=== PATIENT | female | born 1975 | race Caucasian/White ===

== ENCOUNTER → 2017-10-27 14:33 | Outpatient (CLI) | payer OTHER, SELFPAY ==
--- NOTE | 2017-10-27 14:36 | BI_ITS ---
MAMMOGRAPHY - BILATERAL SCREENING REASON FOR EXAM: Female, 41 years old. Routine annual screening examination. PERTINENT HISTORY: Non-contributory. TECHNIQUE: Digital bilateral breast robert (3D mammographic acquisition) in the CC and MLO projections. 2-D mediolateral oblique (MLO) and craniocaudad (CC) views of both breasts were obtained. CAD: Full Field Digital Mammography with Computer Added Detection was performed. COMPARISON: Comparison is made with prior study dated October 12, 2016 and September 24, 2015. FINDINGS: Breast Composition: The breasts are extremely dense, which lowers the sensitivity of mammography. There are no dominant masses or suspicious calcifications. No other significant abnormalities are identified. There has been no significant change since the prior study. BI/SCREENING MAMM (CAD), BILAT IMPRESSION: Stable bilateral screening mammogram. Yearly follow-up mammogram recommended. (A) ASSESSMENT CATEGORY: BIRADS Category 1: Negative. A letter regarding these results will be sent to the patient by the facility within 30 days. Approximately 10% of breast cancers are not detected by mammography. A normal mammogram should not delay biopsy of a clinically suspicious abnormality. [id number] Electronically Signed: Jean Pierre Simmons MD at 15:35 EDT Tel [phone], Service support ,
== END ==
PROVIDERS: Visit Provider Obstetrics & Gynecology
DX: Z12.31 Encounter for screening mammogram for malignant neoplasm of breast (principal)
CPT/HCPCS: 77063; 77067

== ENCOUNTER → 2018-10-30 13:45 | Outpatient (CLI) | payer OTHER, SELFPAY ==
--- NOTE | 2018-10-30 13:48 | BI_ITS ---
MAMMOGRAPHY - BILATERAL SCREENING REASON FOR EXAM: Female, 42 years old. Routine annual screening examination. PERTINENT HISTORY: Non-contributory. TECHNIQUE: Digital bilateral breast taurus (3D mammographic acquisition) in the CC and MLO projections. 2-D mediolateral oblique (MLO) and craniocaudad (CC) views of both breasts were obtained. CAD: Full Field Digital Mammography with Computer Added Detection was performed. COMPARISON: Comparison is made with prior study dated October 27, 2017 and October 12, 2016. FINDINGS: Breast Composition: The breasts are extremely dense, which lowers the sensitivity of mammography. There are no dominant masses or suspicious calcifications. No other significant abnormalities are identified. There has been no significant change since the prior study. BI/SCREEN MAMM (CAD) W/TAURUS BILAT IMPRESSION: Stable bilateral screening mammogram. Yearly follow-up mammogram recommended. (A) ASSESSMENT CATEGORY: BIRADS Category 1: Negative. A letter regarding these results will be sent to the patient by the facility within 30 days. Approximately 10% of breast cancers are not detected by mammography. A normal mammogram should not delay biopsy of a clinically suspicious abnormality. [id number] Electronically Signed: Jean Pierre Simmons, at 15:21 EDT , Service support ,
== END ==
PROVIDERS: Referring Provider Obstetrics & Gynecology; Visit Provider Obstetrics & Gynecology
DX: Z12.31 Encounter for screening mammogram for malignant neoplasm of breast (principal)
CPT/HCPCS: 77063; 77067

== ENCOUNTER → 2020-03-01 08:59 | Outpatient (CLI) | payer OTHER, SELFPAY ==
--- NOTE | 2020-03-01 09:03 | BI_ITS ---
MAMMOGRAPHY - BILATERAL SCREENING REASON FOR EXAM: Female, 44 years old. Routine annual screening examination. PERTINENT HISTORY: Non-contributory. TECHNIQUE: Digital bilateral breast taurus (3D mammographic acquisition) in the CC and MLO projections. 2-D mediolateral oblique (MLO) and craniocaudad (CC) views of both breasts were obtained. CAD: Full Field Digital Mammography with Computer Added Detection was performed. COMPARISON: Comparison is made with prior study dated 10/30/2018 and 10/27/2017. FINDINGS: Breast Composition: The breasts are extremely dense, which lowers the sensitivity of mammography. There are no dominant masses or suspicious calcifications. Stable benign-appearing bilateral axillary lymph nodes. No other significant abnormalities are identified. There has been no significant change since the prior study. BI/SCREEN MAMM (CAD) W/TAURUS BILAT IMPRESSION: Stable bilateral screening mammogram. Yearly follow-up mammogram recommended. (A) ASSESSMENT CATEGORY: BIRADS Category 2: Benign. A letter regarding these results will be sent to the patient by the facility within 30 days. Approximately 10% of breast cancers are not detected by mammography. A normal mammogram should not delay biopsy of a clinically suspicious abnormality. [id number] Electronically Signed: Jean Pierre Simmons, at 8:37 EST , Service support ,
== END ==
PROVIDERS: Referring Provider Student in an Organized Health Care Education/Training Program; Visit Provider Student in an Organized Health Care Education/Training Program
DX: Z12.31 Encounter for screening mammogram for malignant neoplasm of breast (principal)
CPT/HCPCS: 77063; 77067

== ENCOUNTER 2021-05-18 07:53 | Outpatient (CLI) | payer OTHER, SELFPAY ==
--- NOTE | 2021-05-18 07:55 | BI_ITS ---
MAMMOGRAPHY - BILATERAL SCREENING REASON FOR EXAM: Female, 45 years old. Routine annual screening examination. PERTINENT HISTORY: Non-contributory. TECHNIQUE: Digital bilateral breast taurus (3D mammographic acquisition) in the CC and MLO projections. 2-D mediolateral oblique (MLO) and craniocaudad (CC) views of both breasts were obtained. CAD: Full Field Digital Mammography with Computer Added Detection was performed. COMPARISON: Comparison is made with prior study dated 03/01/2020 and 10/30/2018. FINDINGS: Breast Composition: The breasts are extremely dense, which lowers the sensitivity of mammography. There are no dominant masses or suspicious calcifications. Stable small benign-appearing bilateral axillary lymph nodes. No other significant abnormalities are identified. There has been no significant change since the prior study. BI/SCRN MAMM (CAD)W/TAURUS BILAT IMPRESSION: Stable bilateral screening mammogram. Yearly follow-up mammogram recommended. (A) ASSESSMENT CATEGORY: BIRADS Category 2: Benign. A letter regarding these results will be sent to the patient by the facility within 30 days. Approximately 10% of breast cancers are not detected by mammography. A normal mammogram should not delay biopsy of a clinically suspicious abnormality. [id number] Electronically Signed: Jean Pierre Simmons MD at 8:57 EST ,
== END 2021-05-18 23:59 | disposition short-term general hospital (02) ==
LOC: OPBI 07:53
PROVIDERS: Referring Provider Student in an Organized Health Care Education/Training Program; Visit Provider Student in an Organized Health Care Education/Training Program
DX: Z12.31 Encounter for screening mammogram for malignant neoplasm of breast (principal)
CPT/HCPCS: 77063; 77067

== ENCOUNTER 2021-05-25 16:35 | Outpatient (CLI) | payer OTHER, SELFPAY ==
[2021-05-25 17:57] LABS: Thyroid Stim Hormone (TSH) 1.08 uIU/mL (0.358-3.74)
== END 2021-05-25 23:59 | disposition home or self-care (01) ==
PROVIDERS: Visit Provider Student in an Organized Health Care Education/Training Program
DX: R20.3 Hyperesthesia (principal)
CPT/HCPCS: 36415; 84443

== ENCOUNTER → 2022-07-22 | Outpatient (CLI) | payer OTHER, SELFPAY ==
--- NOTE | 2022-07-22 14:23 | US_ITS ---
STUDY: ULTRASOUND BREAST - LEFT REASON FOR EXAM: Female, 46 years old. Pain in the left breast. TECHNIQUE: Axial and longitudinal images of the LEFT breast were performed with a high resolution ultrasound transducer. # OF IMAGES: 25 COMPARISON: Comparison is made with prior mammogram done earlier today. FINDINGS: LEFT Breast: The lateral aspect of the left breast was examined with ultrasound. There is dense fibroglandular tissue. No sonographic abnormality seen. US/Breast Limited Unilateral IMPRESSION: No sonographic abnormality is seen. ASSESSMENT CATEGORY: BIRADS Category 1: Negative. A letter regarding these results will be sent to the patient by the facility within 30 days. Electronically Signed: Jean Pierre Simmons MD at 13:52 EDT ,
--- NOTE | 2022-07-22 14:23 | BI_ITS ---
MAMMOGRAPHY - BILATERAL DIAGNOSTIC REASON FOR EXAM: Female, 46 years old. 3 month history of left breast discomfort. PERTINENT HISTORY: Non-contributory. TECHNIQUE: Digital bilateral breast robert (3D mammographic acquisition) in the CC and MLO projections. 2-D mediolateral oblique (MLO) and craniocaudad (CC) views of both breasts were obtained. CAD: Full Field Digital Mammography with Computer Added Detection was performed. COMPARISON: Comparison is made with prior study dated May 18, 2021 and March 01, 2020. FINDINGS: Breast Composition: The breasts are extremely dense, which lowers the sensitivity of mammography. There are no dominant masses or suspicious calcifications. Stable small benign-appearing bilateral axillary lymph nodes. No other significant abnormalities are identified. There has been no significant change since the prior study. BI/DIAG MAMM W/CAD, BILAT IMPRESSION: Stable bilateral diagnostic mammogram. One year follow-up recommended. (A) ASSESSMENT CATEGORY: BIRADS Category 2: Benign. A letter regarding these results will be sent to the patient by the facility within 30 days. Approximately 10% of breast cancers are not detected by mammography. A normal mammogram should not delay biopsy of a clinically suspicious abnormality. Electronically Signed: Jean Pierre Simmons MD at 8:37 EDT ,
== END | disposition home or self-care (01) ==
PROVIDERS: Visit Provider Student in an Organized Health Care Education/Training Program
DX: N64.4 Mastodynia (principal)
CPT/HCPCS: 76642; 77062; 77066; G0279

== ENCOUNTER → 2022-10-08 | Outpatient (CLI) | payer OTHER, SELFPAY ==
[2022-10-08 15:31] LABS: Absolute Lymphocyte Count 1.72 X10^3/uL (0.83-4.51); Absolute Neutrophil Count 2.4 X10^3/uL (2.0-7.7); Basophil# 0.03 X10^3/uL; Basophil% 0.6 % (0-1); Eosinophil# 0.06 X10^3/uL; Eosinophils% 1.3 % (0-5); Hematocrit 43.3 % (37-47); Hemoglobin 13.9 g/dL (12.0-15.0); Lymphocyte # 1.72 X10^3/ul (0.83-4.51); Lymphocyte % 37.1 % (19-41); Mean Corp Hgb Conc 32.1 g/dL (32-36); Mean Corpuscular Hgb 28.7 pg (27.0-32.0); Mean Corpuscular Volume 89.5 fL (81-99); Mean Platelet Vol. 11.1 fl (6.2-12.0); Monocyte# 0.41 X10^3/uL; Monocyte% 8.9 % (0-10); NRBC Flagged by Analyzer 0 % (0-5); Neutrophil # 2.41 X10^3/uL (2.7-7.7); Neutrophil % 52.1 % (47-70); Platelet Count 305 K/mm3 (150-450); RBC Distribution Width CV 13.2 % (11.6-14.6); RBC Distribution Width SD 43.2 fl (35.1-43.9); Red Blood Count 4.84 M/mm3 (4.2-5.4); White Blood Count 4.6 K/mm3 (4.4-11.0)
[2022-10-08 16:34] LABS: ALB/GLOB Ratio 1.3 RATIO (0.9-2.4); AST(SGOT) 23 U/L (15-37); Alanine Aminotransfer ALT/SGPT 28 U/L (13-56); Albumin, Serum 4.3 g/dL (3.2-5.0); Alkaline Phosphatase 48 U/L (45-117); Anion Gap 8 (5-15); BUN 10 mg/dL (7-18); BUN/Creat Ratio 14.4 RATIO (10-20); Calcium,Total 9.5 mg/dL (8.5-10.1); Chloride 105 mmol/L (98-107); Cholesterol 251 mg/dL (200); Creatinine, Serum 0.69 mg/dL (0.55-1.02); EST Glomerular Filtration Rate 96 mL/min (>60); Est Glom Filt Rate - Afr Amer 116 mL/min (>60); Globulin 3.4 g/dL (2.2-4.2); Glucose 90 mg/dL (74-106); High Density Lipoprotein 60 mg/dL; Potassium 3.7 mmol/L (3.5-5.1); Protein, Total 7.7 g/dL (6.4-8.2); Sodium Level 140 mmol/L (136-145); Triglycerides 71 mg/dL; Very Low Density Lipoprotein 14 mg/dL (5-40)
== END | disposition home or self-care (01) ==
LOC: BIMLAB 11:39
PROVIDERS: PCP Internal Medicine; Referring Provider Internal Medicine; Visit Provider Internal Medicine
DX: Z00.00 Encounter for general adult medical examination without abnormal findings (principal)
CPT/HCPCS: 36415; 80053; 80061; 85025

== ENCOUNTER 2023-02-07 08:55 | Day surgery (SDC) | payer OTHER, SELFPAY ==
[2023-02-07] VITALS (9 sets, daily range): BP systolic 82–116; BP diastolic 42–69; PULSE 50–75; RESP 16–18; TEMP 36.1–36.6; O2SAT 95–100; BMI 24.8
[2023-02-07] MEDS: Lactated Ringers 1,000 ML 15 ML IV (09:16)
--- NOTE | 2023-02-07 09:55 | HP.PCM_ITS ---
HPI - General General Date of Admission: 02/07/23 Date of Service: 02/07/23 Chief Complaint: Screening colonoscopy HPI Narrative GORAN MCGRAW, is a 47 F who presents today for screening colonoscopy. She is never had a colonoscopy in the past. She is in very good health she does not take any medicines on a daily basis. She does not have any chest pain or shortness of breath she denied of any nausea, no vomiting or diarrhea. Overall she is in very good health. [facility] Medical History (Updated 02/02/23 @ 11:32 by Zuleika Albert) Alcohol use Anemia Blood disorder Colon cancer screening History of steroid therapy Hx of Fine's palsy Hyperlipidemia Injury of head and neck Post-menopausal Preventative health care Right lateral epicondylitis Home Medications lactobacillus combination no.9 4 billion cell capsule (Adult 50 Plus Probiotic) 4,000 mmu cells PO DAILY 05/19/22 [History Last Taken Unknown] biotin 5 mg capsule 10 mg PO .THREE TIMES WEEKLY 10/08/22 [History Last Taken Unknown] black cohosh 200 mg capsule 700 mg PO BID 10/08/22 [History Last Taken Unknown] multivitamin (One Daily Multivitamin tablet) 1 tab PO DAILY 10/08/22 [History Last Taken Unknown] polyethylene glycol 3350 17 gram/dose oral powder (Miralax) 2 g PO .4X WEEKLY 10/08/22 [History Last Taken Unknown] Allergy/AdvReac Type Severity Reaction Status Date / Time tetracycline Allergy Intermediate Hives Verified 02/07/23 09:13 Family History (Updated 12/08/22 @ 11:36 by Sri Singh) Mother Arthritis High cholesterol Father Diabetes Hypertension Melanoma Cancer Bone marrow Pulmonary embolism Colon polyp Grandfather Alcoholism Arthritis Diabetes Hypertension Myocardial infarction Grandmother Arthritis History of blood transfusion Diabetes Type 1 Kidney disease Cancer Uterine Uncle Colon cancer Surgical History History of delivery History of hysterectomy History of lateral meniscus repair of left knee Hx of appendectomy Hx of reconstruction of anterior cruciate ligament tear Social History Smoking Status: Never smoker alcohol intake: current alcohol intake frequency: a few times a month substance use type: does not use what type of physical activity do you participate in: walking and running frequency: 5-6 times per week ROS Review of Systems ROS Unobtainable: other Constitutional Constitutional: Denies fatigue, fever(s), poor appetite, weight gain or weight loss ENT HEENT: Denies mouth lesions Cardiovascular Cardiovascular: Denies abdominal bloating, abdominal edema or abdominal pain Respiratory/Chest Respiratory/Chest: Denies change in mental status, change in phlegm color, chest congestion or chest tightness Gastrointestinal Gastrointestinal: Denies belching, bloating, change in bowel habits, change in stool character, chewing difficulty, coffee ground emesis, constipation, cramping, diarrhea, dyspepsia, dysphagia, early satiety, excessive flatus, fecal incontinence, heartburn, hematemesis, hematochezia, hemorrhoids, loose stools, melena, nausea, odynophagia, rectal bleeding, tenesmus, vomiting or weight changes Genitourinary Genitourinary: Denies abdominal discomfort, burning urination or itching Musculoskeletal Musculoskeletal: Reports as per HPI; Denies muscle weakness or myalgias Integumentary Integumentary: Denies jaundice Neurologic Neurologic: Denies lack of coordination or weakness Psychiatric Psychiatric: Denies confusion, depression, memory loss, mood swings, paranoia or suicidal ideation Endocrine Endocrinology: Denies systems reviewed and no addt'l complaints, except as documented Hematologic/Lymphatic Hematologic/Lymphatic: Denies anemia, easy bleeding, easy bruising or lymphadenopathy Allergic/Immunologic Allergic/Immunologic: Denies systems reviewed and no addt'l complaints, except as documented Vital Signs Vital Signs Vital Signs: 02/07/23 09:13 02/07/23 09:13 Temperature 97.8 F Temperature Source Temporal Pulse Rate 75 Respiratory Rate 18 Respiratory Pattern Normal Blood Pressure 116/69 Blood Pressure Mean 84 Blood Pressure Source Monitor Blood Pressure Position Sitting Blood Pressure Location Left Arm Pulse Ox 100 Oxygen Delivery Method Room Air Weight Weight: 158 lb 11.725 oz Body Mass Index (BMI) 24.8 Physical Exam Const alert General Appearance: cooperative Orientation / Consciousness: oriented to person HEENT hearing grossly normal bilaterally Head and Scalp: normal to inspection Face and Sinus: face symmetric Nose: external nose normal Mouth: oral and palatal mucosa normal Eyes conjunctivae normal General Eye: normal appearance of both eyes Neck full ROM General: normal visual inspection Lymph Lymphatic: no lymphadenopathy noted Chest inspection of chest normal and palpation of chest normal Chest: symmetrical chest wall rise Resp normal respiratory effort Effort and Inspection: able to speak in complete sentences Cardio regular rate GI non-distended Percussion: normal to percussion Rectal Exam: deferred Neuro Speech: speech normal Gait (Neuro): normal gait Assessment & Plan Assessment/Plan (1) Colon cancer screening: PLAN: She was explained alternatives, risk, benefits include not withstanding bleeding, infection, sepsis, perforation, need for emergent surgery and . She will have an ASA of 2.
--- NOTE | 2023-02-07 10:23 | OP.CCLET_ITS ---
02/07/2023 Samuel Simms MD [address] [place] [address] [place] [address] Re : Colonoscopy procedure for Lou Camarillo Dear Dr. Simms This procedure was performed on Tuesday, February 07, 2023. My impressions and recommendations are as follows: Impressions : - The entire examined colon is normal. - No specimens collected. Recommendations : - Discharge patient to home. - Resume previous diet. - Continue present medications. - Repeat colonoscopy in 10 years for screening purposes. My findings are described in the full procedure note, which is enclosed. If I can be of further assistance, please feel free to contact me at . Sincerely, Bruno Bass, 02/07/2023 10:23:13 AM This report has been signed electronically.
--- NOTE | 2023-02-07 10:23 | OP.COLON_ITS ---
Patient Name: Lou Camarillo Procedure Date: 02/07/2023 9:54 AM Date of : 1975 Age: 47 Procedure: Colonoscopy Indications: Screening for colorectal malignant neoplasm Providers: Bruno Bass DO Referring MD: Samuel Simms MD Medicines: Monitored Anesthesia Care Patient Profile: This is a 47 year old female. Refer to note in patient chart for documentation of history and physical. Last Colonoscopy: none. The patient's first colonoscopy is today. Complications: No immediate complications. Procedure: Pre-Anesthesia Assessment: - Prior to the procedure, a History and Physical was performed, and patient medications and allergies were reviewed. The patient is competent. The risks and benefits of the procedure and the sedation options and risks were discussed with the patient. All questions were answered and informed consent was obtained. Patient identification and proposed procedure were verified by the physician in the pre-procedure area. Mental Status Examination: alert and oriented. Airway Examination: normal oropharyngeal airway and neck mobility. Respiratory Examination: clear to auscultation. CV Examination: normal. Prophylactic Antibiotics: The patient does not require prophylactic antibiotics. Prior Anticoagulants: The patient has taken no anticoagulant or antiplatelet agents. ASA Grade Assessment: II - A patient with mild systemic disease. After reviewing the risks and benefits, the patient was deemed in satisfactory condition to undergo the procedure. The anesthesia plan was to use monitored anesthesia care (MAC). Immediately prior to administration of medications, the patient was re-assessed for adequacy to receive sedatives. The heart rate, respiratory rate, oxygen saturations, blood pressure, adequacy of pulmonary ventilation, and response to care were monitored throughout the procedure. The physical status of the patient was re-assessed after the procedure. After I obtained informed consent, the scope was passed under direct vision. Throughout the procedure, the patient's blood pressure, pulse, and oxygen saturations were monitored continuously. The colonoscope was introduced through the anus and advanced to the cecum, identified by appendiceal orifice and ileocecal valve. The colonoscopy was performed without difficulty. The patient tolerated the procedure well. The quality of the bowel preparation was good. Scope In: 10:02:33 AM Scope Withdrawal Time 0 hours 7 minutes 29 seconds Scope Out: 10:17:12 AM Total Procedure Duration Time 0 hours 14 minutes 39 seconds Findings: The perianal and digital rectal examinations were normal. The colon (entire examined portion) appeared normal. Impression: - The entire examined colon is normal. - No specimens collected. Recommendation: - Discharge patient to home. - Resume previous diet. - Continue present medications. - Repeat colonoscopy in 10 years for screening purposes. Procedure Code(s): --- Professional --- G0121, Colorectal cancer screening; colonoscopy on individual not meeting criteria for high risk CPT copyright 2021 [employer]. All rights reserved. The codes documented in this report are preliminary and upon bead worker sewing review may be revised to meet current compliance requirements. Bruno Bass DO 02/07/2023 10:23:13 AM This report has been signed electronically. Number of Addenda: 0 Note Initiated On: 02/07/2023 9:54 AM
== END 2023-02-07 11:20 | disposition home or self-care (01) ==
LOC: EN 08:56 → AC 08:57
PROVIDERS: PCP Internal Medicine; Referring Provider Internal Medicine; Visit Provider Internal Medicine Gastroenterology
PROC: 0DJD8ZZ Inspection of Lower Intestinal Tract, Via Natural or Artificial Opening Endoscopic (ICD-10-PCS; CPT 45378; principal; 2023-02-07 09:55)
DX: Z12.11 Encounter for screening for malignant neoplasm of colon (principal); E78.5 Hyperlipidemia, unspecified; Z80.0 Family history of malignant neoplasm of digestive organs
CPT/HCPCS: 45378; J7120; J2405

== ENCOUNTER → 2023-02-16 | Outpatient (CLI) | payer OTHER, SELFPAY ==
[2023-02-16 17:37] LABS: Cholesterol 232 mg/dL (200); High Density Lipoprotein 56 mg/dL; Triglycerides 113 mg/dL; Very Low Density Lipoprotein 23 mg/dL (5-40)
== END | disposition home or self-care (01) ==
LOC: BIMLAB 15:33
PROVIDERS: PCP Internal Medicine; Visit Provider Internal Medicine
DX: E78.5 Hyperlipidemia, unspecified (principal)
CPT/HCPCS: 36415; 80061

== ENCOUNTER → 2023-11-03 | Outpatient (CLI) | payer OTHER, SELFPAY ==
--- NOTE | 2023-11-03 08:43 | BI_ITS ---
MAMMOGRAPHY - BILATERAL SCREENING REASON FOR EXAM: Female, 47 years old. Routine annual screening examination. PERTINENT HISTORY: Non-contributory. TECHNIQUE: Digital bilateral breast taurus (3D mammographic acquisition) in the CC and MLO projections. 2-D mediolateral oblique (MLO) and craniocaudad (CC) views of both breasts were obtained. CAD: Full Field Digital Mammography with Computer Added Detection was performed. COMPARISON: Comparison is made with prior study dated July 22, 2022 and May 18, 2021. FINDINGS: Breast Composition: The breasts are extremely dense, which lowers the sensitivity of mammography. There are no dominant masses or suspicious calcifications. Stable small benign-appearing bilateral axillary lymph nodes. No other significant abnormalities are identified. There has been no significant change since the prior study. BI/SCRN MAMM (CAD)W/TAURUS BILAT IMPRESSION: Stable bilateral screening mammogram. Yearly follow-up mammogram recommended. (A) ASSESSMENT CATEGORY: BIRADS Category 2: Benign. A letter regarding these results will be sent to the patient by the facility within 30 days. Approximately 10% of breast cancers are not detected by mammography. A normal mammogram should not delay biopsy of a clinically suspicious abnormality. [id number] Electronically Signed: Jean Pierre Simmons MD at 10:27 EDT ,
== END | disposition home or self-care (01) ==
LOC: OPBI 08:43
PROVIDERS: PCP Internal Medicine; Referring Provider Internal Medicine; Visit Provider Internal Medicine
DX: Z12.31 Encounter for screening mammogram for malignant neoplasm of breast (principal)
CPT/HCPCS: 77063; 77067

== ENCOUNTER → 2024-12-03 | Outpatient (CLI) | payer OTHER, SELFPAY ==
--- NOTE | 2024-12-03 11:19 | BI_ITS ---
EXAM: SCRN MAMM (CAD)W/TAURUS BILAT DATE: 12/03/2024 CLINICAL HISTORY: F, Age 48 y/o , BREAST CANCER SCREENING TECHNIQUE: SCRN MAMM (CAD)W/TAURUS BILAT COMPARISON: Prior exam(s) dated 11/03/2023, 07/22/2022, and 05/18/2021. FINDINGS: TISSUE DENSITY: The breasts are extremely dense, which lowers the sensitivity of mammography. Bilateral Breast Mammographic Findings: A faint cluster of amorphous and round microcalcifications are seen in the far posterior retroareolar region of the left breast covering an area measuring approximately 11 mm. These are not well appreciated on the MLO view. Further workup is indicated. Benign round microcalcifications are seen elsewhere in the left breast. No suspicious masses, suspicious clustered microcalcifications, architectural distortion or secondary signs of malignancy is identified in the right breast. Benign round microcalcifications are seen in the right breast. BI/SCRN MAMM (CAD)W/TAURUS BILAT IMPRESSION: A faint cluster of amorphous and round microcalcifications are seen in the far posterior retroareolar region of the left breast covering an area measuring approximately 11 mm. These are not well appreciated on the MLO view. Further workup is indicated. Patient should return for an LM view of the left breast as well as spot tay lloyd magnification CC and spot-compression magnification LM views of the left breast microcalcifications. OVERALL FINAL ASSESSMENT BI-RADS 0: INCOMPLETE - NEED ADDITIONAL IMAGING EVALUATION. RECOMMENDATION: Additional Views obtained/call backs A letter with findings and recommendations will be mailed to the patient. Reading Location: [id number]
== END | disposition home or self-care (01) ==
LOC: OPBI 11:10
PROVIDERS: PCP Internal Medicine; Referring Provider Internal Medicine; Visit Provider Internal Medicine
DX: Z12.31 Encounter for screening mammogram for malignant neoplasm of breast (principal)
CPT/HCPCS: 77063; 77067

== ENCOUNTER → 2024-12-06 | Outpatient (CLI) | payer OTHER, SELFPAY ==
--- NOTE | 2024-12-06 08:57 | BI_ITS ---
EXAM: DIAG MAMM W/CAD, UNILAT 12/06/2024 CLINICAL HISTORY: F, Age 48 y/o , ABN MAMM TECHNIQUE: DIAG MAMM W/CAD, UNILAT. Compression magnification views of the left breast were obtained in the mediolateral oblique and craniocaudad views. COMPARISON: Prior exam(s) dated December 03, 2024.. FINDINGS: TISSUE DENSITY: The breasts are extremely dense, which lowers the sensitivity of mammography. Bilateral Breast Mammographic Findings: No significant masses, calcifications or other abnormalities are identified. BI/DIAG MAMM W/CAD, UNILAT IMPRESSION: No suspicious abnormality seen. OVERALL FINAL ASSESSMENT BI-RADS 1: NEGATIVE RECOMMENDATION: Routine annual follow-up in 1 Year A letter with findings and recommendations will be mailed to the patient. Reading Location: [id number]
== END | disposition home or self-care (01) ==
PROVIDERS: PCP Internal Medicine; Referring Provider Internal Medicine; Visit Provider Internal Medicine
DX: R92.8 Other abnormal and inconclusive findings on diagnostic imaging of breast (principal)
CPT/HCPCS: 77065

== ENCOUNTER → 2024-12-31 | Outpatient (CLI) | payer OTHER, SELFPAY ==
[2024-12-31 16:53] LABS: Hematocrit 39.1 % (37-47); Hemoglobin 12.8 g/dL (12.0-15.0); Immature Granulocytes Count 0.010 X10^3/uL (0.0-0.0); Mean Corp Hgb Conc 32.7 g/dL (32-36); Mean Corpuscular Volume 87.7 fL (81-99); Mean Platelet Vol. 10.3 fl (6.2-12.0); NRBC Flagged by Analyzer 0 % (0-5); Platelet Count 281 K/mm3 (150-450); RBC Distribution Width CV 13.1 % (11.6-14.6); RBC Distribution Width SD 42.1 fl (35.1-43.9); Red Blood Count 4.46 M/mm3 (4.2-5.4); White Blood Count 4.6 K/mm3 (4.4-11.0)
[2024-12-31 17:32] LABS: AST(SGOT) 20 U/L (<=31); Alanine Aminotransfer ALT/SGPT 11 U/L (<=34); Albumin, Serum 4.6 g/dL (3.5-5.0); Alkaline Phosphatase 42 U/L (35-104); Anion Gap 11 (5-15); BUN 9 mg/dL (4-19); BUN/Creat Ratio 11.5 RATIO (10-20); Calcium,Total 9.4 mg/dL (7.6-11.0); Carbon Dioxide 23.5 mmol/L (21.0-32.0); Chloride 103 mmol/L (98-108); Globulin 2.8 g/dL (2.2-4.2); Glucose 92 mg/dL (70-99); Potassium 4.0 mmol/L (3.3-5.1)
[2024-12-31 18:12] LABS: Cholesterol 245 mg/dL (<=200); Low Density Lipoprotein Calc. 159 mg/dL; Triglycerides 167 mg/dL; Very Low Density Lipoprotein 33 mg/dL (5-40); cholesterol:hdl ratio screen 4.66
== END | disposition home or self-care (01) ==
LOC: BIMLAB 15:23
PROVIDERS: PCP Internal Medicine; Referring Provider Internal Medicine; Visit Provider Internal Medicine
DX: Z00.00 Encounter for general adult medical examination without abnormal findings (principal)
CPT/HCPCS: 36415; 80053; 80061; 85025

== ENCOUNTER 2025-02-24 08:57 | Emergency (ER) | payer OTHER, SELFPAY ==
[2025-02-24 08:59] VITALS: BP 124/82; PULSE 83; RESP 16; TEMP 36.3; O2SAT 100; BMI 24.3
--- NOTE | 2025-02-24 09:37 | US_ITS ---
PROCEDURE: GALLBLADDER 02/24/2025 REASON FOR EXAM: PAIN RUQ TECHNIQUE: Procedure Code: USGB Modality: US Procedure: GALLBLADDER COMPARISON: None. FINDINGS: LIVER ECHOGENICITY: Normal SIZE: Normal measuring 16.0 cm in length. CONTOUR: Smooth. MASS: None. PORTAL VEIN: Normal direction hepatopetal portal venous flow. GALLBLADDER SIZE: Normal. STONES: None. SLUDGE: None. WALL THICKNESS: Normal measuring 1.9 mm. PERICHOLECYSTIC FLUID: None. SONOGRAPHIC DYKES'S SIGN: Negative. BILE DUCTS: Normal with the CBD measuring 5.2 mm in diameter. PANCREAS: Unremarkable as visualized. The distal pancreas is obscured by overlying bowel gas. RIGHT KIDNEY: Normal size and echogenicity with a length of 11.2 cm. No hydronephrosis, nephrolithiasis, cyst or mass seen. ASCITES/EFFUSIONS: None. OTHER: None. US/Gallbladder IMPRESSION: Unremarkable right upper quadrant abdominal ultrasound. Reading Location: [id number]
--- NOTE | 2025-02-24 09:38 | EDS_ITS ---
HPI HPI - GI History of Present Illness Chief Complaint: Abd Pain Informant: patient and spouse/S.O. Narrative Narrative: Patient is a 49-year-old female presenting with abdominal pain, diarrhea, and nausea. - Symptoms began 4 days ago with diarrhea, abdominal fullness, and indigestion, progressing to burning pain and nausea. - Pain is primarily mid-abdominal, described as a fullness and burning sensation, with a constant feeling of impending emesis without actual vomiting. - Pain intensifies after eating, but is also present when not eating; reports pain as "manageable" currently. - Diarrhea is watery, occurring less than 5 times per day, with darker stools on the first two days; denies hematochezia or melena. - Denies fevers, but reports low-grade temperatures not exceeding 100°F. - Lower back pain noted, attributed to prolonged couch rest; mild intensification of back pain with abdominal pain. - Denies recent alcohol consumption beyond usual intake of one glass of wine every two weeks. - No recent sick contacts, travel, or suspicious food consumption; no recent antibiotic use. - Denies excessive use of anti-inflammatory drugs. - Taking hot-flash medication for several years, but stopped in the last few days due to symptoms. [facility] Medical History Post-menopausal Alcohol use History of steroid therapy Blood disorder Injury of head and neck Hyperlipidemia Colon cancer screening Preventative health care Hx of Fine's palsy Right lateral epicondylitis Anemia Home Medications Medication Instructions Recorded Last Taken Type lactobacillus combination no.9 4 4,000 mmu cells PO DA CHEVY 05/19/22 Unknown History billion cell capsule (Adult 50 Plus Probiotic) black cohosh 200 mg capsule 140 mg PO BID 12/31/24 Unk nown History wlerhlmvfatz-ouahcdyd-uziyah 1 tab PO QDAY 12/31/24 Un known History tablet (Multivitamin 50 Plus tablet) ondansetron 8 mg disintegrating 8 mg PO Q8H PRN nausea and 02/24/25 Unknown Rx tablet vomiting #20 tabs pantoprazole 40 mg tablet,delayed 40 mg PO DAILY #30 t abs 02/24/25 Unknown Rx release sucralfate 1 gram tablet (Carafate) 1 g PO TID 1 week #21 tabs 02/24/25 Unknown Rx Allergy/AdvReac Type Severity Reaction Status Date / Time tetracycline Allergy Intermediate Hives Verified 02/24/25 09:00 Family History Mother Arthritis High cholesterol Father Diabetes Hypertension Melanoma Pulmonary embolism Colon polyp Lewy body dementia Maternal Grandfather Alcoholism Arthritis Diabetes Hypertension Myocardial infarction Grandmother Arthritis History of blood transfusion Diabetes Type 1 Kidney disease Uncle Colon cancer Maternal Grandmother Ovarian cancer Surgical History S/P colonoscopy History of hysterectomy History of delivery History of lateral meniscus repair of left knee Hx of reconstruction of anterior cruciate ligament tear Hx of appendectomy Social History adopted: No household members: spouse number of children: 2 current occupational status: employed 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 pets and animals: No sexually active: Yes Smoking Status: Never smoker alcohol intake: current alcohol intake frequency: a few times a month Alcohol type: wine details: < 3 in 1 sitting substance use type: does not use caffeine: Yes (1-2) Type: coffee what type of physical activity do you participate in: walking and running frequency: 5-6 times per week seatbelt use: always do you feel safe at home: Yes ROS ROS ED Constitutional Constitutional ED: Reports fever(s), malaise and subjective; Denies chills Eyes Eyes: Denies change in vision or diplopia ENT ENT ED: Denies rhinorrhea or sore throat Cardiovascular Cardiovascular: Denies chest pain or palpitations Respiratory/Chest Respiratory/Chest: Denies cough or dyspnea Gastrointestinal Gastrointestinal: Reports abdominal pain, diarrhea and nausea; Denies hemate mesis, hematochezia, melena or vomiting Genitourinary Genitourinary ED: Denies dysuria or hematuria Musculoskeletal Musculoskeletal: Reports back pain; Denies neck pain Integumentary Denies abscess or rash Neurologic Neurologic: Denies headache(s), paresthesias or weakness Psychiatric Psychiatric: Denies anxiety or suicidal thoughts EXAM Physical Exam Const Vital Signs: 02/24/25 08:59 02/24/25 10:58 Temperature 97.4 F L Temperature Source Temporal Pulse Rate 83 61 Respiratory Rate 16 Blood Pressure 124/82 H 142/74 H Blood Pressure Mean 96 96 Pulse Ox 100 100 Oxygen Delivery Method Room Air Room Air Positive well nourished and well developed General Appearance ED: well developed and NAD HEENT Reports moist mucous membranes normocephalic and atraumatic Eyes PERRL and EOMs intact bilaterally Neck full ROM and supple Resp normal respiratory effort and clear to auscultation bilaterally Cardio regular rate, regular rhythm and no murmurs GI non-distended GI Narrative: Tender right upper quadrant negative Santiago's otherwise nontender benign abdomen no pulsatile mass no [place] sign or Armenta Cui sign. Auscultation: normoactive bowel sounds Palpation: soft Back/Spine no CVA tenderness General Back: other FROM Extremity normal to inspection General Extremety ED: Negative for edema, pulses abnormal or tenderness General Extremity: Negative for edema or pulses abnormal Neuro oriented x3, CN's II-XII intact bilaterally and no sensory deficits noted Sensorium / Orientation: awake and alert Motor Exam: strength 5/5 throughout Skin no rashes or lesions noted and no wounds MDM MDM MDM Narrative Medical decision making narrative: Patient presents with acute diarrhea, subjective low-grade fevers, epigastric pain occurring 30 to 60 minutes after eating, nausea with minimal vomiting, and right upper quadrant tenderness, with no tenderness elsewhere. The differential diagnoses include intraluminal disease, such as a possible ulcer due to H. pylori (she has no other risk factors for stomach ulcers), viral gastritis/enteritis, or biliary pathologies such as acute cholecystitis, pancreatitis, or both. We are initiating symptomatic treatment, IV fluids, laboratory tests (including liver enzymes and lipase), and an ultrasound of the right upper quadrant. The patient’s workup is completely normal, including the gallbladder ultrasound. I reviewed the imaging and report, with which I agree. Her labs show no leukocytosis and normal liver enzymes, except for a very slightly elevated AST of 33 (with the high end of normal at 31). In the context of otherwise normal labs, including normal liver enzymes and lipase, I find this unremarkable. Meanwhile, she received IV fluids, Zofran, and Toradol, and has improved—possibly due to the medications, or perhaps because she has not eaten or moved around. At this time, it seems reasonable to treat her as an outpatient for possible intraluminal disease. Given her low-grade fevers, I suspect viral gastritis. I will prescribe pantoprazole for one month and Carafate for one week, along with Zofran as needed. A bland diet is recommended, and she is advised to follow up with her doctor. We discussed indications to return, including intractable s ymptoms such as persistent vomiting, hematemesis, or severe pain, and she is comfortable with this plan. We also discussed the possibility of a CT scan, concluding that it would likely not be beneficial at this time. Lab Data Attestation: I reviewed the patient's lab results. Labs: Laboratory Results - last 24 hr 02/24/25 02/24/25 09:20 10:55 WBC 6.7 RBC 5.23 Hgb 15.1 H Hct 44.8 MCV 85.7 MCH 28.9 MCHC 33.7 RDW Std Deviation 39.1 RDW Coeff of Tres 12.5 Plt Count 299 MPV 10.0 Immature Gran % (Auto) 0.100 Neut % (Auto) 71.0 H Lymph % (Auto) 19.1 Leon % (Auto) 9.1 Eos % (Auto) 0.4 Baso % (Auto) 0.3 Absolute Neuts (auto) 4.8 Absolute Lymphs (auto) 1.29 Nucleated RBC % 0 Sodium 134 Potassium 4.5 Chloride 98 Carbon Dioxide 23.0 Anion Gap 14 BUN 9 Creatinine 0.78 Estim Creat Clear Calc 82.98 Est GFR (MDRD) Non-Af 92 BUN/Creatinine Ratio 11.4 Glucose 100 H Calcium 9.8 Total Bilirubin 0.77 AST 33 H ALT 13 Alkaline Phosphatase 45 Total Protein 8.2 Albumin 4.9 Globulin 3.3 Albumin/Globulin Ratio 1.5 Lipase 24 Urine Color Straw Urine Clarity Clear Urine pH 6.0 Ur Specific [place] 1.010 Urine Protein Negative Urine Glucose (UA) Normal Urine Ketones 50 H Urine Occult Blood Negative Urine Nitrite Negative Urine Bilirubin Negative Urine Urobilinogen Normal Ur Leukocyte Esterase 25 H Radiography Diagnostic Testing: Clinical Impression(s) from Imaging Studies Gallbladder Ultrasound 02/24/25 09:37 IMPRESSION: Unremarkable right upper quadrant abdominal ultrasound. Reading Location: [facility] Discharge Plan Triage Chief Complaint: Abd Pain ED Provider: Chato Montemayor Dx/Rx/DC Orders Clinical Impression: Acute gastritis without bleeding, Acute epigastric pain, Acute diarrhea Instructions: ED Diet, [place] (Adult), ED Gastritis Ulcer No Abx Prescriptions: New sucralfate [Carafate] 1 gram tablet 1 g PO TID 7 Days Qty: 21 0RF ondansetron 8 mg tablet,disintegrating 8 mg PO Q8H PRN (Reason: nausea and vomiting) Qty: 20 0RF pantoprazole 40 mg tablet,delayed release (DR/EC) 40 mg PO DAILY Qty: 30 0RF No Action Adult 50 Plus Probiotic 4 billion cell capsule 4,000 mmu cells PO DAILY black cohosh 200 mg capsule 140 mg PO BID Multivitamin 50 Plus Tablet 1 tab PO QDAY Primary Care Provider: Samuel Simms Referrals: Samuel Simms MD [Primary Care Provider, Internal Medicine] - 1 Week if not improving Activity Restrictions/Additional Instructions: - Take pantoprazole once daily for one month to reduce stomach acid and help your stomach lining heal. - Use Carafate (sucralfate) for one week to coat and protect your stomach lining. - Use Zofran (ondansetron) as needed for nausea. - Follow a bland diet for now (choose low-fat, [id number] foods like bananas, rice, applesauce, and toast). - Drink plenty of clear fluids (water, electrolyte solutions) to stay hydrated. - Return to the emergency department if you develop persistent vomiting, blood in your vomit, or severe, unrelenting abdominal pain. - Follow up with your primary care provider if your symptoms do not improve or if new concerns arise. Print Language: Frisian Disposition Disposition: Home, Self Care
--- OUTSIDE RECORDS SUMMARY | 2025-02-24 09:39 | XMS RPT_ITS | CCD ---
Author Organization [facility] Care Team Providers Care Supervisor Advice Name Role Phone HOLA PATEL Attending Unavailable HOLA PATEL Primary Care Unavailable HOLA PATEL Admitting Unavailable Dr. Drake Cruz Primary Care Provider Dr. Drake Cruz Referring Provider MD Eduardo Galvez Attending Provider Dr. Jeremy Goldberg Attending Provider Dr. Drake Cruz Primary Care Provider Dr. Drake Cruz Referring Provider [phone] Samuel Simms Attending Provider [phone] Dr. Samuel Simms Primary Care Provider [phone] Sri Singh Attending Provider Unavailable Dr. Samuel Simms Referring Provider [phone] Dr. Bruno Bass Attending Provider [phone] FriendDr[address] Carr Other Provider [phone] Samuel Simms Primary Care Provider [phone] Sri Singh Attending Provider Unavailable Dr. Samuel Simms Referring Provider [phone] Dr. Bruno Bass Attending Provider [phone] Dr. Bruno Bass Other Provider Dr. Samuel Simms MD Primary Care Provider Dr. Samuel Simms MD Attending Provider [phone] Dr. Samuel Simms MD Referring Provider [phone] Drake Cruz Primary Care Provider Unavail able YAHAIRATALI Attending Unavailable Mendez BRUNNER, Dr. Baker Primary Care Physician Mendez BRUNNER, Dr. Baker Attending Physician [phone] Oleghe, Efewongbe Referring Unavailable Oleghe, Efewongbe Primary Care Unavailable Oleghe, Efewongbe Attending Unavailable Oleghe, Efewongbe Referring Unavailable Oleghe, Efewongbe Primary Care Unavailable Oleghe, Efewongbe Attending Unavailable Oleghe, Efewongbe Primary Care Unavailable Oleghe, Efewongbe Attending Unavailable Oleghe, Efewongbe Referring Unavailable Oleghe, Efewongbe Referring Unavailable Oleghe, Efewongbe Primary Care Unavailable Oleghe, Efewongbe Attending Unavailable Allergies Allergy Classification Reported Allergen(s) Allergy Type Date of Onset Reaction(s) Facility (11 sources) Tetracycline; Translations: [TETRACYCLINE] Drug Allergy 08-17-2005 U, [facility] Comment on above: 1992 (1 source) Tetracycline Drug Allergy 10-19-2023 [facility] Repository Medications Current Medications Medication Drug Class(es) Dates Sig (Normalized) Sig (Original) Black Cohosh (17 sources) Start: 12-31-2024 take 1 capsule by mo uth twice daily Start: 12-31-2024 take 1 capsule by mo uth twice daily Black Cohosh 200 mg capsule Active 140 mg PO TWICE A DAY December 31, 2024 3:00pm Start: 10-08-2022 End: 12-31-2024 take 1 capsule by mouth twice daily Black Cohosh 200 mg capsule Discontinued 700 mg PO TWICE A DAY October 08, 2022 11:08am December 31, 2024 3:00pm Start: 10-08-2022 take 1 capsule by mo uth twice daily Black Cohosh 200 mg capsule Active 700 mg PO TWICE A DAY October 08, 2022 11:08am Start: 10-08-2022 take 700 mg by mouth twice daily Black Cohosh Active 700 MG PO TWICE A DAY October 08, 2022 10:08am Start: 10-08-2022 take 700 mg by mouth twice daily Black Cohosh Active 700 MG PO TWICE A DAY October 08, 2022 11:08am Start: 05-19-2022 End: 10-08-2022 take 1 capsule by mouth once daily Black Cohosh 200 mg capsule Discontinued 200 mg PO DAILY May 19, 2022 1:00am October 08, 2022 11:09am Start: 05-19-2022 End: 10-08-2022 take 200 mg by mouth once daily Black Cohosh Discontin ued 200 MG PO DAILY May 19, 2022 12:00am October 08, 2022 10:09am Start: 05-19-2022 End: 10-08-2022 take 200 mg by mouth once daily Black Cohosh Discontin ued 200 MG PO DAILY May 19, 2022 1:00am October 08, 2022 11:09am Start: 05-19-2022 take 200 mg by mouth once tucker y Black Cohosh Active 200 MG PO DAILY May 19, 2022 1:00am Calcium (2 sources) Phosphate Binder, Calcium CALCIUM ORAL Take by mouth. Active ibuprofen 800 mg oral tablet (2 sources) Nonsteroidal Anti-inflammatory Drug Start: 09-22-19 take 1 tablet by mouth every eight hours as needed for pain ibuprofen (MOTRIN) 800 mg tablet Indications: Jaw pain , Headache, unspecified headache type Take 1 tablet by mouth every 8 hours as needed (FOR PAIN. TAKE WITH FOOD). 30 tablet 09/21/2018 Active Lactobacillus combination no.8 (ADULT PROBIOTIC ORAL) (2 sources) Lactobacillus combination no.8 (ADULT PROBIOTIC ORAL) Take by mouth. Active Lactobacillus Combination No.9 (Adult 50 Plus Probiotic) 4 billion cell capsule (8 sources) Start: 05-19-19 take 4 capsules by mouth once daily Start: 05-19-2022 take 4 capsules by m outh once daily Lactobacillus Combination No.9 (Adult 50 Plus Probiotic) 4 billion cell capsule Active 4000 NMA PO DAILY May 19, 2022 1:00am Start: 05-19-2022 take 4 capsules by m outh once daily Lactobacillus Combination No.9 (Adult 50 Plus Probiotic) 4 billion cell capsule Active 4000 MMU CELLS PO DAILY May 19, 2022 12:00am Start: 05-19-2022 take 4 capsules by m outh once daily Lactobacillus Combination No.9 (Adult 50 Plus Probiotic) 4 billion cell capsule Active 4000 MMU CELLS PO DAILY May 19, 2022 1:00am Start: 05-19-2022 Lactobacillus Combination No.9 (Adult 50 Plus Probiotic) 4 billion cell capsule Active PO May 19, 2022 1:00am Ikjqzeqsqrlb-Gblczood-Fmopcs (Multivitamin 50 Plus) tablet (2 sources) Start: 12-31-2024 Start: 12-31-2024 Multivitamin-M inerals-Lutein (Multivitamin 50 Plus) tablet Active 1 {tbl} PO daily December 31, 2024 12:00am Irfsxzpnhsfqu-Lbywpvhg-Unjxb n (MULTIVITAMIN 50 PLUS) tab (2 sources) Multivitamins-Mi nerals-Lutein (MULTIVITAMIN 50 PLUS) tab 1 tablet once daily. Active OTC PRODUCT (2 sources) take 140 mg by mouth once daily OTC PRODUCT Take 140 mg by mouth once daily. Active Potassium (2 sources) POTASSIUM ORAL T guru by mouth. Active VITAMIN B COMPLEX ORAL (2 sources) VITAMIN B COMPLE X ORAL Take by mouth. Active Completed/Discontinued Medications Medication Drug Class(es) Dates Sig (Normalized) Sig (Original) biotin 5 mg oral capsule (20 sources) Start: 10-08-2022 End: 12-31-2024 take 2 capsules by mouth three times weekly Biotin 5 mg capsule Discontinued 10 mg PO .THREE TIMES WEEKLY October 08, 2022 11:13am December 31, 2024 2:59pm Start: 10-08-2022 take 10 mg by mouth three times weekly Biotin Active 10 MG PO .THREE TIMES WEEKLY October 08, 2022 10:13am Start: 10-08-2022 End: 10-08-2022 take 2 capsules by mouth once daily Biotin 5 mg capsule Discontinued 10 mg PO DAILY October 08, 2022 11:08am October 08, 2022 11:14am Start: 10-08-2022 End: 10-08-2022 take 10 mg by mouth once daily Biotin Discontinued 10 MG PO DAILY October 08, 2022 10:08am October 08, 2022 10:14am Start: 05-19-2022 End: 10-08-2022 take 1 capsule by mouth once daily Biotin 5 mg capsule Discontinued 5 mg PO DAILY May 19, 2022 1:00am October 08, 2022 11:09am Multivitamin (One Daily Multivitamin) tablet (7 sources) Start: 10-08-2022 End: 12-31-2024 take 1 tablet by mouth once daily Multivitamin (One Daily Multivitamin) tablet Discontinued 1 {tbl} PO DAILY October 08, 2022 12:00am December 31, 2024 3:00pm Start: 10-08-2022 take 1 tablet by guzman th once daily Multivitamin (One Daily Multivitamin) tablet Active 1 {tbl} PO DAILY October 08, 2022 12:00am Start: 10-08-2022 take 1 tablet by guzman th once daily Multivitamin (One Daily Multivitamin) tablet Active 1 TABLET PO DAILY October 07, 2022 11:00pm Start: 10-08-2022 take 1 tablet by guzman th once daily Multivitamin (One Daily Multivitamin) tablet Active 1 TABLET PO DAILY October 08, 2022 12:00am polyethylene glycol 3350 87302 mg powder for oral solution (7 sources) Osmotic Laxative Start: 10-08-2022 End: 10-19-2023 Polyethylene Glycol 3350 (Miralax) 17 gram/dose powder Discontinued 2 g PO .4X WEEKLY October 08, 2022 12:00am October 19, 2023 5:57pm Start: 10-08-2022 Polyethylene G lycol 3350 (Miralax) 17 gram/dose powder Active 2 GM PO DAILY October 08, 2022 12:00am predniSONE 10 mg oral tablet (8 sources) Start: 11-28-2021 End: 05-19-2022 Prednisone 10 mg tablet Discontinued 10 mg PO .COMPLEX 30 0 November 28, 2021 12:00am May 19, 2022 2:03pm Take 4 pills for 3 days, 3 pills for 3 days, 2 pills for 3 days, take 1 pill for 3 days Problems Active Problems Problem Classification Problem Date Documented Date Episodic/Chronic Allergic reactions (8 sources) Contact dermatitis due to poison adrianne; Translations: [Allergic contact dermatitis due to plants, except food] 11-28-2021 Episodic Disorders of lipid metabolism (7 sources) Hyperlipidemia; Translations: [Hyperlipidemia, unspecified] 10-20-2022 Chronic Other connective tissue disease (8 sources) Lateral epicondylitis of right humerus; Translations: [Lateral epicondylitis, right elbow] 05-19-2022 Episodic Other connective tissue disease (1 source) Lateral epicondylitis, right elbow; Translations: [Lateral epicondylitis] 05-19-2022 Episodic Other female genital disorders (2 sources) Pain in female genitalia on intercourse; Translations: [Unspecified dyspareunia] 12-24-2024 Chronic Other female genital disorders (1 source) Unspecified dyspareunia; Translations: [Dyspareunia in female] Onset: 12-24-2024 Chronic Other screening for suspected conditions (not mental disorders or infectious disease) (14 sources) Patient encounter status; Translations: [Encounter for screening for malignant neoplasm of colon] Onset: 12-07-2024 10-08-2022 Episodic Other upper respiratory infections (2 sources) Acute pharyngitis, unspecified; Translations: [Acute pharyngitis, unspecified] Onset: 03-28-2020 Episodic Unclassified (1 source) COVID-19; Translations: [COVID-19] Onset: 03-28-2020 Past or Other Problems Problem Classification Problem Date Documented Da te Episodic/Chronic Unclassified (2 sources) Patient encounter status 12-24-2024 Results Test Name Value Interpretation Reference Range Facility Absolute lymphocyte countOrd ered By: Samuel Simms on 12-31-2024 Lymphocytes Auto (Unsp spec) [#/Vol] 1.84 10*3/uL 0.83-4.51 [facility] Absolute neutrophil countOrd ered By: Samuel Simms on 12-31-2024 Neutrophils (Bld) [#/Vol] 2.3 10*3/uL 2.0-7.7 [facility] Anion gap in Serum or Plasma Ordered By: Samuel Simms on 12-31-2024 Anion gap [Moles/Vol] 11 mmol/L - [facility] Automated lymphocyte count a s percentage of total leukocytesOrdered By: Samuel Simms on 12-31-2024 Lymphocytes/100 WBC Auto (Unsp spec) 40.0 % [facility] BUN/creatinine ratioOrdered By: Samuel Simms on 12-31-2024 Urea nitrogen/Creatinine [Mass ratio] 11.5 mg/mg - [facility] Basophil percentageOrdered B y: Samuel Simms on 12-31-2024 Basophils/100 WBC (Bld) 0.4 % 0-1 [facility] Bilirubin, totalOrdered By: Samuel Raymya on 12-31-2024 Bilirubin [Mass/Vol] 0.29 mg/dL 0.00-1.30 [facility] CBC W/Diff, Automatedon 12-17 Absolute Lymph 1.84 X10 3/uL Normal 0.83-4.51 [facility] Comment on above: Performed By: #### L 100.0100, L500.4100, L500.4050 #### [facility] [address] [place], [address] Absolute Neut 2.3 X10 3/uL Normal 2.0-7.7 [facility] Comment on above: Performed By: #### L 100.0100, L500.4100, L500.4050 #### [facility] [address] [place], [address] Basophils/100 WBC (Bld) 0.4 % Normal 0-1 [facility] Comment on above: Performed By: #### L 100.0100, L500.4100, L500.4050 #### [facility] [address] [place], [address] Eosinophils/100 WBC (Bld) 1.3 % Normal 0-5 [facility] Comment on above: Performed By: #### L 100.0100, L500.4100, L500.4050 #### [facility] [address] [place], [address] Erythrocyte distribution width (RBC) [Ratio] 13.1 % Normal 11.6-14.6 [facility] Comment on above: Performed By: #### L 100.0100, L500.4100, L500.4050 #### [facility] [address] [place], [address] Hematocrit (Bld) [Volume fraction] 39.1 % Normal 37-47 [facility] Comment on above: Performed By: #### L 100.0100, L500.4100, L500.4050 #### [facility] [address] [place], [address] Hemoglobin (Bld) [Mass/Vol] 12.8 g/dL Normal 12.0-15.0 [facility] Comment on above: Performed By: #### L 100.0100, L500.4100, L500.4050 #### [facility] [address] [place], [address] IG% 0.200 Normal 0.0-0.9 [facility] Comment on above: Result Comment: IG% - Immature Granulocytes (promyelocytes, myelocytes and metamyelocytes) > 1% indicates that a LEFT SHIFT is Present. Performed By: #### L 100.0100, L500.4100, L500.4050 #### [facility] [address] [place], [address] Lymphocytes/100 WBC (Bld) 40.0 % Normal 19-41 [facility] Comment on above: Performed By: #### L 100.0100, L500.4100, L500.4050 #### [facility] [address] [place], [address] MCH (RBC) [Entitic mass] 28.7 pg Normal 27.0-32.0 [facility] Comment on above: Performed By: #### L 100.0100, L500.4100, L500.4050 #### [facility] [address] [place], [address] MCHC (RBC) [Mass/Vol] 32.7 g/dL Normal 32-36 [facility] Comment on above: Performed By: #### L 100.0100, L500.4100, L500.4050 #### [facility] [address] [place], [address] MCV (RBC) [Entitic vol] 87.7 fL Normal 81-99 [facility] Comment on above: Performed By: #### L 100.0100, L500.4100, L500.4050 #### [facility] [address] [place], [address] Monocytes/100 WBC (Bld) 8.9 % Normal 0-10 [facility] Comment on above: Performed By: #### L 100.0100, L500.4100, L500.4050 #### [facility] [address] [place], [address] Neutrophils/100 WBC (Bld) 49.2 % Normal 47-70 [facility] Comment on above: Performed By: #### L 100.0100, L500.4100, L500.4050 #### [facility] [address] [place], [address] Nucleated RBC (Bld) [#/Vol] 0 10*3/uL Normal 0-5 [facility] Comment on above: Performed By: #### L 100.0100, L500.4100, L500.4050 #### [facility] [address] [place], [address] Platelet mean volume (Bld) [Entitic vol] 10.3 fL Normal 6.2-12.0 [facility] Comment on above: Performed By: #### L 100.0100, L500.4100, L500.4050 #### [facility] [address] [place], [address] Platelets (Bld) [#/Vol] 281 10*3/uL Normal 150-450 [facility] Comment on above: Performed By: #### L 100.0100, L500.4100, L500.4050 #### [facility] [address] [place], [address] RBC (Bld) [#/Vol] 4.46 10*6/uL Normal 4.2-5.4 [facility] Comment on above: Performed By: #### L 100.0100, L500.4100, L500.4050 #### [facility] [address] [place], [address] RDW SD 42.1 fl Normal 35.1-43.9 [facility] Comment on above: Performed By: #### L 100.0100, L500.4100, L500.4050 #### [facility] [address] [place], [address] WBC (Bld) [#/Vol] 4.6 10*3/uL Normal 4.4-11.0 [facility] Comment on above: Performed By: #### L 100.0100, L500.4100, L500.4050 #### [facility] [address] [place], [address] Calculated very low density lipoprotein (VLDL) cholesterol measurementOrdered By: Samuel Simms on 12-31-2024 Calculated very low density lipoprotein (VLDL) cholesterol measurement 33 mg/dL 5-40 [facility] Carbon dioxide, total [Moles /volume] in Central venous bloodOrdered By: Samuel Simms on 12-31-2024 CO2 [Moles/Vol] 23.5 mmol/L 21.0-32.0 [facility] Chloride assayOrdered By: Geraldine Simms on 12-31-2024 Chloride [Moles/Vol] 103 mmol/L 98-108 [facility] Comprehensive Metabolic Prof ilon 12-31-2024 Albumin [Mass/Vol] 4.6 g/dL Normal 3.5-5.0 [facility] Comment on above: Performed By: #### L 100.0100, L500.4100, L500.4050 #### [facility] [address] [place], [address] Albumin/Globulin [Mass ratio] 1.6 {ratio} Normal 0.9-2.4 [facility] Comment on above: Performed By: #### L 100.0100, L500.4100, L500.4050 #### [facility] [address] [place], [address] ALK PHOS 42 U/L Normal 35-104 [facility] Comment on above: Performed By: #### L 100.0100, L500.4100, L500.4050 #### [facility] [address] [place], [address] ALT [Catalytic activity/Vol] 11 U/L Normal <=34 [facility] Comment on above: Performed By: #### L 100.0100, L500.4100, L500.4050 #### [facility] [address] [place], [address] AST [Catalytic activity/Vol] 20 U/L Normal <=31 [facility] Comment on above: Performed By: #### L 100.0100, L500.4100, L500.4050 #### [facility] [address] [place], [address] Bilirubin [Mass/Vol] 0.29 mg/dL Normal 0.00-1.30 [facility] Comment on above: Performed By: #### L 100.0100, L500.4100, L500.4050 #### [facility] [address] [place], [address] BUN/CRE 11.5 RATIO Normal 10-20 [facility] Comment on above: Performed By: #### L 100.0100, L500.4100, L500.4050 #### [facility] [address] [place], [address] Calcium [Mass/Vol] 9.4 mg/dL Normal 7.6-11.0 [facility] Comment on above: Performed By: #### L 100.0100, L500.4100, L500.4050 #### [facility] [address] [place], [address] Chloride [Moles/Vol] 103 mmol/L Normal 98-108 [facility] Comment on above: Performed By: #### L 100.0100, L500.4100, L500.4050 #### [facility] [address] [place], [address] CO2 [Moles/Vol] 23.5 mmol/L Normal 21.0-32.0 [facility] Comment on above: Performed By: #### L 100.0100, L500.4100, L500.4050 #### [facility] [address] [place], [address] Creatinine [Mass/Vol] 0.77 mg/dL Normal 0.70-1.20 [facility] Comment on above: Performed By: #### L 100.0100, L500.4100, L500.4050 #### [facility] [address] [place], [address] GAP 11 Normal 5-15 [facility] Comment on above: Performed By: #### L 100.0100, L500.4100, L500.4050 #### [facility] [address] [place], [address] GFR/1.73 sq M.predicted among non-blacks MDRD (S/P/Bld) [Vol rate/Area] 93 mL/min/{1.73_m2} Normal >60 [facility] Comment on above: Result Comment: mL/m in/1.73m2 CKD-EPI Creatinine Equation (2020) Performed By: #### L 100.0100, L500.4100, L500.4050 #### [facility] [address] [place], [address] Globulin (S) [Mass/Vol] 2.8 g/dL Normal 2.2-4.2 [facility] Comment on above: Performed By: #### L 100.0100, L500.4100, L500.4050 #### [facility] [address] [place], [address] Glucose [Mass/Vol] 92 mg/dL Normal 70-99 [facility] Comment on above: Performed By: #### L 100.0100, L500.4100, L500.4050 #### [facility] [address] [place], [address] Potassium [Moles/Vol] 4.0 mmol/L Normal 3.3-5.1 [facility] Comment on above: Performed By: #### L 100.0100, L500.4100, L500.4050 #### [facility] [address] [place], [address] Sodium [Moles/Vol] 138 mmol/L Normal 133-145 [facility] Comment on above: Performed By: #### L 100.0100, L500.4100, L500.4050 #### [facility] [address] [place], [address] T PROT 7.4 g/dL Normal 5.9-8.4 [facility] Comment on above: Performed By: #### L 100.0100, L500.4100, L500.4050 #### [facility] [address] [place], [address] Urea nitrogen [Mass/Vol] 9 mg/dL Normal 4-19 [facility] Comment on above: Performed By: #### L 100.0100, L500.4100, L500.4050 #### [facility] [address] [place], [address] Eosinophil percentageOrdered By: Samuel Simms on 12-31-2024 Eosinophils/100 WBC (Bld) 1.3 % 0-5 [facility] Erythrocyte distribution wid th ratioOrdered By: Samuel Simms on 12-31-2024 Erythrocyte distribution width (RBC) [Ratio] 13.1 % 11.6-14.6 [facility] Erythrocyte distribution wid th standard deviationOrdered By: Samuel Simms on 12-31-2024 Erythrocyte distribution width (RBC) [Ratio] 42.1 fl 35.1-43.9 [facility] Glomerular filtration rate ( GFR) estimation/1.73 sq m using serum, plasma, or whole bOrdered By: Samuel Simms on 12-31-2024 GFR/1.73 sq M.predicted among non-blacks MDRD (S/P/Bld) [Vol rate/Area] 93 mL/min/{1.73_m2} >60 [facility] Comment on above: mL/min/1.73m2 CKD-EP I Creatinine Equation (2020) Hematocrit Auto (Bld) [Volum e fraction]Ordered By: Samuel Simms on 12-31-2024 Hematocrit (Bld) [Volume fraction] 39.1 % 37-47 [facility] Hemoglobin measurementOrdere d By: Samuel Simms on 12-31-2024 Hemoglobin (Bld) [Mass/Vol] 12.8 g/dL 12.0-15.0 [facility] Immature granulocytes/100 WB C Auto (Bld)Ordered By: Samuel Simms on 12-31-2024 Immature granulocytes/100 WBC (Bld) 0.200 % 0.0-0.9 [facility] Comment on above: IG% - Immature Granu locytes (promyelocytes, myelocytes and metamyelocytes) > 1% indicates that a LEFT SHIFT is Present. Internal Medicine Office Vis itomariza 12-31-2024 Internal Medicine Office Visit [facility] [address] [place] [address] [place] [address] OFFICE VISIT Date of Service: 12/31/24 MR#: [id number] Acct: [id number] Name: LOU MCGRAW Rep #: [id number] : 1975 Provider: Dr. 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 Required: No Is patient in pain?: No Allergies tetracycline Allergy (Intermediate, Verified 10/19/23 17:54) Hives Medications ???Medication ???Instructions ???Recorded ???Confirmed ???Type lactobacillus combination no.9 4 4,000 mmu cells PO DAILY 05/19/22 10/19/23 History billion cell capsule (Adult 50 Plus Probiotic) black cohosh 200 mg capsule 140 mg PO BID 12/31/24 12/31/24 Hi story multivitamin-minerals- lutein 1 tab PO QDAY 12/31/24 12/31/24 Hi story tablet (Multivitamin 50 Plus tablet) PFSH Medical History Post-menopausal Alcohol use History of steroid therapy Blood disorder Injury of head and neck Hyperlipidemia Colon cancer screening Preventative health care Hx of Fine's palsy Right lateral epicondylitis Anemia Surgical History (Updated 12/31/24 @ 15:02 by Zaira Nascimento MA) S/P colonoscopy History of hysterectomy History of delivery History of lateral meniscus repair of left knee Hx of reconstruction of anterior cruciate ligament tear Hx of appendectomy Family History (Updated 12/31/24 @ 15:04 by Zaira Nascimento MA) Mother Arthritis High cholesterol Father Diabetes Hypertension Melanoma Pulmonary embolism Colon polyp Lewy body dementia Maternal Grandfather Alcoholism Arthritis Diabetes Hypertension Myocardial infarction Grandmother Arthritis History of blood transfusion Diabetes Type 1 Kidney disease Uncle Colon cancer Maternal Grandmother Ovarian cancer Social History (Updated 12/31/24 @ 15:06 by Zaira Nascimento MA) adopted: No household members: spouse number of children: 2 current occupational status: employed 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 Here for her yearly visit. Has been relatively stable since her last visit. New family history of Lewy body dementia in her father. Does come with some added stressors but otherwise has been relatively stable. Recent mammogram with some abnormality necessitating a diagnostic mammogram which came back without any concerns and recommendation is for repeat in a year. Up-to-date with colon cancer screening and follow-up with dermatology. Stays active. Due to recent stressors sleep has been impaired but overall, she feels well. No tobacco or alcohol abuse. Attestation: Documentation on this patient encounter was supported using ambient scribe technology/ voice AI technology. The patient consented to recording for the purpose of documenting the encounter. Provider reviewed content of the generated note prior to signature. ROS Const Constitutional: No body ache, chills, excessive sweating, fatigue, fever(s), frequent falls, headache(s), snoring, weakness, sleep problems or change in appetite Eyes Eyes: No blurry vision, change in vision, vision loss, dry eyes, eye pain or Light sensitivity ENT ENT: No abnormal hearing, ear or mastoid pain, tinnitus, nasal congestion, headache(s), neck pain or sore throat Resp Respiratory: No cough, shortness of breath, snoring or wheezing Cardio Cardiology: No chest pain at rest, chest pain with exertion, excessive sweating, shortness of breath, dyspnea on exertion, lightheadedness, orthopnea or palpitations Gastro GI: No abdominal pain, change in bowel habits, constipation, cramping, diarrhea, nausea/dyspepsia or vomiting Genitourinary-Female: No burning urination, painful urination, urinary incontinence, urinary (more content not included)... Normal [facility] LDL calc ser/plasOrdered By: Samuel Simms on 12-31-2024 Cholesterol in LDL [Mass/Vol] 159 mg/dL [facility] Comment on above: Lhionznziw=923-471 m g/dL & Higher Vnms=074 mg/dL or greaterFriedwald Equation for LDL-C Laboratory - Chemistry and C hemistry - challengeOrdered By: Samuel Simms on 12-31-2024 AST [Catalytic activity/Vol] 20 U/L <32 [facility] Lipid Profileon 12-31-2024 CHOL:HDL 4.66 Normal [facility] Comment on above: Performed By: #### L 100.0100, L500.4100, L500.4050 #### [facility] [address] [place], [address] Cholesterol [Mass/Vol] 245 mg/dL High <=200 [facility] Comment on above: Result Comment: Chol esterol level, Desirable <200 mg/dL Borderline high cholesterol 200-239 mg/dL High cholesterol >=240 mg/dL Recommendations of the NCEP Adult Treatment Panel for the following risk-cutoff thresholds for the [place] population. Performed By: #### L 100.0100, L500.4100, L500.4050 #### [facility] [address] [place], [address] Cholesterol in HDL [Mass/Vol] 53 mg/dL Normal [facility] Comment on above: Result Comment: Akiko onal Cholesterol Education Program (NCEP) guidelines: <40 mg/dL: Low HDL-cholesterol (major risk factor for CHD) >= 60 mg/dL: High HDL-cholesterol (negative risk factor for CHD) HDL-cholesterol is affected by a number of factors, e.g. smoking, exercise, hormones, sex and age. Performed By: #### L 100.0100, L500.4100, L500.4050 #### [facility] [address] [place], [address] Cholesterol in LDL [Mass/Vol] 159 mg/dL Normal [facility] Comment on above: Result Comment: Bord mnpatw=700-537 mg/dL Higher Yupy=390 mg/dL or greater Friedwald Equation for LDL-C Performed By: #### L 100.0100, L500.4100, L500.4050 #### [facility] [address] [place], [address] Cholesterol in VLDL [Mass/Vol] 33 mg/dL Normal 5-40 [facility] Comment on above: Performed By: #### L 100.0100, L500.4100, L500.4050 #### [facility] [address] [place], [address] Triglyceride [Mass/Vol] 167 mg/dL Normal [facility] Comment on above: Result Comment: The drugs N-Acetylcysteine and Metamizole may falsely depress this assay. Normal range: <150 mg/dL Borderline High: 150-199 mg/dL High: 200-499 mg/dL Very High: >500 mg/dL Performed By: #### L 100.0100, L500.4100, L500.4050 #### [facility] [address] [place], [address] MCV (mean corpuscular volume ) determinationOrdered By: Samuel Simms on 12-31-2024 MCV (RBC) [Entitic vol] 87.7 fL 81-99 [facility] Mean corpuscular hemoglobin (MCH) determinationOrdered By: Samuel Simms on 12-31-2024 MCH (RBC) [Entitic mass] 28.7 pg 27.0-32.0 [facility] Mean corpuscular hemoglobin concentration (MCHC) determinationOrdered By: Efmirna Simms on 12-31-2024 MCHC (RBC) [Mass/Vol] 32.7 g/dL 32-36 [facility] Mean platelet volume determi nationOrdered By: Samuel Simms on 12-31-2024 Platelet mean volume (Bld) [Entitic vol] 10.3 fL 6.2-12.0 [facility] Monocyte percentageOrdered B y: Samuel Simms on 12-31-2024 Monocytes/100 WBC (Bld) 8.9 % 0-10 [facility] Neutrophil percentageOrdered By: Samuel Simms on 12-31-2024 Neutrophils/100 WBC (Bld) 49.2 % 47-70 [facility] Nucleated red blood cell per centageOrdered By: Samuel Simms on 12-31-2024 Nucleated RBC/100 WBC (Bld) [Ratio] 0 % 0-5 [facility] Platelet countOrdered By: Geraldine Simms on 12-31-2024 Platelets (Bld) [#/Vol] 281 10*3/uL 150-450 [facility] Potassium measurement (mass/ volume)Ordered By: Samuel Simms on 12-31-2024 Potassium (Unsp spec) [Mass/Vol] 4.0 mmol/L 3.3-5.1 [facility] RBC Auto (Bld) [#/Vol]Ordere d By: Samuel Simms on 12-31-2024 RBC (Bld) [#/Vol] 4.46 10*6/uL 4.2-5.4 [facility] Screening total cholesterol/ high density lipoprotein (HDL) cholesterol ratioOrdered By: Samuel Simms on 12-31-2024 Cholesterol.total/Choles terol in HDL [Mass ratio] 4.66 {ratio} [facility] Serum creatinine measurement (mass/volume)Ordered By: Samuel Simms on 12-31-2024 Creatinine [Mass/Vol] 0.77 mg/dL 0.70-1.20 [facility] Serum globulin measurementOr dered By: Samuel Simms on 12-31-2024 Globulin (S) [Mass/Vol] 2.8 g/dL 2.2-4.2 [facility] Serum glucose measurement (m ass/volume)Ordered By: Samuel Simms on 12-31-2024 Glucose [Mass/Vol] 92 mg/dL 70-99 [facility] Serum or plasma alanine myers otransferase (ALT) measurementOrdered By: Samuel Simms on 12-31-2024 ALT [Catalytic activity/Vol] 11 U/L <35 [facility] Serum or plasma albumin jude urement (mass/volume)Ordered By: Geraldinejeraldbendenisse Raylindsaybárbara on 12-31-2024 Albumin [Mass/Vol] 4.6 g/dL 3.5-5.0 [facility] Serum or plasma albumin/glob ulin mass ratioOrdered By: denisse Corylindsay12-31-2024 Albumin/Globulin [Mass ratio] 1.6 {ratio} 0.9-2.4 [facility] Serum or plasma alkaline abdirizak sphatase measurementOrdered By: denisse Raylindsay12-31-2024 ALP [Catalytic activity/Vol] 42 U/L 35-104 [facility] Serum or plasma calcium jude urement (mass/volume)Ordered By: Naomidenisse Raymya 12-31-2024 Calcium [Mass/Vol] 9.4 mg/dL 7.6-11.0 [facility] Serum or plasma cholesterol in HDL measurement (mass/volume)Ordered By: [facility] Rayb[facility]bara 12-31-2024 Cholesterol in HDL [Mass/Vol] 53 mg/dL >40 [facility] Comment on above: National Cholesterol Education Program (NCEP) guidelines:<40 mg/dL: Low HDL-cholesterol (major risk factor for CHD)>= 60 mg/dL: High HDL-cholesterol (negative risk factor for CHD)HDL-cholesterol is affected by a number of factors, e.g. smoking, exercise, hormones, sex and age. Serum or plasma cholesterol measurement (mass/volume)Ordered By: [facility] Raylindsaybárbara 12-31-2024 Cholesterol [Mass/Vol] 245 mg/dL High <201 [facility] Comment on above: Cholesterol level, D esirable <200 mg/dLBorderline high cholesterol 200-239 mg/dLHigh cholesterol >=240 mg/dLRecommendations of the NCEP Adult Treatment Panel for the following risk-cutoff thresholds for the [place] population. Serum or plasma urea nitroge n measurement (mass/volume)Ordered By: Geraldinemirna Raylindsaybárbara 12-31-2024 Urea nitrogen [Mass/Vol] 9 mg/dL 4-19 [facility] Sodium levelOrdered By: Geraldinejerald zakia Corylindsaybárbara 12-31-2024 Sodium [Moles/Vol] 138 mmol/L 133-145 [facility] Total proteinOrdered By: Brayan galvan Mendez on 12-31-2024 Protein [Mass/Vol] 7.4 g/dL 5.9-8.4 [facility] Triglycerides measurementOrd ered By: Samuel Corylindsaybárbara on 12-31-2024 Triglyceride [Mass/Vol] 167 mg/dL <199 [facility] Comment on above: The drugs N-Acetylcy steine and Metamizole may falsely depress this assay. Normal range: <150 mg/dLBorderline High: 150-199 mg/dLHigh: 200-499 mg/dLVery High: >500 mg/dL White blood cell (WBC) count Ordered By: Rosebendenisse Simms on 12-31-2024 WBC (Bld) [#/Vol] 4.6 10*3/uL 4.4-11.0 [facility] CNOVon 12-24-2024 CNOV Office Visit (OBGYWM ) LOU MCGRAW ([id number]) 1975 F Date Time Provider Department 12/24/24 9:40 AM TALI SYED OBBRITNEY During your visit today, we recorded the following information about you: Blood pressure Weight Height 108/70 70.8 kg 1.68 m Tali Syed MD 12/24/2024 12:55 PM Signed Bulk Sealer offered: Patient declines. Blake is a 49 year old who presents for an annual gynecologic exam without complaints. Dyspareunia that has been chronic. Tried vaginal estrogen cream in past for several months. H/o TVH for uterine fibroids and menorrhagia. Ovaries remain. Benign pathology per patient Postmenopausal: Uncertain. History of hysterectomy HRT use: No. Still get period: No Menopause symptoms: Hot flashes; Night sweats; Vaginal dryness x 8 years. Taking Black Cohosh Time with current partner: 28 years Number of lifetime partners: 1 control frequency: Never HPV vaccine: No; Last pap smear: 04/18/2012 History of abnormal pap: No, all prior PAP smears have been normal Bothersome pelvic pain: No Last mammogram: 2024 normal History of abnormal mammogram: Yes normal after additional imaging Colonoscopy with Dr. Bass OB History No obstetric history on file. 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/02/2010, Hysterectomy Age at Menarche: 9 Age at First : Age at Menopause: 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 Comments: Sexual Activity: Yes; Male Contraception: None PAST MEDICAL HISTORY Diagnosis Date ACL injury tear R knee --college softball injury Coitus painful for female My whole life Herpes simplex virus (HSV) infection Mouth sores only Meniscus tear R knee--college softball injury Postcoital bleeding Uterine fibroid 2009 PAST SURGICAL HISTORY Procedure Laterality Date APPENDECTOMY 04/18/1975 SECTION HX x2 VAGINAL HYSTERECTOMY UTERUS 250 GM/< 04/18/2011 FAMILY HISTORY Problem Relation Age of Onset None Mother Hypertension Father Lipids Father Ovarian cancer Maternal Grandmother 50 - 59 SOCIAL HISTORY Social History Tobacco Use Smoking status: Never Smokeless tobacco: Never Vaping Use Vaping status: Never Used Substance Use Topics Alcohol use: No Drug use: No REVIEW OF SYSTEMS Abdomen: No abdominal pain, nausea, vomiting, diarrhea, or constipation. Bladder: No dysuria, gross hematuria, urinary frequency, urinary urgency, or incontinence Breast: No breast lumps, nipple d/c, overlying skin changes, redness or skin retraction Allergies and current medication updated:Yes SENSITIVE EXAM: The sensitive examination was discussed with the Patient or Patient's Authorized Deputy Building Guard. As applicable, any other physician, advance practice provider, medical student, or other health professional student that will be observing or involved in the sensitive examination for educational or training purposes was discussed with the Patient or Authorized Deputy Building Guard. The Patient or Authorized Deputy Building Guard has agreed to proceed with the sensitive examination. (Sensitive examination includes inspection and/or palpation of the breasts, pelvis, prostate and anorectal regions). EXAM: BP 108/70 Ht 5' 6.142" (1.68m) Wt 156 lb (70.8kg) LMP 03/02/2010 BMI 25.07 kg/(m2). GENERAL: pleasant, female in no apparent distress HEENT: Normocephalic and atraumatic NECK: full range of motion BREAST: soft, non-tender, symmetric, no dominant mass, normal nipple-areolar complex, no lymphadenopathy, and no nipple discharge CHEST: Normal inspiratory effort ABDOMEN: soft, non-tender, and no masses PELVIC: external genitalia with atrophic changes, normal Bartholin's glands, urethra, Houck's glands, no vulvar lesions, no cervical lesions, good vaginal support, physiologic discharge present, normal appearing perineal body and perianal region, vaginal with atrophic changes BIMANUAL: uterus normal size, shape and consistency, no adnexal masses, and non-tender RECTOVAGINAL: deferred. NEURO: exam grossly non-focal EXTREMITIES: normal ASSESSMENT/PLAN: 1) Health maintenance: Pap/HPV screening no longer needed Mammogram ordered Nutrition, exercise and routine health maintenance exams reviewed. Colon cancer screening: up to date with screening TSH/lipids/glucose: followed by PCP Dyspareunia and vaginal atrophy: Discussed r/b/a vaginal estrogen cream. Information given on vaginal moisturizers and lubricants. Referral to pelvic floor PT Discussed menopausal expectations and information given on non hormonal treatment options for menopause. Discussed risk with Boby cha 2) Follow up one year or sooner as needed DO Yahaira Plaza Sara, MD 12/24/2024 12:54 PM Addendum Lubricants and moisturizers list The [id number] vaginal moisturizer and lubricant products can be confusing to sort through, especially since there a (more content not included)... Normal [facility] Breast imaging reportOrdered By: Jean Pierre Simmons on 12-06-2024 Study report [facility] [address] [place] [address] DIAG MAMM W/CAD, UNILAT MR#: [id number] Acct: [id number] Name: LOU MCGRAW Rep #: [id number] : 1975 F 48 From: Sky Simmons MD PCP: Dr. Samuel Simms MD Status: R EG CLI Study:DIAG MAMM W/CAD, UNILAT Date of Exam: 12/06/24 Exam# [id number] Ordering Dr: Bárbara Simms MD EXAM: DIAG MAMM W/CAD, UNILAT 12/06/2024 CLINICAL HISTORY: F, Age 48 y/o , ABN MAMM TECHNIQUE: DIAG MAMM W/CAD, UNILAT. Compression magnification views of the left breast were obtained in the mediolateral oblique and craniocaudad views. COMPARISON: Prior exam(s) dated December 03, 2024.. FINDINGS: TISSUE DENSITY: The breasts are extremely dense, which lowers the sensitivity ofmammography. Bilateral Breast Mammographic Findings: No significant masses, calcifications or other abnormalities are identified. BI/DIAG MAMM W/CAD, UNILAT IMPRESSION: No suspicious abnormality seen. OVERALL FINAL ASSESSMENT BI-RADS 1: NEGATIVE RECOMMENDATION: Routine annual follow-up in 1 Year A letter with findings and recommendations will be mailed to the patient. Reading Location: [id number] CC: Dr. Samuel Simms MD ~ Cargo Service Supervisor: Signed [facility] DIAG MAMM W/CAD, UNILATon DIAG MAMM W/CAD, UNILAT [facility] Services [address] [place], [place] [id number] DIAG MAMM W/CAD, UNILAT MR#: [id number] Acct: [id number] Name: LOU MCGRAW Rep #: [id number] : 1975 F 48 From: Jean Pierre patel MD PCP: Dr. Samuel Simms MD Status: [facility] Study: DIAG MAMM W/CAD, UNILAT Date of Exam: 12/06/24 Exam# [id number] Ordering Dr: Samuel Simms MD EXAM: DIAG MAMM W/CAD, UNILAT 12/06/2024 CLINICAL HISTORY: F, Age 48 y/o , ABN MAMM TECHNIQUE: DIAG MAMM W/CAD, UNILAT. Compression magnification views of the left breast were obtained in the mediolateral oblique and craniocaudad views. COMPARISON: Prior exam(s) dated December 03, 2024.. FINDINGS: TISSUE DENSITY: The breasts are extremely dense, which lowers the sensitivity of mammography. Bilateral Breast Mammographic Findings: No significant masses, calcifications or other abnormalities are identified. BI/DIAG MAMM W/CAD, UNILAT IMPRESSION: No suspicious abnormality seen. OVERALL FINAL ASSESSMENT BI-RADS 1: NEGATIVE RECOMMENDATION: Routine annual follow-up in 1 Year A letter with findings and recommendations will be mailed to the patient. Reading Location: [id number] CC: Dr. Samuel Simms MD Cargo Service Supervisor: Signed Normal [facility] Breast imaging reportOrdered By: Sweta Fernandes on 12-03-2024 Study report [facility] [address] [place], [place] [id number] SCRN MAMM (CAD)W/TAURUS BILAT MR#: [id number] Acct: [id number] Name: LOU MCGRAW Rep #: [id number] : 1975 F 48 From: Bradford Fernandes DO PCP: Dr. Samuel Simms MD Status: R EG CLI Study:SCRN MAMM (CAD)W/TAURUS BILAT Date of Exa m: 12/03/24 Exam# [id number] Ordering Dr: Bárbara Simms MD EXAM: SCRN MAMM (CAD)W/TAURUS BILAT DATE: 12/03/2024 CLINICAL HISTORY: F, Age 48 y/o , BREAST CANCER SCREENING TECHNIQUE: SCRN MAMM (CAD)W/TAURUS BILAT COMPARISON: Prior exam(s) dated 11/03/2023, 07/22/2022, and 05/18/2021. FINDINGS: TISSUE DENSITY: The breasts are extremely dense, which lowers the sensitivity ofmammography. Bilateral Breast Mammographic Findings: A faint cluster of amorphous and round microcalcifications are seen in the far posterior retroareolar region of the left breast covering an area measuring approximately 11 mm. These are not well appreciated on the MLO view. Further workup is indicated. Benign round microcalcifications are seen elsewhere in the left breast. No suspicious masses, suspicious clustered microcalcifications, architectural distortion or secondary signs of malignancy is identified in the right breast. Benign round microcalcifications are seen in the right breast. BI/SCRN MAMM (CAD)W/TAURUS BILAT IMPRESSION: A faint cluster of amorphous and round microcalcifications are seen in the far posterior retroareolar region of the left breast covering an area measuring approximately 11 mm. These are not well appreciated on the MLO view. Further workup is indicated. Patient should return for an LM view of the left breast as well as spot compression magnification CC and spot-compression magnification LM views of the left breast microcalcifications. OVERALL FINAL ASSESSMENT BI-RADS 0: INCOMPLETE - NEED ADDITIONAL IMAGING EVALUATION. RECOMMENDATION: Additional Views obtained/call backs A letter with findings and recommendations will be mailed to the patient. Reading Location: [id number] CC: Dr. Samuel Simms MD ~ Cargo Service Supervisor: Signed [facility] SCRN MAMM (CAD)W/TAURUS BILATo n 12-03-2024 SCRN MAMM (CAD)W/TAURUS BILAT [facility] [address] [place] [id number] SCRN MAMM (CAD)W/TAURUS BILAT MR#: [id number] Acct: [id number] Name: LOU MCGRAW Rep #: [id number] : 1975 F 48 From: Sweta Bobby PCP: Dr. Samuel Simms MD Status: [facility] CLI Study: SCRN MAMM (CAD)W/TAURUS BILAT Date of Exam: 11/16 12/10 Exam# [id number] Ordering Dr: Samuel Simms MD EXAM: SCRN MAMM (CAD)W/TAURUS BILAT DATE: 12/03/2024 CLINICAL HISTORY: F, Age 48 y/o , BREAST CANCER SCREENING TECHNIQUE: SCRN MAMM (CAD)W/TAURUS BILAT COMPARISON: Prior exam(s) dated 11/03/2023, 07/22/2022, and 05/18/2021. FINDINGS: TISSUE DENSITY: The breasts are extremely dense, which lowers the sensitivity of mammography. Bilateral Breast Mammographic Findings: A faint cluster of amorphous and round microcalcifications are seen in the far posterior retroareolar region of the left breast covering an area measuring approximately 11 mm. These are not well appreciated on the MLO view. Further workup is indicated. Benign round microcalcifications are seen elsewhere in the left breast. No suspicious masses, suspicious clustered microcalcifications, architectural distortion or secondary signs of malignancy is identified in the right breast. Benign round microcalcifications are seen in the right breast. BI/SCRN MAMM (CAD)W/TAURUS BILAT IMPRESSION: A faint cluster of amorphous and round microcalcifications are seen in the far posterior retroareolar region of the left breast covering an area measuring approximately 11 mm. These are not well appreciated on the MLO view. Further workup is indicated. Patient should return for an LM view of the left breast as well as spot compression magnification CC and spot-compression magnification LM views of the left breast microcalcifications. OVERALL FINAL ASSESSMENT BI-RADS 0: INCOMPLETE - NEED ADDITIONAL IMAGING EVALUATION. RECOMMENDATION: Additional Views obtained/call backs A letter with findings and recommendations will be mailed to the patient. Reading Location: [id number] CC: Dr. Samuel Simms MD Cargo Service Supervisor: Signed Normal [facility] Basophil percentageOrdered B y: Samuel Simms on 02-16-2023 Cholesterol [Mass/Vol] 232 mg/dL <200 [facility] Comment on above: <200 mg/dL Desirable 200-240 mg/dL Borderline >240 mg/dL High Risk Triglyceride [Mass/Vol] 113 mg/dL <199 [facility] Comment on above: The drugs N-Acetylcy steine and Metamizole may falsely depress this assay.Serum Triglycerides Reference Interval Normal <150 mg/dL Borderline high 150 - 199 mg/dL High 200 - 499 mg/dL Very High > or = 500 mg/dL Serum or plasma cholesterol in HDL measurement (mass/volume)Ordered By: Samuel Simms on 02-16-2023 Cholesterol in HDL [Mass/Vol] 56 mg/dL >40 [facility] Comment on above: The drugs N-Acetylcy steine and Metamizole may falsely depress this assay. Reference Range HDL <40 mg/dL Low HDL Cholesterol HDL >or= 60 mg/dL High HDL Cholesterol Serum or plasma cholesterol in VLDL measurement (mass/volume)Ordered By: Samuel Simms on 02-16-2023 Cholesterol in VLDL [Mass/Vol] 23 mg/dL 5-40 [facility] Serum or plasma low density lipoprotein (LDL) cholesterol measurement (mass/volume)Ordered By: Samuel Simms on 02-16-2023 Cholesterol in LDL [Mass/Vol] 153 mg/dL 0-130 [facility] Absolute lymphocyte countOrd ered By: Dr. Simms on 10-08-2022 Lymphocytes Auto (Unsp spec) [#/Vol] 1.72 10*3/uL 0.83-4.51 [facility] Basophil percentageOrdered B y: Dr. Simms on 10-08-2022 Basophils/100 WBC (Bld) 0.6 % 0-1 [facility] Bilirubin [Mass/Vol] 0.70 mg/dL 0.20-1.00 [facility] Comment on above: For patients on eltr ombopag therapy, use of Dimension [place] TBIL is not recommended. Chloride [Moles/Vol] 105 mmol/L 98-107 [facility] Cholesterol [Mass/Vol] 251 mg/dL <200 [facility] Comment on above: <200 mg/dL Desirable 200-240 mg/dL Borderline >240 mg/dL High Risk Eosinophils/100 WBC (Bld) 1.3 % 0-5 [facility] Glucose [Mass/Vol] 90 mg/dL 74-106 [facility] Neutrophils (Bld) [#/Vol] 2.4 10*3/uL 2.0-7.7 [facility] Neutrophils/100 WBC (Bld) 52.1 % 47-70 [facility] Potassium [Moles/Vol] 3.7 mmol/L 3.5-5.1 [facility] Protein [Mass/Vol] 7.7 g/dL 6.4-8.2 [facility] Sodium [Moles/Vol] 140 mmol/L 136-145 [facility] Triglyceride [Mass/Vol] 71 mg/dL <199 [facility] Comment on above: The drugs N-Acetylcy steine and Metamizole may falsely depress this assay.Serum Triglycerides Reference Interval Normal <150 mg/dL Borderline high 150 - 199 mg/dL High 200 - 499 mg/dL Very High > or = 500 mg/dL WBC (Bld) [#/Vol] 4.6 10*3/uL 4.4-11.0 [facility] Blood erythrocytes count (nu mber/volume)Ordered By: Dr. Simms on 10-08-2022 RBC (Bld) [#/Vol] 4.84 10*6/uL 4.2-5.4 [facility] Blood hemoglobin measurement (mass/volume)Ordered By: Dr. Simms on 10-08-2022 Hemoglobin (Bld) [Mass/Vol] 13.9 g/dL 12.0-15.0 [facility] Blood lymphocytes/100 leukoc ytesOrdered By: Dr. Simms on 10-08-2022 Lymphocytes/100 WBC (Bld) 37.1 % 19-41 [facility] Blood monocytes/100 leukocyt esOrdered By: Dr. Simms on 10-08-2022 Monocytes/100 WBC (Bld) 8.9 % 0-10 [facility] Blood platelet mean volumeOr dered By: Dr. Simms on 10-08-2022 Platelet mean volume (Bld) [Entitic vol] 11.1 fL 6.2-12.0 [facility] Determination of erythrocyte mean corpuscular volume (MCV)Ordered By: Dr. Simms on 10-08-2022 MCV (RBC) [Entitic vol] 89.5 fL 81-99 [facility] Hematocrit Auto (Bld) [Volum e fraction]Ordered By: Dr. Simms on 10-08-2022 Hematocrit (Bld) [Volume fraction] 43.3 % 37-47 [facility] Laboratory - Chemistry and C hemistry - challengeOrdered By: Dr. Simms on 10-08-2022 ALP [Catalytic activity/Vol] 48 U/L 45-117 [facility] ALT [Catalytic activity/Vol] 28 U/L 13-56 [facility] CO2 [Moles/Vol] 27.0 mmol/L 21.0-32.0 [facility] Globulin (S) [Mass/Vol] 3.4 g/dL 2.2-4.2 [facility] Urea nitrogen/Creatinine [Mass ratio] 14.4 mg/mg 10-20 [facility] Laboratory - Hematology and Cell countsOrdered By: Dr. Simms on 10-08-2022 Erythrocyte distribution width (RBC) [Entitic vol] 43.2 fL 35.1-43.9 [facility] Erythrocyte distribution width (RBC) [Ratio] 13.2 % 11.6-14.6 [facility] Immature granulocytes/100 WBC (Bld) 0.000 % 0.0-0.9 [facility] Comment on above: IG% - Immature Granu locytes (promyelocytes, myelocytes and metamyelocytes) > 1% indicates that a LEFT SHIFT is Present. MCH (RBC) [Entitic mass] 28.7 pg 27.0-32.0 [facility] Nucleated RBC/100 WBC (Bld) [Ratio] 0 % 0-5 [facility] MCHC Auto (RBC) [Mass/Vol]Or dered By: Dr. Simms on 10-08-2022 MCHC (RBC) [Mass/Vol] 32.1 g/dL 32-36 [facility] No Panel InformationOrdered By: Dr. Simms on 10-08-2022 Estimated GFR (MDRD) Amer 116 mL/min >60 [facility] Comment on above: GFR Calc Estimated GFR (MDRD) Non-Af Amer 96 mL/min >60 [facility] Comment on above: Non- GFR Calc Platelets bldOrdered By: Dr. Simms on 10-08-2022 Platelets (Bld) [#/Vol] 305 10*3/uL 150-450 [facility] Serum or plasma albumin jude urement (mass/volume)Ordered By: Dr. Simms on 10-08-2022 Albumin [Mass/Vol] 4.3 g/dL 3.2-5.0 [facility] Serum or plasma albumin/glob ulin mass ratioOrdered By: Dr. Simms on 10-08-2022 Albumin/Globulin [Mass ratio] 1.3 {ratio} 0.9-2.4 [facility] Serum or plasma calcium jude urement (mass/volume)Ordered By: Dr. Simms on 10-08-2022 Calcium [Mass/Vol] 9.5 mg/dL 8.5-10.1 [facility] Serum or plasma cholesterol in HDL measurement (mass/volume)Ordered By: Dr. Simms on 10-08-2022 Cholesterol in HDL [Mass/Vol] 60 mg/dL >40 [facility] Comment on above: The drugs N-Acetylcy steine and Metamizole may falsely depress this assay. Reference Range HDL <40 mg/dL Low HDL Cholesterol HDL >or= 60 mg/dL High HDL Cholesterol Serum or plasma cholesterol in VLDL measurement (mass/volume)Ordered By: Dr. Simms on 10-08-2022 Cholesterol in VLDL [Mass/Vol] 14 mg/dL 5-40 [facility] Serum or plasma creatinine m easurement (mass/volume)Ordered By: Dr. Simms on 10-08-2022 Creatinine [Mass/Vol] 0.69 mg/dL 0.55-1.02 [facility] Comment on above: The validity of the calculated GFR & GFRAA in patients over 70 years has not been determined. Clinical correlation is essential. Serum or plasma low density lipoprotein (LDL) cholesterol measurement (mass/volume)Ordered By: Dr. Simms on 10-08-2022 Cholesterol in LDL [Mass/Vol] 177 mg/dL 0-130 [facility] Serum or plasma urea nitroge n measurement (mass/volume)Ordered By: Dr. Simms on 10-08-2022 Urea nitrogen [Mass/Vol] 10 mg/dL 7-18 [facility] Thin prep Papanicolaou smear with manual screeningOrdered By: Dr. Simms on 10-08-2022 Thin prep Papanicolaou smear with manual screening 23 U/L 15-37 [facility] Thin prep Papanicolaou smear with manual screening 8 5-15 [facility] CORONAVIRUS PCR [CCL]on 03-18 REF LAB REPORT Positive Normal [facility] Comment on above: Performed By: #### [id number] #### [facility],[address] [place] [address] SEND TO IC? YES Normal [facility] Comment on above: Performed By: #### [id number] #### [address] [address] CORONAVIRUS PCR [CCL]on 03-18 COVID 19 Result PATIENT SERVICE ASSOCIATE Positive Abnormal [facility] Comment on above: Result Comment: Posi tive for COVID19 (SARS CoV2) by PCR.(*) This test was developed and its performance characteristics determined by [facility] [place]. This test has been authorized by FDA under an Emergency Use Authorization (EUA). This test has been validated in accordance with the FDA's Guidance Document Policy for Diagnostics Testing in Laboratories Certified to Perform High Complexity Testing under CLIA prior to Emergency use Authorization for Coronavirus Disease 2019 during the Public Health Emergency" issued on June 16, 2019[place] [address] Jose Antonio Saldivar III, M.D. [id number] Performed By: #### [id number] #### [address] [address] COVID 19 Source PATIENT SERVICE ASSOCIATE Nasopharyngeal Swab Normal [facility] Comment on above: Result Comment: Alvaro ected on 03/30 AT 0627: Previously reported as U Performed By: #### 2 [id number] #### [address] [address] Coronavirus 2019on 0 COVID 19 Result PATIENT SERVICE ASSOCIATE Abnormal Negative for COVID19 (SARS CoV2) by PCR. [facility] Comment on above: Result Comment: Posi tive for This test was developed and its performance characteristics determined by [facility] [place]. This test has been authorized by FDA under an Emergency Use Authorization (EUA). This test has been validated in accordance with the FDA's Guidance Document "Policy for Diagnostics Testing in Laboratories Certified to Perform High Complexity Testing under CLIA prior to Emergency use Authorization for Coronavirus Disease 2019 during the Public Health Emergency" issued on June 16, 2019. COVID19 (SARS This test was developed and its performance characteristics [facility] [place]. This test has been authorized by FDA under an Emergency Use Authorization (EUA). This test has been validated in accordance with the FDA's Guidance Document "Policy for Diagnostics Testing in Laboratories Certified to Perform High Complexity Testing under CLIA prior to Emergency use Authorization for Coronavirus Disease 2019 during the Public Health Emergency" issued on June 16, 2019. CoV2) by This test was developed and its performance characteristics determined by [facility] and Laboratory Medicine [place]. This test has been authorized by FDA under an Emergency Use Authorization (EUA). This test has been validated in accordance with the FDA's Guidance Document "Policy for Diagnostics Testing in Laboratories Certified to Perform High Complexity Testing under CLIA prior to Emergency use Authorization for Coronavirus Disease 2019 during the Public Health Emergency" issued on June 16, 2019. PCR.(*) This test was developed and its performance characteristics determined by [facility] and [facility] [place]. This test has been authorized by FDA under an Emergency Use Authorization (EUA). This test has been validated in accordance with the FDA's Guidance Document "Policy for Diagnostics Testing in Laboratories Certified to Perform High Complexity Testing under CLIA prior to Emergency use Authorization for Coronavirus Disease 2019 during the Public Health Emergency" issued on June 16, 2019. COVID 19 Source PATIENT SERVICE ASSOCIATE Normal [facility] Comment on above: Result Comment: Naso pharyngeal Corrected on 03/30 AT 0627: Previously reported as U Swab Corrected on 03/30 AT 0627: Previously reported as U Vital Signs Date Time Vital Sign Value Performing Clinician Faci lity 12-31-2024 15:06-0400 Body height 170.[address] Samuel Simms MD Work Phone: [facility] 12-31-2024 15:06-0400 Body mass index (BMI) [Ratio] 24.7 kg/m2 Dr. Samuel Simms MD Work Phone: [facility] 12-31-2024 15:06-0400 Body temperature 97.2 [degF] Dr. Samuel Simms MD Work Phone: [facility] 12-31-2024 15:06-0400 Body weight 71.[address] Samuel Simms MD Work Phone: [facility] 12-31-2024 15:06-0400 Diastolic blood pressure 72 mm[Hg] Dr. Samuel Simms MD Work Phone: [facility] 12-31-2024 15:06-0400 Heart rate 67 /min Dr. Samuel Simms MD Work Phone: [facility] 12-31-2024 15:06-0400 Respiratory rate 16 /min Dr. Samuel Simms MD Work Phone: [facility] 12-31-2024 15:06-0400 SaO2% (BldA) [Mass fraction] 97 % Dr. Samuel Simms MD Work Phone: [facility] 12-31-2024 15:06-0400 Systolic blood pressure 110 mm[Hg] Dr. Samuel Simms MD Work Phone: [facility] 12-24-2024 09:42-0400 Body height 168 cm Tali Syed MD Work Phone: [facility] 12-24-2024 09:42-0400 Body mass index (BMI) [Ratio] 25.07 kg/m2 Tali Syed MD Work Phone: [facility] 12-24-2024 09:42-0400 Body weight 70.76 kg Tali Syed MD Work Phone: [facility] 12-24-2024 09:42-0400 Diastolic blood pressure 70 mm[Hg] Tali Syed MD Work Phone: [facility] 12-24-2024 09:42-0400 Systolic blood pressure 108 mm[Hg] Tali Syed MD Work Phone: [facility] 02-07-2023 10:49-0400 Body temperature 97 [degF] Dr. Samuel Simms Work Phone: [facility] 02-07-2023 10:49-0400 Diastolic blood pressure 61 mm[Hg] Dr. Samuel Simms Work Phone: [facility] 02-07-2023 10:49-0400 Heart rate 52 /min Dr. Samuel Simms Work Phone: [facility] 02-07-2023 10:49-0400 Respiratory rate 16 /min Dr. Samuel Simms Work Phone: [facility] 02-07-2023 10:49-0400 SaO2% (BldA) [Mass fraction] 97 % Dr. Samuel Simms Work Phone: [facility] 02-07-2023 10:49-0400 Systolic blood pressure 90 mm[Hg] Dr. Samuel Simms Work Phone: [facility] 02-07-2023 09:13-0400 Body height 170.[address] Samuel Simms Work Phone: [facility] 02-07-2023 09:13-0400 Body mass index (BMI) [Ratio] 24.8 kg/m2 Dr. Samuel Simms Work Phone: [facility] 02-07-2023 09:13-0400 Body weight [address] Samuel Simms Work Phone: [facility] 12-08-2022 11:38-0400 Body mass index (BMI) [Ratio] 23.5 kg/m2 Dr. Samuel Simms Work Phone: [facility] 12-08-2022 11:38-0400 Body weight 68.[address] Samuel Simms Work Phone: [facility] 10-08-2022 11:17-0400 Body height 171.[address] Drake Cruz Work Phone: [facility] 10-08-2022 11:17-0400 Body mass index (BMI) [Ratio] 23.7 kg/m2 Dr. Drake Cruz Work Phone: [facility] 10-08-2022 11:17-0400 Body temperature 97.1 [degF] Dr. Drake Cruz Work Phone: [facility] 10-08-2022 11:17-0400 Body weight 69.[address] Drake Cruz Work Phone: [facility] 10-08-2022 11:17-0400 Diastolic blood pressure 78 mm[Hg] Dr. Drake Cruz Work Phone: [facility] 10-08-2022 11:17-0400 Heart rate 73 /min Dr. Drake Cruz Work Phone: [facility] 10-08-2022 11:17-0400 Respiratory rate 16 /min Dr. Drake Cruz Work Phone: [facility] 10-08-2022 11:17-0400 SaO2% (BldA) [Mass fraction] 99 % Dr. Drake Cruz Work Phone: [facility] 10-08-2022 11:17-0400 Systolic blood pressure 114 mm[Hg] Dr. Drake Cruz Work Phone: [facility] 05-19-2022 13:05-0500 Body height 171.[address] Drake Cruz Work Phone: [facility] 05-19-2022 13:05-0500 Body mass index (BMI) [Ratio] 23.9 kg/m2 Dr. Drake Cruz Work Phone: [facility] 05-19-2022 13:05-0500 Body weight 70.[address] Drake Cruz Work Phone: [facility] Encounters Encounter Date Encounter Type Care Provider Facility Start: 01-11-2025 Encounter for genera l adult medical examination without abnormal findings Samuel Simms [facility] Start: 12-31-2024 End: 12-31-[address] Samuel Simms MD -[facility] Work Phone: Start: 12-31-2024 End: 12-31-[address] Samuel Simms MD [facility] Start: 12-31-2024 End: 12-31-[address] Samuel Simms MD Work Phone: -[facility] Comment on above: Received Outside Med ical Records Start: 12-31-2024 End: 12-31-2024 ambulatory Samuel Simms Facility:[facility] Start: 12-24-2024 End: 12-24-2024 Patient encounter procedure Tali Syed MD Work Phone: OB/Gynecology Comment on above: Encounter for gyneco logical examination (general) (routine) without abnormal findings (Primary Dx); Encounter for screening mammogram for breast cancer; Dyspareunia in female Start: 12-24-2024 End: 12-24-2024 Patient encounter status Tali Syed MD Work Phone: [facility] Work Phone: Start: 12-24-2024 End: 12-24-2024 ambulatory TALI SYED Facility:[facility] Start: 12-24-2024 Encounter for gynecological examination (general) (routine) without abnormal findings TALI SYED [facility] Start: 12-06-2024 End: 12-06-[address] Samuel Simms MD Work Phone: -Outpatient Breast Imaging Start: 12-06-2024 End: 12-06-[address] Samuel Simms MD -[facility] Work Phone: Start: 12-06-2024 End: 12-06-2024 ambulatory Samuel Simms Facility:[facility] Start: 12-03-2024 End: 12-03-[address] Samuel Simms MD Work Phone: -Outpatient Breast Imaging Start: 12-03-2024 End: 12-03-[address] Samuel Simms MD -[facility] Work Phone: Start: 12-03-2024 End: 12-03-2024 ambulatory Samuel Simms Facility:[facility] Start: 02-16-2023 End: 02-16-[address] Samuel Simms Work Phone: [facility] Work Phone: Start: 02-16-2023 End: 02-16-[address] Samuel Simms Work Phone: [facility]atory, [facility] Start: 02-07-2023 Non-patient / Non-visit Dr. Geraldine Simms Work Phone: [facility] Start: 02-07-2023 End: 02-07-2023 Admission to same day surgery center Dr. Samuel Simms Work Phone: [facility]Endoscopy Work Phone: Start: 02-07-2023 End: 02-07-[address] Samuel Simms Work Phone: [facility] Work Phone: Start: 12-08-2022 Non-patient / Non-visit Dr. Geraldine Simms Work Phone: [facility] Work Phone: Start: 10-08-2022 End: 10-08-[address] Drake Cruz Work Phone: [facility] Work Phone: Start: 10-08-[address] Jerardo Cruz Work Phone: [facility] Start: 10-08-2022 End: 10-08-2022 Encounter for general adult medical examination without abnormal findings Dr. Drake Cruz Work Phone: [facility] Start: 10-08-2022 End: 10-08-[address] Drake Cruz Work Phone: [facility] Start: 07-22-2022 End: 07-22-[address] Drake Cruz Work Phone: [facility] Work Phone: Start: 07-22-2022 End: 07-22-[address] Drake Cruz Work Phone: [facility]-Outpatient Breast Imaging Start: 05-19-2022 End: 05-19-[address] Drake Cruz Work Phone: [facility] Start: 03-28-2020 End: 03-28-2020 Patient encounter procedure HOLA Bonner AMANDA [facility] Procedures Date Procedure Procedure Detail Performing Clinician Start: 12-06-[address] Gurdeep Simms MD Work Phone: Start: 12-03-2024 Screening mammography Jerardo Simms MD Work Phone: Start: 02-07-[address] Gurdeep Simms Work Phone: Start: 07-22-2022 Bilateral mammography Jerardo Cruz Work Phone: Start: 07-22-[address] Drake Cruz Work Phone: Start: 05-19-2022 Plain x-ray of elbow Dr Castro Cruz Work Phone: Plan of Treatment Date Care Activity Detail Author Start: 12-26-2025 End: 12-26-2025 Patient encounter procedure 12/26/2025 9:00 AM EDT Office Visit OB/Gynecology [address] [place] [id number] Tali Syed MD [address] [place] [address] annual OB/Gynecology Comment on above: annual Start: 12-31-2024 CBC W Auto Different ial panel - Blood [facility] Start: 12-31-2024 Comprehensive metabo lic 2000 panel - Serum or Plasma [facility] Start: 12-31-2024 Lipid 1996 panel - S sarah or Plasma [facility] Start: 12-17-2024 Influenza vaccination Influenza Vacc ine (#1) [facility] Start: 12-21-2023 Pneumococcal Vaccine : 50+ (1 of 1 - PCV) Pneumococcal Vaccine: 50+ (1 of 1 - PCV) [facility] Start: 12-21-2023 Shingrix Vaccine (1 of 2) Sorensen grix Vaccine (1 of 2) [facility] Start: 02-07-2023 Colonoscopy flx dx w /collj spec when pfrmd DIAGNOSTIC COLONOSCOPY [facility] Start: 02-07-2023 Patient discharge [facility] Start: 10-08-2022 Patient referral [facility] Work Phone: Start: 2018 Diabetes Screening Diabetes Screenin g [facility] Start: 2018 Lipid panel Lipid Screening [facility] Start: 2018 Screening for malign ant neoplasm of colon [facility] Start: 2013 Screening for malign ant neoplasm of breast Mammogram Screening [facility] Start: 09-30-2013 Screening for malign ant neoplasm of cervix Cervical Cancer Screening [facility] Start: 1992 Hepatitis B Vaccine (1 of 3 - 19+ 3-dose series) Hepatitis B Vaccine (1 of 3 - 19+ 3-dose series) [facility] Start: 1992 Urine microalbumin profile DTa P,Tdap,Td Vaccine (1 - Tdap) [facility] Start: 12-21-1991 Anxiety Screening Anxiety Screening [facility] Start: 12-21-1991 Depression Screening Depression Scre ening [facility] Start: 12-21-1991 Hepatitis C screening Hepatitis C Sc reening [facility] Start: 12-21-1991 HIV screening HIV Screening [facility] Alanine aminotransfe rase [Enzymatic activity/volume] in Serum or Plasma [facility] Albumin [Mass/volume ] in Serum or Plasma [facility] Alkaline phosphatase [Enzymatic activity/volume] in Serum or Plasma [facility] Anion gap in Serum o r Plasma [facility] Bilirubin, total measurement [facility] BUN/Creatinine ratio [facility] Calcium [Mass/volume ] in Serum or Plasma [facility] Carbon dioxide, tota l [Moles/volume] in Central venous blood [facility] Cholesterol [Mass/vo lume] in Serum or Plasma [facility] Cholesterol in HDL [Mass/volume] in Serum or Plasma [facility] Colonoscopy [facility] Creatinine [Mass/vol ume] in Serum or Plasma [facility] End: 01-23-2026 DBT Breast - bilateral screening ALICIA SCREENING [facility] Radiology Routine Encounter for gynecological examination (general) (routine) without abnormal findings Encounter for screening mammogram for breast cancer 1 Occurrences starting 12/24/2024 until 01/23/2026 [facility] Work Phone: Comment on above: 1 Occurrences starti ng 12/24/2024 until 01/23/2026 Erythrocyte mean corpuscular volume determination [facility] Glucose [Mass/volume ] in Serum or Plasma [facility] Hematocrit [Volume Fraction] of Blood [facility] Hemoglobin [Mass/vol ume] in Blood [facility] Leukocytes [#/volume ] in Blood [facility] Low density lipoprot ein cholesterol measurement [facility] Mean corpuscular hemoglobin concentration determination [facility] Mean corpuscular hemoglobin determination [facility] Measurement of renal function [facility] Neutrophil count [facility] Neutrophil percent differential count [facility] Patient referral [facility] Work Phone: Platelets [#/volume] in Blood [facility] Potassium measurement [facility] Red blood cell count [facility] Red cell distributio n width determination [facility] Serum chloride measurement [facility] Sodium measurement [facility] Total cholesterol:HD L ratio measurement [facility] Total protein measurement [facility] Triglycerides measurement [facility] Urea nitrogen [Mass/volume] in Serum or Plasma [facility] VLDL cholesterol measurement [facility] Payers Date Payer Category Payer Self-pay [id number] 2024 Self-pay [id number] 2018 Private Health Insurance [employer] PPO [id number] 2013 Unknown [id number] 1973 Unknown [id number] Unknown [facility] PACKAGE PLAN [id number] Unknown [id number] Unknown [id number] Unknown [id number] Unknown [id number] Social History Date Type Detail Facility Start: 05-19-2022 End: 02-02-2023 Tobacco smoking status MIIS Unknown if ever smoked [facility] Start: 1975 Sex Assigned At Female [facility] Start: 09-18-2024 End: 12-31-2024 Tobacco smoking status NHIS Never smoked tobacco (finding) [facility] Start: 12-24-2024 Alcoholic beverage intake Current non-drinker of alcohol (finding) [facility] Start: 12-24-2024 History of Social function [facility] Start: 12-24-2024 Tobacco use panel [facility] Start: 03-19-2012 National Score (1-10 0), lower number is lower risk 48 [facility] Start: 1975 Sex assigned at Not on file C [facility] Sexual Orientation Heterosexual (finding) [facility] Goals Date Patient Goal Desired Activity /State Functional Status Date Assessment Result Facility 07-20-2014 Are you deaf, or do you have serious difficulty hearing No 07/20/2014 10:25 AM EDT Melany Dennis MA No [facility] 07-20-2014 Are you blind, or do you have serious difficulty seeing, even when wearing glasses No 07/20/2014 10:25 AM EDT Melany Dennis MA No [facility] 07-20-2014 Do you have serious difficulty walking or climbing stairs No 07/20/2014 10:25 AM EDT Melany Dennis MA No [facility] 07-20-2014 Do you have difficul ty dressing or bathing No 07/20/2014 10:25 AM EDT Melany Dennis MA No [facility] 07-20-2014 Because of a physica l, mental, or emotional condition, do you have difficulty doing errands alone such as visiting a physician's office or shopping No 07/20/2014 10:25 AM EDT Melany Dennis MA No [facility] Mental Status Date Assessment Result Facility 02-07-2023 Cognitive function Touch/Shaking [facility] Work Phone: 07-20-2014 Because of a physica l, mental, or emotional condition, do you have serious difficulty concentrating, remembering, or making decisions No 07/20/2014 10:25 AM EDT Melany Dennis MA No [facility] Clinical Notes 02-07-2023 to 12-31-2024 Note Date & Type Note Facility 12-31-2024 Evaluation note Diagnosis Onset Date Resolution Hyperlipidemia acute December 31, 2024 2:28pm Preventative health care acute December 31, 2024 2:28pm [facility] Work Phone: 1(952) 631-504509-15-2025 NoteHNO ID: [id number] Author: LOU RODRIGUEZ RN Service: ? Author Type: Registered Nurse Type: Progress Notes Filed: 12/31/2024 08:52 Note Text: Received records from [place]. To SW to review. [facility] History of Present illness Narrative* Lou Rodriguez RN - 12/31/2024 8:52 AM EDT Received records from [place]. To SW to review. Lou Rodriguez RN [facility] Instructions* Patient Instructions* Tali Syed MD - 12/24/2024 10:05 AM EDT Lubricants and moisturizers list The vrzq-fwu-lpszruh vaginal moisturizer and lubricant products can be confusing to sort through, especially since there are no FDA requirements for how they can be marketed or labeled. In general there are 3 categories of products: Vaginal lubricants should be used at the time of intercourse to decrease friction. Long acting vaginal moisturizers are used at least twice weekly to increase vaginal (internal) lubrication and elasticity. Vulvar moisturizers are for external use for vulvar comfort and do not impact vaginal lubrication or elasticity. Vaseline petroleum products and oils (baby oil, coconut, olive oil,) can make condoms break, so should not be used with condoms. In many women, these can cause infections. However, if you have sore spots on the vulva (outer lips), then petroleum jelly can sometimes be helpful. All of the products listed below are over the counter. Many can be bought in any drugstore or online. Also, many [employer] stores do carry high-quality lubricant products. VAGINAL LUBRICANTS: (For use during sexual activity) Lubricants should be applied to the outside and opening of the vagina at the time of sexual activity. The lubricant can also be applied to the penis or a device. Silicone based lubricants should not be used on silicone vibrators or toys. Both silicone and water based lubricants are condom compatible. If you use a water based lubricant, it is also important to choose a lubricant with low osmolality since lubricants with high osmolality increase the chance of irritation and infection. Osmolality information can be hard to find. All of the following lubricants have a low osmolality, are pH balanced, and are preservative free. WATER BASED LUBRICANTS Good Clean Love (made of organic ingredients) Pulse H2Oh! Sylk Natural System Rashida PreSeed (Does not impact sperm motility and can be used if trying to conceive, also good for those with multiple sensitivities, though may not work as well) SILICONE BASED LUBRICANTS Uber lube Replens Silky Smooth Pulse Aloe-ahh Wet [place] RASHIDA Premium Personal Lubricant PINK Silicone Lubricant SLIQUID Organics silk Pulse is a hands free personal lubricant warming dispenser and is sold with water or silicone basedlubricant pods that some women prefer for travel. LONG ACTING VAGINAL MOISTURIZERS: (For regular use inside vagina to maintain moisture) Long acting vaginal moisturizers should be used at least twice weekly on a regular basis. Many women find they need to use a moisturizer 3-5 times/week. In addition, it is important to not only applythe moisturizer inside the vagina, but also to apply to the vestibule (the external area surrounding the opening of the vagina). Women who are not sexually active often find that the regular use of along acting vaginal moisturizer makes them feel more comfortable. Hot Mix Operator beware: many lubricants arelabeled as moisturizers to make them more appealing to consumers (even though they don t function as a true moisturizer). Replens Long Acting Vaginal Moisturizer (Available in all drugstores) HyaloGyn Vaginal Hydrating Gel (hybrid moisturizer, but can function as lubricant too) Revaree (hyaluronic acid) VULVAR MOISTURIZERS: (For external use) Replens Moisture Restore Comfort Gel is to be used externally for dry vulvar skin. Aquaphor can also be applied externally for comfort. [place] Aloe [place]: Many people are allergic to aloe, so keep this in mind with products like this that have aloe in it. Medicine Mama s V magic: Not much medical studies on this, but many patients swear by it, has oil, beeswax and honey in it- best used externally only. Non-Hormonal Ways to [place] with Hot Flashes and Menopause Hormone therapy is the most effective therapy for hot flashes. It is also the only FDA approved method to treat hot flashes. However, other non-hormonal options are available for women who are suffering from symptoms, but are not yet ready to consider hormone therapy. Some women are not appropriatecandidates for hormone therapy, such as those have been recently treated for breast cancer, ovariancancer, or endometrial/uterine cancer. It is important to remember that when used appropriately, hormone therapy can be a safe and effective option for many women. Here we will review non-hormonal treatment options for women. Knowing the triggers of hot flashes Hot flashes may be precipitated by hot weather, smoking, caffeine, spicy foods, alcohol, tight clothing, heat and stress. Identify and avoid your hot flash "triggers." Some women notice hot flashes when they eat a lot of sugar. Exercising in warm temperatures might make hot flashes worse. Diet Avoiding caffeine, spicy foods, and alcohol can help lessen both the number and severity of hot flashes. Many women try to incorporate more plant estrogens into their diet. Plant estrogens, such as isoflavones, are thought to have weak estrogen-like effects that may reduce hot flashes. They may work in the body like a weak form of estrogen. Examples of plant estrogens include: soybeans, chickpeas, lentils, flaxseed, grains, beans, fruits, red clover and vegetables. In general, soybeans, chickpeas, and lentils are considered to have the most powerful plant estrogens, though their effect is much less than that of human estrogen. Try to choose natural foods rather than supplements. Also remember that only crushed or ground forms of flaxseed are likely to help (as compared to the whole seed or seed oil forms). What foods have high amounts of isoflavones Food Isoflavone Amount (Mg) In Food (100g) Soymilk 9.65 Soybeans, green, raw 151.17 Soy flour (textured) 148.61 148.61 Soybeans, dry roasted 128.35 Instant beverage soy, powder, not reconstituted 109.51 Miso soup mix, dry 60.39 Soybean chips 54.16 Tempeh, cooked 53.00 Soybean curd cheese 28.20 Tofu, silken 27.91 Tofu, yogurt 16.30 Source: USDA -- [place] Database on the Isoflavone Content of Foods, 1998 Lifestyle changes Reducing the temperature in a room, dressing in layers, and the use of a fan while asleep can be effective ways to help deal with troublesome hot flashes. Women who are overweight tend to have more bothersome hot flashes, therefore weight loss can be helpful. Quitting smoking has a dual importance during menopause. First, smoking contributes to the increased cardiovascular risks of being postmenopausal. Second, smokers tend to experience more hot flashes. Women who lead a sedentary life seem tosuffer more from hot flashes; however, it is best to exercise in a cooler environment. Try deep, slow abdominal breathing (6 to 8 breaths per minute). Practice deep breathing for 15 minutes in the morning, 15 minutes in the evening and at the onset of hot flashes. For some women, wearing socks to bed is helpful as it can help to cool core body temperature. Relieving insomnia Keep the bedroom cool to prevent night sweats. Avoid using sleeping pills. Exercise daily. Avoid caffeine and alcohol at night. Take a warm bath or shower at bedtime. Try milk products at bedtime or during the night (but avoid products that contain caffeine). Coping with mood swings, fears, and depression Find a self-calming skill to practice, such as yoga, meditation or slow, deep breathing. Avoid tranquilizers, if possible. Engage in a creative outlet that fosters a sense of achievement. Stay connected with your family and community; nurture your friendships. Relieving painful intercourse Try using a vaginal water-based moisturizing lotion or lubricant during intercourse. These are soldwithout a prescription near the condoms in most stores. Common names include-Astroglide and [place] liquid . Avoid Vaseline , as it may lead to yeast infections. Prescription and nonprescription remedies A number of non-hormonal remedies are available for the treatment of hot flashes. Some of these remedies (e.g., black cohosh and soy products) are available hojh-rxc-[id number] but are not FDA-approved.Some prescription medications are used off label to help reduce hot flashes. Using a product "off label" means that it is not FDA approved for the treatment of hot flashes, but is often used because it can be safe and effective for hot flash treatment.(considered the more effective non-hormonal treatments): Drug Side Effect Effectiveness venlafaxine (Effexor ) Nausea, change in bowel habits, headache (temporary side effects for most). Elevated blood pressure (at high doses) Effectiveness has been proven in several well-designed studies. One of the safer medications for women taking tamoxifen (no drug interaction). desvenlafaxine (Pristiq ) Similar to venlafaxine. Nausea, change in bowel habits, headache (temporary side effectsfor most). Elevated blood pressure (at high doses) Improvement in hot flashes compared to placebo has been shown. Newer med compared to venlafaxine, so a smaller number of studies are available. fluoxetine (Prozac ) Nausea, change in bowel habits, decreased libido, insomnia. Should be avoided in women taking tamoxifen. Improvement in hot flashes has been shown in well-designed studies. paroxetine (Paxil ) Nausea, change in bowel habits, decreased libido, dry mouth, weight gain (not common) Should be avoided in women taking tamoxifen. eTends to be more effective for sleep in women who are alsosuffering with insomnia. Improvement in hot flashes has been shown in well-designed studies. scitalopram (Lexapro ) Nausea, change in bowel habits, decreased libido, abnormal EKG (not common) Improvement in hot flashes has been shown in well-designed studies. Gabapentin (Neurontin ) Fatigue, dizziness, nausea, disorientation, swelling, weight gain Tends to be more effective for sleep in women who are also suffering with insomnia. Clonidine (Catapres ) Dry mouth, drowsiness, fatigue, constipation, lowers blood pressure Relieved hot flashes in some, but not all studies.Less commonly used than some of the other options. Non-prescription, herbal, wvrv-pah-nhgnkla therapies: Drug Side Effects Effectiveness Evening [place] Oil Nausea, diarrhea, headache. Only one well-designed study showing not effective. Black cohosh Mild stomach upset. Safe up to 6 months only due to possible estrogen-like effects. Liver toxicity has been reported. Some small, short-term studies have suggested benefits, however moststudies do not suggest that it works. Soy (plant estrogen) Also referred to as phytoestrogens. Appears safe if consumed in foods. In supplement form, consistency of dose and quality can be a concern. Supplements are not recommended for breast cancer survivors For the most part, results from clinical studies show that phytoestrogens are not effective for treatment of hot flashes. Acupuncture Uncomfortable for some, often costly. Generally well-tolerated, but multiple visits required Individual trials have reported some benefits, but larger studies have not shown any improvement over placebo procedures. However some women do report benefits with this, so it is possible that more well- designed studies are needed to answer this question. Vitamin E 13% increase risk of heart failure. Might increase rate in those who use high dosesfor a long time. A higher risk of prostate cancer has also been shown, but applies only to men. Onestudy showing effective. However the improvement seen in this was only one less hot flash per day compared to placebo. Are the khlr-jbi-myueyby herbal products (botanicals) safe? While safe when taken in moderate amounts through diet, the consumption of extraordinary amounts ofsoy and isoflavone supplements may be harmful to women with a history of estrogen-dependent cancer,like breast cancer, and possibly to other women as well. More research is needed to determine the safety and effectiveness of botanical treatments. For example, Ginseng, [place], Wild yam, Progesterone cream, reflexology, and magnetic devices are sold tohelp menopausal symptoms, but there are no good studies looking at their safety or effectiveness. To make an informed decision about the use of these treatments, be sure to discuss them with your doctor. Because little is known about many botanicals, the best way to evaluate their safety and effectiveness is to become an educated consumer. Here are some tips to consider when shopping for alternative therapies. Ask yourself the following questions: What is the treatment? What does it involve? How does it work? Why does it work? Are there any risks? What are the side effects? Is it effective? (Ask for evidence or proof) How much does it cost? Once you answer these questions, discuss the therapy with your doctor. Make sure your doctor knows what therapy you are considering in order to discuss possible interactions or side effects with yourcurrent treatment. What are warning signs that a product may not be legitimate? When trying to determine whether or not a product is what it says it is, one of the elements you may want to look at is how the product is promoted. Be cautious of products promoted through: Performance Indicator[employer]eters Direct mailings Active [employer]ing[employer] Ads disguised as valid news articles Ads in the back of magazines Additional red flags to look for include: Big claims: If products claim to be a "cure" for your condition, or gives outrageous claims, be cautious. Source: Be wary if the product is only offered through one general cleaner or purchased only through [facility], located within [facility] provider s office. Ingredients: Make sure all of the active ingredients are listed, and don t trust "secret formulas." Testimonials: Remember that only people who are satisfied with a product give testimonials and thatthey may be getting paid for their endorsement References: National Center for Complementary and Alternative Medicine. Vitamin E. [facility].nih.gov Assessed 2012 Bárbara Guzman et al. meta-analysis: High Dosage Vitamin E. Supplementation Might Increase All Cause Mortality. Annals of Internal Medicine April 21, 2004. annals.org National Center for Complementary and Alternative Medicine. Menopausal Symptoms and CAM. [facility].nih.gov Accessed July 17, 2012 [place] Menopause Society, Hormone Therapy for women in 2012. www.menopause.org Assessed July 17, 2012 [place] [employer] of Obstetricians and Gynecologists. Publications. The Menopause Years. www.acog.org Accessed 06/15/2010 Centers for Disease Control and Prevention. Women s Reproductive Health: Menopause. www.cdc.gov Accessed 06/15/2010 National [place] on Aging. Age Page: Menopause. www.[place].nih.gov Accessed 06/15/2010 documented in [facility] encounterGreen [facility]09-[facility]25 NoteHNO ID: [id number] Author: TALI SYED MD Service: ? Author Type: Physician Type: Progress Notes Filed: 12/24/2024 12:55 Note Text: Bulk Sealer offered: Patient declines. Blake is a 49 year old who presents for an annual gynecologic exam without complaints. Dyspareunia that has been chronic. Tried vaginal estrogen cream in past for several months. H/o TVH for uterine fibroids and menorrhagia. Ovaries remain. Benign pathology per patient Postmenopausal: Uncertain. History of hysterectomy HRT use: No. Still get period: No Menopause symptoms: Hot flashes; Night sweats; Vaginal dryness x 8 years. Taking Black Cohosh Time with current partner: 28 years Number of lifetime partners: 1 control frequency: Never HPV vaccine: No; Last pap smear: 04/18/2012 History of abnormal pap: No, all prior PAP smears have been normal Bothersome pelvic pain: No Last mammogram: 2024 normal History of abnormal mammogram: Yes normal after additional imaging Colonoscopy with Dr. Bass OB History No obstetric history on file. 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/02/2010, Hysterectomy Age at Menarche: 9 Age at First : Age at Menopause: 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 Comments: Sexual Activity: Yes; Male Contraception: None PAST MEDICAL HISTORY Diagnosis Date ACL injury tear R knee --college softball injury Coitus painful for female My whole life Herpes simplex virus (HSV) infection Mouth sores only Meniscus tear R knee--college softball injury Postcoital bleeding Uterine fibroid 2009 PAST SURGICAL HISTORY Procedure Laterality Date APPENDECTOMY 04/18/1975 SECTION HX x2 VAGINAL HYSTERECTOMY UTERUS 250 GM/< 04/18/2011 FAMILY HISTORY Problem Relation Age of Onset None Mother Hypertension Father Lipids Father Ovarian cancer Maternal Grandmother 50 - 59 SOCIAL HISTORY Social History Tobacco Use Smoking status: Never Smokeless tobacco: Never Vaping Use Vaping status: Never Used Substance Use Topics Alcohol use: No Drug use: No REVIEW OF SYSTEMS Abdomen: No abdominal pain, nausea, vomiting, diarrhea, or constipation. Bladder: No dysuria, gross hematuria, urinary frequency, urinary urgency, or incontinence Breast: No breast lumps, nipple d/c, overlying skin changes, redness or skin retraction Allergies and current medication updated:Yes SENSITIVE EXAM: The sensitive examination was discussed with the Patient or Patient's Authorized Deputy Building Guard. As applicable, any other physician, advance practice provider, medical student, or other health professional student that will be observing or involved in the sensitive examination for educational or training purposes was discussed with the Patient or Authorized Deputy Building Guard. The Patient or Authorized Deputy Building Guard has agreed to proceed with the sensitive examination. (Sensitive examination includes inspection and/or palpation of the breasts, pelvis, prostate and anorectal regions). EXAM: BP 108/70 Ht 5' 6.142" (1.68m) Wt 156 lb (70.8kg) LMP 03/02/2010 BMI 25.07 kg/(m2). GENERAL: pleasant, female in no apparent distress HEENT: Normocephalic and atraumatic NECK: full range of motion BREAST: soft, non-tender, symmetric, no dominant mass, normal nipple-areolar complex, no lymphadenopathy, and no nipple discharge CHEST: Normal inspiratory effort ABDOMEN: soft, non-tender, and no masses PELVIC: external genitalia with atrophic changes, normal Bartholin's glands, urethra, Houck's glands, no vulvar lesions, no cervical lesions, good vaginal support, physiologic discharge present, normal appearing perineal body and perianal region, vaginal with atrophic changes BIMANUAL: uterus normal size, shape and consistency, no adnexal masses, and non-tender RECTOVAGINAL: deferred. NEURO: exam grossly non-focal EXTREMITIES: normal ASSESSMENT/PLAN: 1) Health maintenance: Pap/HPV screening no longer needed Mammogram ordered Nutrition, exercise and routine health maintenance exams reviewed. Colon cancer screening: up to date with screening TSH/lipids/glucose: followed by PCP Dyspareunia and vaginal atrophy: Discussed r/b/a vaginal estrogen cream. Information given on vaginal moisturizers and lubricants. Referral to pelvic floor PT Discussed menopausal expectations and information given on non hormonal treatment options for menopause. Discussed risk with Boby cha 2) Follow up one year or sooner as needed [facility] History of Present illness Narrative* Tali Syed MD - 12/24/2024 9:23 AM EDT Bulk Sealer offered: Patient declines. Lou is a 49 year old who presents for an annual gynecologic exam without complaints. Dyspareunia that has been chronic. Tried vaginal estrogen cream in past for several months. H/o TVH for uterine fibroids and menorrhagia. Ovaries remain. Benign pathology per patient Postmenopausal: Uncertain. History of hysterectomy HRT use: No. Still get period: No Menopause symptoms: Hot flashes; Night sweats; Vaginal dryness x 8 years. Taking Boby Cha Time with current partner: 28 years Number of lifetime partners: 1 control frequency: Never HPV vaccine: No; Last pap smear: 04/18/2012 History of abnormal pap: No, all prior PAP smears have been normal Bothersome pelvic pain: No Last mammogram: 2024 normal History of abnormal mammogram: Yes normal after additional imaging Colonoscopy with Dr. Bass OB History No obstetric history on file. 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/02/2010, Hysterectomy Age at Menarche: 9 Age at First : Age at Menopause: 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 Comments: Sexual Activity: Yes; Male Contraception: None PAST MEDICAL HISTORY Diagnosis Date ACL injury tear R knee --college softball injury Coitus painful for female My whole life Herpes simplex virus (HSV) infection Mouth sores only Meniscus tear R knee--college softball injury Postcoital bleeding Uterine fibroid 2010 PAST SURGICAL HISTORY Procedure Laterality Date APPENDECTOMY 04/18/1975 SECTION HX x2 VAGINAL HYSTERECTOMY UTERUS 250 GM/< 04/18/2011 FAMILY HISTORY Problem Relation Age of Onset None Mother Hypertension Father Lipids Father Ovarian cancer Maternal Grandmother 50 - 59 SOCIAL HISTORY Social History Tobacco Use Smoking status: Never Smokeless tobacco: Never Vaping Use Vaping status: Never Used Substance Use Topics Alcohol use: No Drug use: No REVIEW OF SYSTEMS Abdomen: No abdominal pain, nausea, vomiting, diarrhea, or constipation. Bladder: No dysuria, gross hematuria, urinary frequency, urinary urgency, or incontinence Breast: No breast lumps, nipple d/c, overlying skin changes, redness or skin retraction Allergies and current medication updated:Yes SENSITIVE EXAM: The sensitive examination was discussed with the Patient or Patient's Authorized Deputy Building Guard. As applicable, any other physician, advance practice provider, medical student, or other health professional student that will be observing or involved in the sensitive examination for educational or training purposes was discussed with the Patient or Authorized Deputy Building Guard. The Patient or Authorized Deputy Building Guard has agreed to proceed with the sensitive examination. (Sensitive examination includes inspection and/or palpation of the breasts, pelvis, prostate and anorectal regions). EXAM: BP 108/70 Ht 5' 6.142" (1.68m) Wt 156 lb (70.8kg) LMP 03/02/2010 BMI 25.07 kg/(m^2). GENERAL: pleasant, female in no apparent distress HEENT: Normocephalic and atraumatic NECK: full range of motion BREAST: soft, non-tender, symmetric, no dominant mass, normal nipple-areolar complex, no lymphadenopathy, and no nipple discharge CHEST: Normal inspiratory effort ABDOMEN: soft, non-tender, and no masses PELVIC: external genitalia with atrophic changes, normal Bartholin's glands, urethra, Houck's glands, no vulvar lesions, no cervical lesions, good vaginal support, physiologic discharge present, normal appearing perineal body and perianal region, vaginal with atrophic changes BIMANUAL: uterus normal size, shape and consistency, no adnexal masses, and non-tender RECTOVAGINAL: deferred. NEURO: exam grossly non-focal EXTREMITIES: normal ASSESSMENT/PLAN: 1) Health maintenance: Pap/HPV screening no longer needed Mammogram ordered Nutrition, exercise and routine health maintenance exams reviewed. Colon cancer screening: up to date with screening TSH/lipids/glucose: followed by PCP Dyspareunia and vaginal atrophy: Discussed r/b/a vaginal estrogen cream. Information given on vaginal moisturizers and lubricants. Referral to pelvic floor PT Discussed menopausal expectations and information given on non hormonal treatment options for menopause. Discussed risk with Boby cha 2) Follow up one year or sooner as needed Tali Syed DO [facility] Diagnosis Onset Date Resolution Status Right lateral epicondylitis acute [facility] Work Phone: Evaluation note* Diagnosis Onset Date Resolution Status Colon cancer screening [facility] care acu te [facility] Work Phone: Evaluation note* Diagnosis Onset Date Resolution Status Colon cancer screening acute [facility] Work Phone: Evaluation noteNo assessment information available [facility] Work Phone: [id number] note* Diagnosis Encounter for gynecological examination (general) (routine) without abnormal findings- Primary Encounter for screening mammogram for breast cancer Dyspareunia in female documented in this encounter [facility] Author Bruno Bass [facility] February 07, 2023 9:56am Note Date/Time February 07, 2023 9 :57am [facility] Medical Records Department [address] [place] [address] History & Physical Exam 02/07/23 0955 MR#: [id number] Acct: [id number] Name: LOU MCGRAW Rep #:[id number] : 1975 47 From: Bruno Bass DO PCP: Dr. Samuel Simms MD Status:R [facility] Location: [place] [address] HPI - General General Date of Admission: 02/07/23 Date of Service: 02/07/23 Chief Complaint: Screening colonoscopy HPI Narrative LOU MCGRAW, is a 47 F who presents today for screening colonoscopy. She isnever had a colonoscopy in the past. She is in very good health she does not take any medicines on a daily basis. She does not have any chest pain or shortness of breath she denied of any nausea, no vomiting or diarrhea. Overall she is in very good health. [facility] Medical History (Updated 02/02/23 @ 11:32 by Zuleika Albert) Alcohol use Anemia Blood disorder Colon cancer screening History of steroid therapy Hx of Fine's palsy Hyperlipidemia Injury of head and neck Post-menopausal Preventative health care Right lateral epicondylitis Home Medications lactobacillus combination no.9 4 billion cell capsule (Adult 50 Plus Probiotic) 4,000 mmu cells PO DAILY 05/19/22 [History Last Taken Unknown] biotin 5 mg capsule 10 mg PO .THREE TIMES WEEKLY 10/08/22 [History Last Taken Unknown] black cohosh 200 mg capsule 700 mg PO BID 10/08/22 [History Last Taken Unknown] multivitamin (One Daily Multivitamin tablet) 1 tab PO DAILY 10/08/22 [History Last Taken Unknown] polyethylene glycol 3350 17 gram/dose oral powder (Miralax) 2 g PO .4X WEEKLY 10/08/22 [History Last Taken Unknown] Allergy/AdvReac Type Severity Reaction Status Date / Time tetracycline Allergy Intermediate Hives Verified 02/07/23 09:13 Family History (Updated 12/08/22 @ 11:36 by Sri Singh) Mother Arthritis High cholesterol Father Diabetes Hypertension Melanoma Cancer Bone marrow Pulmonary embolism Colon polyp Grandfather Alcoholism Arthritis Diabetes Hypertension Myocardial infarction Grandmother Arthritis History of blood transfusion Diabetes Type 1 Kidney disease Cancer Uterine Uncle Colon cancer Surgical History History of delivery History of hysterectomy History of lateral meniscus repair of left knee Hx of appendectomy Hx of reconstruction of anterior cruciate ligament tear Social History Smoking Status: Never smoker alcohol intake: current alcohol intake frequency: a few times a month substance use type: does not use what type of physical activity do you participate in: walking and running frequency: 5-6 times per week ROS Review of Systems ROS Unobtainable: other Constitutional Constitutional: Denies fatigue, fever(s), poor appetite, weight gain or weight loss ENT HEENT: Denies mouth lesions Cardiovascular Cardiovascular: Denies abdominal bloating, abdominal edema or abdominal pain Respiratory/Chest Respiratory/Chest: Denies change in mental status, change in phlegm color, chestcongestion or chest tightness Gastrointestinal Gastrointestinal: Denies belching, bloating, change in bowel habits, change in stool character, chewing difficulty, coffee ground emesis, constipation, cramping, diarrhea, dyspepsia, dysphagia, early satiety, excessive flatus, fecalincontinence, heartburn, hematemesis, hematochezia, hemorrhoids, loose stools, melena, nausea, odynophagia, rectal bleeding, tenesmus, vomiting or weight changes Genitourinary Genitourinary: Denies abdominal discomfort, burning urination or itching Musculoskeletal Musculoskeletal: Reports as per HPI; Denies muscle weakness or myalgias Integumentary Integumentary: Denies jaundice Neurologic Neurologic: Denies lack of coordination or weakness Psychiatric Psychiatric: Denies confusion, depression, memory loss, mood swings, paranoia orsuicidal ideation Endocrine Endocrinology: Denies systems reviewed and no addt'l complaints, except as documented Hematologic/Lymphatic Hematologic/Lymphatic: Denies anemia, easy bleeding, easy bruising or lymphadenopathy Allergic/Immunologic Allergic/Immunologic: Denies systems reviewed and no addt'l complaints, except as documented Vital Signs Vital Signs Vital Signs: 02/07/23 09:13 02/07/23 09:13 Temperature 97.8 F Temperature Source Temporal Pulse Rate 75 Respiratory Rate 18 Respiratory Pattern Normal Blood Pressure 116/69 Blood Pressure Mean 84 Blood Pressure Source Monitor Blood Pressure Position Sitting Blood Pressure Location Left Arm Pulse Ox 100 Oxygen Delivery Method Room Air Weight Weight: 158 lb 11.725 oz Body Mass Index (BMI) 24.8 Physical Exam Const alert General Appearance: cooperative Orientation / Consciousness: oriented to person HEENT hearing grossly normal bilaterally Head and Scalp: normal to inspection Face and Sinus: face symmetric Nose: external nose normal Mouth: oral and palatal mucosa normal Eyes conjunctivae normal General Eye: normal appearance of both eyes Neck full ROM General: normal visual inspection Lymph Lymphatic: no lymphadenopathy noted Chest inspection of chest normal and palpation of chest normal Chest: symmetrical chest wall rise Resp normal respiratory effort Effort and Inspection: able to speak in complete sentences Cardio regular rate GI non-distended Percussion: normal to percussion Rectal Exam: deferred Neuro Speech: speech normal Gait (Neuro): normal gait Assessment & Plan Assessment/Plan (1) Colon cancer screening: PLAN: She was explained alternatives, risk, benefits include not withstanding bleeding, infection, sepsis, perforation, need for emergent surgery and . She will have an ASA of 2. 02/07/23 0956 <Electronically signed by Bruno Bass DO> Cosigner Signature (if applicable): CC: Dr. Samuel Simms MD; Bruno Bass DO~ Signed [facility] Work Phone: Reason for referral (narrative)No reason for referral information availableWTr[facility] Work Phone: Summary Purpose Family History No Family History Records Found Relationship Condition Age at Onset Recorded Date/T deneen mother Arthritis Unknown High blood cholesterol Unknown father Diabetes mellitus Unknown Hypertension Unknown Malignant melanoma Unknown Malignant neoplasm Unknown Pulmonary embolism Unknown grandfather Alcoholism Unknown Arthritis Unknown Diabetes mellitus Unknown Myocardial infarction Unknown grandmother Arthritis Unknown History of blood transfusion Unknown Disorder of kidney Unknown uncle Malignant neoplasm of colon Unknown Relationship Condition Age at Onset Recorded Date/T deneen mother Arthritis Unknown High blood cholesterol Unknown father Diabetes mellitus Unknown Hypertension Unknown Malignant melanoma Unknown Malignant neoplasm Unknown Pulmonary embolism Unknown Polyp of colon Unknown grandfather Alcoholism Unknown Arthritis Unknown Diabetes mellitus Unknown Myocardial infarction Unknown grandmother Arthritis Unknown History of blood transfusion Unknown Disorder of kidney Unknown uncle Malignant neoplasm of colon Unknown Relationship Condition Age at Onset Recorded Date/T denene mother Arthritis Unknown High blood cholesterol Unknown father Diabetes mellitus Unknown Hypertension Unknown Malignant melanoma Unknown Pulmonary embolism Unknown Polyp of colon Unknown Lewy body dementia Unknown Not Specified Alcoholism Unknown Arthritis Unknown Diabetes mellitus Unknown Myocardial infarction Unknown grandmother Arthritis Unknown History of blood transfusion Unknown Disorder of kidney Unknown uncle Malignant neoplasm of colon Unknown Not Specified Malignant neoplasm of ovary Unknown Advance Directives No Advanced Directives Records Found Advance Directive Response Recorded Date/ Time Name of Medical Power of Meat Hanger CARMELA TOMSHANNON February 02, 2023 11:32am Living Will Yes February 02 11:32am Power of Meat Hanger Yes February 02, 2023 11:32am Advance Directive Response Recorded Date/ Time Name of Medical Power of Meat Hanger CARMELA TOMSHANNON February 02, 2023 10:32am Living Will Yes February 02 10:32am Power of Meat Hanger Yes February 02, 2023 10:32am Chief Complaint and Reason for Visit Chief Complaint RIGHT ELBOW RM 4 XRAY MASTODYNIA Reason for Visit Right lateral epicon dylitis Chief Complaint 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 Reason for Visit Colon cancer screeni ng Preventative health care Chief Complaint Amb Documentation Reason for Visit Colon cancer screeni ng Chief Complaint Admit Date Breast Cancer Screening December 03 11:09am LT BREAST ABN MAMM December 06, 2024 8: 54am Chief Complaint Admit Date Breast Cancer Screening December 03 11:09am LT BREAST ABN MAMM December 06, 2024 8: 54am YEARLY December 31, 2024 2:28pm Reason for Visit Admit Date Hyperlipidemia December 31, 2024 2:28pm Preventative health care December 31, 2024 2:28pm Additional Source Comments INFORMATION SOURCE (unrecogn ized section and content) DATE CREATED AUTHOR 03/31/2020 [facility] DATE CREATED AUTHOR AUTHOR'S ORGANIZ ATION 04/04/2020 [facility] DATE CREATED AUTHOR AUTHOR'S ORGANIZ ATION 01/01/2025 [facility] DATE CREATED AUTHOR AUTHOR'S ORGANIZ ATION 01/19/2025 [facility] Care Teams (unrecognized sec tion and content) Team Status: Active Member Role Status Dates Dr. Drake Cruz MD Family Provider Active Dr. Drake Cruz MD Primary Care Provider Active Team Status: Inactive Member Role Status Dates Dr. Drake Cruz MD Primary Care Provider, Referring Provider Active Eduardo Galvez MD Attending Provider Active Team Status: Inactive Member Role Status Dates Dr. Drake Cruz MD Primary Care Provider Active Dr. Jreemy Goldberg MD Attending Provider Active Team Status: Inactive Member Role Status Dates Dr. Drake Cruz MD Primary Care Provider Active Dr. Miranda Guzman DO Attending Provider Active Team Status: Active Member Role Status Dates Dr. Drake Cruz MD Family Provider Active Dr. Samuel Simms MD Primary Care Provider Active Team Status: Inactive Member Role Status Dates Dr. Drake Cruz MD Primary Care Provider, Referring Provider Active Dr. Samuel Simms MD Attending Provider Active Team Status: Inactive Member Role Status Dates Dr. Samuel Simms MD Primary Care Julio spring, Attending Provider, Referring Provider Active Team Status: Active Member Role Status Dates Dr. Samuel Simms MD Primary Care Provider Active [facility] Attending Provider Active Team Status: Active Member Role Status Dates Dr. Samuel Simms MD Primary Care Provider, Refer ring Provider Active Dr. Bruno Bass DO Attending Provider, Other Prov ider Active Team Status: Inactive Member Role Status Dates Dr. Samuel Simms MD Primary Care Provider, Refer ring Provider Active Dr. Bruno Bass DO Attending Provider Active Team Status: Inactive Member Role Status Dates Dr. Samuel Simms MD Primary Care Provider, Atten ding Provider Active Team Status: Active Member Role/Relationship Status Dates Dr. Samuel Simms MD Primary Care Provider Active Team Status: Inactive Member Role/Relationship Status Dates Dr. Samuel Simms MD Primary Care Provider Active Start: December 03, 2024 End: December 03, 2024 Dr. Samuel Simms MD Attending Provider Active Start: December 03, 2024 End: December 03, 2024 Dr. Samuel Simms MD Referring Provider Active Start: December 03, 2024 End: December 03, 2024 Team Status: Active Member Role/Relationship Status Dates Dr. Samuel Simms MD Primary Care Provider Active Start: December 06, 2024 Dr. Samuel Simms MD Attending Provider Active Start: December 06, 2024 Dr. Samuel Simms MD Referring Provider Active Start: December 06, 2024 Team Status: Inactive Member Role/Relationship Status Dates Dr. Samuel Simms MD Primary Care Provider Active Start: December 06, 2024 End: December 06, 2024 Dr. Samuel Simms MD Attending Provider Active Start: December 06, 2024 End: December 06, 2024 Dr. Samuel Simms MD Referring Provider Active Start: December 06, 2024 End: December 06, 2024 Supervisor Advice Relationship Specialty Start Date End Date Drake Cruz PCP - General Genetics 07/03/12 Team Status: Inactive Member Role/Relationship Status Dates Dr. Samuel Simms MD Primary Care Provider Active Start: December 31, 2024 End: December 31, 2024 Dr. Samuel Simms MD Attending Provider Active Start: December 31, 2024 End: December 31, 2024 Dr. Samuel Simms MD Referring Provider Active Start: December 31, 2024 End: December 31, 2024 Team Status: Active Member Role/Relationship Status Dates Dr. Samuel Simms MD Primary Care Provider Active Start: December 31, 2024 Dr. Samuel Simms MD Attending Provider Active Start: December 31, 2024 Dr. Samuel Simms MD Referring Provider Active Start: December 31, 2024 Supervisor Advice Relationship Specialty Start Date End Date Drake Cruz PCP - General Genetics 07/03/12 Team Status: Active Member Role/Relationship Status Dates Dr. Samuel Simms MD Primary care physician Activ e Team Status: Inactive Member Role/Relationship Status Dates Dr. Samuel Simms MD Primary care physician Activ e Start: December 03, 2024 End: December 03, 2024 Dr. Samuel Simms MD Attending physician Active Start: December 03, 2024 End: December 03, 2024 Dr. Samuel Simms MD Referring Provider Active Start: December 03, 2024 End: December 03, 2024 Team Status: Inactive Member Role/Relationship Status Dates Dr. Samuel Simms MD Primary care physician Activ e Start: December 06, 2024 End: December 06, 2024 Dr. Samuel Simms MD Attending physician Active Start: December 06, 2024 End: December 06, 2024 Dr. Samuel Simms MD Referring Provider Active Start: December 06, 2024 End: December 06, 2024 Team Status: Inactive Member Role/Relationship Status Dates Dr. Samuel Simms MD Primary care physician Activ e Start: December 31, 2024 End: December 31, 2024 Dr. Samuel Simms MD Attending physician Active Start: December 31, 2024 End: December 31, 2024 Dr. Samuel Simms MD Referring Provider Active Start: December 31, 2024 End: December 31, 2024 Team Status: Inactive Member Role/Relationship Status Dates Dr. Samuel Simms MD Primary care physician Activ e Start: December 31, 2024 End: December 31, 2024 Dr. Samuel Simms MD Attending physician Active Start: December 31, 2024 End: December 31, 2024 Dr. Samuel Simms MD Referring Provider Active Start: December 31, 2024 End: December 31, 2024 Goals (unrecognized section and content) Goals may be documented in a n alternate sectionGoals may be documented in an alternate sectionGoals may be documented in an alternate sectionGoals may be documented in an alternate sectionGoals may be documented in an alternate sectionGoals may be documented in an alternate section Source Comments (unrecognize d section and content) In the event this informatio n is protected by the Federal Confidentiality of Alcohol and Drug Abuse Patient Records regulations: The Federal rules restrict any use of the information to criminally investigate or prosecute any alcohol or drug abuse patient.[facility] the event this information is protected by the Federal Confidentiality of Alcohol and Drug Abuse Patient Records regulations: The Federal rules restrict any use of the information to criminally investigate or prosecute any alcohol or drug abuse patient.[facility] Reason for Visit (unrecogniz ed section and content) Reason Comments Well Woman Reason Comments Received Outside Medical Records FOR RECORDS PERTAINING TO PATIENTS WHO ARE OR HAVE BEEN ENROLLED IN A CHEMICAL DEPENDENCY/SUBSTANCEABUSE PROGRAM, SOME INFORMATION MAY BE OMITTED. This clinical summary was aggregated from multiple sources. Caution should be exercised in using it in the provision of clinical care. This summary normalizes information from multiple sources, and as a consequence, information in this document may materially change the coding, format and clinical context of patient data. In addition, data may be omitted in some cases. CLINICAL DECISIONS SHOULD BE BASED ON THE PRIMARY CLINICAL RECORDS. [employer] [facility]. provides no warranty or guarantee of the accuracy or completeness of information in this document.
[2025-02-24 09:47] LABS: Hematocrit 44.8 % (37-47); Hemoglobin 15.1 g/dL (12.0-15.0); Immature Granulocytes Count 0.010 X10^3/uL (0.0-0.0); Mean Corp Hgb Conc 33.7 g/dL (32-36); Mean Corpuscular Volume 85.7 fL (81-99); Mean Platelet Vol. 10.0 fl (6.2-12.0); NRBC Flagged by Analyzer 0 % (0-5); Platelet Count 299 K/mm3 (150-450); RBC Distribution Width CV 12.5 % (11.6-14.6); RBC Distribution Width SD 39.1 fl (35.1-43.9); Red Blood Count 5.23 M/mm3 (4.2-5.4); White Blood Count 6.7 K/mm3 (4.4-11.0)
[2025-02-24] MEDS: 0.9% Normal Saline (1000mL) 1,000 ML 999 ML IV (09:48)
[2025-02-24 10:11] LABS: Lipase 24 U/L (13-75)
[2025-02-24 10:12] LABS: AST(SGOT) 33 U/L (<=31); Alanine Aminotransfer ALT/SGPT 13 U/L (<=34); Albumin, Serum 4.9 g/dL (3.5-5.0); Alkaline Phosphatase 45 U/L (35-104); Anion Gap 14 (5-15); BUN 9 mg/dL (4-19); BUN/Creat Ratio 11.4 RATIO (10-20); Calcium,Total 9.8 mg/dL (7.6-11.0); Carbon Dioxide 23.0 mmol/L (21.0-32.0); Chloride 98 mmol/L (98-108); Estimated Creatinine Clearance 82.98 ml/min (50-250); Globulin 3.3 g/dL (2.2-4.2); Glucose 100 mg/dL (70-99); Potassium 4.5 mmol/L (3.3-5.1)
--- NOTE | 2025-02-24 10:14 | CM.ED ---
Social Work Date of referral: 02/24/25 Reason for referral: Advanced Care Directives (ACD's) not on file. Referred by: Social Work Identification Patient provided consent for social work visit. Digital Solution Architect requested patient bring in a copy of ACD"s which patient agreed to do. Lou Borrego, RIDE ATTENDANT, MANAGER AREA
[2025-02-24 10:58] VITALS: BP 142/74; PULSE 61; O2SAT 100
[2025-02-24 10:59] LABS: Mucous, Urine 0 SEEN /hpf (<or=2+); Red Blood Cells-Urine 0 SEEN /hpf (0-5)
[2025-02-24] MEDS: Lidocaine 2% Viscous15 ML UDC 15 ML PO (11:05)
[2025-02-24 11:09] LABS: Color, Urine Straw (Yellow); Glucose, Dipstick Normal (Normal); Ketone-Dipstick 50 mg/dl (Negative); Leukocyte Esterase-Dipstick 25 /ul (Negative); Nitrite-Dipstick Negative (Negative); Occult Blood-Urine Negative /ul (Negative); Protein-Dipstick Negative (Negative); Specific Gravity, Urine 1.010 (1.002-1.030); Urine Bilirubin Dipstick Negative (Negative)
[2025-02-24 11:22] VITALS: BP 142/74; PULSE 61; RESP 16; TEMP 36.3; O2SAT 100
[2025-02-24 11:28] LABS: Squamous Epithelial Cells - UA 0-5 SEEN /hpf (5-10); Transitional Epithelial - Ur 0-5 SEEN /hpf (0-5)
== END 2025-02-24 11:28 | disposition home or self-care (01) ==
PROVIDERS: Emergency Provider Emergency Medicine; PCP Internal Medicine; Visit Provider Emergency Medicine
DX: K29.00 Acute gastritis without bleeding (principal); R19.7 Diarrhea, unspecified; E78.5 Hyperlipidemia, unspecified; R10.13 Epigastric pain; Z90.710 Acquired absence of both cervix and uterus
CPT/HCPCS: 76705; 80053; 81001; 83690; 85025; 96361; 96374; 96375; 99283; A4216; J2405

== ENCOUNTER 2025-02-27 06:10 | Emergency (ER) | payer OTHER, SELFPAY ==
[2025-02-27 06:12] VITALS: BP 149/80; PULSE 79; RESP 16; TEMP 36.8; O2SAT 100; BMI 24.0
--- NOTE | 2025-02-27 06:31 | CT_ITS ---
PROCEDURE: ABDOMEN/PELVIS W IV CONT ONLY 02/27/2025 REASON FOR EXAM: ABD PAIN TECHNIQUE: Procedure Code: [id number] Modality: CT Procedure: ABDOMEN/PELVIS W IV CONT ONLY Coronal and Sagittal reconstruction series were provided. CONTRAST: 93 cc Isovue 370 One or more dose reduction techniques were used (e.g., Automated exposure control, adjustment of the mA and/or kV according to patient size, use of iterative reconstruction technique. RADIATION DOSE SUMMARY: DLP: 727 mGycm COMPARISON: None FINDINGS: Lung bases: Clear Liver: Unremarkable Gallbladder: Unremarkable Spleen: Unremarkable Pancreas: Unremarkable Adrenals: Unremarkable Kidneys: Unremarkable Bladder: Unremarkable Reproductive Organs: Unremarkable Bowel: Gas and stool is noted throughout the colon. There is moderate stool load. The small-bowel loops are not distended. Appendix: The appendix is upper normal, measuring 0.7 cm in diameter with no visible periappendiceal inflammation. Lymph nodes: There is no pathologic adenopathy by size criteria. Vasculature: There is no significant atherosclerosis Peritoneum / Retroperitoneum: There is no free air or free fluid. Bones: There is no acute bony abnormality. CT/Abdomen/Pelvis W IV Cont ONLY IMPRESSION: The appendix is upper normal, measuring 0.7 cm in diameter with no visible aj appendiceal inflammation. Reading Location: [place]
[2025-02-27] MEDS: 0.9% Normal Saline (1000mL) 1,000 ML 999 ML IV (06:42)
[2025-02-27] MEDS: Ketorolac 30 MG/ML Syringe IV (06:42)
--- NOTE | 2025-02-27 06:42 | EX.ED.DYSGE1 ---
HPI History of Present Illness Chief Complaint: Abd Pain Informant: patient and spouse/S.O. Narrative Narrative: Patient is a 49-year-old female with no significant past medical history. She was seen roughly 3 days ago secondary to bouts of generalized abdominal discomfort that was greatest in the right upper quadrant with nausea and diarrhea. At that time she had basic laboratory studies done urine sample and ultrasound with no obvious cause of her symptoms. It was felt patient most likely was experiencing viral gastroenteritis with potential gastritis she was given Zofran Protonix and Carafate. She states she has been taking the medication as directed. She reports that the diarrhea has since stopped but she has had increasing pain in her abdomen and she also feels pain in her low back. She states there is been no trauma. She denies any dysuria or hematuria. She states the pain seems to only occur at night. She states she still has had significant nausea without vomiting and minimal oral intake. She states that the pain in the abdomen does not radiate into the back but they seem to be 2 separate locations. She denies any radiation of the pain into the leg. She denies any loss of bowel or bladder control or IV drug use. However with the persistent and worsening symptoms she returns for repeat evaluation [facility] Medical History Post-menopausal Alcohol use History of steroid therapy Blood disorder Injury of head and neck Hyperlipidemia Colon cancer screening Preventative health care Hx of Fine's palsy Right lateral epicondylitis Anemia Home Medications Medication Instructions Recorded Last Taken Type lactobacillus combination no.9 4 4,000 mmu cells PO DAILY 05/19/22 Unknown History billion cell capsule (Adult 50 Plus Probiotic) black cohosh 200 mg capsule 140 mg PO BID 12/31/24 Unknown History wrzbqgozwaij-rtobcesm-trtpbt 1 tab PO QDAY 12/31/24 Unknown History tablet (Multivitamin 50 Plus tablet) ondansetron 8 mg disintegrating 8 mg PO Q8H PRN nausea and 02/24/25 Unknown Rx tablet vomiting #20 tabs pantoprazole 40 mg tablet,delayed 40 mg PO DAILY #30 tabs 02/24/25 Unknown Rx release sucralfate 1 gram tablet (Carafate) 1 g PO TID 1 week #21 tabs 02/24/25 Unknown Rx Allergy/AdvReac Type Severity Reaction Status Date / Time tetracycline Allergy Intermediate Hives Verified 02/27/25 06:10 Family History Mother Arthritis High cholesterol Father Diabetes Hypertension Melanoma Pulmonary embolism Colon polyp Lewy body dementia Maternal Grandfather Alcoholism Arthritis Diabetes Hypertension Myocardial infarction Grandmother Arthritis History of blood transfusion Diabetes Type 1 Kidney disease Uncle Colon cancer Maternal Grandmother Ovarian cancer Surgical History S/P colonoscopy History of hysterectomy History of delivery History of lateral meniscus repair of left knee Hx of reconstruction of anterior cruciate ligament tear Hx of appendectomy Social History adopted: No household members: spouse number of children: 2 current occupational status: employed 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 pets and animals: No sexually active: Yes Smoking Status: Never smoker alcohol intake: current alcohol intake frequency: a few times a month Alcohol type: wine details: < 3 in 1 sitting substance use type: does not use caffeine: Yes (1-2) Type: coffee what type of physical activity do you participate in: walking and running frequency: 5-6 times per week seatbelt use: always do you feel safe at home: Yes ROS ROS ED Constitutional Constitutional ED: Reports other Details: Positive fatigue ; Denies chills or fever(s) Eyes Eyes: Denies change in vision ENT ENT ED: Denies rhinorrhea or sore throat Cardiovascular Cardiovascular: Denies chest pain Respiratory/Chest Respiratory/Chest: Denies cough or dyspnea Gastrointestinal Gastrointestinal: Reports abdominal pain and nausea; Denies diarrhea or vomiting Genitourinary Genitourinary ED: Denies dysuria or hematuria Musculoskeletal Musculoskeletal: Reports back pain Integumentary Denies rash Neurologic Neurologic: Reports weakness; Denies headache(s) Hematologic/Lymphatic Hematologic/Lymphatic: Denies easy bleeding or easy bruising EXAM Physical Exam Const Vital Signs: 02/27/25 06:12 Temperature 98.3 F Temperature Source Oral Pulse Rate 79 Respiratory Rate 16 Blood Pressure 149/80 H Blood Pressure Mean 103 Pulse Ox 100 Oxygen Delivery Method Room Air Positive well nourished and well developed General Appearance ED: well developed; Negative for pallor HEENT HEENT Narrative: Normocephalic and atraumatic No tongue or lip swelling no oral lesions no airway edema or compromise No secondary findings in the posterior pharynx to suggest infection Eyes PERRL and EOMs intact bilaterally General Eye ED: Negative for scleral icterus Neck supple Neck Narrative: No nuchal rigidity or meningeal signs Resp normal respiratory effort and clear to auscultation bilaterally Resp Narrative: No nasal flaring retractions tachypnea or accessory muscle use Breath sounds are clear throughout Cardio regular rate and regular rhythm Rate: other Other Details: Heart is regular rate and rhythm without murmurs rubs or gallop Radial and carotid pulses are equal and symmetric GI non-distended and no masses GI Narrative: Abdomen is soft and nondistended with normal active bowel sounds There is mild diffuse pain on palpation but it is greatest in the midepigastric region No voluntary guarding or rigidity or pulsatile mass No peritoneal signs Auscultation: normoactive bowel sounds Palpation: soft Back/Spine no CVA tenderness Back/Spine Narrative: No bony deformity or step-off of the thoracic or lumbar spine No midline tenderness to palpation Patient reports pain in the diffuse low back region of the lumbar spine/sacrum but no pain produced with palpation and it does not seem to worsen with extension or rotation or flexion. No radicular pain noted No overlying soft tissue changes to suggest trauma or infection Extremity normal to inspection Extremity Narrative: No asymmetric edema no pitting edema negative Homans' sign bilaterally Neuro oriented x3, CN's II-XII intact bilaterally and no sensory deficits noted Sensorium / Orientation: alert Motor Exam: strength 5/5 throughout Psych mental status grossly normal Skin no rashes or lesions noted, no wounds and No skin turgor normal Skin Narrative: Skin turgor is slightly increased General Skin Exam: Negative for jaundice or pallor MDM MDM MDM Narrative Medical decision making narrative: Patient arrived to the ER mildly hypertensive otherwise with stable vitals. She reported persistent and now worsening abdominal pain as well as low back pain. However the 2 do not seem to be related such as the abdominal pain shooting through to the back or vice versa. She denies any trauma to suggest musculoskeletal injury although she has been laying on the couch which could irritate the low back muscles. The patient did not have reproducible pain with motion however. The pain is also not radicular going against nerve is compression. She has not no risk factors for cauda equina or epidural abscess. There is also been no recent back procedures to suggest discitis or osteomyelitis. On my physical exam the pain is greatest in the midepigastric region and so there is concern for biliary colic acute cholecystitis or pancreatitis. Patient also could have gastritis or duodenitis. As she is now having constipation and had previous abdominal surgeries potentially scar tissue leading to adhesions and small bowel obstruction. Therefore at this time I will repeat laboratory studies to check for elevation to her white count urinary tract infection blood in the urine to suggest kidney stone as well as lipase and liver enzymes to suggest pancreatitis or biliary issue. A CT scan with IV contrast will also be obtained to further assess the intestines and other organs within the abdomen. At this time the patient's laboratory studies and imaging are still pending so her case will be signed out to day physician Dr. Topete. History & Record Review Discussion w/independent historian: Patient and Significant other Additional record(s) reviewed:: Prior ED visit and Prior labs Discharge Plan Triage Chief Complaint: Abd Pain ED Provider: Quentin Hart Dx/Rx/DC Orders Clinical Impression: Nonspecific abdominal pain Instructions: Abdominal Pain Prescriptions: No Action Adult 50 Plus Probiotic 4 billion cell capsule 4,000 mmu cells PO DAILY black cohosh 200 mg capsule 140 mg PO BID Multivitamin 50 Plus Tablet 1 tab PO QDAY sucralfate [Carafate] 1 gram tablet 1 g PO TID 7 Days Qty: 21 0RF ondansetron 8 mg tablet,disintegrating 8 mg PO Q8H PRN (Reason: nausea and vomiting) Qty: 20 0RF pantoprazole 40 mg tablet,delayed release (DR/EC) 40 mg PO DAILY Qty: 30 0RF Primary Care Provider: Samuel Simms Referrals: Samuel Simms MD [Primary Care Provider, Internal Medicine] Print Language: Croatian D/C Safety Score for UGIB Assessment Shyanne-Blatchford Bleeding Score (GBS): Stratifies upper GI bleeding patients who are "low-risk" and candidates for outpatient management. Hemoglobin, BUN, Recent Vital Signs: Pulse Rate 79 Blood Pressure 149/80 Total Risk Score: 1 Score Interpretation: Score of 0: A GBS of 0 is a “Low Risk” GI bleed, and is highly sensitive (99.6% in a 2007 retrospective study) for predicting which patients did not require any “medical intervention”: blood transfusion, endoscopy, or surgery. This was confirmed in a 2009 Lancet study where patients with a score of 0 were actually discharged and had no GI bleeding mortality at 6 month followup Score above 0: A GBS greater than zero suggests a “High Risk” GI bleed that is likely to require “medical intervention”: transfusion, endoscopy, or surgery. A higher GBS also correlated with a higher likelihood of needing intervention Scores >/= 6 are associated with >50% risk of needing intervention D/C Safety Score for LGIB Assessment Assessment Tool: Readmission and adverse event risk in patients with acute lower GI bleeding. Age, in years: 40-69 Hemoglobin and Recent Vital Signs: Pulse Rate 79 02/27/25 06:12 Blood Pressure 149/80 02/27/25 06:12 Probability of safe discharge: 99% Total Risk Score: 1 Score Interpretation: Probability Percentage of safe discharge (absence of rebleeding, blood transfusion, therapeutic intervention, 28 day readmission, or ) Score of 8 or below: Consider discharge, with appropriate precautions. Score of 9 or above: Discharge NOT recommended. Consider admission with further workup and resuscitation as necessary.
[2025-02-27 06:45] LABS: Hematocrit 45.0 % (37-47); Hemoglobin 15.6 g/dL (12.0-15.0); Immature Granulocytes Count 0.010 X10^3/uL (0.0-0.0); Mean Corp Hgb Conc 34.7 g/dL (32-36); Mean Corpuscular Volume 83.0 fL (81-99); Mean Platelet Vol. 9.6 fl (6.2-12.0); NRBC Flagged by Analyzer 0 % (0-5); POSITIVE MORPHOLOGY YES; Platelet Count 275 K/mm3 (150-450); RBC Distribution Width CV 12.4 % (11.6-14.6); RBC Distribution Width SD 37.3 fl (35.1-43.9); Red Blood Count 5.42 M/mm3 (4.2-5.4); White Blood Count 3.9 K/mm3 (4.4-11.0)
--- OUTSIDE RECORDS SUMMARY | 2025-02-27 06:53 | XMS RPT_ITS | CCD ---
Author Organization [facility] Care Team Providers Care Airline Stewardess Name Role Phone HOLA PATEL Attending Unavailable HOLA PATEL Primary Care Unavailable HOLA PATEL Admitting Unavailable Dr. Drake Cruz Primary Care Provider Dr. Drake Cruz Referring Provider [phone] MD Eduardo Galvez Attending Provider [phone] Dr. Jeremy Goldberg Attending Provider Dr. Drake Cruz Primary Care Provider Dr. Drake Cruz Referring Provider Dr. Samuel Simms Attending Provider [phone] Dr. Samuel Simms Primary Care Provider [phone] Sri Singh Attending Provider Unavailable Dr. Samuel Simms Referring Provider [phone] Dr. Bruno Bass Attending Provider [phone] Dr. Bruno Bass Other Provider [phone] Dr. Samuel Simms Primary Care Provider [phone] Sri Singh Attending Provider Unavailable Dr. Samuel Simms Referring Provider [phone] Dr. Bruno Bass Attending Provider [phone] Dr. Bruno Bass Other Provider [phone] Dr. Samuel Simms MD Primary Care Provider Mendez BRUNNER, Dr. Baker Attending Provider [phone] Mendez BRUNNER, Dr. Baker Referring Provider [phone] Drake Cruz Primary Care Provider Unavail able Mendez BRUNNER, Dr. Baker Primary Care Physician Mendez BRUNNER, Dr. Baker Attending Physician [phone] TALI SYED Attending Unavailable MOOMAWHAYDE Attending Unavailable Oleghe, Efewongbe Referring Unavailable Oleghe, Efewongbe Attending Unavailable Oleghe, Efewongbe Primary Care Unavailable Oleghe, Efewongbe Primary Care Unavailable Oleghe, Efewongbe Referring Unavailable Oleghe, Efewongbe Attending Unavailable Oleghe, Efewongbe Primary Care Unavailable Chato Montemayor Attending Unavailable Oleghe, Efewongbe Referring Unavailable Oleghe, Efewongbe Attending Unavailable Oleghe, Efewongbe Primary Care Unavailable Oleghe, Efewongbe Referring Unavailable Oleghe, Efewongbe Attending Unavailable Oleghe, Efewongbe Primary Care Unavailable Allergies Allergy Classification Reported Allergen(s) Allergy Type Date of Onset Reaction(s) Facility (11 sources) Tetracycline; Translations: [TETRACYCLINE] Drug Allergy 08-17-2005 [address], [facility] Comment on above: 1992 (1 source) Tetracycline Drug Allergy 02-24-2025 [facility] Repository Medications Current Medications Medication Drug Class(es) Dates Sig (Normalized) Sig (Original) Black Cohosh (17 sources) Start: 12-31-2024 take 1 capsule by mo ut twice daily Start: 12-31-2024 take [address] [facility] twice daily Black Cohosh 200 mg capsule Active 140 mg PO TWICE A DAY December 31, 2024 3:00pm Start: 10-08-2022 End: 12-31-2024 take 1 capsule by mouth twice daily Black Cohosh 200 mg capsule Discontinued 700 mg PO TWICE A DAY October 08, 2022 11:08am December 31, 2024 3:00pm Start: 10-08-2022 take 1 capsule by mo ut twice daily Black Cohosh 200 mg capsule [...] capsule Active PO May 19, 2022 1:00am Dwqbcugftgsk-Trqihrte-Towxxr (Multivitamin 50 Plus) tablet (2 sources) Start: 12-31-2024 Start: 12-31-2024 Multivitamin-M inerals-Lutein (Multivitamin 50 Plus) tablet Active 1 {tbl} PO daily December 31, 2024 12:00am Onroqhfbegwet-Bfqlbgpw-Iojxn n (MULTIVITAMIN 50 PLUS) tab (2 sources) [...] October 08, 2022 10:14am Start: 05-19-2022 End: 06-23-2023 take 1 capsule by mouth once daily [...] October 08, 2022 12:00am polyethylene glycol 3350 62937 mg powder for oral solution (7 sources) [...] Problem Classification Problem Date Documented Date Episodic/Chronic Abdominal pain (1 source) Upper abdominal pain, unspecified; Translations: [Upper abdominal pain] Onset: 02-24-2025 Episodic Allergic reactions (8 sources) Contact dermatitis due [...] Test Name Value Interpretation Reference Range Facility CBC W/Diff, Automatedon 11-0 Absolute Lymph 1.29 X10 3/uL Normal 0.83-4.51 [facility] Comment on above: Performed By: #### L 501.2450, L500.4050, L100.0100 #### [facility] [address] [place], [address] Absolute Neut 4.8 X10 3/uL Normal 2.0-7.7 [facility] Comment on above: Performed By: #### L 501.2450, L500.4050, L100.0100 #### [facility] [address] [place], [address] Basophils/100 WBC (Bld) 0.3 % Normal 0-1 [facility] Comment on above: Performed By: #### L 501.2450, L500.4050, L100.0100 #### [facility] [address] [place], [address] Eosinophils/100 WBC (Bld) 0.4 % Normal 0-5 [facility] Comment on above: Performed By: #### L 501.2450, L500.4050, L100.0100 #### [facility] [address] [place], [address] Erythrocyte distribution width (RBC) [Ratio] 12.5 % Normal 11.6-14.6 [facility] Comment on above: Performed By: #### L 501.2450, L500.4050, L100.0100 #### [facility] [address] [place], [address] Hematocrit (Bld) [Volume fraction] 44.8 % Normal 37-47 [facility] Comment on above: Performed By: #### L 501.2450, L500.4050, L100.0100 #### [facility] [address] [place], [address] Hemoglobin (Bld) [Mass/Vol] 15.1 g/dL High 12.0-15.0 [facility] Comment on above: Performed By: #### L 501.2450, L500.4050, L100.0100 #### [facility] [address] [place], [address] IG% 0.100 Normal 0.0-0.9 [facility] Comment on above: Result Comment: IG% - Immature Granulocytes (promyelocytes, myelocytes and metamyelocytes) > 1% indicates that a LEFT SHIFT is Present. Performed By: #### L 501.2450, L500.4050, L100.0100 #### [facility] [address] [place], [address] Lymphocytes/100 WBC (Bld) 19.1 % Normal 19-41 [facility] Comment on above: Performed By: #### L 501.2450, L500.4050, L100.0100 #### [facility] [address] [place], [address] MCH (RBC) [Entitic mass] 28.9 pg Normal 27.0-32.0 [facility] Comment on above: Performed By: #### L 501.2450, L500.4050, L100.0100 #### [facility] [address] [place], [address] MCHC (RBC) [Mass/Vol] 33.7 g/dL Normal 32-36 [facility] Comment on above: Performed By: #### L 501.2450, L500.4050, L100.0100 #### [facility] [address] [place], [address] MCV (RBC) [Entitic vol] 85.7 fL Normal 81-99 [facility] Comment on above: Performed By: #### L 501.2450, L500.4050, L100.0100 #### [facility] [address] [place], [address] Monocytes/100 WBC (Bld) 9.1 % Normal 0-10 [facility] Comment on above: Performed By: #### L 501.2450, L500.4050, L100.0100 #### [facility] [address] [place], [address] Neutrophils/100 WBC (Bld) 71.0 % High 47-70 [facility] Comment on above: Performed By: #### L 501.2450, L500.4050, L100.0100 #### [facility] [address] [place], [address] Nucleated RBC (Bld) [#/Vol] 0 10*3/uL Normal 0-5 [facility] Comment on above: Performed By: #### L 501.2450, L500.4050, L100.0100 #### [facility] [address] [place], [address] Platelet mean volume (Bld) [Entitic vol] 10.0 fL Normal 6.2-12.0 [facility] Comment on above: Performed By: #### L 501.2450, L500.4050, L100.0100 #### [facility] [address] [place], [address] Platelets (Bld) [#/Vol] 299 10*3/uL Normal 150-450 [facility] Comment on above: Performed By: #### L 501.2450, L500.4050, L100.0100 #### [facility] [address] [place], [address] RBC (Bld) [#/Vol] 5.23 10*6/uL Normal 4.2-5.4 [facility] Comment on above: Performed By: #### L 501.2450, L500.4050, L100.0100 #### [facility] [address] [place], [address] RDW SD 39.1 fl Normal 35.1-43.9 [facility] Comment on above: Performed By: #### L 501.2450, L500.4050, L100.0100 #### [facility] [address] [place], [address] WBC (Bld) [#/Vol] 6.7 10*3/uL Normal 4.4-11.0 [facility] Comment on above: Performed By: #### L 501.2450, L500.4050, L100.0100 #### [facility] [address] [place], [address] OVon 02-24-2025 [facility] Office Visit ([facility]) LOU MCGRAW ([id number]) 1975 F Date Time Provider Department 02/24/25 8:30 AM HAYDE LI During your visit today, we recorded the following information about you: Temperature Pulse Respiration Blood pressure 99 degrees 106/minute 20/minute 132/91 Weight 71 kg Hayde Li APRN.FOURCHETTE SEWER 02/24/2025 8:51 AM Signed [facility] [place] Subjective Lou Jerardo Mcgraw is a 49 year old female. Patient presents with: Abdominal Pain: Burning and fullness feeling, Nausea, unable to eat, when she does she has diarrhea, x 4 days Low grade fever HPI Patient presents today complaining of 4 days of a sensation of fullness in her abdomen with burning up into her mid chest. She notes a sudden change in her bowel patterns with infrequent diarrhea now. She states anytime she attempts to eat she feels full and is if she is going to vomit. She otherwise denies any fever urinary burning or frequency. She does note a prior history of surgeries including hysterectomy and C-sections. Denies any previous similar episodes. She notes a low-grade fever. Review of Systems As a Objective BP 132/91 Pulse 106 Temp 37.2 ?C (99 ?F) Resp 20 Wt 71 kg (156 lb 8.4 oz) LMP 03/02/2010 SpO2 100% BMI 25.16 kg/m? Physical Exam Vitals and nursing note reviewed. Constitutional: General: She is not in acute distress. Appearance: Normal appearance. She is not ill-appearing. HENT: Head: Normocephalic. Pulmonary: Effort: Pulmonary effort is normal. Musculoskeletal: General: Normal range of motion. Skin: General: Skin is warm and dry. Neurological: General: No focal deficit present. Mental Status: She is alert and oriented to person, place, and time. Psychiatric: Mood and Affect: Mood normal. Behavior: Behavior normal. {ASSESSMENT/PLAN: 1. Upper abdominal pain - ICD9: 789.09, ICD10: R10.10 - In reviewing patient's symptoms she complains of moderate to severe generalized upper abdominal pain, fullness with eating, and decreased bowel patterns. I discussed with her that I have concerns for possible bowel obstruction versus abdominal mass versus gastritis versus peptic ulcer disease. I discussed with her that at urgent care I did not have the ability to do extensive enough testing and recommended that she go to the ER for further evaluation. Patient was in obvious discomfort but no acute distress and will be transported by her . Hayde Li APRN.FOURCHETTE SEWER History and Record Review Systemic symptoms present included: Abdominal pain Differential Diagnoses - Bowel obstruction Disposition The patient was transferred to ED. Procedures Allergies As of Date: 02/24/2025 Noted Allergy Reaction TETRACYCLINE 08/17/2005 Date Reviewed: 02/24/2025 Reviewed by: Hayde Li APRN.FOURCHETTE SEWER - Fully Assessed Reason for Visit: Abdominal Pain [1] Cmt: Burning and fullness feeling, Nausea, unable to eat, when she does she has diarrhea, x 4 days Low grade fever Primary Visit Diagnosis:Upper abdominal pain [R10.10] Prescriptions as of 02/24/2025 - Black Cohosh 200 mg cap - Multivitamins-Minerals -Lutein (MULTIVITAMIN 50 PLUS) tab 1 tablet once daily. - OTC PRODUCT Take 140 mg by mouth once daily. - Lactobacillus combination no.8 (ADULT PROBIOTIC ORAL) Take by mouth. - ibuprofen (MOTRIN) 800 mg tablet Take 1 tablet by mouth every 8 hours as needed (FOR PAIN. TAKE WITH FOOD). - VITAMIN B COMPLEX ORAL Take by mouth. - CALCIUM ORAL Take by mouth. - POTASSIUM ORAL Take by mouth. Problem List As Of Date: 02/24/2025 (None) Encounter Status:Closed by HAYDE LI on 02/24/[address] [facility] Metabolic Prof kamron 02-24-2025 Albumin [Mass/Vol] 4.9 g/dL Normal 3.5-5.0 [facility] Comment on above: Performed By: #### L 501.1960, L500.4050, L100.0100 #### [facility] [address] [place], [address] Albumin/Globulin [Mass ratio] 1.5 {ratio} Normal 0.9-2.4 [facility] Comment on above: Performed By: #### L 501.2450, L500.4050, L100.0100 #### [facility] [address] [place], [address] ALK PHOS 45 U/L Normal 35-104 [facility] Comment on above: Performed By: #### L 501.2450, L500.4050, L100.0100 #### [facility] [address] [place], [address] ALT [Catalytic activity/Vol] 13 U/L Normal <=34 [facility] Comment on above: Result Comment: Hemo lysis present, Results??could be affected. ?? Performed By: #### L 501.2450, L500.4050, L100.0100 #### [facility] [address] [place], [address] AST [Catalytic activity/Vol] 33 U/L High <=31 [facility] Comment on above: Result Comment: Hemo lysis present, Results??could be affected. ?? Performed By: #### L 501.2450, L500.4050, L100.0100 #### [facility] [address] [place], [address] Bilirubin [Mass/Vol] 0.77 mg/dL Normal 0.00-1.30 [facility] Comment on above: Performed By: #### L 501.2450, L500.4050, L100.0100 #### [facility] [address] [place], [address] BUN/CRE 11.4 RATIO Normal 10-20 [facility] Comment on above: Performed By: #### L 501.2450, L500.4050, L100.0100 #### [facility] [address] [place], [address] Calcium [Mass/Vol] 9.8 mg/dL Normal 7.6-11.0 [facility] Comment on above: Performed By: #### L 501.2450, L500.4050, L100.0100 #### [facility] [address] [place], [address] Chloride [Moles/Vol] 98 mmol/L Normal 98-108 [facility] Comment on above: Performed By: #### L 501.2450, L500.4050, L100.0100 #### [facility] [address] [place], [address] CO2 [Moles/Vol] 23.0 mmol/L Normal 21.0-32.0 [facility] Comment on above: Performed By: #### L 501.2450, L500.4050, L100.0100 #### [facility] [address] [place], [address] Creatinine [Mass/Vol] 0.78 mg/dL Normal 0.70-1.20 [facility] Comment on above: Performed By: #### L 501.2450, L500.4050, L100.0100 #### [facility] [address] [place], [address] ECRCL 82.98 ml/min Normal 50-250 [facility] Comment on above: Performed By: #### L 501.2450, L500.4050, L100.0100 #### [facility] [address] [place], [address] GAP 14 Normal 5-15 [facility] Comment on above: Performed By: #### L 501.2450, L500.4050, L100.0100 #### [facility] [address] [place], [address] GFR/1.73 sq M.predicted among non-blacks MDRD (S/P/Bld) [Vol rate/Area] 92 mL/min/{1.73_m2} Normal >60 [facility] Comment on above: Result Comment: mL/m in/1.73m2 CKD-EPI Creatinine Equation (2020) Performed By: #### L 501.2450, L500.4050, L100.0100 #### [facility] [address] [place], [address] Globulin (S) [Mass/Vol] 3.3 g/dL Normal 2.2-4.2 [facility] Comment on above: Performed By: #### L 501.2450, L500.4050, L100.0100 #### [facility] [address] [place], [address] Glucose [Mass/Vol] 100 mg/dL High 70-99 [facility] Comment on above: Performed By: #### L 501.2450, L500.4050, L100.0100 #### [facility] [address] [place], [address] Potassium [Moles/Vol] 4.5 mmol/L Normal 3.3-5.1 [facility] Comment on above: Result Comment: Hemo lysis present, Results??could be affected. ?? Performed By: #### L 501.2450, L500.4050, L100.0100 #### [facility] [address] [place], [address] Sodium [Moles/Vol] 134 mmol/L Normal 133-145 [facility] Comment on above: Performed By: #### L 501.2450, L500.4050, L100.0100 #### [facility] [address] [place], [address] T PROT 8.2 g/dL Normal 5.9-8.4 [facility] Comment on above: Performed By: #### L 501.2450, L500.4050, L100.0100 #### [facility] [address] [place], [address] Urea nitrogen [Mass/Vol] 9 mg/dL Normal 4-19 [facility] Comment on above: Performed By: #### L 501.2450, L500.4050, L100.0100 #### [facility] [address] [place], [address] Emergency Department Summary on 02-24-2025 Emergency Department Summary [facility] Medical Records Department [address] [place] [address] Emergency Department Summary 02/24/25 MR#: [id number] Acct: [id number] Name: LOU MCGRAW Rep #: [id number] : 1975 49 From: Chato Montemayor MD PCP: Dr. Samuel Simms MD Status:REG ER Location: ED HPI HPI - GI History of Present Illness Chief Complaint: Abd Pain Informant: patient and spouse/S.O. Narrative Narrative: Patient is a 49-year-old female presenting with abdominal pain, diarrhea, and nausea. - Symptoms began 4 days ago with diarrhea, abdominal fullness, and indigestion, progressing to burning pain and nausea. - Pain is primarily mid-abdominal, described as a fullness and burning sensation, with a constant feeling of impending emesis without actual vomiting. - Pain intensifies after eating, but is also present when not eating; reports pain as "manageable" currently. - Diarrhea is watery, occurring less than 5 times per day, with darker stools on the first two days; denies hematochezia or melena. - Denies fevers, but reports low-grade temperatures not exceeding 100???F. - Lower back pain noted, attributed to prolonged couch rest; mild intensification of back pain with abdominal pain. - Denies recent alcohol consumption beyond usual intake of one glass of wine every two weeks. - No recent sick contacts, travel, or suspicious food consumption; no recent antibiotic use. - Denies excessive use of anti-inflammatory drugs. - Taking hot-flash medication for several years, but stopped in the last few days due to symptoms. [facility] History Post-menopausal Alcohol use History of steroid therapy Blood disorder Injury of head and neck Hyperlipidemia Colon cancer screening Preventative health care Hx of Fine's palsy Right lateral epicondylitis Anemia Home Medications ???Medication ???Instructions ???Recorded ???Last Taken ???Type lactobacillus combination no.9 4 4,000 mmu cells PO DAILY 05/19/22 Unknown History billion cell capsule (Adult 50 Plus Probiotic) black cohosh 200 mg capsule 140 mg PO BID 12/31/24 Unknown His tory multivitamin-minerals- lutein 1 tab PO QDAY 12/31/24 Unknown His tory tablet (Multivitamin 50 Plus tablet) ondansetron 8 mg disintegrating 8 mg PO Q8H PRN nausea and 5 Unknown Rx tablet vomiting #20 tabs pantoprazole 40 mg tablet,delayed 40 mg PO DAILY #30 tabs 02/24/25 Unknown Rx release sucralfate 1 gram tablet (Carafate) 1 g PO TID 1 week #21 tabs 11/0 01/10 Unknown Rx Allergy/AdvReac Type Severity Reaction Status Date / Time tetracycline Allergy Intermediate Hives Verified 02/24/25 09:00 Family History Mother Arthritis High cholesterol Father Diabetes Hypertension Melanoma Pulmonary embolism Colon polyp Lewy body dementia Maternal Grandfather Alcoholism Arthritis Diabetes Hypertension Myocardial infarction Grandmother Arthritis History of blood transfusion Diabetes Type 1 Kidney disease Uncle Colon cancer Maternal Grandmother Ovarian cancer Surgical History S/P colonoscopy History of hysterectomy History of delivery History of lateral meniscus repair of left knee Hx of reconstruction of anterior cruciate ligament tear Hx of appendectomy Social History adopted: No household members: spouse number of children: 2 current occupational status: employed 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 pets and animals: No sexually active: Yes [...] do you feel safe at home: Yes ROS ROS ED Constitutional Constitutional ED: Reports fever(s), malaise and subjective; Denies chills Eyes Eyes: Denies change in vision or diplopia ENT ENT ED: Denies rhinorrhea or sore throat Cardiovascular Cardiovascular: Denies chest pain or palpitations Respiratory/Chest Respiratory/Chest: Denies cough or dyspnea Gastrointestinal Gastrointestinal: Reports abdominal pain, diarrhea and nausea; Denies hematemesis, hematochezia, melena or vomiting Genitourinary Genitourinary ED: Denies dysuria or hematuria Musculoskeletal Musculoskeletal: Reports back pain; Denies neck pain Integumentary Denies abscess or rash Neurologic Neurologic: Denies headache(s), paresthesias or weakness Psychiatric (more content not included)... Normal [facility] Gallbladderon 02-24-2025 Gallbladder [facility] Services [address] [place], [place] [address] Gallbladder MR#: [id number] Acct: [id number] Name: LOU MCGRAW Rep #: [id number] : 1975 F 49 From: Annabel Blanca MD PCP: Dr. Samuel Simms MD Status: REG ER Study: Gallbladder Date of Exam: 02/24/25 Exam# [id number] Ordering Dr: Chato Montemayor MD PROCEDURE: GALLBLADDER 02/24/2025 REASON FOR EXAM: PAIN RUQ TECHNIQUE: Procedure Code: USGB Modality: US Procedure: GALLBLADDER COMPARISON: None. FINDINGS: LIVER ECHOGENICITY: Normal SIZE: Normal measuring 16.0 cm in length. CONTOUR: Smooth. MASS: None. PORTAL VEIN: Normal direction hepatopetal portal venous flow. GALLBLADDER SIZE: Normal. STONES: None. SLUDGE: None. WALL THICKNESS: Normal measuring 1.9 mm. PERICHOLECYSTIC FLUID: None. SONOGRAPHIC DYKES'S SIGN: Negative. BILE DUCTS: Normal with the CBD measuring 5.2 mm in diameter. PANCREAS: Unremarkable as visualized. The distal pancreas is obscured by overlying bowel gas. RIGHT KIDNEY: Normal size and echogenicity with a length of 11.2 cm. No hydronephrosis, nephrolithiasis, cyst or mass seen. ASCITES/EFFUSIONS: None. OTHER: None. US/Gallbladder IMPRESSION: Unremarkable right upper quadrant abdominal ultrasound. Reading Location: [facility] CC: Dr. Chato Montemayor MD; Dr. Samuel Simms MD [employer] Crm Developer: Signed Normal [facility] Lipaseon 02-24-2025 Lipase [Catalytic activity/Vol] 24 U/L Normal 13-75 [facility] Comment on above: Result Comment: Plea se note: LIPASE revised reference range effective 22. New Lipase methodology. Expected to produce lower values than the previous assay method. NEW Reference Range: 13 - 75 U/L Performed By: #### L 501.2450, L500.4050, L100.0100 #### [facility] [address] [place], [address] Urinalysis, Completeon 02-24 BACTERIA 2+ /hpf Normal None Seen [facility] Comment on above: Order Comment: CLEAN CATCH Performed By: #### L 400.0001 #### [facility] [address] [place], [address] EPI,SQUAMOUS 0-5 SEEN Normal 5-10 [facility] Comment on above: Order Comment: CLEAN CATCH Performed By: #### L 400.0001 #### [facility] [address] [place], [address] EPI,TRANSITION 0-5 SEEN Normal 0-5 [facility] Comment on above: Order Comment: CLEAN CATCH Performed By: #### L 400.0001 #### [facility] [address] [place], [address] WBC 0-5 SEEN Normal 0-5 [facility] Comment on above: Order Comment: CLEAN CATCH Performed By: #### L 400.0001 #### [facility] [address] [place], [address] Mucus Ql (Urine sed) 0 SEEN Normal [facility] Comment on above: Order Comment: CLEAN CATCH Performed By: #### L 400.0001 #### [facility] [address] [place], [address] RBC 0 SEEN Normal 0-5 [facility] Comment on above: Order Comment: CLEAN CATCH Performed By: #### L 400.0001 #### [facility] [address] [place], [address] Absolute lymphocyte countOrd ered By: Samuel Simms on 12-31-2024 Lymphocytes Auto (Unsp spec) [#/Vol] 1.84 10*3/uL 0.83-4.51 [facility] Absolute neutrophil countOrd ered By: Samuel Simms on 12-31-2024 Neutrophils (Bld) [#/Vol] 2.3 10*3/uL 2.0-7.7 [facility] Anion gap in Serum or Plasma Ordered By: Samuel Simms on 12-31-2024 Anion gap [Moles/Vol] 11 mmol/L - [facility] Automated lymphocyte count a s percentage of total leukocytesOrdered By: Samuel Simms on 12-31-2024 Lymphocytes/100 WBC Auto (Unsp spec) 40.0 % - [facility] BUN/creatinine ratioOrdered By: Samuel Simms on 12-31-2024 Urea nitrogen/Creatinine [Mass ratio] 11.5 mg/mg 10- [facility] Basophil percentageOrdered B y: Samuel Simms on 12-31-2024 Basophils/100 WBC (Bld) 0.4 % 0-1 [facility] Bilirubin, totalOrdered By: Samuel iSmms on 12-31-2024 Bilirubin [Mass/Vol] 0.29 mg/dL 0.00-1.30 [facility] CBC W/Diff, Automatedon 12-17 Absolute Lymph 1.84 X10 3/uL Normal 0.83-4.51 [facility] Comment on above: Performed By: #### L 100.0100, L500.4100, L500.4050 #### [facility] [address] [place], [address] Absolute Neut 2.3 X10 3/uL Normal 2.0-7.7 [facility] Comment on above: Performed By: #### L 100.0100, L500.4100, L500.4050 #### [facility] [address] [place], [address] Basophils/100 WBC (Bld) 0.4 % Normal 0-1 [facility] Comment on above: Performed By: #### L 100.0100, L500.4100, L500.4050 #### [facility] [address] [place], [address] Eosinophils/100 WBC (Bld) 1.3 % Normal 0-5 [facility] Comment on above: Performed By: #### L 100.0100, L500.4100, L500.4050 #### [facility] [address] [place], [address] Erythrocyte distribution width (RBC) [Ratio] 13.1 % Normal 11.6-14.6 [facility] Comment on above: Performed By: #### L 100.0100, L500.4100, L500.4050 #### [facility] [address] [place], [address] Hematocrit (Bld) [Volume fraction] 39.1 % Normal 37-47 [facility] Comment on above: Performed By: #### L 100.0100, L500.4100, L500.4050 #### [facility] [address] [place], [address] Hemoglobin (Bld) [Mass/Vol] 12.8 g/dL Normal 12.0-15.0 [facility] Comment on above: Performed By: #### L 100.0100, L500.4100, L500.4050 #### [facility] [address] [place], [address] IG% 0.200 Normal 0.0-0.9 [facility] Comment on above: Result Comment: IG% - Immature Granulocytes (promyelocytes, myelocytes and metamyelocytes) > 1% indicates that a LEFT SHIFT is Present. Performed By: #### L 100.0100, L500.4100, L500.4050 #### [facility] [address] [place], [address] Lymphocytes/100 WBC (Bld) 40.0 % Normal 19-41 [facility] Comment on above: Performed By: #### L 100.0100, L500.4100, L500.4050 #### [facility] [address] [place], [address] MCH (RBC) [Entitic mass] 28.7 pg Normal 27.0-32.0 [facility] Comment on above: Performed By: #### L 100.0100, L500.4100, L500.4050 #### [facility] [address] [place], [address] MCHC (RBC) [Mass/Vol] 32.7 g/dL Normal 32-36 [facility] Comment on above: Performed By: #### L 100.0100, L500.4100, L500.4050 #### [facility] [address] [place], [address] MCV (RBC) [Entitic vol] 87.7 fL Normal 81-99 [facility] Comment on above: Performed By: #### L 100.0100, L500.4100, L500.4050 #### [facility] [address] [place], [address] Monocytes/100 WBC (Bld) 8.9 % Normal 0-10 [facility] Comment on above: Performed By: #### L 100.0100, L500.4100, L500.4050 #### [facility] [address] [place], [address] Neutrophils/100 WBC (Bld) 49.2 % Normal 47-70 [facility] Comment on above: Performed By: #### L 100.0100, L500.4100, L500.4050 #### [facility] [address] [place], [address] Nucleated RBC (Bld) [#/Vol] 0 10*3/uL Normal 0-5 [facility] Comment on above: Performed By: #### L 100.0100, L500.4100, L500.4050 #### [facility] [address] [place], [address] Platelet mean volume (Bld) [Entitic vol] 10.3 fL Normal 6.2-12.0 [facility] Comment on above: Performed By: #### L 100.0100, L500.4100, L500.4050 #### [facility] [address] [place], [address] Platelets (Bld) [#/Vol] 281 10*3/uL Normal 150-450 [facility] Comment on above: Performed By: #### L 100.0100, L500.4100, L500.4050 #### [facility] [address] [place], [address] RBC (Bld) [#/Vol] 4.46 10*6/uL Normal 4.2-5.4 [facility] Comment on above: Performed By: #### L 100.0100, L500.4100, L500.4050 #### [facility] [address] [place], [address] RDW SD 42.1 fl Normal 35.1-43.9 [facility] Comment on above: Performed By: #### L 100.0100, L500.4100, L500.4050 #### [facility] [address] [place], [address] WBC (Bld) [#/Vol] 4.6 10*3/uL Normal 4.4-11.0 [facility] Comment on above: Performed By: #### L 100.0100, L500.4100, L500.4050 #### [facility] [address] [place], [address] Calculated very low density lipoprotein (VLDL) cholesterol measurementOrdered By: Samuel Simms on 12-31-2024 Calculated very low density lipoprotein (VLDL) cholesterol measurement 33 mg/dL 5-40 [facility] Carbon dioxide, total [Moles /volume] in Central venous bloodOrdered By: Samuel Simms on 12-31-2024 CO2 [Moles/Vol] 23.5 mmol/L 21.0-32.0 [facility] Chloride assayOrdered By: Geraldine Simms on 12-31-2024 Chloride [Moles/Vol] 103 mmol/L 98-108 [facility] Comprehensive Metabolic Prof ilon 12-31-2024 Albumin [Mass/Vol] 4.6 g/dL Normal 3.5-5.0 [facility] Comment on above: Performed By: #### L 501.2450, L500.4050, L100.0100 #### [facility] [address] [place], [address] Albumin/Globulin [Mass ratio] 1.6 {ratio} Normal 0.9-2.4 [facility] Comment on above: Performed By: #### L 501.2450, L500.4050, L100.0100 #### [facility] [address] [place], [address] ALK PHOS 42 U/L Normal 35-104 [facility] Comment on above: Performed By: #### L 501.2450, L500.4050, L100.0100 #### [facility] [address] [place], [address] ALT [Catalytic activity/Vol] 11 U/L Normal <=34 [facility] Comment on above: Performed By: #### L 501.2450, L500.4050, L100.0100 #### [facility] [address] [place], [address] AST [Catalytic activity/Vol] 20 U/L Normal <=31 [facility] Comment on above: Performed By: #### L 501.2450, L500.4050, L100.0100 #### [facility] [address] [place], [address] Bilirubin [Mass/Vol] 0.29 mg/dL Normal 0.00-1.30 [facility] Comment on above: Performed By: #### L 501.2450, L500.4050, L100.0100 #### [facility] [address] [place], [address] BUN/CRE 11.5 RATIO Normal 10-20 [facility] Comment on above: Performed By: #### L 501.2450, L500.4050, L100.0100 #### [facility] [address] [place], [address] Calcium [Mass/Vol] 9.4 mg/dL Normal 7.6-11.0 [facility] Comment on above: Performed By: #### L 501.2450, L500.4050, L100.0100 #### [facility] [address] [place], [address] Chloride [Moles/Vol] 103 mmol/L Normal 98-108 [facility] Comment on above: Performed By: #### L 501.2450, L500.4050, L100.0100 #### [facility] [address] [place], [address] CO2 [Moles/Vol] 23.5 mmol/L Normal 21.0-32.0 [facility] Comment on above: Performed By: #### L 501.2450, L500.4050, L100.0100 #### [facility] [address] [place], [address] Creatinine [Mass/Vol] 0.77 mg/dL Normal 0.70-1.20 [facility] Comment on above: Performed By: #### L 501.2450, L500.4050, L100.0100 #### [facility] [address] [place], [address] GAP 11 Normal 5-15 [facility] Comment on above: Performed By: #### L 501.2450, L500.4050, L100.0100 #### [facility] [address] [place], [address] GFR/1.73 sq M.predicted among non-blacks MDRD (S/P/Bld) [Vol rate/Area] 93 mL/min/{1.73_m2} Normal >60 [facility] Comment on above: Result Comment: mL/m in/1.73m2 CKD-EPI Creatinine Equation (2020) Performed By: #### L 501.2450, L500.4050, L100.0100 #### [facility] [address] [place], [address] Globulin (S) [Mass/Vol] 2.8 g/dL Normal 2.2-4.2 [facility] Comment on above: Performed By: #### L 501.2450, L500.4050, L100.0100 #### [facility] [address] [place], [address] Glucose [Mass/Vol] 92 mg/dL Normal 70-99 [facility] Comment on above: Performed By: #### L 501.2450, L500.4050, L100.0100 #### [facility] [address] [place], [address] Potassium [Moles/Vol] 4.0 mmol/L Normal 3.3-5.1 [facility] Comment on above: Performed By: #### L 501.2450, L500.4050, L100.0100 #### [facility] [address] [place], [address] Sodium [Moles/Vol] 138 mmol/L Normal 133-145 [facility] Comment on above: Performed By: #### L 501.2450, L500.4050, L100.0100 #### [facility] [address] [place], [address] T PROT 7.4 g/dL Normal 5.9-8.4 [facility] Comment on above: Performed By: #### L 501.2450, L500.4050, L100.0100 #### [facility] [address] [place], [address] Urea nitrogen [Mass/Vol] 9 mg/dL Normal 4-19 [facility] Comment on above: Performed By: #### L 501.2450, L500.4050, L100.0100 #### [facility] [address] [place], [address] Eosinophil percentageOrdered By: Samuel Simms on 12-31-2024 Eosinophils/100 WBC (Bld) 1.3 % 0-5 [facility] Erythrocyte distribution wid th ratioOrdered By: Samuel Simms on 12-31-2024 Erythrocyte distribution width (RBC) [Ratio] 13.1 % 11.6-14.6 [facility] Erythrocyte distribution wid th standard deviationOrdered By: Samuel Simms on 09-15-2025 Erythrocyte distribution width (RBC) [Ratio] 42.1 fl 35.1-43.9 [facility] Glomerular filtration rate ( GFR) estimation/1.73 sq m using serum, plasma, or whole bOrdered By: Samuel Simms on 12-31-2024 GFR/1.73 sq M.predicted among non-blacks MDRD (S/P/Bld) [Vol rate/Area] 93 mL/min/{1.73_m2} >60 [facility] Comment on above: mL/min/1.73m2 CKD-EP I Creatinine Equation (2020) Hematocrit Auto (Bld) [Volum e fraction]Ordered By: Rosespringdenisse Simms on 12-31-2024 Hematocrit (Bld) [Volume fraction] 39.1 % 37-47 [facility] Hemoglobin measurementOrdere d By: Samuel Simms on 12-31-2024 Hemoglobin (Bld) [Mass/Vol] 12.8 g/dL 12.0-15.0 [facility] Immature granulocytes/100 WB C Auto (Bld)Ordered By: Samuel Simms on 12-31-2024 Immature granulocytes/100 WBC (Bld) 0.200 % 0.0-0.9 [facility] Comment on above: IG% - Immature Granu locytes (promyelocytes, myelocytes and metamyelocytes) > 1% indicates that a LEFT SHIFT is Present. Internal Medicine Office Vis freddie 12-31-2024 Internal Medicine Office Visit [facility] [place], [place] [address] OFFICE VISIT Date of Service: 12/31/24 MR#: [id number] Acct: [id number] Name: LOU MCGRAW Rep #: [id number] : 1975 Provider: Dr. 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 Normal [facility] LDL calc ser/plasOrdered By: Samuel Simms on 12-31-2024 Cholesterol in LDL [Mass/Vol] 159 mg/dL [facility] Comment on above: Cmoelcxdgw=724-955 m g/dL & Higher Brnn=952 mg/dL or greaterFriedwald Equation for LDL-C Laboratory - Chemistry and C hemistry - challengeOrdered By: Samuel Simms on 12-31-2024 AST [Catalytic activity/Vol] 20 U/L <32 [facility] Lipid Profileon 12-31-2024 CHOL:HDL 4.66 Normal [facility] Comment on above: Performed By: #### L 501.2450, L500.4050, L100.0100 #### [facility] [address] [place], [address] Cholesterol [Mass/Vol] 245 mg/dL High <=200 [facility] Comment on above: Result Comment: Chol esterol level, Desirable <200 mg/dL Borderline high cholesterol 200-239 mg/dL High cholesterol >=240 mg/dL Recommendations of the NCEP Adult Treatment Panel for the following risk-cutoff thresholds for the [place] population. Performed By: #### L 501.2450, L500.4050, L100.0100 #### [facility] [address] [place], [address] Cholesterol in HDL [Mass/Vol] 53 mg/dL Normal [facility] Comment on above: Result Comment: [place]iko onal Cholesterol Education Program (NCEP) guidelines: <40 mg/dL: Low HDL-cholesterol (major risk factor for CHD) >= 60 mg/dL: High HDL-cholesterol (negative risk factor for CHD) HDL-cholesterol is affected by a number of factors, e.g. smoking, exercise, hormones, sex and age. Performed By: #### L 501.2450, L500.4050, L100.0100 #### [facility] [address] [place], [address] Cholesterol in LDL [Mass/Vol] 159 mg/dL Normal [facility] Comment on above: Result Comment: Bord dgawct=591-263 mg/dL Higher Yutv=463 mg/dL or greater Friedwald Equation for LDL-C Performed By: #### L 501.2450, L500.4050, L100.0100 #### [facility] [address] [place], [address] Cholesterol in VLDL [Mass/Vol] 33 mg/dL Normal 5-40 [facility] Comment on above: Performed By: #### L 501.2450, L500.4050, L100.0100 #### [facility] [address] [place], [address] Triglyceride [Mass/Vol] 167 mg/dL Normal [facility] Comment on above: Result Comment: The drugs N-Acetylcysteine and Metamizole may falsely depress this assay. Normal range: <150 mg/dL Borderline High: 150-199 mg/dL High: 200-499 mg/dL Very High: >500 mg/dL Performed By: #### L 501.2450, L500.4050, L100.0100 #### [facility] [address] [place], [address] MCV (mean corpuscular volume ) determinationOrdered By: Samuel Simms on 12-31-2024 MCV (RBC) [Entitic vol] 87.7 fL 81-99 [facility] Mean corpuscular hemoglobin (MCH) determinationOrdered By: Samuel Simms on 12-31-2024 MCH (RBC) [Entitic mass] 28.7 pg 27.0-32.0 [facility] Mean corpuscular hemoglobin concentration (MCHC) determinationOrdered By: Samuel Simms on 12-31-2024 MCHC (RBC) [Mass/Vol] 32.7 g/dL 32-36 [facility] Mean platelet volume determi nationOrdered By: Samuel Simms on 12-31-2024 Platelet mean volume (Bld) [Entitic vol] 10.3 fL 6.2-12.0 [facility] Monocyte percentageOrdered B y: Samuel Simms on 12-31-2024 Monocytes/100 WBC (Bld) 8.9 % 0-10 [facility] Neutrophil percentageOrdered By: Samuel Simms on 12-31-2024 Neutrophils/100 WBC (Bld) 49.2 % 47-70 [facility] Nucleated red blood cell per centageOrdered By: Samuel Simms on 12-31-2024 Nucleated RBC/100 WBC (Bld) [Ratio] 0 % 0-5 [facility] Platelet countOrdered By: Geraldine Simms on 12-31-2024 Platelets (Bld) [#/Vol] 281 10*3/uL 150-450 [facility] Potassium measurement (mass/ volume)Ordered By: Samuel Simms on 12-31-2024 Potassium (Unsp spec) [Mass/Vol] 4.0 mmol/L 3.3-5.1 [facility] RBC Auto (Bld) [#/Vol]Ordere d By: Samuel Simms on 12-31-2024 RBC (Bld) [#/Vol] 4.46 10*6/uL 4.2-5.4 [facility] Screening total cholesterol/ high density lipoprotein (HDL) cholesterol ratioOrdered By: Samuel Simms on 12-31-2024 Cholesterol.total/Choles terol in HDL [Mass ratio] 4.66 {ratio} [facility] Serum creatinine measurement (mass/volume)Ordered By: Samuel Simms on 12-31-2024 Creatinine [Mass/Vol] 0.77 mg/dL 0.70-1.20 [facility] Serum globulin measurementOr dered By: Samuel Simms on 12-31-2024 Globulin (S) [Mass/Vol] 2.8 g/dL 2.2-4.2 [facility] Serum glucose measurement (m ass/volume)Ordered By: Samuel Simms on 12-31-2024 Glucose [Mass/Vol] 92 mg/dL 70-99 [facility] Serum or plasma alanine myers otransferase (ALT) measurementOrdered By: Samuel Simms on 12-31-2024 ALT [Catalytic activity/Vol] 11 U/L <35 [facility] Serum or plasma albumin jude urement (mass/volume)Ordered By: Samuel Simms on 12-31-2024 Albumin [Mass/Vol] 4.6 g/dL 3.5-5.0 [facility] Serum or plasma albumin/glob ulin mass ratioOrdered By: Samuel Simms on 12-31-2024 Albumin/Globulin [Mass ratio] 1.6 {ratio} 0.9-2.4 [facility] Serum or plasma alkaline abdirizak sphatase measurementOrdered By: Samuel Simms on 12-31-2024 ALP [Catalytic activity/Vol] 42 U/L 35-104 [facility] Serum or plasma calcium jude urement (mass/volume)Ordered By: Samuel Raylindsaybárbara on 12-31-2024 Calcium [Mass/Vol] 9.4 mg/dL 7.6-11.0 [facility] Serum or plasma cholesterol in HDL measurement (mass/volume)Ordered By: Samuel Simms on 12-31-2024 Cholesterol in HDL [Mass/Vol] 53 mg/dL >40 [facility] Comment on above: National Cholesterol Education Program (NCEP) guidelines:<40 mg/dL: Low HDL-cholesterol (major risk factor for CHD)>= 60 mg/dL: High HDL-cholesterol (negative risk factor for CHD)HDL-cholesterol is affected by a number of factors, e.g. smoking, exercise, hormones, sex and age. Serum or plasma cholesterol measurement (mass/volume)Ordered By: Samuel Simms on 12-31-2024 Cholesterol [Mass/Vol] 245 mg/dL High <201 [facility] Comment on above: Cholesterol level, D esirable <200 mg/dLBorderline high cholesterol 200-239 mg/dLHigh cholesterol >=240 mg/dLRecommendations of the NCEP Adult Treatment Panel for the following risk-cutoff thresholds for the [place] population. Serum or plasma urea nitroge n measurement (mass/volume)Ordered By: Samuel Simms on 12-31-2024 Urea nitrogen [Mass/Vol] 9 mg/dL 4-19 [facility] Sodium levelOrdered By: Rose Simms 12-31-2024 Sodium [Moles/Vol] 138 mmol/L 133-145 [facility] Total proteinOrdered By: Brayan Simms on 12-31-2024 Protein [Mass/Vol] 7.4 g/dL 5.9-8.4 [facility] Triglycerides measurementOrd ered By: Samuel Simms 12-31-2024 Triglyceride [Mass/Vol] 167 mg/dL <199 [facility] Comment on above: The drugs N-Acetylcy steine and Metamizole may falsely depress this assay. Normal range: <150 mg/dLBorderline High: 150-199 mg/dLHigh: 200-499 mg/dLVery High: >500 mg/dL White blood cell (WBC) count Ordered By: Samuel Simms on 12-31-2024 WBC (Bld) [#/Vol] 4.6 10*3/uL 4.4-11.0 [facility] CNOVon 12-24-2024 CNOV Office Visit (OBGYWM ) LUCIENGHASSANLOU D ([id number]) 1975 F Date Time Provider Department 12/24/24 9:40 AM TALI SYED OBGYWMeenakshi During your visit today, we recorded the following information about you: Blood pressure Weight Height 108/70 70.8 kg 1.68 m Tali Syed MD 12/24/2024 12:55 PM Signed Master Technician offered: Patient declines. Blake is a 49 [...] OB History No obstetric history on file. License Issuer History LMP: 03/02/2010, Hysterectomy Age at Menarche: 9 Age at First : Age at Menopause: License Issuer History Comments: Sexual Activity: Yes; Male Contraception: [...] discussed with the Patient or Patient's Authorized Position Description Manager. As applicable, any other physician, advance practice provider, medical student, or other health professional student that will be observing or involved in the sensitive examination for educational or training purposes was discussed with the Patient or Authorized Position Description Manager. The Patient or Authorized Position Description Manager has agreed to proceed with the sensitive [...] with atrophic changes, normal Bartholin's glands, urethra, Eliza's glands, no vulvar lesions, no cervical lesions, [...] PM Addendum Lubricants and moisturizers list The mgwm-edg-xwmefea vaginal moisturizer and lubricant products can be confusing to sort through, especially since there a (more content not included)... Normal [facility] Breast imaging reportOrdered By: Jean Pierre Simmons on 12-06-2024 Study report [facility] Imaging Services [address] [place], [place] [id number] DIAG MAMM W/CAD, UNILAT MR#: [id number] Acct: [id number] Name: LOU MCGRAW Rep #: [id number] : 1975 F 48 From: Sky Simmons MD PCP: Dr. Samuel Simms MD Status: R EG CLI Study:DIAG MAMM W/CAD, UNILAT Date of Exam: 12/06/24 Exam# [id number] Ordering Dr: Bárbara Simms MD EXAM: DIAG [...] be mailed to the patient. Reading Location: [id number] CC: Dr. Samuel Simms MD ~ [employer] Crm Developer: Signed [facility] DIAG MAMM W/CAD, UNILATon DIAG MAMM W/CAD, UNILAT [facility] Imaging Services [address] [place] [id number] DIAG MAMM W/CAD, UNILAT MR#: [id number] Acct: [id number] Name: LOU MCGRAW Rep #: [id number] : 1975 F 48 From: Jean Pierre patel MD PCP: Dr. Samuel Simms MD Status: REG CLI Study: DIAG MAMM W/CAD, UNILAT Date of Exam: 12/06/24 Exam# [id number] Ordering Dr: Samuel Simms MD EXAM: DIAG [...] be mailed to the patient. Reading Location: [id number] CC: Dr. Samuel Simms MD [employer] C[employer] Developer: Signed Normal [facility] Breast imaging reportOrdered By: Sweta Fernandes on 12-03-2024 Study report [facility] Imaging Services [address] [place] [address] SCRN MAMM (CAD)W/TAURUS BILAT MR#: [id number] Acct: [id number] Name: LOU MCGRAW Rep #: [id number] : 1975 F 48 From: Bradford Fernandes DO PCP: Dr. Samuel Simms MD Status: R EG CLI Study:SCRN MAMM (CAD)W/TAURUS BILAT Date of Exa m: 12/03/24 Exam# [id number] Ordering Dr: Bárbara Simms MD EXAM: SCRN [...] be mailed to the patient. Reading Location: [id number] CC: Dr. Samuel Simms MD ~ [employer] C[employer] Developer: Signed [facility] SCRN MAMM (CAD)W/TAURUS BILATo n 12-03-2024 SCRN MAMM (CAD)W/TAURUS BILAT [facility] Imaging Services [address] [place] [id number] SCRN MAMM (CAD)W/TAURUS BILAT MR#: [id number] Acct: [id number] Name: LOU MCGRAW Rep #: [id number] : 1975 F 48 From: Sweta Kurtz O PCP: Dr. Samuel Simms MD Status: REG CLI Study: SCRN MAMM (CAD)W/TAURUS BILAT Date of Exam: 11/16 12/10 Exam# [id number] Ordering Dr: Samuel Simms MD EXAM: SCRN [...] be mailed to the patient. Reading Location: [id number] CC: Dr. Samuel Simms MD [employer] C[employer] Developer: Signed Normal [facility] Basophil percentageOrdered B y: Samuel Simms on 02-16-2023 Cholesterol [Mass/Vol] 232 mg/dL <200 [facility] Comment on above: <200 mg/dL Desirable 200-240 mg/dL Borderline >240 mg/dL High Risk Triglyceride [Mass/Vol] 113 mg/dL <199 [facility] Comment on above: The drugs N-Acetylcy steine and Metamizole may falsely depress this assay.Serum Triglycerides Reference Interval Normal <150 mg/dL Borderline high 150 - 199 mg/dL High 200 - 499 mg/dL Very High > or = 500 mg/dL Serum or plasma cholesterol in HDL measurement (mass/volume)Ordered By: Samuel Simms on 02-16-2023 Cholesterol in HDL [Mass/Vol] 56 mg/dL >40 [facility] Comment on above: The drugs N-Acetylcy steine and Metamizole may falsely depress this assay. Reference Range HDL <40 mg/dL Low HDL Cholesterol HDL >or= 60 mg/dL High HDL Cholesterol Serum or plasma cholesterol in VLDL measurement (mass/volume)Ordered By: Samuel Simms on 02-16-2023 Cholesterol in VLDL [Mass/Vol] 23 mg/dL 5-40 [facility] Serum or plasma low density lipoprotein (LDL) cholesterol measurement (mass/volume)Ordered By: Samuel Simms on 02-16-2023 Cholesterol in LDL [Mass/Vol] 153 mg/dL 0-130 [facility] Absolute lymphocyte countOrd ered By: Dr. Simms on 10-08-2022 Lymphocytes Auto (Unsp spec) [#/Vol] 1.72 10*3/uL 0.83-4.51 [facility] Basophil percentageOrdered B y: Dr. Simms on 10-08-2022 Basophils/100 WBC (Bld) 0.6 % 0-1 [facility] Bilirubin [Mass/Vol] 0.70 mg/dL 0.20-1.00 [facility] Comment on above: For patients on eltr ombopag therapy, use of Dimension Lawler TBIL is not recommended. Chloride [Moles/Vol] 105 mmol/L 98-107 [facility] Cholesterol [Mass/Vol] 251 mg/dL <200 [facility] Comment on above: <200 mg/dL Desirable 200-240 mg/dL Borderline >240 mg/dL High Risk Eosinophils/100 WBC (Bld) 1.3 % 0-5 [facility] Glucose [Mass/Vol] 90 mg/dL 74-106 [facility] Neutrophils (Bld) [#/Vol] 2.4 10*3/uL 2.0-7.7 [facility] Neutrophils/100 WBC (Bld) 52.1 % 47-70 [facility] Potassium [Moles/Vol] 3.7 mmol/L 3.5-5.1 [facility] Protein [Mass/Vol] 7.7 g/dL 6.4-8.2 [facility] Sodium [Moles/Vol] 140 mmol/L 136-145 [facility] Triglyceride [Mass/Vol] 71 mg/dL <199 [facility] Comment on above: The drugs N-Acetylcy steine and Metamizole may falsely depress this assay.Serum Triglycerides Reference Interval Normal <150 mg/dL Borderline high 150 - 199 mg/dL High 200 - 499 mg/dL Very High > or = 500 mg/dL WBC (Bld) [#/Vol] 4.6 10*3/uL 4.4-11.0 [facility] Blood erythrocytes count (nu mber/volume)Ordered By: Dr. Simms on 10-08-2022 RBC (Bld) [#/Vol] 4.84 10*6/uL 4.2-5.4 [facility] Blood hemoglobin measurement (mass/volume)Ordered By: Dr. Simms on 10-08-2022 Hemoglobin (Bld) [Mass/Vol] 13.9 g/dL 12.0-15.0 [facility] Blood lymphocytes/100 leukoc ytesOrdered By: Dr. Simms on 10-08-2022 Lymphocytes/100 WBC (Bld) 37.1 % 19-41 [facility] Blood monocytes/100 leukocyt esOrdered By: Dr. Simms on 10-08-2022 Monocytes/100 WBC (Bld) 8.9 % 0-10 [facility] Blood platelet mean volumeOr dered By: Dr. Simms on 10-08-2022 Platelet mean volume (Bld) [Entitic vol] 11.1 fL 6.2-12.0 [facility] Determination of erythrocyte mean corpuscular volume (MCV)Ordered By: Dr. Simms on 10-08-2022 MCV (RBC) [Entitic vol] 89.5 fL 81-99 [facility] Hematocrit Auto (Bld) [Volum e fraction]Ordered By: Dr. Simms on 10-08-2022 Hematocrit (Bld) [Volume fraction] 43.3 % 37-47 [facility] Laboratory - Chemistry and C hemistry - challengeOrdered By: Dr. Simms on 10-08-2022 ALP [Catalytic activity/Vol] 48 U/L 45-117 [facility] ALT [Catalytic activity/Vol] 28 U/L 13-56 [facility] CO2 [Moles/Vol] 27.0 mmol/L 21.0-32.0 [facility] Globulin (S) [Mass/Vol] 3.4 g/dL 2.2-4.2 [facility] Urea nitrogen/Creatinine [Mass ratio] 14.4 mg/mg 10-20 [facility] - Hematology and Cell countsOrdered By: Dr. Simms on 10-08-2022 Erythrocyte distribution width (RBC) [Entitic vol] 43.2 fL 35.1-43.9 [facility] Erythrocyte distribution width (RBC) [Ratio] 13.2 % 11.6-14.6 [facility] Immature granulocytes/100 WBC (Bld) 0.000 % 0.0-0.9 [facility] Comment on above: IG% - Immature Granu locytes (promyelocytes, myelocytes and metamyelocytes) > 1% indicates that a LEFT SHIFT is Present. MCH (RBC) [Entitic mass] 28.7 pg 27.0-32.0 [facility] Nucleated RBC/100 WBC (Bld) [Ratio] 0 % 0-5 [facility] MCHC Auto (RBC) [Mass/Vol]Or dered By: Dr. Simms on 10-08-2022 MCHC (RBC) [Mass/Vol] 32.1 g/dL 32-36 [facility] No Panel InformationOrdered By: Dr. Simms on 10-08-2022 Estimated GFR (MDRD) Amer 116 mL/min >60 [facility] Comment on above: GFR Calc Estimated GFR (MDRD) Non-Af Amer 96 mL/min >60 [facility] Comment on above: Non- GFR Calc Platelets bldOrdered By: Dr. Simms on 10-08-2022 Platelets (Bld) [#/Vol] 305 10*3/uL 150-450 [facility] Serum or plasma albumin jude urement (mass/volume)Ordered By: Dr. Simms on 10-08-2022 Albumin [Mass/Vol] 4.3 g/dL 3.2-5.0 [facility] Serum or plasma albumin/glob ulin mass ratioOrdered By: Dr. Simms on 10-08-2022 Albumin/Globulin [Mass ratio] 1.3 {ratio} 0.9-2.4 [facility] Serum or plasma calcium jude urement (mass/volume)Ordered By: Dr. Simms on 10-08-2022 Calcium [Mass/Vol] 9.5 mg/dL 8.5-10.1 [facility] Serum or plasma cholesterol in HDL measurement (mass/volume)Ordered By: Dr. Simms on 10-08-2022 Cholesterol in HDL [Mass/Vol] 60 mg/dL >40 [facility] Comment on above: The drugs N-Acetylcy steine and Metamizole may falsely depress this assay. Reference Range HDL <40 mg/dL Low HDL Cholesterol HDL >or= 60 mg/dL High HDL Cholesterol Serum or plasma cholesterol in VLDL measurement (mass/volume)Ordered By: Dr. Simms on 10-08-2022 Cholesterol in VLDL [Mass/Vol] 14 mg/dL 5-40 [facility] Serum or plasma creatinine m easurement (mass/volume)Ordered By: Dr. Simms on 10-08-2022 Creatinine [Mass/Vol] 0.69 mg/dL 0.55-1.02 [facility] Comment on above: The validity of the calculated GFR & GFRAA in patients over 70 years has not been determined. Clinical correlation is essential. Serum or plasma low density lipoprotein (LDL) cholesterol measurement (mass/volume)Ordered By: Dr. Simms on 10-08-2022 Cholesterol in LDL [Mass/Vol] 177 mg/dL 0-130 [facility] Serum or plasma urea nitroge n measurement (mass/volume)Ordered By: Dr. Simms on 10-08-2022 Urea nitrogen [Mass/Vol] 10 mg/dL 7-18 [facility] Thin prep Papanicolaou smear with manual screeningOrdered By: Dr. Simms on 10-08-2022 Thin prep Papanicolaou smear with manual screening 23 U/L 15-37 [facility] Thin prep Papanicolaou smear with manual screening 8 5-15 [facility] CORONAVIRUS PCR [CCL]on 03-18 REF LAB REPORT Positive Normal [facility] Comment on above: Performed By: #### [id number] #### [facility],[address] [place] [address] SEND TO IC? YES Normal [facility] Comment on above: Performed By: #### [id number] #### [facility],[address] [place] [address] CORONAVIRUS PCR [CCL]on 03-18 COVID 19 Result PROCESS COACH Positive Abnormal CORNEG [facility] Comment on above: Result Comment: Posi tive for COVID19 (SARS CoV2) by PCR.(*) This test was developed and its performance characteristics determined by [facility] [place]. This test has been authorized by FDA under an Emergency Use Authorization (EUA). This test has been validated in accordance with the FDA's Guidance Document Policy for Diagnostics Testing in Laboratories Certified to Perform High Complexity Testing under CLIA prior to Emergency use Authorization for Coronavirus Disease 2019 during the Public Health Emergency" issued on June 16, 2019. [id number] [place] [address] Jose Antonio Saldivar III, M.D. [id number] Performed By: #### [id number] #### [place] [id number] COVID 19 Source PROCESS COACH Nasopharyngeal Swab Normal [facility] Comment on above: Result Comment: Alvaro ected on 03/30 AT 0627: Previously reported as U Performed By: #### [id number] #### [place] [id number] Coronavirus 2019on 0 COVID 19 Result PROCESS COACH Abnormal Negative for COVID19 (SARS CoV2) by PCR. [facility] Comment on above: Result Comment: Posi tive for This test was developed and its performance characteristics determined by [facility] [place]. This test has been authorized by FDA [...] developed and its performance characteristics determined by [facility] [place]. This test has been authorized by FDA [...] developed and its performance characteristics determined by [facility] [place]. This test has been authorized by FDA [...] developed and its performance characteristics determined by [facility] [place]. This test has been authorized by FDA under an Emergency Use Authorization (EUA). This test has been validated in accordance with the FDA's Guidance Document "Policy for Diagnostics Testing in Laboratories Certified to Perform High Complexity Testing under CLIA prior to Emergency use Authorization for Coronavirus Disease 2019 during the Public Health Emergency" issued on June 16, 2019. COVID 19 Source PROCESS COACH Normal [facility] Comment on above: Result Comment: Naso pharyngeal Corrected on 03/30 AT 0627: Previously reported as U Swab Corrected on 03/30 AT 0627: Previously reported as U Vital Signs Date Time Vital Sign Value Performing Clinician Faci lity 12-31-2024 15:06-0400 Body height 170.[address] Samuel Simms MD Work Phone: [facility] 12-31-2024 15:06-0400 Body mass index (BMI) [Ratio] 24.7 kg/m2 Dr. Samuel Simms MD Work Phone: [facility] 12-31-2024 15:06-0400 Body temperature 97.2 [degF] Dr. Samuel Simms MD Work Phone: [facility] 12-31-2024 15:06-0400 Body weight 71.[address] Samuel Simms MD Work Phone: [facility] 12-31-2024 15:06-0400 Diastolic blood pressure 72 mm[Hg] Dr. Samuel Simms MD Work Phone: [facility] 12-31-2024 15:06-0400 Heart rate 67 /min Dr. Samuel Simms MD Work Phone: [facility] 12-31-2024 15:06-0400 Respiratory rate 16 /min Dr. Samuel Simms MD Work Phone: [facility] 12-31-2024 15:06-0400 SaO2% (BldA) [Mass fraction] 97 % Dr. Samuel Simms MD Work Phone: [facility] 12-31-2024 15:06-0400 Systolic blood pressure 110 mm[Hg] Dr. Samuel Simms MD Work Phone: [facility] 12-24-2024 09:42-0400 Body height 168 cm Tali Syed MD Work Phone: [facility] 12-24-2024 09:42-0400 Body mass index (BMI) [Ratio] 25.07 kg/m2 Tali Syed MD Work Phone: [facility] 12-24-2024 09:42-0400 Body weight 70.76 kg Tali Syed MD Work Phone: [facility] 12-24-2024 09:42-0400 Diastolic blood pressure 70 mm[Hg] Tali Syed MD Work Phone: [facility] 12-24-2024 09:42-0400 Systolic blood pressure 108 mm[Hg] Tali Syed MD Work Phone: [facility] 02-07-2023 10:49-0400 Body temperature 97 [degF] Dr. Samuel Simms Work Phone: [facility] 02-07-2023 10:49-0400 Diastolic blood pressure 61 mm[Hg] Dr. Samuel Simms Work Phone: [facility] 02-07-2023 10:49-0400 Heart rate 52 /min Dr. Samuel Simms Work Phone: [facility] 02-07-2023 10:49-0400 Respiratory rate 16 /min Dr. Samuel Simms Work Phone: [facility] 02-07-2023 10:49-0400 SaO2% (BldA) [Mass fraction] 97 % Dr. Samuel Simms Work Phone: [facility] 02-07-2023 10:49-0400 Systolic blood pressure 90 mm[Hg] Dr. Samuel Simms Work Phone: [facility] 02-07-2023 09:13-0400 Body height 170.[address] Samuel Simms Work Phone: [facility] 02-07-2023 09:13-0400 Body mass index (BMI) [Ratio] 24.8 kg/m2 Dr. Samuel Simms Work Phone: [facility] 02-07-2023 09:13-0400 Body weight [address] Samuel Simms Work Phone: [facility] 12-08-2022 11:38-0400 Body mass index (BMI) [Ratio] 23.5 kg/m2 Dr. Samuel Simms Work Phone: [facility] 12-08-2022 11:38-0400 Body weight 68.[address] Samuel Simms Work Phone: [facility] 10-08-2022 11:17-0400 Body height 171.[address] Drake Cruz Work Phone: [facility] 10-08-2022 11:17-0400 Body mass index (BMI) [Ratio] 23.7 kg/m2 Dr. Drake Cruz Work Phone: [facility] 10-08-2022 11:17-0400 Body temperature 97.1 [degF] Dr. Drake Cruz Work Phone: [facility] 10-08-2022 11:17-0400 Body weight 69.[address] Drake Cruz Work Phone: [facility] 10-08-2022 11:17-0400 Diastolic blood pressure 78 mm[Hg] Dr. Drake Cruz Work Phone: [facility] 10-08-2022 11:17-0400 Heart rate 73 /min Dr. Drake Cruz Work Phone: [facility] 10-08-2022 11:17-0400 Respiratory rate 16 /min Dr. Drake Cruz Work Phone: [facility] 10-08-2022 11:17-0400 SaO2% (BldA) [Mass fraction] 99 % Dr. Drake Cruz Work Phone: [facility] 10-08-2022 11:17-0400 Systolic blood pressure 114 mm[Hg] Dr. Drake Cruz Work Phone: [facility] 05-19-2022 13:05-0500 Body height 171.[address] Drake Cruz Work Phone: [facility] 05-19-2022 13:05-0500 Body mass index (BMI) [Ratio] 23.9 kg/m2 Dr. Drake Cruz Work Phone: [facility] 05-19-2022 13:05-0500 Body weight 70.[address] Drake Cruz Work Phone: [facility] Encounters Encounter Date Encounter Type Care Provider Facility Start: 02-24-2025 End: 02-24-2025 Emergency department patient visit [facility] Facility:[facility] Start: 02-24-2025 End: 02-24-2025 ambulatory [facility] Facility:[facility] Start: 01-11-2025 Encounter for genera l adult medical examination without abnormal findings [facility] Start: 12-31-2024 End: 12-31-[address] Samuel Simms MD [facility] Work Phone: Start: 12-31-2024 End: 12-31-[address] Samuel Simms MD [facility] Start: 12-31-2024 End: 12-31-[address] Samuel Simms MD Work Phone: [facility] Comment on above: [facility] Start: 12-31-2024 End: 12-31-2024 ambulatory R[place]denisse Simms Facility:[facility] Start: 12-24-2024 End: 12-24-2024 Patient encounter procedure Tali Syed MD Work Phone: OB/Gynecology Comment on above: Encounter for gyneco logical examination (general) (routine) without abnormal findings (Primary Dx); Encounter for screening mammogram for breast cancer; Dyspareunia in female Start: 12-24-2024 End: 12-24-2024 Patient encounter status Tali Syed MD Work Phone: [facility] Work Phone: Start: 12-24-2024 End: 12-24-2024 ambulatory TALI SYED [facility] Start: 12-24-2024 Encounter for gynecological examination (general) (routine) without abnormal findings TALI SYED [facility] Start: 12-06-2024 End: 12-06-[address] Samuel Simms MD Work Phone: -[facility] Start: 12-06-2024 End: 12-06-[address] Samuel Simms MD -[facility] Work Phone: Start: 12-06-2024 End: 12-06-2024 ambulatory Samuel Simms [facility] Start: 12-03-2024 End: 12-03-[address] Samuel Simms MD Work Phone: -[facility]patient [facility] Start: 12-03-2024 End: 12-03-[address] Samuel Simms MD -[facility] Work Phone: Start: 12-03-2024 End: 12-03-2024 ambulatory Samuel Simms Facility:[facility] Start: 02-16-2023 End: 02-16-[address] Samuel Simms Work Phone: [facility] Work Phone: Start: 02-16-2023 End: 02-16-[address] Samuel Simms Work Phone: [facility] Start: 02-07-2023 Non-patient / Non-visit Dr. Geraldine Simms Work Phone: [facility] Start: 02-07-2023 End: 02-07-2023 Admission to same day surgery center Dr. Samuel Simms Work Phone: [facility] Work Phone: Start: 02-07-2023 End: 02-07-[address] Samuel Simms Work Phone: [facility] Work Phone: Start: 12-08-2022 Non-patient / Non-visit Dr. Geraldine Simms Work Phone: [facility] Work Phone: Start: 10-08-2022 End: 10-08-[address] Drake Cruz Work Phone: [facility] Work Phone: Start: 10-08-[address] Jerardo Cruz Work Phone: [facility] Start: 10-08-2022 End: 10-08-2022 Encounter for general adult medical examination without abnormal findings Dr. Drake Cruz Work Phone: [facility] Start: 10-08-2022 End: 10-08-[address] Drake Cruz Work Phone: [facility] Start: 07-22-2022 End: 07-22-[address] Drake Cruz Work Phone: [facility] Work Phone: Start: 07-22-2022 End: 07-22-[address] Drake Cruz Work Phone: [facility] Start: 05-19-2022 End: 05-19-[address] Drake Cruz Work Phone: [facility] Start: 03-28-2020 End: 03-28-2020 Patient encounter procedure HOLA Bonner AMANDA [facility] Procedures Date Procedure Procedure Detail Performing Clinician [...] Office Visit OB/Gynecology [address] [place] [id number] Tali Syed MD [address] [id number] annual OB/Gynecology Comment on above: annual Start: 12-31-2024 CBC W Auto Different ial panel - Blood [facility] Start: 12-31-2024 Comprehensive metabo lic 2000 panel - Serum or Plasma [facility] Start: 12-31-2024 Lipid 1996 panel - S sarah or Plasma [facility] Start: 12-17-2024 Influenza vaccination Influenza Vacc ine (#1) [facility] Start: 12-21-2023 Pneumococcal Vaccine : 50+ (1 of 1 - PCV) Pneumococcal Vaccine: 50+ (1 of 1 - PCV) [facility] Start: 12-21-2023 Shingrix Vaccine (1 of 2) Sorensen grix Vaccine (1 of 2) [facility] Start: 02-07-2023 Colonoscopy flx dx w /collj spec when pfrmd DIAGNOSTIC COLONOSCOPY [facility] Start: 02-07-2023 Patient discharge [facility] Start: 10-08-2022 Patient referral [facility] Work Phone: Start: 2018 Diabetes Screening Diabetes Screenin g [facility] Start: 2018 Lipid panel Lipid Screening [facility] Start: 2018 Screening for malign ant neoplasm of colon [facility] Start: 2013 Screening for malign ant neoplasm of breast Mammogram Screening [facility] Start: 09-30-2013 Screening for malign ant neoplasm of cervix Cervical Cancer Screening [facility] Start: 1992 Hepatitis B Vaccine (1 of 3 - 19+ 3-dose series) Hepatitis B Vaccine (1 of 3 - 19+ 3-dose series) [facility] Start: 1992 Urine microalbumin profile DTa P,Tdap,Td Vaccine (1 - Tdap) [facility] Start: 12-21-1991 Anxiety Screening Anxiety Screening [facility] Start: 12-21-1991 Depression Screening Depression Scre ening [facility] Start: 12-21-1991 Hepatitis C screening Hepatitis C Sc reening [facility] Start: 12-21-1991 HIV screening HIV Screening [facility] Alanine aminotransfe rase [Enzymatic activity/volume] in Serum or Plasma [facility] Albumin [Mass/volume ] in Serum or Plasma [facility] Alkaline phosphatase [Enzymatic activity/volume] in Serum or Plasma [facility] Anion gap in Serum o r Plasma [facility] Bilirubin, total measurement [facility] BUN/Creatinine ratio [facility] Calcium [Mass/volume ] in Serum or Plasma [facility] Carbon dioxide, tota l [Moles/volume] in Central venous blood [facility] Cholesterol [Mass/vo lume] in Serum or Plasma [facility] Cholesterol in HDL [Mass/volume] in Serum or Plasma [facility] Colonoscopy [facility] Creatinine [Mass/vol ume] in Serum or Plasma [facility] End: 01-23-2026 DBT Breast - bilateral screening ALICIA SCREENING [facility] Radiology Routine Encounter for gynecological examination (general) (routine) without abnormal findings Encounter for screening mammogram for breast cancer 1 Occurrences starting 12/24/2024 until 01/23/2026 [facility] Work Phone: Comment on above: 1 Occurrences starti ng 12/24/2024 until 01/23/2026 Erythrocyte mean corpuscular volume determination [facility] Glucose [Mass/volume ] in Serum or Plasma [facility] Hematocrit [Volume Fraction] of Blood [facility] Hemoglobin [Mass/vol ume] in Blood [facility] Leukocytes [#/volume ] in Blood [facility] Low density lipoprot ein cholesterol measurement [facility] Mean corpuscular hemoglobin concentration determination [facility] Mean corpuscular hemoglobin determination [facility] Measurement of renal function [facility] Neutrophil count [facility] Neutrophil percent differential count [facility] Patient referral [facility] Work Phone: Platelets [#/volume] in Blood [facility] Potassium measurement [facility] Red blood cell count [facility] Red cell distributio n width determination [facility] Serum chloride measurement [facility] Sodium measurement [facility] Total cholesterol:HD L ratio measurement [facility] Total protein measurement [facility] Triglycerides measurement [facility] Urea nitrogen [Mass/volume] in Serum or Plasma [facility] VLDL cholesterol measurement [facility] Payers Date Payer Category Payer Self-pay [id number] 2024 Self-pay [id number] 2018 Private Health Insurance MMO [employer] PPO [id number] 2013 Unknown [id number] 1973 Unknown [id number] Unknown [facility] PACKAGE PLAN 0 [id number] Unknown [id number] Unknown [id number] Unknown [id number] Unknown [id number] Unknown [id number] Social History Date Type Detail Facility Start: 05-19-2022 End: 02-02-2023 Tobacco smoking status DCIS Unknown if ever smoked [facility] Start: 1975 Sex Assigned At Female [facility] Start: 09-18-2024 End: 12-31-2024 Tobacco smoking status DCIS Never smoked tobacco (finding) [facility] Start: 12-24-2024 Alcoholic beverage intake Current non-drinker of alcohol (finding) [facility] Start: 12-24-2024 History of Social function [facility] Start: 12-24-2024 Tobacco use panel [facility] Start: 03-19-2012 National Score (1-10 0), lower number is lower risk 48 [facility] Start: 1975 Sex assigned at Not on file [facility] Sexual Orientation Heterosexual (finding) [facility] Goals Date Patient Goal Desired Activity /State Functional Status Date Assessment Result Facility 07-20-2014 Are you deaf, or do you have serious difficulty hearing No 07/20/2014 10:25 AM EDT Melany Dennis MA No [facility] 07-20-2014 Are you blind, or do you have serious difficulty seeing, even when wearing glasses No 07/20/2014 10:25 AM EDT Melany Dennis MA No [facility] 07-20-2014 Do you have serious difficulty walking or climbing stairs No 07/20/2014 10:25 AM EDT Melany Dennis MA No [facility] 07-20-2014 Do you have difficul ty dressing or bathing No 07/20/2014 10:25 AM EDT Melany Dennis MA No [facility] 07-20-2014 Because of a physica l, mental, or emotional condition, do you have difficulty doing errands alone such as visiting a physician's office or shopping No 07/20/2014 10:25 AM EDT Melany Dennis MA No [facility] Mental Status Date Assessment Result Facility 02-07-2023 Cognitive function Touch/Shaking [facility] Work Phone: 07-20-2014 Because of a physica l, mental, or emotional condition, do you have serious difficulty concentrating, remembering, or making decisions No 07/20/2014 10:25 AM EDT Melany Dennis MA No [facility] Clinical Notes 02-07-2023 to 02-24-2025 Note Date & Type Note Facility 02-24-2025 Note HNO ID: [id number] Author: HAYDE LI APRN.FOURCHETTE SEWER Service: ? Author Type: Nurse Practitioner Type: Progress Notes Filed: 02/24/2025 08:51 Note Text: URGENT CARE [facility] Lou Mcgraw is a 49 year old female. Patient presents with: Abdominal Pain: Burning and fullness feeling, Nausea, unable to eat, when she does she has diarrhea, x 4 days Low grade fever HPI Patient presents today complaining of 4 days of a sensation of fullness in her abdomen with burning up into her mid chest. She notes a sudden change in her bowel patterns with infrequent diarrhea now. She states anytime she attempts to eat she feels full and is if she is going to vomit. She otherwise denies any fever urinary burning or frequency. She does note a prior history of surgeries including hysterectomy and C-sections. Denies any previous similar episodes. She notes a low-grade fever. Review of Systems As a Objective BP 132/91 Pulse 106 Temp 37.2 ?C (99 ?F) Resp 20 Wt 71 kg (156 lb 8.4 oz) LMP 03/02/2010 SpO2 100% BMI 25.16 kg/m? Physical Exam Vitals and nursing note reviewed. Constitutional: General: She is not in acute distress. Appearance: Normal appearance. She is not ill-appearing. HENT: Head: Normocephalic. Pulmonary: Effort: Pulmonary effort is normal. Musculoskeletal: General: Normal range of motion. Skin: General: Skin is warm and dry. Neurological: General: No focal deficit present. Mental Status: She is alert and oriented to person, place, and time. Psychiatric: Mood and Affect: Mood normal. Behavior: Behavior normal. {ASSESSMENT/PLAN: 1. Upper abdominal pain - ICD9: 789.09, ICD10: R10.10 - In reviewing patient's symptoms she complains of moderate to severe generalized upper abdominal pain, fullness with eating, and decreased bowel patterns. I discussed with her that I have concerns for possible bowel obstruction versus abdominal mass versus gastritis versus peptic ulcer disease. I discussed with her that at urgent care I did not have the ability to do extensive enough testing and recommended that she go to the ER for further evaluation. Patient was in obvious discomfort but no acute distress and will be transported by her . Hayde Li APRN.FOURCHETTE SEWER History and Record Review Systemic symptoms present included: Abdominal pain Differential Diagnoses - Bowel obstruction Disposition The patient was transferred to ED. Procedures [facility] 12-31-2024 Evaluation note Diagnosis Onset Date Resolution Hyperlipidemia acute December 31, 2024 2:28pm Preventative health care acute December 31, 2024 2:28pm [facility] Work Phone: 1(602) 356-207609-15-2025 NoteHNO ID: [id number] Author: LOU RODRIGUEZ RN Service: ? Author Type: Registered Nurse Type: Progress Notes Filed: 12/31/2024 08:52 Note Text: Received records from [facility]. To CHANDAN to review. Lou [facility] History of Present illness Narrative* Lou Rodriguez RN - 12/31/2024 8:52 AM EDT Received records from [facility]. To CHANDAN to review. Lou Rodriguez RN documented in this encounterKing[facility] [place] Instructions* Patient Instructions* Tali Syed MD - 12/24/2024 10:05 AM EDT Lubricants and moisturizers list The hzcm-dyq-deaarmy vaginal moisturizer and lubricant products can be [...] in any drugstore or online. Also, many [employer] stores do carry high-quality lubricant products. VAGINAL [...] lube Replens Silky Smooth Pulse Aloe-ahh Wet [place] RASHIDA Premium Personal Lubricant PINK Silicone Lubricant [...] vaginal moisturizer makes them feel more comfortable. Fire Control Technician B beware: many lubricants arelabeled as moisturizers to [...] also be applied externally for comfort. [place] Aloe [place]: Many people are allergic to aloe, so keep this in mind with products like this that have aloe in it. Medicine Mama s V magic: Not much medical studies on this, but many patients swear by it, has oil, beeswax and honey in it- best used externally only. Non-Hormonal Ways to [place] with Hot Flashes and Menopause Hormone therapy [...] Tofu, silken 27.91 Tofu, yogurt 16.30 Source: [facility] -- [facility] Database on the Isoflavone Content of Foods, 1999 Lifestyle changes Reducing the temperature in a [...] black cohosh and soy products) are available phop-czn-jqjlyln but are not FDA-approved.Some prescription medications are [...] some of the other options. Non-prescription, herbal, gmdo-gzu-tbpmppu therapies: Drug Side Effects Effectiveness Evening Hankins Oil Nausea, diarrhea, headache. Only one well-designed [...] per day compared to placebo. Are the uwxg-gmf-ntdgtwg herbal products (botanicals) safe? While safe when [...] promoted. Be cautious of products promoted through: Telemarketers Direct mailings [employer] Ads disguised as valid news articles Ads in the back of magazines Additional red flags to look for include: Big claims: If products claim to be a "cure" for your condition, or gives outrageous claims, be cautious. Source: Be wary if the product is only offered through one sugar reprocess operator head or purchased only through formerly [facility] provider s office. Ingredients: Make sure all of the active ingredients are listed, and don t trust "secret formulas." Testimonials: Remember that only people who are satisfied with a product give testimonials and thatthey may be getting paid for their endorsement References: National Center for Complementary and Alternative Medicine. Vitamin E. [facility] memorial hospitalam.nih.gov Assessed 2012 Bárbara Guzman et al. meta-analysis: High Dosage Vitamin E. Supplementation Might Increase All Cause Mortality. Annals of Internal Medicine April 21, 2004. annals.org National Center for Complementary and Alternative Medicine. Menopausal Symptoms and CAM. [facility] memorial hospitalam.nih.gov Accessed July 17, 2012 [place] Menopause Society, Hormone Therapy for women in 2011. www.menopause.org Assessed July 17, 2012 [place] Congress of Obstetricians and Gynecologists. Publications. The Menopause Years. www.acog.org Accessed 06/15/2010 Centers for Disease Control and Prevention. Women s Reproductive Health: Menopause. www.cdc.gov Accessed 06/15/2010 National [place] on Aging. Age Page: Menopause. www.[place].nih.gov Accessed 06/15/2010 documented in this encounterKing'S [facility] [place]09-08-2025 NoteHNO ID: [id number] Author: TALI SYED MD Service: ? Author Type: Physician Type: Progress Notes Filed: 12/24/2024 12:55 Note Text: Master Technician offered: Patient declinesCastro Blake is a 49 year old who [...] OB History No obstetric history on file. License Issuer History LMP: 03/02/2010, Hysterectomy Age at Menarche: 9 Age at First : Age at Menopause: License Issuer History Comments: Sexual Activity: Yes; Male Contraception: [...] discussed with the Patient or Patient's Authorized Position Description Manager. As applicable, any other physician, advance practice provider, medical student, or other health professional student that will be observing or involved in the sensitive examination for educational or training purposes was discussed with the Patient or Authorized Position Description Manager. The Patient or Authorized Position Description Manager has agreed to proceed with the sensitive [...] with atrophic changes, normal Bartholin's glands, urethra, Eliza's glands, no vulvar lesions, no cervical lesions, [...] one year or sooner as needed [facility] History of Present illness Narrative* Tali Syed MD - 12/24/2024 9:23 AM EDT Master Technician offered: Patient declines. Lou is a 49 [...] OB History No obstetric history on file. License Issuer History LMP: 03/02/2010, Hysterectomy Age at Menarche: 9 Age at First : Age at Menopause: License Issuer History Comments: Sexual Activity: Yes; Male Contraception: [...] discussed with the Patient or Patient's Authorized Position Description Manager. As applicable, any other physician, advance practice provider, medical student, or other health professional student that will be observing or involved in the sensitive examination for educational or training purposes was discussed with the Patient or Authorized Position Description Manager. The Patient or Authorized Position Description Manager has agreed to proceed with the sensitive [...] with atrophic changes, normal Bartholin's glands, urethra, Eliza's glands, no vulvar lesions, no cervical lesions, [...] needed Tali Syed DO documented in this encounterKing[facility] [place]-23-[facility] Diagnosis Onset Date Resolution Status Right lateral epicondylitis acute [facility] Work Phone: Evaluation note* Diagnosis Onset Date Resolution Status Colon cancer screening acute [facility] health care acu te [facility] Work Phone: Evaluation note* Diagnosis Onset Date Resolution Status Colon cancer screening acute [facility] Work Phone: Evaluation noteNo assessment information available [facility] Work Phone: Evaluation note* Diagnosis Encounter for gynecological examination (general) (routine) without abnormal findings- Primary Encounter for screening mammogram for breast cancer Dyspareunia in female documented in this encounter [facility] [place] and physical note Author Bruno Bass [facility] February 07, 2023 9:56am Note Date/Time February 07, 2023 9 :57am [facility] Medical Records Department [address] [place] [address] History & Physical Exam 02/07/23 0955 MR#: [id number] Acct: [id number] Name: LOU MCGRAW Rep #:[id number] : 1975 47 From: Bruno Bass DO PCP: Dr. Samuel Simms MD Status:R EG [facility] Location: [place] [address] HPI - General General Date of Admission: [...] Overall she is in very good health. [facility] Medical History (Updated 02/02/23 @ [...] Samuel Simms MD; Bruno Bass DO~ Signed [facility] Work Phone: Reason for referral (narrative)No reason for referral information availableWOhio State East Hospital Work Phone: Summary Purpose Family History No [...] Date/ Time Name of Medical Power of Yeast Distiller CARMELA MCGRAW February 02, 2023 11:32am Living Will Yes February 02 11:32am Power of Yeast Distiller Yes February 02, 2023 11:32am Advance Directive Response Recorded Date/ Time Name of Medical Power of Yeast Distiller CARMELA MCGRAW February 02, 2023 10:32am Living Will Yes February 02 10:32am Power of Yeast Distiller Yes February 02, 2023 10:32am Chief Complaint and Reason for Visit Chief Complaint RIGHT ELBOW RM 4 XRAY MASTODYNIA Reason for Visit Right lateral epicon dylitis 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 Jeremy Goldberg MD Attending Provider Active Team Status: [...] Dates Dr. Samuel Simms MD Primary Care P saw, Attending Provider, Referring Provider Active Team Status: Active Member Role Status Dates Dr. Samuel Simms MD Primary Care Provider Active [facility] Attending Provider Active Team Status: Active Member [...] 06, 2024 End: December 06, 2024 Dr. Samule Simms MD Referring Provider Active Start: December 06, 2024 End: December 06, 2024 Airline Stewardess Relationship Specialty Start Date End Date Drake [...] Referring Provider Active Start: December 31, 2024 Airline Stewardess Relationship Specialty Start Date End Date Drake [...] or prosecute any alcohol or drug abuse patient.[facility] [place]In the event this information is protected by the Federal Confidentiality of Alcohol and Drug Abuse Patient Records regulations: The Federal rules restrict any use of the information to criminally investigate or prosecute any alcohol or drug abuse patient.[facility] [place] Reason for Visit (unrecogniz ed section and [...] BE BASED ON THE PRIMARY CLINICAL RECORDS. [facility] SystemOutbound[facility]. provides no warranty or guarantee of the accuracy or completeness of information in this document.
[2025-02-27 07:18] LABS: Differential Indicated SCAN CRITERIA MET
[2025-02-27 07:19] LABS: AST(SGOT) 20 U/L (<=31); Alanine Aminotransfer ALT/SGPT 12 U/L (<=34); Albumin, Serum 4.6 g/dL (3.5-5.0); Alkaline Phosphatase 42 U/L (35-104); Anion Gap 14 (5-15); BUN 10 mg/dL (4-19); BUN/Creat Ratio 14.5 RATIO (10-20); Bilirubin, Direct 0.25 mg/dL (0.00-0.30); Calcium,Total 9.7 mg/dL (7.6-11.0); Carbon Dioxide 22.4 mmol/L (21.0-32.0); Chloride 99 mmol/L (98-108); Estimated Creatinine Clearance 92.46 ml/min (50-250); Globulin 2.9 g/dL (2.2-4.2); Glucose 99 mg/dL (70-99); Lipase 39 U/L (13-75); Magnesium 2.1 mg/dL (1.5-2.2); Potassium 4.1 mmol/L (3.3-5.1)
[2025-02-27 07:50] LABS: Mucous, Urine 0 SEEN /hpf (<or=2+); Red Blood Cells-Urine 0 SEEN /hpf (0-5); Squamous Epithelial Cells - UA 0 SEEN /hpf (5-10)
[2025-02-27 08:10] VITALS: BP 155/74; PULSE 78; RESP 16; O2SAT 100
[2025-02-27 08:10] LABS: Color, Urine Yellow (Yellow); Glucose, Dipstick Normal (Normal); Ketone-Dipstick 50 mg/dl (Negative); Leukocyte Esterase-Dipstick Negative /ul (Negative); Nitrite-Dipstick Negative (Negative); Occult Blood-Urine Negative /ul (Negative); Protein-Dipstick 15 mg/dl (Negative); Specific Gravity, Urine 1.005 (1.002-1.030); Urine Bilirubin Dipstick Negative (Negative)
[2025-02-27] MEDS: Pantoprazole Sodium 40 MG in 0.9% Normal Saline (100mL MB+) 100 ML 300 MG IV (08:54)
[2025-02-27 08:57] VITALS: BP 150/78; PULSE 72; RESP 16; TEMP 36.7; O2SAT 100
== END 2025-02-27 09:23 | disposition home or self-care (01) ==
PROVIDERS: Emergency Provider Emergency Medicine; PCP Internal Medicine; Visit Provider Emergency Medicine
DX: R10.9 Unspecified abdominal pain (principal); E78.5 Hyperlipidemia, unspecified; R11.0 Nausea; Z90.710 Acquired absence of both cervix and uterus; R53.1 Weakness; R53.83 Other fatigue; M54.9 Dorsalgia, unspecified
CPT/HCPCS: 74177; 80048; 80076; 81001; 83605; 83690; 83735; 84443; 85025; 96361; 96365; 96375; 99283; Q9967; A4216

== ENCOUNTER 2025-03-02 03:02 | Emergency (ER) | payer OTHER, SELFPAY ==
[2025-03-02 03:05] VITALS: BP 145/72; PULSE 75; RESP 16; TEMP 36.9; O2SAT 100; BMI 23.7
--- NOTE | 2025-03-02 03:30 | CT_ITS ---
PROCEDURE: ABDOMEN/PELVIS W IV CONT ONLY 03/02/2025 REASON FOR EXAM: ABDOMINAL PAIN TECHNIQUE: Procedure Code: [id number] Modality: CT Procedure: ABDOMEN/PELVIS W IV CONT ONLY Coronal and Sagittal reconstruction series were provided. CONTRAST: isovue 370 VOLUME: 100 m One or more dose reduction techniques were used (e.g., Automated exposure control, adjustment of the mA and/or kV according to patient size, use of iterative reconstruction technique. RADIATION DOSE SUMMARY: CTDI Vol 13.71 mGy DLP :713.64 mGycm COMPARISON: 27-Feb-2025 FINDINGS: Average sized liver showing homogenous parenchymal attenuation with fatty changes and segment 4 subcapsular pseudo-lesion. No dilated intra or extra-hepatic biliary tracts. Gall bladder distension with no radiodense calculi. No abnormal mural thickening. Normal appearance of the pancreas with clear surrounding fat planes. The spleen, adrenal glands, aorta and IVC are unremarkable. Splenule noted. Both kidneys are of average size and showing smooth outline with preserved parenchymal thickness. No renal calculi. No hydronephrosis. Distension of the urinary bladder showing no obvious masses. No obvious masses related to the hysterectomy stump. Right side pelvic phleboli. The appendix is not identified. Colonic fecal loading. Mild gaseous and fluid distension of the small bowel loops with mild wall thickening that could represent enteritis versus non specific findings. Advise clinical and laboratory correlation. The stomach is not distended. No ascites or free air. Fibrofatty attenuation of the mesenteric roots with prominent lymph nodes, possibly mesenteric panniculitis. Scanned osseous structures show L5 1st degree anterolithesis. No acute osseous destruction. Scanned lung bases show basal atelectatic plates. CT/Abdomen/Pelvis W IV Cont ONLY IMPRESSION: Mild gaseous and fluid distension of the small bowel loops with mild wall thick ening that could represent enteritis versus non specific findings. Advise clinical and laboratory correlation. Rest of the study findings as detailed. Reading Location: [place] [address]
--- OUTSIDE RECORDS SUMMARY | 2025-03-02 03:37 | XMS RPT_ITS | CCD ---
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 Bruno aBss Other Provider [phone] Dr. Samuel Simms MD Primary Care Provider Mendez BRUNNER, Dr. Baker Attending Provider [phone] Mendez BRUNNER, Dr. Baker Referring Provider [phone] Drake Cruz Primary Care Provider Unavail able Mendez BRUNNER, Dr. Baker Primary Care Physician Mendez BRUNNER, Dr. Baker Attending Physician [phone] TALI SYED Attending Unavailable MOOMAW, HAYDE Attending Unavailable Oleghe, Efewongbe Primary Care Unavailable Oleghe, Efewongbe Attending Unavailable Oleghe, Efewongbe Referring Unavailable Oleghe, Efewongbe Attending Unavailable Oleghe, Efewongbe Referring Unavailable Oleghe, Efewongbe Primary Care Unavailable Chato Montemayor Attending Unavailable Oleghe, Efewongbe Primary Care Unavailable Quentin Hart Attending Unavailable Oleghe, Efewongbe Primary Care Unavailable Tahira Gomez Attending Unavailable Oleghe, Efewongbe Referring Unavailable Oleghe, Efewongbe Primary Care Unavailable Oleghe, Efewongbe Primary Care Unavailable Oleghe, Efewongbe Attending Unavailable Oleghe, Efewongbe Referring Unavailable Oleghe, Efewongbe Primary Care Unavailable Oleghe, Efewongbe Attending Unavailable Oleghe, Efewongbe Referring Unavailable Allergies Allergy Classification Reported Allergen(s) Allergy Type Date of Onset Reaction(s) Facility (11 sources) Tetracycline; Translations: [TETRACYCLINE] Drug Allergy 08-17-2005 [facility] Comment on above: 1992 (1 source) Tetracycline Drug Allergy 02-28-2025 [facility] Repository Medications Current Medications Medication Drug Class(es) Dates Sig (Normalized) Sig (Original) Black Cohosh (17 sources) Start: 12-31-2024 take 1 capsule by mo [facility] twice daily Start: 12-31-2024 take 1 capsule by mo [facility] twice daily Black Cohosh 200 mg capsule [...] capsule Active PO May 19, 2022 1:00am Flqzmomveese-Diirgwxu-Ntouiq (Multivitamin 50 Plus) tablet (2 sources) Start: 12-31-2024 Start: 12-31-2024 Multivitamin-M inerals-Lutein (Multivitamin 50 Plus) tablet Active 1 {tbl} PO daily December 31, 2024 12:00am Hrxeictcqaymw-Smfrvvfs-Yvukl n (MULTIVITAMIN 50 PLUS) tab (2 sources) [...] October 08, 2022 12:00am polyethylene glycol 3350 00698 mg powder for oral solution (7 sources) [...] Test Name Value Interpretation Reference Range Facility Abdomen/Pelvis W IV Cont ONL Yon 02-27-2025 Abdomen/Pelvis W IV Cont ONLY [facility] Imaging Services [address] [place] [address] Abdomen/Pelvis W IV Cont ONLY MR#: [id number] Acct: [id number] Name: LOU MCGRAW Rep #: [id number] : 1975 F 49 From: Uriel Bautista MD PCP: Dr. Samuel Simms MD Status: REG ER Study: Abdomen/Pelvis W IV Cont ONLY Date of Exam: Exam# [id number] Ordering Dr: Quentin Hart DO PROCEDURE: ABDOMEN/PELVIS W IV CONT ONLY 02/27/2025 REASON FOR EXAM: ABD PAIN TECHNIQUE: Procedure Code: CTABDPELIV Modality: CT Procedure: ABDOMEN/PELVIS W IV CONT ONLY Coronal and Sagittal reconstruction series were provided. CONTRAST: 93 cc Isovue 370 One or more dose reduction techniques were used (e.g., Automated exposure control, adjustment of the mA and/or kV according to patient size, use of iterative reconstruction technique. RADIATION DOSE SUMMARY: DLP: 727 mGycm COMPARISON: None FINDINGS: Lung bases: Clear Liver: Unremarkable Gallbladder: Unremarkable Spleen: Unremarkable Pancreas: Unremarkable Adrenals: Unremarkable Kidneys: Unremarkable Bladder: Unremarkable Reproductive Organs: Unremarkable Bowel: Gas and stool is noted throughout the colon. There is moderate stool load. The small-bowel loops are not distended. Appendix: The appendix is upper normal, measuring 0.7 cm in diameter with no visible periappendiceal inflammation. Lymph nodes: There is no pathologic adenopathy by size criteria. Vasculature: There is no significant atherosclerosis Peritoneum / Retroperitoneum: There is no free air or free fluid. Bones: There is no acute bony abnormality. CT/Abdomen/Pelvis W IV Cont ONLY IMPRESSION: The appendix is upper normal, measuring 0.7 cm in diameter with no visible periappendiceal inflammation. Reading Location: [facility] CC: Dr. Samuel Simms MD; Quentin Hart DO Product Development Worker: Signed Normal [facility] Basic Metabolic Profile (BMP )on 02-27-2025 BUN/CRE 14.5 RATIO Normal 10-20 [facility] Comment on above: Performed By: #### L 501.5200, L503.6005, L501.2450, L100.0100, L500.3400, L500.2500, L501.9520 ####[facility] [address] [place], [address] Calcium [Mass/Vol] 9.7 mg/dL Normal 7.6-11.0 [facility] Comment on above: Performed By: #### L 501.5200, L503.6005, L501.2450, L100.0100, L500.3400, L500.2500, L501.9520 ####[facility] [address] [place], [address] Chloride [Moles/Vol] 99 mmol/L Normal 98-108 [facility] Comment on above: Performed By: #### L 501.5200, L503.6005, L501.2450, L100.0100, L500.3400, L500.2500, L501.9520 ####[facility] [address] [place], [address] CO2 [Moles/Vol] 22.4 mmol/L Normal 21.0-32.0 [facility] Comment on above: Performed By: #### L 501.5200, L503.6005, L501.2450, L100.0100, L500.3400, L500.2500, L501.9520 ####[facility] [address] [place], [address] Creatinine [Mass/Vol] 0.70 mg/dL Normal 0.70-1.20 [facility] Comment on above: Performed By: #### L 501.5200, L503.6005, L501.2450, L100.0100, L500.3400, L500.2500, L501.9520 ####[facility] [address] [place], [address] ECRCL 92.46 ml/min Normal 50-250 [facility] Comment on above: Performed By: #### L 501.5200, L503.6005, L501.2450, L100.0100, L500.3400, L500.2500, L501.9520 ####[facility] [address] [place], [address] GAP 14 Normal 5-15 [facility] Comment on above: Performed By: #### L 501.5200, L503.6005, L501.2450, L100.0100, L500.3400, L500.2500, L501.9520 ####[facility] [address] [place], [address] GFR/1.73 sq M.predicted among non-blacks MDRD (S/P/Bld) [Vol rate/Area] 105 mL/min/{1.73_m2} Normal >60 [facility] Comment on above: Result Comment: mL/m in/1.73m2 CKD-EPI Creatinine Equation (2020) Performed By: #### L 501.5200, L503.6005, L501.2450, L100.0100, L500.3400, L500.2500, L501.9520 ####[facility] [address] [place], [address] Glucose [Mass/Vol] 99 mg/dL Normal 70-99 [facility] Comment on above: Performed By: #### L 501.5200, L503.6005, L501.2450, L100.0100, L500.3400, L500.2500, L501.9520 ####[facility] [address] [place], [address] Potassium [Moles/Vol] 4.1 mmol/L Normal 3.3-5.1 [facility] Comment on above: Performed By: #### L 501.5200, L503.6005, L501.2450, L100.0100, L500.3400, L500.2500, L501.9520 ####[facility] [address] [place], [address] Sodium [Moles/Vol] 136 mmol/L Normal 133-145 [facility] Comment on above: Performed By: #### L 501.5200, L503.6005, L501.2450, L100.0100, L500.3400, L500.2500, L501.9520 ####[facility] [address] [place], [address] Urea nitrogen [Mass/Vol] 10 mg/dL Normal 4-19 [facility] Comment on above: Performed By: #### L 501.5200, L503.6005, L501.2450, L100.0100, L500.3400, L500.2500, L501.9520 ####[facility] [address] [place], [address] CBC W/Diff, Automatedon 02-16 Absolute Lymph 1.41 X10 3/uL Normal 0.83-4.51 [facility] Comment on above: Performed By: #### L 501.5200, L503.6005, L501.2450, L100.0100, L500.3400, L500.2500, L501.9520 ####[facility] [address] [place], [address] Absolute Neut 1.9 X10 3/uL Low 2.0-7.7 [facility] Comment on above: Performed By: #### L 501.5200, L503.6005, L501.2450, L100.0100, L500.3400, L500.2500, L501.9520 ####[facility] [address] [place], [address] Basophils/100 WBC (Bld) 1.3 % High 0-1 [facility] Comment on above: Performed By: #### L 501.5200, L503.6005, L501.2450, L100.0100, L500.3400, L500.2500, L501.9520 ####[facility] [address] [place], [address] Eosinophils/100 WBC (Bld) 0.5 % Normal 0-5 [facility] Comment on above: Performed By: #### L 501.5200, L503.6005, L501.2450, L100.0100, L500.3400, L500.2500, L501.9520 ####[facility] [address] [place], [address] Erythrocyte distribution width (RBC) [Ratio] 12.4 % Normal 11.6-14.6 [facility] Comment on above: Performed By: #### L 501.5200, L503.6005, L501.2450, L100.0100, L500.3400, L500.2500, L501.9520 ####[facility] [address] [place], [address] Hematocrit (Bld) [Volume fraction] 45.0 % Normal 37-47 [facility] Comment on above: Performed By: #### L 501.5200, L503.6005, L501.2450, L100.0100, L500.3400, L500.2500, L501.9520 ####[facility] [address] [place], [address] Hemoglobin (Bld) [Mass/Vol] 15.6 g/dL High 12.0-15.0 [facility] Comment on above: Performed By: #### L 501.5200, L503.6005, L501.2450, L100.0100, L500.3400, L500.2500, L501.9520 ####[facility] [address] [place], [address] IG% 0.300 Normal 0.0-0.9 [facility] Comment on above: Result Comment: IG% - Immature Granulocytes (promyelocytes, myelocytes and metamyelocytes) > 1% indicates that a LEFT SHIFT is Present. Performed By: #### L 501.5200, L503.6005, L501.2450, L100.0100, L500.3400, L500.2500, L501.9520 ####[facility] [address] [place], [address] Lymphocytes/100 WBC (Bld) 35.8 % Normal 19-41 [facility] Comment on above: Performed By: #### L 501.5200, L503.6005, L501.2450, L100.0100, L500.3400, L500.2500, L501.9520 ####[facility] [address] [place], [address] MCH (RBC) [Entitic mass] 28.8 pg Normal 27.0-32.0 [facility] Comment on above: Performed By: #### L 501.5200, L503.6005, L501.2450, L100.0100, L500.3400, L500.2500, L501.9520 ####[facility] [address] [place], [address] MCHC (RBC) [Mass/Vol] 34.7 g/dL Normal 32-36 [facility] Comment on above: Performed By: #### L 501.5200, L503.6005, L501.2450, L100.0100, L500.3400, L500.2500, L501.9520 ####[facility] [address] [place], [address] MCV (RBC) [Entitic vol] 83.0 fL Normal 81-99 [facility] Comment on above: Performed By: #### L 501.5200, L503.6005, L501.2450, L100.0100, L500.3400, L500.2500, L501.9520 ####[facility] [address] [place], [address] Monocytes/100 WBC (Bld) 14.0 % High 0-10 [facility] Comment on above: Performed By: #### L 501.5200, L503.6005, L501.2450, L100.0100, L500.3400, L500.2500, L501.9520 ####[facility] [address] [place], [address] Neutrophils/100 WBC (Bld) 48.1 % Normal 47-70 [facility] Comment on above: Performed By: #### L 501.5200, L503.6005, L501.2450, L100.0100, L500.3400, L500.2500, L501.9520 ####[facility] [address] [place], [address] Nucleated RBC (Bld) [#/Vol] 0 10*3/uL Normal 0-5 [facility] Comment on above: Performed By: #### L 501.5200, L503.6005, L501.2450, L100.0100, L500.3400, L500.2500, L501.9520 ####[facility] [address] [place], [address] Platelet mean volume (Bld) [Entitic vol] 9.6 fL Normal 6.2-12.0 [facility] Comment on above: Performed By: #### L 501.5200, L503.6005, L501.2450, L100.0100, L500.3400, L500.2500, L501.9520 ####[facility] [address] [place], [address] Platelets (Bld) [#/Vol] 275 10*3/uL Normal 150-450 [facility] Comment on above: Performed By: #### L 501.5200, L503.6005, L501.2450, L100.0100, L500.3400, L500.2500, L501.9520 ####[facility] [address] [place], [address] RBC (Bld) [#/Vol] 5.42 10*6/uL High 4.2-5.4 [facility] Comment on above: Performed By: #### L 501.5200, L503.6005, L501.2450, L100.0100, L500.3400, L500.2500, L501.9520 ####[facility] [address] [place], [address] RDW SD 37.3 fl Normal 35.1-43.9 [facility] Comment on above: Performed By: #### L 501.5200, L503.6005, L501.2450, L100.0100, L500.3400, L500.2500, L501.9520 ####[facility] [address] [place], [address] WBC (Bld) [#/Vol] 3.9 10*3/uL Low 4.4-11.0 [facility] Comment on above: Performed By: #### L 501.5200, L503.6005, L501.2450, L100.0100, L500.3400, L500.2500, L501.9520 ####[facility] [address] [place], [address] Emergency Department Summary on 02-27-2025 Emergency Department Summary [facility] Medical Records Department [address] [place] [address] Emergency Department Summary 02/27/25 MR#: [id number] Acct: [id number] Name: LOU MCGRAW Rep #: [id number] : 1975 49 From: Quentin Hart DO PCP: Dr. Samuel Simms MD Status:REG ER Location: ED ADDENDUM by Dr. Akbar Toepte DO on 02/27/25 at 0852 Patient's case was signed out to me by overnight provider to follow-up on workup. Patient's CBC reviewed and showed a white blood count of 3.9, hemoglobin stable at 15.6, platelet count was noted to be normal at 275. Patient sodium was 136, potassium normal 4.1, creatinine was 0.70. Patient AST and ALT were 20 and 12 respectively. Patient lipase was 39, TSH normal at 1.16. Patient urinalysis reviewed and showed no evidence of infection. Patient's CT on pelvis IV contrast was reviewed showed the appendix is upper normal measuring 0.7 cm in diameter with no visible periappendiceal inflammation. 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 After discussing with the patient she states that she has been under extreme amount of stress recently and states that she is constantly belching and has a gnawing burning pain in her upper abdomen. I do feel that she may have a ulcer however she states that she has not any black stools or blood in her stool. I reached out to Dr. Bass who did her colonoscopy about 2 years ago which she states was normal no polyps removed and he states that he will see her in the office. Patient was given dose of Protonix I was ordering her a GI cocktail however she states that she had that last time and it tasted terrible and she does not want this again. She has vies to continue supportive care and follow-up with Dr. Bass in the outpatient setting and return with worsening symptoms or concerns. She is agreeable to plan all question concerns answered she was discharged home in stable condition 02/27/25 0852 Cosigner Signature (if applicable): cc: Dr. Samuel Simms MD * Signed HPI History of Present Illness Chief Complaint: Abd Pain Informant: patient and spouse/S.O. Narrative Narrative: Patient is a 49-year-old female with no significant past medical history. She was seen roughly 3 days ago secondary to bouts of generalized abdominal discomfort that was greatest in the right upper quadrant with nausea and diarrhea. At that time she had basic laboratory studies done urine sample and ultrasound with no obvious cause of her symptoms. It was felt patient most likely was experiencing viral gastroenteritis with potential gastritis she was given Zofran Protonix and Carafate. She states she has been taking the medication as directed. She reports that the diarrhea has since stopped but she has had increasing pain in her abdomen and she also feels pain in her low back. She states there is been no trauma. She denies any dysuria or hematuria. She states the pain seems to only occur at night. She states she still has had significant nausea without vomiting and minimal oral intake. She states that the pain in the abdomen does not radiate into the back but they seem to be 2 separate locations. She denies any radiation of the pain into the leg. She denies any loss of bowel or bladder control or IV drug use. However with the persistent and worsening symptoms she returns for repeat evaluation [facility] Medical History Post-menopausal Alcohol use History of [...] g PO TID 1 week #21 tabs /01/10 Unknown Rx Allergy/AdvReac Type Severity Reaction Status Date / Time tetracycline Allergy Intermediate Hives Verified 02/27/25 06:10 Family History Mother Arthritis High cholesterol Father Diabetes Hypertension (more content not included)... Normal [facility] Lactic Acidon 02-27-2025 Lactate [Moles/Vol] mmol/L Normal 0.0-2.0 [facility] Comment on above: Order Comment: Y Performed By: #### L 501.5200, L503.6005, L501.2450, L100.0100, L500.3400, L500.2500, L501.9520 ####[facility] [address] [place], [address] Lipaseon 02-27-2025 Lipase [Catalytic activity/Vol] 39 U/L Normal 13-75 [facility] Comment on above: Result Comment: Conor gonzalez note: LIPASE revised reference range effective 22. New Lipase methodology. Expected to produce lower values than the previous assay method. NEW Reference Range: 13 - 75 U/L Performed By: #### L 501.5200, L503.6005, L501.2450, L100.0100, L500.3400, L500.2500, L501.9520 ####[facility] [address] [place], [address] Liver Profileon 02-27-2025 Albumin [Mass/Vol] 4.6 g/dL Normal 3.5-5.0 [facility] Comment on above: Performed By: #### L 501.5200, L503.6005, L501.2450, L100.0100, L500.3400, L500.2500, L501.9520 ####[facility] [address] [place], [address] ALK PHOS 42 U/L Normal 35-104 [facility] Comment on above: Performed By: #### L 501.5200, L503.6005, L501.2450, L100.0100, L500.3400, L500.2500, L501.9520 ####[facility] [address] [place], [address] ALT [Catalytic activity/Vol] 12 U/L Normal <=34 [facility] Comment on above: Performed By: #### L 501.5200, L503.6005, L501.2450, L100.0100, L500.3400, L500.2500, L501.9520 ####[facility] [address] [place], [address] AST [Catalytic activity/Vol] 20 U/L Normal <=31 [facility] Comment on above: Performed By: #### L 501.5200, L503.6005, L501.2450, L100.0100, L500.3400, L500.2500, L501.9520 ####[facility] [address] [place], [address] Bilirubin [Mass/Vol] 0.66 mg/dL Normal 0.00-1.30 [facility] Comment on above: Performed By: #### L 501.5200, L503.6005, L501.2450, L100.0100, L500.3400, L500.2500, L501.9520 ####[facility] [address] [place], [address] Bilirubin.direct [Mass/Vol] 0.25 mg/dL Normal 0.00-0.30 [facility] Comment on above: Performed By: #### L 501.5200, L503.6005, L501.2450, L100.0100, L500.3400, L500.2500, L501.9520 ####[facility] [address] [place], [address] Globulin (S) [Mass/Vol] 2.9 g/dL Normal 2.2-4.2 [facility] Comment on above: Performed By: #### L 501.5200, L503.6005, L501.2450, L100.0100, L500.3400, L500.2500, L501.9520 ####[facility] [address] [place], [address] T PROT 7.5 g/dL Normal 5.9-8.4 [facility] Comment on above: Performed By: #### L 501.5200, L503.6005, L501.2450, L100.0100, L500.3400, L500.2500, L501.9520 ####[facility] [address] [place], [address] Magnesiumon 02-27-2025 Magnesium [Mass/Vol] 2.1 mg/dL Normal 1.5-2.2 [facility] Comment on above: Performed By: #### L 501.5200, L503.6005, L501.2450, L100.0100, L500.3400, L500.2500, L501.9520 ####[facility] [address] [place], [address] Thyroid Stim Hormone (TSH)on 02-27-2025 TSH 1.160 uIU/mL Normal 0.300-4.200 [facility] Comment on above: Performed By: #### L 501.5200, L503.6005, L501.2450, L100.0100, L500.3400, L500.2500, L501.9520 ####[facility] [address] [place], [address] Urinalysis, Completeon 02-27 BACTERIA 0 SEEN Normal None Seen [facility] Comment on above: Order Comment: COLLE CTOR TO SPECIFY Performed By: #### L 400.0001 ####[facility] [address] [place], [address] EPI,SQUAMOUS 0 SEEN Normal 5-10 [facility] Comment on above: Order Comment: COLLE CTOR TO SPECIFY Performed By: #### L 400.0001 ####[facility] [address] [place], [address] Mucus Ql (Urine sed) 0 SEEN Normal [facility] Comment on above: Order Comment: COLLE CTOR TO SPECIFY Performed By: #### L 400.0001 ####[facility] [address] [place], [address] RBC 0 SEEN Normal 0-5 [facility] Comment on above: Order Comment: COLLE CTOR TO SPECIFY Performed By: #### L 400.0001 ####[facility] [address] [place], [address] WBC 0 SEEN Normal 0-5 [facility] Comment on above: Order Comment: COLLE CTOR TO SPECIFY Performed By: #### L 400.0001 ####[facility] [address] [place], [address] CBC W/Diff, Automatedon 11-0 9-2025 Absolute Lymph 1.29 X10 3/uL Normal 0.83-4.51 [facility] Comment on above: Performed By: #### L 500.4050, L100.0100, L501.2450 ####[facility] [address] [place], [address] Absolute Neut 4.8 X10 3/uL Normal 2.0-7.7 [facility] Comment on above: Performed By: #### L 500.4050, L100.0100, L501.2450 ####[facility] [address] [place], [address] Basophils/100 WBC (Bld) 0.3 % Normal 0-1 [facility] Comment on above: Performed By: #### L 500.4050, L100.0100, L501.2450 ####[facility] [address] [place], [address] Eosinophils/100 WBC (Bld) 0.4 % Normal 0-5 [facility] Comment on above: Performed By: #### L 500.4050, L100.0100, L501.2450 ####[facility] [address] [place], [address] Erythrocyte distribution width (RBC) [Ratio] 12.5 % Normal 11.6-14.6 [facility] Comment on above: Performed By: #### L 500.4050, L100.0100, L501.2450 ####[facility] [address] [place], [address] Hematocrit (Bld) [Volume fraction] 44.8 % Normal 37-47 [facility] Comment on above: Performed By: #### L 500.4050, L100.0100, L501.2450 ####[facility] [address] [place], [address] Hemoglobin (Bld) [Mass/Vol] 15.1 g/dL High 12.0-15.0 [facility] Comment on above: Performed By: #### L 500.4050, L100.0100, L501.2450 ####[facility] [address] [place], [address] IG% 0.100 Normal 0.0-0.9 [facility] Comment on above: Result Comment: IG% - Immature Granulocytes (promyelocytes, myelocytes and metamyelocytes) > 1% indicates that a LEFT SHIFT is Present. Performed By: #### L 500.4050, L100.0100, L501.2450 ####[facility] [facility] [address] [place], [address] Lymphocytes/100 WBC (Bld) 19.1 % Normal 19-41 [facility] Comment on above: Performed By: #### L 500.4050, L100.0100, L501.2450 ####[facility] [address] [place], [address] MCH (RBC) [Entitic mass] 28.9 pg Normal 27.0-32.0 [facility] Comment on above: Performed By: #### L 500.4050, L100.0100, L501.2450 ####[facility] [address] [place], [address] MCHC (RBC) [Mass/Vol] 33.7 g/dL Normal 32-36 [facility] Comment on above: Performed By: #### L 500.4050, L100.0100, L501.2450 ####[facility] [address] [place], [address] MCV (RBC) [Entitic vol] 85.7 fL Normal 81-99 [facility] Comment on above: Performed By: #### L 500.4050, L100.0100, L501.2450 ####[facility] [address] [place], [address] Monocytes/100 WBC (Bld) 9.1 % Normal 0-10 [facility] Comment on above: Performed By: #### L 500.4050, L100.0100, L501.2450 ####[facility] [address] [place], [address] Neutrophils/100 WBC (Bld) 71.0 % High 47-70 [facility] Comment on above: Performed By: #### L 500.4050, L100.0100, L501.2450 ####[facility] [address] [place], [address] Nucleated RBC (Bld) [#/Vol] 0 10*3/uL Normal 0-5 [facility] Comment on above: Performed By: #### L 500.4050, L100.0100, L501.2450 ####[facility] [address] [place], [address] Platelet mean volume (Bld) [Entitic vol] 10.0 fL Normal 6.2-12.0 [facility] Comment on above: Performed By: #### L 500.4050, L100.0100, L501.2450 ####[facility] [address] [place], [address] Platelets (Bld) [#/Vol] 299 10*3/uL Normal 150-450 [facility] Comment on above: Performed By: #### L 500.4050, L100.0100, L501.2450 ####[facility] [address] [place], [address] RBC (Bld) [#/Vol] 5.23 10*6/uL Normal 4.2-5.4 [facility] Comment on above: Performed By: #### L 500.4050, L100.0100, L501.2450 ####[facility] [address] [place], [address] RDW SD 39.1 fl Normal 35.1-43.9 [facility] Comment on above: Performed By: #### L 500.4050, L100.0100, L501.2450 ####[facility] [address] [place], [address] WBC (Bld) [#/Vol] 6.7 10*3/uL Normal 4.4-11.0 [facility] Comment on above: Performed By: #### L 500.4050, L100.0100, L501.2450 ####[facility] [address] [place], [address] CNOVon 02-24-2025 CNOV Office Visit (ARJUN) LOU MCGRAW ([id number]) 1975 F Date Time Provider Department 02/24/25 8:30 AM HAYDE LI During your visit today, we recorded the following information about you: Temperature Pulse Respiration Blood pressure 99 degrees 106/minute 20/minute 132/91 Weight 71 kg Hayde Li APRN.CNP 02/24/2025 8:51 AM Signed [facility] Kurtz Marquise is a 49 year old female. Patient [...] be transported by her . Hayde Li APRN.DIANNA History and Record Review Systemic symptoms present included: Abdominal pain Differential Diagnoses - Bowel obstruction Disposition The patient was transferred to ED. Procedures Allergies As of Date: 02/24/2025 Noted Allergy Reaction TETRACYCLINE 08/17/2005 Date Reviewed: 02/24/2025 Reviewed by: Hayde Li APRN.FIRE ALARM OPERATOR - Fully Assessed Reason for Visit: Abdominal [...] Status:Closed by HAYDE LI on 02/24/25 Normal [facility] Metabolic Prof kamron 02-24-2025 Albumin [Mass/Vol] 4.9 g/dL Normal 3.5-5.0 [facility] Comment on above: Performed By: #### L 500.4050, L100.0100, L501.2450 ####[facility] [address] [place], [address] Albumin/Globulin [Mass ratio] 1.5 {ratio} Normal 0.9-2.4 [facility] Comment on above: Performed By: #### L 500.4050, L100.0100, L501.2450 ####[facility] [address] [place], [address] ALK PHOS 45 U/L Normal 35-104 [facility] Comment on above: Performed By: #### L 500.4050, L100.0100, L501.2450 ####[facility] [address] [place], [address] ALT [Catalytic activity/Vol] 13 U/L Normal <=34 [facility] Comment on above: Result Comment: Hemo lysis present, Results??could be affected. ?? Performed By: #### L 500.4050, L100.0100, L501.2450 ####[facility] [address] [place], [address] AST [Catalytic activity/Vol] 33 U/L High <=31 [facility] Comment on above: Result Comment: Hemo lysis present, Results??could be affected. ?? Performed By: #### L 500.4050, L100.0100, L501.2450 ####[facility] [address] [place], [address] Bilirubin [Mass/Vol] 0.77 mg/dL Normal 0.00-1.30 [facility] Comment on above: Performed By: #### L 500.4050, L100.0100, L501.2450 ####[facility] [address] [place], [address] BUN/CRE 11.4 RATIO Normal 10-20 [facility] Comment on above: Performed By: #### L 500.4050, L100.0100, L501.2450 ####[facility] [address] [place], [address] Calcium [Mass/Vol] 9.8 mg/dL Normal 7.6-11.0 [facility] Comment on above: Performed By: #### L 500.4050, L100.0100, L501.2450 ####[facility] [address] [place], [address] Chloride [Moles/Vol] 98 mmol/L Normal 98-108 [facility] Comment on above: Performed By: #### L 500.4050, L100.0100, L501.2450 ####[facility] [address] [place], [address] CO2 [Moles/Vol] 23.0 mmol/L Normal 21.0-32.0 [facility] Comment on above: Performed By: #### L 500.4050, L100.0100, L501.2450 ####[facility] [address] [place], [address] Creatinine [Mass/Vol] 0.78 mg/dL Normal 0.70-1.20 [facility] Comment on above: Performed By: #### L 500.4050, L100.0100, L501.2450 ####[facility] [address] [place], [address] ECRCL 82.98 ml/min Normal 50-250 [facility] Comment on above: Performed By: #### L 500.4050, L100.0100, L501.2450 ####[facility] [address] [place], [address] GAP 14 Normal 5-15 [facility] Comment on above: Performed By: #### L 500.4050, L100.0100, L501.2450 ####[facility] [address] [place], [address] GFR/1.73 sq M.predicted among non-blacks MDRD (S/P/Bld) [Vol rate/Area] 92 mL/min/{1.73_m2} Normal >60 [facility] Comment on above: Result Comment: mL/m in/1.73m2 CKD-EPI Creatinine Equation (2020) Performed By: #### L 500.4050, L100.0100, L501.2450 ####[facility] [address] [place], [address] Globulin (S) [Mass/Vol] 3.3 g/dL Normal 2.2-4.2 [facility] Comment on above: Performed By: #### L 500.4050, L100.0100, L501.2450 ####[facility] [address] [place], [address] Glucose [Mass/Vol] 100 mg/dL High 70-99 [facility] Comment on above: Performed By: #### L 500.4050, L100.0100, L501.2450 ####[facility] [address] [place], [address] Potassium [Moles/Vol] 4.5 mmol/L Normal 3.3-5.1 [facility] Comment on above: Result Comment: Hemo lysis present, Results??could be affected. ?? Performed By: #### L 500.4050, L100.0100, L501.2450 ####[facility] [address] [place], [address] Sodium [Moles/Vol] 134 mmol/L Normal 133-145 [facility] Comment on above: Performed By: #### L 500.4050, L100.0100, L501.2450 ####[facility] [address] [place], [address] T PROT 8.2 g/dL Normal 5.9-8.4 [facility] Comment on above: Performed By: #### L 500.4050, L100.0100, L501.2450 ####[facility] [address] [place], [address] Urea nitrogen [Mass/Vol] 9 mg/dL Normal 4-19 [facility] Comment on above: Performed By: #### L 500.4050, L100.0100, L501.2450 ####[facility] [address] [place], [address] Emergency Department Summary on 02-24-2025 Emergency Department Summary [facility] Medical Records Department [address] [place] [address] Emergency Department Summary 02/24/25 MR#: [id number] Acct: [id number] Name: LOU MCGRAW Rep #: [id number] : 1975 49 From: Chato Montemayor MD [...] the last few days due to symptoms. 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 Normal [facility] Gallbladderon 02-24-2025 Gallbladder [facility] Imaging Services [address] [place], [place] [address] Gallbladder MR#: [id number] Acct: [id number] Name: LOU MCGRAW Rep #: [id number] : 1975 F 49 From: Annabel Blanca MD PCP: Dr. Samuel Simms MD Status: REG ER Study: Gallbladder Date of Exam: 02/24/25 Exam# [id number] Ordering Dr: Chato Montemayor MD PROCEDURE: GALLBLADDER [...] right upper quadrant abdominal ultrasound. Reading Location: [facility] CC: Dr. Chato Montemayor MD; Dr. 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 New Lipase methodology. Expected to produce lower values than the previous assay method. NEW Reference Range: 13 - 75 U/L Performed By: #### L 500.4050, L100.0100, L501.2450 ####[facility] [address] [place], [address] Urinalysis, Completeon 02-24 BACTERIA 2+ /hpf Normal None Seen [facility] Comment on above: Order Comment: CLEAN CATCH Performed By: #### L 400.0001 #### [facility] [address] [place], [address] EPI,SQUAMOUS 0-5 SEEN Normal 5-10 [facility] Comment on above: Order Comment: CLEAN CATCH Performed By: #### L 400.0001 #### [facility] [address] [place], [address] EPI,TRANSITION 0-5 SEEN Normal 0-5 [facility] Comment on above: Order Comment: CLEAN CATCH Performed By: #### L 400.0001 #### [facility] [address] [place], [address] WBC 0-5 SEEN Normal 0-5 [facility] Comment on above: Order Comment: CLEAN CATCH Performed By: #### L 400.0001 #### [facility] [address] [place], [address] Mucus Ql (Urine sed) 0 SEEN Normal [facility] Comment on above: Order Comment: CLEAN CATCH Performed By: #### L 400.0001 #### [facility] [address] [place], [address] RBC 0 SEEN Normal 0-5 [facility] Comment on above: Order Comment: CLEAN CATCH Performed By: #### L 400.0001 #### [facility] [address] [place], [address] Absolute lymphocyte countOrd ered By: Samuel Simms on 12-31-2024 Lymphocytes Auto (Unsp spec) [#/Vol] 1.84 10*3/uL 0.83-4.51 [facility] Absolute neutrophil countOrd ered By: Geraldinemirna Simms on 12-31-2024 Neutrophils (Bld) [#/Vol] 2.3 10*3/uL 2.0-7.7 [facility] Anion gap in Serum or Plasma Ordered By: Naomidenisse Mendez on 12-31-2024 Anion gap [Moles/Vol] 11 mmol/L 08-30 [facility] Automated lymphocyte count a s percentage of total leukocytesOrdered By: Naomidenisse Mendez on 12-31-2024 Lymphocytes/100 WBC Auto (Unsp spec) 40.0 % [facility] BUN/creatinine ratioOrdered By: jeraldcincinnatidenisse Simms on 12-31-2024 Urea nitrogen/Creatinine [Mass ratio] 11.5 mg/mg 02-04 [facility] Basophil percentageOrdered B y: Samuel Simms on 12-31-2024 Basophils/100 WBC (Bld) 0.4 % 0-1 [facility] Bilirubin, totalOrdered By: Samuel Simms on 12-31-2024 Bilirubin [Mass/Vol] 0.29 mg/dL 0.00-1.30 [facility] CBC W/Diff, Automatedon 12-17 Absolute Lymph 1.84 X10 3/uL Normal 0.83-4.51 [facility] Comment on above: Performed By: #### L 100.0100, L500.4100, L500.4050 #### [facility] [address] [place], [address] Absolute Neut 2.3 X10 3/uL Normal 2.0-7.7 [facility] Comment on above: Performed By: #### L 100.0100, L500.4100, L500.4050 #### [facility] [address] [place], [address] Basophils/100 WBC (Bld) 0.4 % Normal 0-1 [facility] Comment on above: Performed By: #### L 100.0100, L500.4100, L500.4050 #### [facility] [address] [place], [address] Eosinophils/100 WBC (Bld) 1.3 % Normal 0-5 [facility] Comment on above: Performed By: #### L 100.0100, L500.4100, L500.4050 #### [facility] [address] [place], [address] Erythrocyte distribution width (RBC) [Ratio] 13.1 % Normal 11.6-14.6 [facility] Comment on above: Performed By: #### L 100.0100, L500.4100, L500.4050 #### [facility] [address] [place], [address] Hematocrit (Bld) [Volume fraction] 39.1 % Normal 37-47 [facility] Comment on above: Performed By: #### L 100.0100, L500.4100, L500.4050 #### [facility] [address] [place], [address] Hemoglobin (Bld) [Mass/Vol] 12.8 g/dL Normal 12.0-15.0 [facility] Comment on above: Performed By: #### L 100.0100, L500.4100, L500.4050 #### [facility] [address] [place], [address] IG% 0.200 Normal 0.0-0.9 [facility] Comment on above: Result Comment: IG% - Immature Granulocytes (promyelocytes, myelocytes and metamyelocytes) > 1% indicates that a LEFT SHIFT is Present. Performed By: #### L 100.0100, L500.4100, L500.4050 #### [facility] [address] [place], [address] Lymphocytes/100 WBC (Bld) 40.0 % Normal 19-41 [facility] Comment on above: Performed By: #### L 100.0100, L500.4100, L500.4050 #### [facility] [address] [place], [address] MCH (RBC) [Entitic mass] 28.7 pg Normal 27.0-32.0 [facility] Comment on above: Performed By: #### L 100.0100, L500.4100, L500.4050 #### [facility] [address] [place], [address] MCHC (RBC) [Mass/Vol] 32.7 g/dL Normal 32-36 [facility] Comment on above: Performed By: #### L 100.0100, L500.4100, L500.4050 #### [facility] [address] [place], [address] MCV (RBC) [Entitic vol] 87.7 fL Normal 81-99 [facility] Comment on above: Performed By: #### L 100.0100, L500.4100, L500.4050 #### [facility] [address] [place], [address] Monocytes/100 WBC (Bld) 8.9 % Normal 0-10 [facility] Comment on above: Performed By: #### L 100.0100, L500.4100, L500.4050 #### [facility] [address] [place], [address] Neutrophils/100 WBC (Bld) 49.2 % Normal 47-70 [facility] Comment on above: Performed By: #### L 100.0100, L500.4100, L500.4050 #### [facility] [address] [place], [address] Nucleated RBC (Bld) [#/Vol] 0 10*3/uL Normal 0-5 [facility] Comment on above: Performed By: #### L 100.0100, L500.4100, L500.4050 #### [facility] [address] [place], [address] Platelet mean volume (Bld) [Entitic vol] 10.3 fL Normal 6.2-12.0 [facility] Comment on above: Performed By: #### L 100.0100, L500.4100, L500.4050 #### [facility] [address] [place], [address] Platelets (Bld) [#/Vol] 281 10*3/uL Normal 150-450 [facility] Comment on above: Performed By: #### L 100.0100, L500.4100, L500.4050 #### [facility] [address] [place], [address] RBC (Bld) [#/Vol] 4.46 10*6/uL Normal 4.2-5.4 [facility] Comment on above: Performed By: #### L 100.0100, L500.4100, L500.4050 #### [facility] [address] [place], [address] RDW SD 42.1 fl Normal 35.1-43.9 [facility] Comment on above: Performed By: #### L 100.0100, L500.4100, L500.4050 #### [facility] [address] [place], [address] WBC (Bld) [#/Vol] 4.6 10*3/uL Normal 4.4-11.0 [facility] Comment on above: Performed By: #### L 100.0100, L500.4100, L500.4050 #### [facility] [address] [place], [address] Calculated very low density lipoprotein (VLDL) cholesterol measurementOrdered By: Samuel Simms on 12-31-2024 Calculated very low density lipoprotein (VLDL) cholesterol measurement 33 mg/dL 5-40 [facility] Carbon dioxide, total [Moles /volume] in Central venous bloodOrdered By: Samuel Simms on 12-31-2024 CO2 [Moles/Vol] 23.5 mmol/L 21.0-32.0 [facility] Chloride assayOrdered By: Geraldine Simms on 12-31-2024 Chloride [Moles/Vol] 103 mmol/L 98-108 [facility] Comprehensive Metabolic Prof ilon 12-31-2024 Albumin [Mass/Vol] 4.6 g/dL Normal 3.5-5.0 [facility] Comment on above: Performed By: #### L 100.0100, L500.4100, L500.4050 #### [facility] [address] [place], [address] Albumin/Globulin [Mass ratio] 1.6 {ratio} Normal 0.9-2.4 [facility] Comment on above: Performed By: #### L 100.0100, L500.4100, L500.4050 #### [facility] [address] [place], [address] ALK PHOS 42 U/L Normal 35-104 [facility] Comment on above: Performed By: #### L 100.0100, L500.4100, L500.4050 #### [facility] [address] [place], [address] ALT [Catalytic activity/Vol] 11 U/L Normal <=34 [facility] Comment on above: Performed By: #### L 100.0100, L500.4100, L500.4050 #### [facility] [address] [place], [address] AST [Catalytic activity/Vol] 20 U/L Normal <=31 [facility] Comment on above: Performed By: #### L 100.0100, L500.4100, L500.4050 #### [facility] [address] [place], [address] Bilirubin [Mass/Vol] 0.29 mg/dL Normal 0.00-1.30 [facility] Comment on above: Performed By: #### L 100.0100, L500.4100, L500.4050 #### [facility] [address] [place], [address] BUN/CRE 11.5 RATIO Normal 10-20 [facility] Comment on above: Performed By: #### L 100.0100, L500.4100, L500.4050 #### [facility] [address] [place], [address] Calcium [Mass/Vol] 9.4 mg/dL Normal 7.6-11.0 [facility] Comment on above: Performed By: #### L 100.0100, L500.4100, L500.4050 #### [facility] [address] [place], [address] Chloride [Moles/Vol] 103 mmol/L Normal 98-108 [facility] Comment on above: Performed By: #### L 100.0100, L500.4100, L500.4050 #### [facility] [address] [place], [address] CO2 [Moles/Vol] 23.5 mmol/L Normal 21.0-32.0 [facility] Comment on above: Performed By: #### L 100.0100, L500.4100, L500.4050 #### [facility] [address] [place], [address] Creatinine [Mass/Vol] 0.77 mg/dL Normal 0.70-1.20 [facility] Comment on above: Performed By: #### L 100.0100, L500.4100, L500.4050 #### [facility] [address] [place], [address] GAP 11 Normal 5-15 [facility] Comment on above: Performed By: #### L 100.0100, L500.4100, L500.4050 #### [facility] [address] [place], [address] GFR/1.73 sq M.predicted among non-blacks MDRD (S/P/Bld) [Vol rate/Area] 93 mL/min/{1.73_m2} Normal >60 [facility] Comment on above: Result Comment: mL/m in/1.73m2 CKD-EPI Creatinine Equation (2020) Performed By: #### L 100.0100, L500.4100, L500.4050 #### [facility] [address] [place], [address] Globulin (S) [Mass/Vol] 2.8 g/dL Normal 2.2-4.2 [facility] Comment on above: Performed By: #### L 100.0100, L500.4100, L500.4050 #### [facility] [address] [place], [address] Glucose [Mass/Vol] 92 mg/dL Normal 70-99 [facility] Comment on above: Performed By: #### L 100.0100, L500.4100, L500.4050 #### [facility] [address] [place], [address] Potassium [Moles/Vol] 4.0 mmol/L Normal 3.3-5.1 [facility] Comment on above: Performed By: #### L 100.0100, L500.4100, L500.4050 #### [facility] [address] [place], [address] Sodium [Moles/Vol] 138 mmol/L Normal 133-145 [facility] Comment on above: Performed By: #### L 100.0100, L500.4100, L500.4050 #### [facility] [address] [place], [address] T PROT 7.4 g/dL Normal 5.9-8.4 [facility] Comment on above: Performed By: #### L 100.0100, L500.4100, L500.4050 #### [facility] [address] [place], [address] Urea nitrogen [Mass/Vol] 9 mg/dL Normal 4-19 [facility] Comment on above: Performed By: #### L 100.0100, L500.4100, L500.4050 #### [facility] [address] [place], [address] Eosinophil percentageOrdered By: Samuel Simms on 12-31-2024 Eosinophils/100 WBC (Bld) 1.3 % 0-5 [facility] Erythrocyte distribution wid th ratioOrdered By: Samuel Simms on 12-31-2024 Erythrocyte distribution width (RBC) [Ratio] 13.1 % 11.6-14.6 [facility] Erythrocyte distribution wid th standard deviationOrdered By: Samuel Simms on 12-31-2024 Erythrocyte distribution width (RBC) [Ratio] 42.1 fl 35.1-43.9 [facility] Glomerular filtration rate ( GFR) estimation/1.73 sq m using serum, plasma, or whole bOrdered By: Samuel Simms on 12-31-2024 GFR/1.73 sq M.predicted among non-blacks MDRD (S/P/Bld) [Vol rate/Area] 93 mL/min/{1.73_m2} >60 [facility] Comment on above: mL/min/1.73m2 CKD-EP I Creatinine Equation (2020) Hematocrit Auto (Bld) [Volum e fraction]Ordered By: Samuel Simms on 12-31-2024 Hematocrit (Bld) [Volume fraction] 39.1 % 37-47 [facility] Hemoglobin measurementOrdere d By: Samuel Simms on 12-31-2024 Hemoglobin (Bld) [Mass/Vol] 12.8 g/dL 12.0-15.0 [facility] Immature granulocytes/100 WB C Auto (Bld)Ordered By: Samuel Simms on 12-31-2024 Immature granulocytes/100 WBC (Bld) 0.200 % 0.0-0.9 [facility] Comment on above: IG% - Immature Granu locytes (promyelocytes, myelocytes and metamyelocytes) > 1% indicates that a LEFT SHIFT is Present. Internal Medicine Office Vis freddie 12-31-2024 Internal Medicine Office Visit [facility] [address] [place] [address] [place] [address] OFFICE VISIT Date of Service: 12/31/24 MR#: [id number] Acct: [id number] Name: LOU MCGRAW Rep #: [id number] : 1975 Provider: Dr. 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 Normal [facility] LDL calc ser/plasOrdered By: Samuel Simms on 12-31-2024 Cholesterol in LDL [Mass/Vol] 159 mg/dL [facility] Comment on above: Yozjmsusdq=742-452 m g/dL & Higher Tzvi=105 mg/dL or greaterFriedwald Equation for LDL-C Laboratory - Chemistry and C hemistry - challengeOrdered By: Samuel Simms on 12-31-2024 AST [Catalytic activity/Vol] 20 U/L <32 [facility] Lipid Profileon 12-31-2024 CHOL:HDL 4.66 Normal [facility] Comment on above: Performed By: #### L 100.0100, L500.4100, L500.4050 ####[facility] [address] [place], [place], [id number]) Cholesterol [Mass/Vol] 245 mg/dL High <=200 [facility] Comment on above: Result Comment: Chol esterol level, Desirable <200 mg/dL Borderline high cholesterol 200-239 mg/dL High cholesterol >=240 mg/dL Recommendations of the NCEP Adult Treatment Panel for the following risk-cutoff thresholds for the [place] population. Performed By: #### L 100.0100, L500.4100, L500.4050 ####[facility] [address] [place], [address] Cholesterol in HDL [Mass/Vol] 53 mg/dL Normal [facility] Comment on above: Result Comment: Akiko onal Cholesterol Education Program (NCEP) guidelines: <40 mg/dL: Low HDL-cholesterol (major risk factor for CHD) >= 60 mg/dL: High HDL-cholesterol (negative risk factor for CHD) HDL-cholesterol is affected by a number of factors, e.g. smoking, exercise, hormones, sex and age. Performed By: #### L 100.0100, L500.4100, L500.4050 ####[facility] [address] [place], [address] Cholesterol in LDL [Mass/Vol] 159 mg/dL Normal [facility] Comment on above: Result Comment: Bord omxbse=814-224 mg/dL Higher Pzrj=557 mg/dL or greater Friedwald Equation for LDL-C Performed By: #### L 100.0100, L500.4100, L500.4050 ####[facility] [address] [place], [address] Cholesterol in VLDL [Mass/Vol] 33 mg/dL Normal 5-40 [facility] Comment on above: Performed By: #### L 100.0100, L500.4100, L500.4050 ####[facility] [address] [place], [address] Triglyceride [Mass/Vol] 167 mg/dL Normal [facility] Comment on above: Result Comment: The drugs N-Acetylcysteine and Metamizole may falsely depress this assay. Normal range: <150 mg/dL Borderline High: 150-199 mg/dL High: 200-499 mg/dL Very High: >500 mg/dL Performed By: #### L 100.0100, L500.4100, L500.4050 ####[facility] [address] [place], [address] MCV (mean corpuscular volume ) determinationOrdered By: Samuel Simms on 12-31-2024 MCV (RBC) [Entitic vol] 87.7 fL 81-99 [facility] Mean corpuscular hemoglobin (MCH) determinationOrdered By: Samuel Simms on 12-31-2024 MCH (RBC) [Entitic mass] 28.7 pg 27.0-32.0 [facility] Mean corpuscular hemoglobin concentration (MCHC) determinationOrdered By: Samuel Simms on 12-31-2024 MCHC (RBC) [Mass/Vol] 32.7 g/dL 32-36 [facility] Mean platelet volume determi nationOrdered By: Samuel Simms on 12-31-2024 Platelet mean volume (Bld) [Entitic vol] 10.3 fL 6.2-12.0 [facility] Monocyte percentageOrdered B y: Samuel Simms on 12-31-2024 Monocytes/100 WBC (Bld) 8.9 % 0-10 [facility] Neutrophil percentageOrdered By: Samuel Simms on 12-31-2024 Neutrophils/100 WBC (Bld) 49.2 % 47-70 [facility] Nucleated red blood cell per centageOrdered By: Samuel Simms on 12-31-2024 Nucleated RBC/100 WBC (Bld) [Ratio] 0 % 0-5 [facility] Platelet countOrdered By: Geraldine Simms on 12-31-2024 Platelets (Bld) [#/Vol] 281 10*3/uL 150-450 [facility] Potassium measurement (mass/ volume)Ordered By: Samuel Simms on 12-31-2024 Potassium (Unsp spec) [Mass/Vol] 4.0 mmol/L 3.3-5.1 [facility] RBC Auto (Bld) [#/Vol]Ordere d By: Samuel Simms on 12-31-2024 RBC (Bld) [#/Vol] 4.46 10*6/uL 4.2-5.4 [facility] Screening total cholesterol/ high density lipoprotein (HDL) cholesterol ratioOrdered By: Samuel Simms on 12-31-2024 Cholesterol.total/Choles terol in HDL [Mass ratio] 4.66 {ratio} [facility] Serum creatinine measurement (mass/volume)Ordered By: Samuel Simms on 12-31-2024 Creatinine [Mass/Vol] 0.77 mg/dL 0.70-1.20 [facility] Serum globulin measurementOr dered By: Samuel Simms on 12-31-2024 Globulin (S) [Mass/Vol] 2.8 g/dL 2.2-4.2 [facility] Serum glucose measurement (m ass/volume)Ordered By: Samuel Simms on 12-31-2024 Glucose [Mass/Vol] 92 mg/dL 70-99 [facility] Serum or plasma alanine myers otransferase (ALT) measurementOrdered By: Samuel Simms on 12-31-2024 ALT [Catalytic activity/Vol] 11 U/L <35 [facility] Serum or plasma albumin jued urement (mass/volume)Ordered By: Samuel Simms on 12-31-2024 Albumin [Mass/Vol] 4.6 g/dL 3.5-5.0 [facility] Serum or plasma albumin/glob ulin mass ratioOrdered By: Samuel Simms 12-31-2024 Albumin/Globulin [Mass ratio] 1.6 {ratio} 0.9-2.4 [facility] Serum or plasma alkaline abdirizak sphatase measurementOrdered By: Samuel Simms 12-31-2024 ALP [Catalytic activity/Vol] 42 U/L 35-104 [facility] Serum or plasma calcium jude urement (mass/volume)Ordered By: Samuel Simms 12-31-2024 Calcium [Mass/Vol] 9.4 mg/dL 7.6-11.0 [facility] Serum or plasma cholesterol in HDL measurement (mass/volume)Ordered By: Samuel Simms on 12-31-2024 Cholesterol in HDL [Mass/Vol] 53 mg/dL >40 [facility] Comment on above: National Cholesterol Education Program (NCEP) guidelines:<40 mg/dL: Low HDL-cholesterol (major risk factor for CHD)>= 60 mg/dL: High HDL-cholesterol (negative risk factor for CHD)HDL-cholesterol is affected by a number of factors, e.g. smoking, exercise, hormones, sex and age. Serum or plasma cholesterol measurement (mass/volume)Ordered By: Samuel Simms on 12-31-2024 Cholesterol [Mass/Vol] 245 mg/dL High <201 [facility] Comment on above: Cholesterol level, D esirable <200 mg/dLBorderline high cholesterol 200-239 mg/dLHigh cholesterol >=240 mg/dLRecommendations of the NCEP Adult Treatment Panel for the following risk-cutoff thresholds for the [place] population. Serum or plasma urea nitroge n measurement (mass/volume)Ordered By: Samuel Simms on 12-31-2024 Urea nitrogen [Mass/Vol] 9 mg/dL 4-19 [facility] Sodium levelOrdered By: Geraldinejerald zakia Mendez on 12-31-2024 Sodium [Moles/Vol] 138 mmol/L 133-145 [facility] Total proteinOrdered By: Brayan fuentesdenisse Raylindsayha on 12-31-2024 Protein [Mass/Vol] 7.4 g/dL 5.9-8.4 [facility] Triglycerides measurementOrd ered By: Geraldinejeraldbendenisse Raylindsayha on 12-31-2024 Triglyceride [Mass/Vol] 167 mg/dL <199 [facility] Comment on above: The drugs N-Acetylcy steine and Metamizole may falsely depress this assay. Normal range: <150 mg/dLBorderline High: 150-199 mg/dLHigh: 200-499 mg/dLVery High: >500 mg/dL White blood cell (WBC) count Ordered By: Samuel Simms on 12-31-2024 WBC (Bld) [#/Vol] 4.6 10*3/uL 4.4-11.0 [facility] CNOVon 12-24-2024 CNOV Office Visit (OBGYWM ) LOU MCGRAW ([id number]) 1975 F Date Time Provider Department 12/24/24 9:40 AM TALI SYED OBGYWMeenakshi During your visit today, we recorded the following information about you: Blood pressure Weight Height 108/70 70.8 kg 1.68 m Tali Syed MD 12/24/2024 12:55 PM Signed Energy Efficiency Finance Manager offered: Patient declinesCastro Blake is a 49 [...] OB History No obstetric history on file. 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 As applicable, any other physician, advance practice provider, medical student, or other health professional student that will be observing or involved in the sensitive examination for educational or training purposes was discussed with the Patient or Authorized Applications Chemist. The Patient or Authorized Applications Chemist has agreed to proceed with the sensitive [...] with atrophic changes, normal Bartholin's glands, urethra, [place]'s glands, no vulvar lesions, no cervical lesions, [...] PM Addendum Lubricants and moisturizers list The [id number] vaginal moisturizer and lubricant products can be confusing to sort through, especially since there a (more content not included)... Normal [facility] Breast imaging reportOrdered By: Jean Pierre Simmons on 12-06-2024 Study report [facility] Imaging Services [address] [place] [address] DIAG MAMM W/CAD, UNILAT MR#: [id number] Acct: [id number] Name: LOU MCGRAW Rep #: [id number] : 1975 F 48 From: Sky Simmons MD PCP: Dr. Samuel Simms MD Status: R EG CLI Study:DIAG MAMM W/CAD, UNILAT Date of Exam: 12/06/24 Exam# [id number] Ordering Dr: Ha Simms MD EXAM: DIAG MAMM W/CAD, UNILAT [...] be mailed to the patient. Reading Location: [id number] CC: Dr. Samuel Simms MD ~ Product Development Worker: Signed [facility] DIAG MAMM W/CAD, UNILATon DIAG MAMM W/CAD, UNILAT [facility] Imaging Services [address] [place] [address] DIAG MAMM W/CAD, UNILAT MR#: [id number] Acct: [id number] Name: LOU MCGRAW Rep #: [id number] : 1975 F 48 From: Jean Pierre patel MD PCP: Dr. Samuel Simms MD Status: REG CLI Study: DIAG MAMM W/CAD, UNILAT Date of Exam: 12/06/24 Exam# [id number] Ordering Dr: Samuel Simms MD EXAM: DIAG [...] be mailed to the patient. Reading Location: [id number] CC: Dr. Samuel Simms MD Product Development Worker: Signed Normal [facility] Breast imaging reportOrdered By: Sweta Fernandes on 12-03-2024 Study report [facility] Imaging Services [address] [place] [id number] SCRN MAMM (CAD)W/TAURUS BILAT MR#: [id number] Acct: [id number] Name: LOU MCGRAW Rep #: [id number] : 1975 F 48 From: Bradford Fernandes DO PCP: Dr. Samuel Simms MD Status: R EG CLI Study:SCRN MAMM (CAD)W/TAURUS BILAT Date of Exa m: 12/03/24 Exam# [id number] Ordering Dr: Ha Simms MD EXAM: SCRN MAMM (CAD)W/TAURUS BILAT [...] be mailed to the patient. Reading Location: [id number] CC: Dr. Samuel Simms MD ~ Product Development Worker: Signed [facility] SCRN MAMM (CAD)W/TAURUS BILATo n 12-03-2024 SCRN MAMM (CAD)W/TAURUS BILAT [facility] Imaging Services [address] [place] [address] SCRN MAMM (CAD)W/TAURUS BILAT MR#: [id number] Acct: [id number] Name: LOU MCGRAW Rep #: [id number] : 1975 F 48 From: Sweta Kurtz O PCP: Dr. Samuel Simms MD Status: REG CLI Study: SCRN MAMM (CAD)W/TAURUS BILAT Date of Exam: 11/16 12/10 Exam# [id number] Ordering Dr: Samuel Simms MD EXAM: SCRN [...] be mailed to the patient. Reading Location: [id number] CC: Dr. Samuel Simms MD Product Development Worker: Signed Normal [facility] Basophil percentageOrdered B y: Samuel Simms on 02-16-2023 Cholesterol [Mass/Vol] 232 mg/dL <200 [facility] Comment on above: <200 mg/dL Desirable 200-240 mg/dL Borderline >240 mg/dL High Risk Triglyceride [Mass/Vol] 113 mg/dL <199 [facility] Comment on above: The drugs N-Acetylcy steine and Metamizole may falsely depress this assay.Serum Triglycerides Reference Interval Normal <150 mg/dL Borderline high 150 - 199 mg/dL High 200 - 499 mg/dL Very High > or = 500 mg/dL Serum or plasma cholesterol in HDL measurement (mass/volume)Ordered By: Samuel Simms on 02-16-2023 Cholesterol in HDL [Mass/Vol] 56 mg/dL >40 [facility] Comment on above: The drugs N-Acetylcy steine and Metamizole may falsely depress this assay. Reference Range HDL <40 mg/dL Low HDL Cholesterol HDL >or= 60 mg/dL High HDL Cholesterol Serum or plasma cholesterol in VLDL measurement (mass/volume)Ordered By: Samuel Simms on 02-16-2023 Cholesterol in VLDL [Mass/Vol] 23 mg/dL 5-40 [facility] Serum or plasma low density lipoprotein (LDL) cholesterol measurement (mass/volume)Ordered By: Samuel Simms on 02-16-2023 Cholesterol in LDL [Mass/Vol] 153 mg/dL 0-130 [facility] Absolute lymphocyte countOrd ered By: Dr. Simms on 10-08-2022 Lymphocytes Auto (Unsp spec) [#/Vol] 1.72 10*3/uL 0.83-4.51 [facility] Basophil percentageOrdered B y: Dr. Simms on 10-08-2022 Basophils/100 WBC (Bld) 0.6 % 0-1 [facility] Bilirubin [Mass/Vol] 0.70 mg/dL 0.20-1.00 [facility] Comment on above: For patients on eltr ombopag therapy, use of Dimension Leivasy TBIL is not recommended. Chloride [Moles/Vol] 105 mmol/L 98-107 [facility] Cholesterol [Mass/Vol] 251 mg/dL <200 [facility] Comment on above: <200 mg/dL Desirable 200-240 mg/dL Borderline >240 mg/dL High Risk Eosinophils/100 WBC (Bld) 1.3 % 0-5 [facility] Glucose [Mass/Vol] 90 mg/dL 74-106 [facility] Neutrophils (Bld) [#/Vol] 2.4 10*3/uL 2.0-7.7 [facility] Neutrophils/100 WBC (Bld) 52.1 % 47-70 [facility] Potassium [Moles/Vol] 3.7 mmol/L 3.5-5.1 [facility] Protein [Mass/Vol] 7.7 g/dL 6.4-8.2 [facility] Sodium [Moles/Vol] 140 mmol/L 136-145 [facility] Triglyceride [Mass/Vol] 71 mg/dL <199 [facility] Comment on above: The drugs N-Acetylcy steine and Metamizole may falsely depress this assay.Serum Triglycerides Reference Interval Normal <150 mg/dL Borderline high 150 - 199 mg/dL High 200 - 499 mg/dL Very High > or = 500 mg/dL WBC (Bld) [#/Vol] 4.6 10*3/uL 4.4-11.0 [facility] Blood erythrocytes count (nu mber/volume)Ordered By: Dr. Simms on 10-08-2022 RBC (Bld) [#/Vol] 4.84 10*6/uL 4.2-5.4 [facility] Blood hemoglobin measurement (mass/volume)Ordered By: Dr. Simms on 10-08-2022 Hemoglobin (Bld) [Mass/Vol] 13.9 g/dL 12.0-15.0 [facility] Blood lymphocytes/100 leukoc ytesOrdered By: Dr. Simms on 10-08-2022 Lymphocytes/100 WBC (Bld) 37.1 % 19-41 [facility] Blood monocytes/100 leukocyt esOrdered By: Dr. Simms on 10-08-2022 Monocytes/100 WBC (Bld) 8.9 % 0-10 [facility] Blood platelet mean volumeOr dered By: Dr. Simsm on 10-08-2022 Platelet mean volume (Bld) [Entitic vol] 11.1 fL 6.2-12.0 [facility] Determination of erythrocyte mean corpuscular volume (MCV)Ordered By: Dr. Simms on 10-08-2022 MCV (RBC) [Entitic vol] 89.5 fL 81-99 [facility] Hematocrit Auto (Bld) [Volum e fraction]Ordered By: Dr. Simms on 10-08-2022 Hematocrit (Bld) [Volume fraction] 43.3 % 37-47 [facility] Laboratory - Chemistry and C hemistry - challengeOrdered By: Dr. Simms on 10-08-2022 ALP [Catalytic activity/Vol] 48 U/L 45-117 [facility] ALT [Catalytic activity/Vol] 28 U/L 13-56 [facility] CO2 [Moles/Vol] 27.0 mmol/L 21.0-32.0 [facility] Globulin (S) [Mass/Vol] 3.4 g/dL 2.2-4.2 [facility] Urea nitrogen/Creatinine [Mass ratio] 14.4 mg/mg 10-20 [facility] Laboratory - Hematology and Cell countsOrdered By: Dr. Simms on 10-08-2022 Erythrocyte distribution width (RBC) [Entitic vol] 43.2 fL 35.1-43.9 [facility] Erythrocyte distribution width (RBC) [Ratio] 13.2 % 11.6-14.6 [facility] Immature granulocytes/100 WBC (Bld) 0.000 % 0.0-0.9 [facility] Comment on above: IG% - Immature Granu locytes (promyelocytes, myelocytes and metamyelocytes) > 1% indicates that a LEFT SHIFT is Present. MCH (RBC) [Entitic mass] 28.7 pg 27.0-32.0 [facility] Nucleated RBC/100 WBC (Bld) [Ratio] 0 % 0-5 [facility] MCHC Auto (RBC) [Mass/Vol]Or dered By: Dr. Simms on 10-08-2022 MCHC (RBC) [Mass/Vol] 32.1 g/dL 32-36 [facility] No Panel InformationOrdered By: Dr. Simms on 10-08-2022 Estimated GFR (MDRD) Amer 116 mL/min >60 [facility] Comment on above: GFR Calc Estimated GFR (MDRD) Non-Af Amer 96 mL/min >60 [facility] Comment on above: Non- GFR Calc Platelets bldOrdered By: Dr. Simms on 10-08-2022 Platelets (Bld) [#/Vol] 305 10*3/uL 150-450 [facility] Serum or plasma albumin jude urement (mass/volume)Ordered By: Dr. Simms on 10-08-2022 Albumin [Mass/Vol] 4.3 g/dL 3.2-5.0 [facility] Serum or plasma albumin/glob ulin mass ratioOrdered By: Dr. Simms on 10-08-2022 Albumin/Globulin [Mass ratio] 1.3 {ratio} 0.9-2.4 [facility] Serum or plasma calcium jude urement (mass/volume)Ordered By: Dr. Simms on 10-08-2022 Calcium [Mass/Vol] 9.5 mg/dL 8.5-10.1 [facility] Serum or plasma cholesterol in HDL measurement (mass/volume)Ordered By: Dr. Simms on 10-08-2022 Cholesterol in HDL [Mass/Vol] 60 mg/dL >40 [facility] Comment on above: The drugs N-Acetylcy steine and Metamizole may falsely depress this assay. Reference Range HDL <40 mg/dL Low HDL Cholesterol HDL >or= 60 mg/dL High HDL Cholesterol Serum or plasma cholesterol in VLDL measurement (mass/volume)Ordered By: Dr. Simms on 10-08-2022 Cholesterol in VLDL [Mass/Vol] 14 mg/dL 5-40 [facility] Serum or plasma creatinine m easurement (mass/volume)Ordered By: Dr. Simms on 10-08-2022 Creatinine [Mass/Vol] 0.69 mg/dL 0.55-1.02 [facility] Comment on above: The validity of the calculated GFR & GFRAA in patients over 70 years has not been determined. Clinical correlation is essential. Serum or plasma low density lipoprotein (LDL) cholesterol measurement (mass/volume)Ordered By: Dr. Simms on 10-08-2022 Cholesterol in LDL [Mass/Vol] 177 mg/dL 0-130 [facility] Serum or plasma urea nitroge n measurement (mass/volume)Ordered By: Dr. Simms on 10-08-2022 Urea nitrogen [Mass/Vol] 10 mg/dL 7-18 [facility] Thin prep Papanicolaou smear with manual screeningOrdered By: Dr. Simms on 10-08-2022 Thin prep Papanicolaou smear with manual screening 23 U/L 15-37 [facility] Thin prep Papanicolaou smear with manual screening 8 5-15 [facility] CORONAVIRUS PCR [CCL]on 03-18 REF LAB REPORT Positive Normal [facility] Comment on above: Performed By: #### [id number] #### [facility],[address] [place] [address] SEND TO ? YES Normal [facility] Comment on above: Performed By: #### [id number] #### [facility],[address] [place], [place] [id number] CORONAVIRUS PCR [CCL]on 03-18 COVID [address] RESEARCH ENGINEER Positive Abnormal CORNEG [facility] Comment on above: Result Comment: Posi tive for COVID19 (SARS CoV2) by PCR.(*) This test was developed and its performance characteristics determined by [facility] [place]. This test has been authorized by FDA under an Emergency Use Authorization (EUA). This test has been validated in accordance with the FDA's Guidance Document Policy for Diagnostics Testing in Laboratories Certified to Perform High Complexity Testing under CLIA prior to Emergency use Authorization for Coronavirus Disease 2019 during the Public Health Emergency" issued on June 16, 2019. [facility] [address] [place] [address] Jose Antonio Saldivar III, M.D. [id number] Performed By: #### [id number] #### [facility],[address] [place] [address] COVID [address] RESEARCH ENGINEER Nasopharyngeal Swab Normal [facility] Comment on above: Result Comment: Alvaro ected on 03/30 AT 0627: Previously reported as U Performed By: #### [id number] #### [facility],[address] [place] [id number] Coronavirus 2019 0 COVID [address] RESEARCH ENGINEER Abnormal Negative for COVID19 (SARS CoV2) by PCR. [facility] Comment on above: Result Comment: Posi tive for This test was developed and its performance characteristics determined by [facility] [place]. This test has been authorized by FDA [...] developed and its performance characteristics determined by [facility] [place]. This test has been authorized by FDA [...] developed and its performance characteristics determined by [facility] [place]. This test has been authorized by FDA [...] developed and its performance characteristics determined by [facility] [place]. This test has been authorized by FDA under an Emergency Use Authorization (EUA). This test has been validated in accordance with the FDA's Guidance Document "Policy for Diagnostics Testing in Laboratories Certified to Perform High Complexity Testing under CLIA prior to Emergency use Authorization for Coronavirus Disease 2019 during the Public Health Emergency" issued on June 16, 2019. COVID [address] RESEARCH ENGINEER Normal [facility] Comment on above: Result Comment: Naso pharyngeal Corrected on 03/30 AT 0627: Previously reported as U Swab Corrected on 03/30 AT 0627: Previously reported as U Vital Signs Date Time Vital Sign Value Performing Clinician Nely shankar 12-31-2024 15:06-0400 Body height 170.[address] Samuel Simms MD Work Phone: [facility] 12-31-2024 15:06-0400 Body mass index (BMI) [Ratio] 24.7 kg/m2 Dr. Samuel Simms MD Work Phone: [facility] 12-31-2024 15:06-0400 Body temperature 97.2 [degF] Dr. Samuel Simms MD Work Phone: [facility] 12-31-2024 15:06-0400 Body weight 71.[address] Samuel Simms MD Work Phone: [facility] 12-31-2024 15:06-0400 Diastolic blood pressure 72 mm[Hg] Dr. Samuel Simms MD Work Phone: [facility] 12-31-2024 15:06-0400 Heart rate 67 /min Dr. Samuel Simms MD Work Phone: [facility] 12-31-2024 15:06-0400 Respiratory rate 16 /min Dr. Samuel Simms MD Work Phone: [facility] 12-31-2024 15:06-0400 SaO2% (BldA) [Mass fraction] 97 % Dr. Samuel Simms MD Work Phone: [facility] 12-31-2024 15:06-0400 Systolic blood pressure 110 mm[Hg] Dr. Samuel Simms MD Work Phone: [facility] 12-24-2024 09:42-0400 Body height 168 cm Tali Syed MD Work Phone: [facility] 12-24-2024 09:42-0400 Body mass index (BMI) [Ratio] 25.07 kg/m2 Tali Syed MD Work Phone: [facility] 12-24-2024 09:42-0400 Body weight 70.76 kg Tali Syed MD Work Phone: [facility] [facility] 12-24-2024 09:42-0400 Diastolic blood pressure 70 mm[Hg] Tali Syed MD Work Phone: [facility] 12-24-2024 09:42-0400 Systolic blood pressure 108 mm[Hg] Tali Syed MD Work Phone: [facility] 02-07-2023 10:49-0400 Body temperature 97 [degF] Dr. Samuel Simms Work Phone: [facility] 02-07-2023 10:49-0400 Diastolic blood pressure 61 mm[Hg] Dr. Samuel Simms Work Phone: [facility] 02-07-2023 10:49-0400 Heart rate 52 /min Dr. Samuel Simms Work Phone: [facility] 02-07-2023 10:49-0400 Respiratory rate 16 /min Dr. Samuel Simms Work Phone: [facility] 02-07-2023 10:49-0400 SaO2% (BldA) [Mass fraction] 97 % Dr. Samuel Simms Work Phone: [facility] 02-07-2023 10:49-0400 Systolic blood pressure 90 mm[Hg] Dr. Samuel Simms Work Phone: [facility] 02-07-2023 09:13-0400 Body height 170.[address] Samuel Simms Work Phone: [facility] 02-07-2023 09:13-0400 Body mass index (BMI) [Ratio] 24.8 kg/m2 Dr. Samuel Simms Work Phone: [facility] 02-07-2023 09:13-0400 Body weight [address] Samuel Simms Work Phone: [facility] 12-08-2022 11:38-0400 Body mass index (BMI) [Ratio] 23.5 kg/m2 Dr. Samuel Simms Work Phone: [facility] 12-08-2022 11:38-0400 Body weight 68.[address] Samuel Simms Work Phone: [facility] 10-08-2022 11:17-0400 Body height 171.[address] Drake Cruz Work Phone: [facility] 10-08-2022 11:17-0400 Body mass index (BMI) [Ratio] 23.7 kg/m2 Dr. Drake Cruz Work Phone: [facility] 10-08-2022 11:17-0400 Body temperature 97.1 [degF] Dr. Drake Cruz Work Phone: [facility] 10-08-2022 11:17-0400 Body weight 69.[address] Drake Cruz Work Phone: [facility] 10-08-2022 11:17-0400 Diastolic blood pressure 78 mm[Hg] Dr. Drake Cruz Work Phone: [facility] 10-08-2022 11:17-0400 Heart rate 73 /min Dr. Drake Cruz Work Phone: [facility] 10-08-2022 11:17-0400 Respiratory rate 16 /min Dr. Drake Cruz Work Phone: [facility] 10-08-2022 11:17-0400 SaO2% (BldA) [Mass fraction] 99 % Dr. Drake Cruz Work Phone: [facility] 10-08-2022 11:17-0400 Systolic blood pressure 114 mm[Hg] Dr. Drake Crzu Work Phone: [facility] 05-19-2022 13:05-0500 Body height 171.[address] Drake Cruz Work Phone: [facility] 05-19-2022 13:05-0500 Body mass index (BMI) [Ratio] 23.9 kg/m2 Dr. Drake Cruz Work Phone: [facility] 05-19-2022 13:05-0500 Body weight 70.[address] Drake Cruz Work Phone: [facility] Encounters Encounter Date Encounter Type Care Provider Facility Start: 02-28-2025 ambulatory Tahira Gomez Magnus ty:[facility] Start: 02-27-2025 End: 02-27-2025 Emergency department patient visit Quentin Hart Facility:[facility] Start: 02-24-2025 End: 02-24-2025 Emergency department patient visit Chato Montemayor Facility:[facility] Start: 02-24-2025 End: 02-24-2025 ambulatory HYADE LI Facility:[facility] Start: 01-11-2025 Encounter for genera l adult medical examination without abnormal findings [facility] Start: 12-31-2024 End: 12-31-[address] Samuel Simms MD [facility] Work Phone: Start: 12-31-2024 End: 12-31-[address] Samuel Simms MD [facility] Start: 12-31-2024 End: 12-31-[address] Samuel Simms MD Work Phone: [facility] Comment on above: Received Outside Med ical Records Start: 12-31-2024 End: 12-31-2024 ambulatory [facility] Facility:[facility] Start: 12-24-2024 End: 12-24-2024 Patient encounter procedure Tali Syed MD Work Phone: OB/Gynecology Comment on above: Encounter for gyneco logical examination (general) (routine) without abnormal findings (Primary Dx); Encounter for screening mammogram for breast cancer; Dyspareunia in female Start: 12-24-2024 End: 12-24-2024 Patient encounter status Tali Syed MD Work Phone: [facility] Work Phone: Start: 12-24-2024 End: 12-24-2024 ambulatory TALI SYED Facility:[facility] Start: 12-24-2024 Encounter for gynecological examination (general) (routine) without abnormal findings TALI SYED [facility] Start: 12-06-2024 End: 12-06-[address] Samuel Simms MD Work Phone: -[facility] Start: 12-06-2024 End: 12-06-[address] Samuel Simms MD -[facility] Work Phone: Start: 12-06-2024 End: 12-06-2024 ambulatory Samuel Simms Facility:[facility] Start: 12-03-2024 End: 12-03-[address] Samuel Simms MD Work Phone: -[facility] Start: 12-03-2024 End: 12-03-[address] Samuel Simms MD -[facility] Work Phone: Start: 12-03-2024 End: 12-03-2024 ambulatory Samuel Simms Facility:[facility] Start: 02-16-2023 End: 02-16-[address] Samuel Simms Work Phone: [facility] Work Phone: Start: 02-16-2023 End: 02-16-[address] Samuel Simms Work Phone: [facility], [facility] Start: 02-07-2023 Non-patient / Non-visit Dr. Geraldine Simms Work Phone: [facility] Start: 02-07-2023 End: 02-07-2023 Admission to same day surgery center Dr. Samuel Simms Work Phone: [facility] Work Phone: Start: 02-07-2023 End: 02-07-[address] Samuel Simms Work Phone: [facility] Work Phone: Start: 12-08-2022 Non-patient / Non-visit Dr. Geraldine Simms Work Phone: [facility] Work Phone: Start: 10-08-2022 End: 10-08-[address] Drake Cruz Work Phone: [facility] Work Phone: Start: 10-08-[address] Jerardo Cruz Work Phone: [facility] Start: 10-08-2022 End: 10-08-2022 Encounter for general adult medical examination without abnormal findings Dr. Drake Cruz Work Phone: [facility] Start: 10-08-2022 End: 10-08-[address] Drake Cruz Work Phone: [facility] Start: 07-22-2022 End: 07-22-[address] Drake Cruz Work Phone: [facility] Work Phone: Start: 07-22-2022 End: 07-22-[address] Drake Cruz Work Phone: [facility]-Outpatient Breast [facility] Start: 05-19-2022 End: 05-19-[address] Drake Cruz Work Phone: [facility] Start: 03-28-2020 End: 03-28-2020 Patient encounter procedure HOLA PATEL [facility] Procedures Date Procedure Procedure Detail [...] EDT Office Visit OB/Gynecology [address] [place], [place] [id number] Tali Syed MD [address] [place], [place] [id number] annual OB/Gynecology Comment on above: annual Start: 12-31-2024 CBC W Auto Different ial panel - Blood [facility] Start: 12-31-2024 Comprehensive metabo lic 2000 panel - Serum or Plasma [facility] Start: 12-31-2024 Lipid 1996 panel - S sarah or Plasma [facility] Start: 12-17-2024 Influenza vaccination Influenza Vacc ine (#1) [facility] Start: 12-21-2023 Pneumococcal Vaccine : 50+ (1 of 1 - PCV) Pneumococcal Vaccine: 50+ (1 of 1 - PCV) [facility] Start: 12-21-2023 Shingrix Vaccine (1 of 2) Sorensen grix Vaccine (1 of 2) [facility] Start: 02-07-2023 Colonoscopy flx dx w /collj spec when pfrmd DIAGNOSTIC COLONOSCOPY [facility] Start: 02-07-2023 Patient discharge [facility] Start: 06-23-2023 Patient referral [facility] Work Phone: Start: 2018 Diabetes Screening Diabetes Screenin g [facility] Start: 2018 Lipid panel Lipid Screening [facility] Start: 2018 Screening for malign ant neoplasm of colon [facility] Start: 2013 Screening for malign ant neoplasm of breast Mammogram Screening [facility] Start: 09-30-2013 Screening for malign ant neoplasm of cervix Cervical Cancer Screening [facility] Start: 1992 Hepatitis B Vaccine (1 of 3 - 19+ 3-dose series) Hepatitis B Vaccine (1 of 3 - 19+ 3-dose series) [facility] Start: 1992 Urine microalbumin profile DTa P,Tdap,Td Vaccine (1 - Tdap) [facility] Start: 12-21-1991 Anxiety Screening Anxiety Screening [facility] Start: 12-21-1991 Depression Screening Depression Scre ening [facility] Start: 12-21-1991 Hepatitis C screening Hepatitis C Sc reening [facility] Start: 12-21-1991 HIV screening HIV Screening [facility] Alanine aminotransfe rase [Enzymatic activity/volume] in Serum or Plasma [facility] Albumin [Mass/volume ] in Serum or Plasma [facility] Alkaline phosphatase [Enzymatic activity/volume] in Serum or Plasma [facility] Anion gap in Serum o r Plasma [facility] Bilirubin, total measurement [facility] BUN/Creatinine ratio [facility] Calcium [Mass/volume ] in Serum or Plasma [facility] Carbon dioxide, tota l [Moles/volume] in Central venous blood [facility] Cholesterol [Mass/vo lume] in Serum or Plasma [facility] Cholesterol in HDL [Mass/volume] in Serum or Plasma [facility] Colonoscopy [facility] Creatinine [Mass/vol ume] in Serum or Plasma [facility] End: 01-23-2026 DBT Breast - bilateral screening ALICIA SCREENING [facility] Radiology Routine Encounter for gynecological examination (general) (routine) without abnormal findings Encounter for screening mammogram for breast cancer 1 Occurrences starting 12/24/2024 until 01/23/2026 [facility] Work Phone: Comment on above: 1 Occurrences starti ng 12/24/2024 until 01/23/2026 Erythrocyte mean corpuscular volume determination [facility] Glucose [Mass/volume ] in Serum or Plasma [facility] Hematocrit [Volume Fraction] of Blood [facility] Hemoglobin [Mass/vol ume] in Blood [facility] Leukocytes [#/volume ] in Blood [facility] Low density lipoprot ein cholesterol measurement [facility] Mean corpuscular hemoglobin concentration determination [facility] Mean corpuscular hemoglobin determination [facility] Measurement of renal function [facility] Neutrophil count [facility] Neutrophil percent differential count [facility] Patient referral [facility] Work Phone: Platelets [#/volume] in Blood [facility] Potassium measurement [facility] Red blood cell count [facility] Red cell distributio n width determination [facility] Serum chloride measurement [facility] Sodium measurement [facility] Total cholesterol:HD L ratio measurement [facility] Total protein measurement [facility] Triglycerides measurement [facility] Urea nitrogen [Mass/volume] in Serum or Plasma [facility] VLDL cholesterol measurement [facility] Payers Date Payer Category Payer Self-pay [id number] 2024 Self-pay [id number] 2018 Private Health Insurance MMO SU[employer] PPO [id number] 2013 Unknown [id number] 1973 Unknown [id number] Unknown [facility] [employer] [facility] [id number] Unknown [id number] Unknown [id number] Unknown [id number] Unknown [id number] Unknown [id number] Unknown [id number] Unknown [id number] Social History Date Type Detail Facility Start: 05-19-2022 End: 02-02-2023 Tobacco smoking status MDIS Unknown if ever smoked [facility] Start: 1975 Sex Assigned At Female [facility] Start: 09-18-2024 End: 12-31-2024 Tobacco smoking status MDIS Never smoked tobacco (finding) [facility] Start: 12-24-2024 Alcoholic beverage intake Current non-drinker of alcohol (finding) [facility] Start: 12-24-2024 History of Social function [facility] Start: 12-24-2024 Tobacco use panel [facility] Start: 03-19-2012 National Score (1-10 0), lower number is lower risk 48 [facility] Start: 1975 Sex assigned at Not on file [facility] Sexual Orientation Heterosexual (finding) [facility] Goals Date Patient Goal Desired Activity /State Functional Status Date Assessment Result Facility 07-20-2014 Are you deaf, or do you have serious difficulty hearing No 07/20/2014 10:25 AM Melany Presley MA No [facility] 07-20-2014 Are you blind, or do you have serious difficulty seeing, even when wearing glasses No 07/20/2014 10:25 AM Melany Presley MA No [facility] 07-20-2014 Do you have serious difficulty walking or climbing stairs No 07/20/2014 10:25 AM EDT Melany Dennis MA No [facility] 07-20-2014 Do you have difficul ty dressing or bathing No 07/20/2014 10:25 AM EDT Melany Dennis MA No [facility] 07-20-2014 Because of a physica l, mental, or emotional condition, do you have difficulty doing errands alone such as visiting a physician's office or shopping No 07/20/2014 10:25 AM EDT Melany Dennis MA No [facility] Mental Status Date Assessment Result Facility 02-07-2023 Cognitive function Touch/Shaking [facility] Work Phone: 07-20-2014 Because of a physica l, mental, or emotional condition, do you have serious difficulty concentrating, remembering, or making decisions No 07/20/2014 10:25 AM EDT Melany Dennis [facility] Clinical Notes 02-07-2023 to 02-24-2025 Note Date & Type Note Facility 02-24-2025 Note HNO ID: [id number] Author: HAYDE LI APRN.FIRE ALARM OPERATOR Service: ? Author Type: Nurse Practitioner Type: Progress Notes Filed: 02/24/2025 08:51 Note Text: URGENT CARE [facility] Lou Mcgraw is a 49 year [...] will be transported by her . Hayde Li, FLEXO PRESS OPERATOR.FIRE ALARM OPERATOR History and Record Review Systemic symptoms present included: Abdominal pain Differential Diagnoses - Bowel obstruction Disposition The patient was transferred to ED. Procedures [facility] 12-31-2024 Evaluation note Diagnosis Onset Date Resolution Hyperlipidemia acute December 31, 2024 2:28pm Preventative health care acute December 31, 2024 2:28pm [facility] Work Phone: 1(495) 280-494609-15-2025 NoteHNO ID: [id number] Author: LOU RODRIGUEZ RN Service: ? Author Type: Registered Nurse Type: Progress Notes Filed: 12/31/2024 08:52 Note Text: [facility] To to review. Lou Rodriguez RN[facility] History of Present illness Narrative* Lou Rodriguez RN - 12/31/2024 8:52 AM EDT Received records from [facility]. To to review. Lou Rodriguez RN documented in [facility] encounterWhite [facility]09-[facility] Instructions* Patient Instructions* Tali Syed MD - 12/24/2024 10:05 AM EDT Lubricants and moisturizers list The jzsz-ibu-aanvccm vaginal moisturizer and lubricant products can be [...] in any drugstore or online. Also, many [employer] stores do carry high-quality lubricant products. VAGINAL [...] lube Replens Silky Smooth Pulse Aloe-ahh Wet [place] RASHIDA Premium Personal Lubricant PINK Silicone Lubricant [...] vaginal moisturizer makes them feel more comfortable. Business Account Leader beware: many lubricants arelabeled as moisturizers to [...] also be applied externally for comfort. [place] Aloe [place]: Many people are allergic to aloe, so keep this in mind with products like this that have aloe in it. Medicine Mama s V magic: Not much medical studies on this, but many patients swear by it, has oil, beeswax and honey in it- best used externally only. Non-Hormonal Ways to [place] with Hot Flashes and Menopause Hormone therapy [...] 27.91 Tofu, yogurt 16.30 Source: USDA -- [facility] Database on the Isoflavone Content of Foods, [...] black cohosh and soy products) are available qhxg-wge-kgwlabd but are not FDA-approved.Some prescription medications are [...] some of the other options. Non-prescription, herbal, imun-hzo-nzfecii therapies: Drug Side Effects Effectiveness Evening [place] Oil Nausea, diarrhea, headache. Only one well-designed [...] per day compared to placebo. Are the arqx-umo-nxylrhr herbal products (botanicals) safe? While safe when [...] promoted. Be cautious of products promoted through: [employer] Direct mailings [employer].comals Ads disguised as valid news articles Ads in the back of magazines Additional red flags to look for include: Big claims: If products claim to be a "cure" for your condition, or gives outrageous claims, be cautious. Source: Be wary if the product is only offered through one social director or purchased only through [facility] provider s office. Ingredients: Make sure all of the active ingredients are listed, and don t trust "secret formulas." Testimonials: Remember that only people who are satisfied with a product give testimonials and thatthey may be getting paid for their endorsement References: National Center for Complementary and Alternative Medicine. Vitamin E. nccam.nih.gov Assessed 2012 Shaylee Guzman al. meta-analysis: High Dosage Vitamin E. Supplementation Might Increase All Cause Mortality. Annals of Internal Medicine April 21, 2004. annals.org National Center for Complementary and Alternative Medicine. Menopausal Symptoms and CAM. nccam.nih.gov Accessed July 17, 2012 [place] Menopause Society, Hormone Therapy for women in 2012. www.menopause.org Assessed July 17, 2012 [place] Congress of Obstetricians and Gynecologists. Publications. The Menopause Years. www.acog.org Accessed 06/15/2010 Centers for Disease Control and Prevention. Women s Reproductive Health: Menopause. www.cdc.gov Accessed 06/15/2010 National [place] on Aging. Age Page: Menopause. www.[place]uba.nih.gov Accessed 06/15/2010 documented in this encounterWhite Hospital09-08-2025 NoteHNO ID: [id number] Author: TALI SYED MD Service: ? Author Type: Physician Type: Progress Notes Filed: 12/24/2024 12:55 Note Text: Energy Efficiency Finance Manager offered: Patient declines. Lou is a 49 [...] OB History No obstetric history on file. 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 As applicable, any other physician, advance practice provider, medical student, or other health professional student that will be observing or involved in the sensitive examination for educational or training purposes was discussed with the Patient or Authorized Applications Chemist. The Patient or Authorized Applications Chemist has agreed to proceed with the sensitive [...] with atrophic changes, normal Bartholin's glands, urethra, [place]'s glands, no vulvar lesions, no cervical lesions, [...] one year or sooner as needed [facility] History of Present illness Narrative* Tali Syed MD - 12/24/2024 9:23 AM EDT Energy Efficiency Finance Manager offered: Patient declines. Lou is a 49 [...] OB History No obstetric history on file. 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 As applicable, any other physician, advance practice provider, medical student, or other health professional student that will be observing or involved in the sensitive examination for educational or training purposes was discussed with the Patient or Authorized Applications Chemist. The Patient or Authorized Applications Chemist has agreed to proceed with the sensitive [...] with atrophic changes, normal Bartholin's glands, urethra, [place]'s glands, no vulvar lesions, no cervical lesions, [...] needed Tali Syed DO documented in this encounterWhite Hospital10-23-2023 [facility]WAk[facility] HospitalEvaluation note* Diagnosis Onset Date Resolution Status Right lateral epicondylitis acute [facility] Work Phone: Evaluation note* Diagnosis Onset Date Resolution Status Colon cancer screening acute [facility] health care acu te [facility] Work Phone: Evaluation note* Diagnosis Onset Date Resolution Status Colon cancer screening acute [facility] Work Phone: Evaluation noteNo assessment information available [facility] Work Phone: Evaluation note* Diagnosis Encounter for gynecological examination (general) (routine) without abnormal findings- Primary Encounter for screening mammogram for breast cancer Dyspareunia in female documented in this encounter [facility] Author Bruno Bass [facility] February 07, 2023 9:56am Note Date/Time February 07, 2023 9 :57am [facility] Medical Records Department [address] [place] [id number] History & Physical Exam 02/07/23954 MR#: [id number] Acct: [id number] Name: LOU MCGRAW Rep #:[id number] : 1975 47 From: Bruno Bass DO PCP: Dr. Samuel Simms MD Status:R [facility] Location: [place] [address] HPI - General General Date of Admission: [...] Overall she is in very good health. PFSH Medical History (Updated 02/02/23 @ 11:32 by [...] 2. 02/07/23 0956 <Electronically signed by Bruno Friend DO> Cosigner Signature (if applicable): CC: Dr. Samuel Simms MD; Bruno Friend, DO~ Signed [facility] Work Phone: Reason for referral (narrative)No reason for referral information availableWAkron Children's Hospital Work Phone: Summary Purpose Family History [...] Date/ Time Name of Medical Power of Residential Monitor AKBAR MCGRAW February 02, 2023 11:32am Living Will Yes February 02 11:32am Power of Residential Monitor Yes February 02, 2023 11:32am Advance Directive Response Recorded Date/ Time Name of Medical Power of Residential Monitor AKBAR MCGRAW February 02, 2023 10:32am Living Will Yes February 02 10:32am Power of Residential Monitor Yes February 02, 2023 10:32am Chief Complaint and Reason for Visit Chief Complaint RIGHT ELBOW RM 4 XRAY MASTODYNIA Reason for Visit Right lateral epicon dylitis Chief Complaint MASTODYNIA [address]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 Care Teams (unrecognized sec tion and content) [...] Dr. Samuel Simms MD [facility] Attending Provider, Referring Provider Active Team Status: Active Member Role Status Dates Dr. Samuel Simms MD Primary Care Provider Active Sri Singh Attending Provider Active Team Status: Active Member [...] December 06, 2024 End: December 06, 2024 Machine Stripper Cutter Relationship Specialty Start Date End Date Drake [...] Referring Provider Active Start: December 31, 2024 Machine Stripper Cutter Relationship Specialty Start Date End Date Drake [...] or prosecute any alcohol or drug abuse patient.[facility] Hospital[facility] the event this information is protected by the Federal Confidentiality of Alcohol and Drug Abuse Patient Records regulations: The Federal rules restrict any use of the information to criminally investigate or prosecute any alcohol or drug abuse patient.[facility] Reason for Visit (unrecogniz ed section [...] BE BASED ON THE PRIMARY CLINICAL RECORDS. [facility] [employer] [facility]. provides no warranty or guarantee of the accuracy or completeness of information in this document.
[2025-03-02] MEDS: 0.9% Normal Saline (1000mL) 1,000 ML 999 ML IV (03:44)
[2025-03-02 03:56] LABS: Hematocrit 39.9 % (37-47); Hemoglobin 14.0 g/dL (12.0-15.0); Immature Granulocytes Count 0.000 X10^3/uL (0.0-0.0); Mean Corp Hgb Conc 35.1 g/dL (32-36); Mean Corpuscular Volume 82.8 fL (81-99); Mean Platelet Vol. 9.7 fl (6.2-12.0); NRBC Flagged by Analyzer 0 % (0-5); Platelet Count 250 K/mm3 (150-450); RBC Distribution Width CV 12.2 % (11.6-14.6); RBC Distribution Width SD 36.9 fl (35.1-43.9); Red Blood Count 4.82 M/mm3 (4.2-5.4); White Blood Count 3.5 K/mm3 (4.4-11.0)
[2025-03-02 04:19] LABS: Internal QC Validated? YES +Cl - CLEAR BKGD; Pregnancy, Serum, hCG Quali. NEGATIVE Negative; Record Kit Lot#, Serum Preg. 0000980607
[2025-03-02 04:21] LABS: AST(SGOT) 19 U/L (<=31); Alanine Aminotransfer ALT/SGPT 10 U/L (<=34); Albumin, Serum 4.4 g/dL (3.5-5.0); Alkaline Phosphatase 39 U/L (35-104); Anion Gap 13 (5-15); BUN 7 mg/dL (4-19); BUN/Creat Ratio 11.2 RATIO (10-20); Calcium,Total 9.7 mg/dL (7.6-11.0); Carbon Dioxide 22.8 mmol/L (21.0-32.0); Chloride 101 mmol/L (98-108); Estimated Creatinine Clearance 99.57 ml/min (50-250); Globulin 2.7 g/dL (2.2-4.2); Glucose 109 mg/dL (70-99); Lipase 34 U/L (13-75); Potassium 3.5 mmol/L (3.3-5.1)
[2025-03-02 05:00] VITALS: BP 168/85; PULSE 80; RESP 16; O2SAT 100
[2025-03-02 05:02] LABS: Mucous, Urine 0 SEEN /hpf (<or=2+)
[2025-03-02 05:09] LABS: Color, Urine Yellow (Yellow); Glucose, Dipstick Normal (Normal); Ketone-Dipstick 5 mg/dl (Negative); Leukocyte Esterase-Dipstick Negative /ul (Negative); Nitrite-Dipstick Negative (Negative); Occult Blood-Urine Negative /ul (Negative); Protein-Dipstick 15 mg/dl (Negative); Specific Gravity, Urine 1.005 (1.002-1.030); Urine Bilirubin Dipstick Negative (Negative)
[2025-03-02 05:24] LABS: Red Blood Cells-Urine 0-5 SEEN /hpf (0-5); Squamous Epithelial Cells - UA 0-5 SEEN /hpf (5-10)
[2025-03-02 06:08] VITALS: BP 127/77; PULSE 65; RESP 16; TEMP 36.6; O2SAT 100
--- NOTE | 2025-03-02 06:10 | EDS_ITS ---
HPI History of Present Illness Chief Complaint: Abd Pain Narrative Narrative: Patient was seen and examined after presenting to ED for abdominal pain she states that this is her third visit this week to the emergency department and she has been on dicyclomine also started on Linzess she actually got a scope appointment in 2 weeks the day after Thanksgiving because of the pain that she was having she will be seeing Dr. Bass. [facility] Medical History High cholesterol Post-menopausal Alcohol use History of steroid therapy Blood disorder Injury of head and neck Hyperlipidemia Colon cancer screening Preventative health care Hx of Fine's palsy Right lateral epicondylitis Anemia Home Medications Medication Instructions Recorded Last Taken Type black cohosh 200 mg capsule 140 mg PO BID 12/31/24 Unk nown History gyogmwzmfhye-chvmwplf-mivonf 1 tab PO QDAY 12/31/24 Un known History tablet (Multivitamin 50 Plus tablet) sucralfate 1 gram tablet (Carafate) 1 g PO TID 1 week #21 tabs 02/24/25 Unknown Rx linaclotide 72 mcg capsule 72 mcg PO QAM #30 caps 02/16 07/10 Unknown Rx (Linzess) dicyclomine 20 mg tablet 20 mg PO DAILY 03/02/25 Unkn own History pantoprazole 40 mg tablet,delayed 40 mg PO Q12H Unknown History release Allergy/AdvReac Type Severity Reaction Status Date / Time tetracycline Allergy Intermediate Hives Verified 03/02/25 03:03 Family History Mother Arthritis High cholesterol Father Diabetes Hypertension Melanoma Pulmonary embolism Colon polyp Lewy body dementia Maternal Grandfather Alcoholism Arthritis Diabetes Hypertension Myocardial infarction Grandmother Arthritis History of blood transfusion Diabetes Type 1 Kidney disease Uncle Colon cancer Maternal Grandmother Ovarian cancer Surgical History S/P colonoscopy History of hysterectomy History of delivery History of lateral meniscus repair of left knee Hx of reconstruction of anterior cruciate ligament tear Hx of appendectomy Social History adopted: No household members: spouse number of children: 2 current occupational status: employed 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 intake is causing her loss of sleep diarrhea Pertinent Negatives: Nausea vomiting fevers urinary symptoms The remainder of review of systems negative unless otherwise stated in the HPI above. Systems reviewed including constitutional, psychiatric, cardiovascular, respiratory, integument, HENT, gastrointestinal. EXAM Physical Exam Narrative Exam Narrative: Patient is afebrile hemodynamically stable does not appear toxic or in distress she is tearful however. Oxygenating well on room air. Her abdomen is soft nondistended but is more central abdominal tenderness on palpation no palpable pulsatile mass however intact and equal MSPs in the extremities. Const Vital Signs: 03/02/25 03:05 03/02/25 05:00 03/02/25 06:08 Temperature 98.5 F 98 F Temperature Source Oral Pulse Rate 75 80 65 Respiratory Rate 16 16 16 Blood Pressure 145/72 H 168/85 H 127/77 H Blood Pressure Mean 96 112 93 Pulse Ox 100 100 100 Oxygen Delivery Method Room Air Room Air MDM MDM MDM Narrative Medical decision making narrative: Nursing notes, triage notes, available previous documentation, and vital signs were reviewed. Any discrepancies noted were addressed. Differential Diagnoses: Will evaluate for bowel obstruction or other surgical pathology such as cholecystitis or appendicitis although lower suspicion for that could be pancreatitis or diverticular disease could be gastritis or underlying irritable bowel Interventions: Reglan Fluids Given: 1 L normal saline Labs Reviewed: Slight leukopenia at 3.5 no anemia leukopenia could be reactive. No electrolyte abnormality or renal insufficiency transaminitis lipase was 34 she is not her urine is without evidence of infection but does show 5 ketones Imaging Reviewed: CT abdomen pelvis is showing mild gaseous and fluid distention of the small bowel loops with some mild wall thickening that could be an enteritis versus some nonspecific findings Previous Documentation Reviewed: ER physician note from 02/27/[address] Bass did her colonoscopy a couple years ago but it was normal she was put on Protonix patient was given a GI cocktail before but does not want at that time because she did not like the taste of it ED Course: Patient presenting with symptoms as stated above this is her third ER visit I did offer her imaging she was agreeable to it her workup has otherwise been rather unremarkable although did show signs of enteritis I had a very extensive conversation with her and her significant other regarding continued supportive measures at this point time patient is stable for discharge home with return precautions and follow-up recommendations. She can follow-up with her outpatient scope in 2 weeks. This note was made utilizing voice recognition software. All attempts were made to correct spelling or other errors prior to note completion. However, due to the fast-paced nature of emergency medicine, some errors may still be present. Lab Data Labs: Laboratory Results - last 24 hr 03/02/25 03/02/25 03:42 04:57 WBC 3.5 L RBC 4.82 Hgb 14.0 Hct 39.9 MCV 82.8 MCH 29.0 MCHC 35.1 RDW Std Deviation 36.9 RDW Coeff of Tres 12.2 Plt Count 250 MPV 9.7 Immature Gran % (Auto) 0.000 Neut % (Auto) 53.6 Lymph % (Auto) 33.2 Graves % (Auto) 12.0 H Eos % (Auto) 0.6 Baso % (Auto) 0.6 Absolute Neuts (auto) 1.9 L Absolute Lymphs (auto) 1.16 Nucleated RBC % 0 Sodium 137 Potassium 3.5 Chloride 101 Carbon Dioxide 22.8 Anion Gap 13 BUN 7 Creatinine 0.65 L Estim Creat Clear Calc 99.57 Est GFR (MDRD) Non-Af 106 BUN/Creatinine Ratio 11.2 Glucose 109 H Lactic Acid 1.2 Calcium 9.7 Total Bilirubin 0.65 AST 19 ALT 10 Alkaline Phosphatase 39 Total Protein 7.2 Albumin 4.4 Globulin 2.7 Albumin/Globulin Ratio 1.6 Lipase 34 Serum , Qual NEGATIVE Urine Color Yellow Urine Clarity Clear Urine pH 7.0 Ur Specific [place] 1.005 Urine Protein 15 H Urine Glucose (UA) Normal Urine Ketones 5 H Urine Occult Blood Negative Urine Nitrite Negative Urine Bilirubin Negative Urine Urobilinogen Normal Ur Leukocyte Esterase Negative Urine RBC 0-5 SEEN Urine WBC 0-5 SEEN Ur Squamous Epith Cells 0-5 SEEN Urine Bacteria RARE Urine Mucus 0 SEEN Radiography Diagnostic Testing: Clinical Impression(s) from Imaging Studies Abdomen/Pelvis CT 03/02/25 03:30 IMPRESSION: Mild gaseous and fluid distension of the small bowel loops with mild wall thickening that could represent enteritis versus non specific findings. Advise clinical and laboratory correlation. Rest of the study findings as detailed. Reading Location: [place] [id number] Discharge Plan Triage Chief Complaint: Abd Pain ED Provider: Mara Amin Dx/Rx/DC Orders Clinical Impression: Abdominal pain of unknown cause, Enteritis, Diarrhea, Decreased oral intake Prescriptions: No Action black cohosh 200 mg capsule 140 mg PO BID Multivitamin 50 Plus Tablet 1 tab PO QDAY Linzess 72 mcg capsule 72 mcg PO QAM Qty: 30 3RF dicyclomine 20 mg tablet 20 mg PO DAILY pantoprazole 40 mg tablet,delayed release (DR/EC) 40 mg PO Q12H sucralfate [Carafate] 1 gram tablet 1 g PO TID 7 Days Qty: 21 0RF Primary Care Provider: Samuel Simms Referrals: Samuel Simms MD [Primary Care Provider, Internal Medicine] Activity Restrictions/Additional Instructions: Keep that appointment for your scope obviously if you do feel like you are getting significantly worse and can no longer tolerate anything at all orally then please return. Otherwise I would recommend a very bland diet of toast and you can try some vegetables try more paint mixer machine food avoid foods higher in fat content such as yogurt. Print Language: [place] Citizen Disposition Disposition: Home, Self Care
== END 2025-03-02 06:21 | disposition home or self-care (01) ==
PROVIDERS: Emergency Provider Specialist/Technologist Athletic Trainer; PCP Internal Medicine; Visit Provider Specialist/Technologist Athletic Trainer
DX: R10.9 Unspecified abdominal pain (principal); Z90.710 Acquired absence of both cervix and uterus; Z79.899 Other long term (current) drug therapy; E78.00 Pure hypercholesterolemia, unspecified; K52.9 Noninfective gastroenteritis and colitis, unspecified
CPT/HCPCS: 74177; 80053; 81001; 83605; 83690; 84703; 85025; 96361; 96374; 99282; Q9967; A4216

== ENCOUNTER 2025-03-15 06:10 | Day surgery (SDC) | payer OTHER, SELFPAY ==
[2025-03-15] VITALS (9 sets, daily range): BP systolic 109–133; BP diastolic 68–95; PULSE 76–81; RESP 16–18; TEMP 36.1–36.6; O2SAT 78–100; BMI 24.8
--- OUTSIDE RECORDS SUMMARY | 2025-03-15 06:13 | XMS RPT_ITS | CCD ---
Author Organization [facility] Care Team Providers Care Forensic Audit Expert Name Role Phone HOLA PATEL Attending Unavailable [...] [phone] Dr. Bruno Bass Attending Provider [phone] Dr. Bruno Bass Other Provider [phone] Dr. Samuel Simms MD Primary Care Provider Mendez BRUNNER, Dr. Bakre Attending Provider [phone] Mendez BRUNNER, Dr. Baker Referring Provider [phone] Drake Cruz Primary Care Provider Unavail able Mendez BRUNNER, Dr. Baker Primary Care Physician Mendez BRUNNER, Dr. Baker Attending Physician [phone] TALI SYED Attending Unavailable MOOMAW, HAYDE Attending [...] Tetracycline; Translations: [TETRACYCLINE] Drug Allergy 08-17-2005 U [facility] Comment on above: 1992 (1 source) Tetracycline Drug Allergy 02-28-2025 [facility] Repository Medications Current Medications Medication Drug Class(es) Dates Sig (Normalized) Sig (Original) Black Cohosh (17 sources) Start: 12-31-2024 take 1 capsule by mo [facility] Start: 12-31-2024 take 1 capsule by mo [facility] twice daily Black Cohosh 200 mg capsule [...] capsule Active PO May 19, 2022 1:00am Gowrhmfbaqro-Qyrvvzky-Tteqsw (Multivitamin 50 Plus) tablet (2 sources) Start: 12-31-2024 Start: 12-31-2024 Multivitamin-M inerals-Lutein (Multivitamin 50 Plus) tablet Active 1 {tbl} PO daily December 31, 2024 12:00am Gyyuvyvetxbhj-Ktfxjlbt-Gdmvx n (MULTIVITAMIN 50 PLUS) tab (2 sources) [...] October 08, 2022 12:00am polyethylene glycol 3350 74999 mg powder for oral solution (7 sources) [...] Yon 02-27-2025 Abdomen/Pelvis W IV Cont ONLY [facility] [address] [place] [address] Abdomen/Pelvis W IV Cont ONLY MR#: [id number] Acct: [id number] Name: LOU MCGRAW Rep #: [id number] : 1975 F 49 From: Uriel Bautista MD PCP: Dr. Samuel Simms MD Status: REG ER Study: Abdomen/Pelvis W IV Cont ONLY Date of Exam: Exam# [id number] Ordering Dr: Quentin Hart DO PROCEDURE: ABDOMEN/PELVIS [...] Dr. Samuel Simms MD; Quentin Hart DO Bone Grinder: Signed Normal [facility] Basic Metabolic Profile (BMP )on 02-27-2025 BUN/CRE 14.5 RATIO Normal 10-20 [facility] Comment on above: Performed By: #### L 501.5200, L503.6005, L501.2450, L100.0100, L500.3400, L500.2500, L501.9520 ####[facility] [address] [place], [address] Calcium [Mass/Vol] 9.7 mg/dL Normal 7.6-11.0 [facility] Comment on above: Performed By: #### L 501.5200, L503.6005, L501.2450, L100.0100, L500.3400, L500.2500, L501.9520 ####[facility] [address] [place], [address] Chloride [Moles/Vol] 99 mmol/L Normal 98-108 [facility] Comment on above: Performed By: #### L 501.5200, L503.6005, L501.2450, L100.0100, L500.3400, L500.2500, L501.9520 ####[facility] [address] [place], [address] CO2 [Moles/Vol] 22.4 mmol/L Normal 21.0-32.0 [facility] Comment on above: Performed By: #### L 501.5200, L503.6005, L501.2450, L100.0100, L500.3400, L500.2500, L501.9520 ####[facility] [address] [place], [address] Creatinine [Mass/Vol] 0.70 mg/dL Normal 0.70-1.20 [facility] Comment on above: Performed By: #### L 501.5200, L503.6005, L501.2450, L100.0100, L500.3400, L500.2500, L501.9520 ####[facility] [address] [place], [address] ECRCL 92.46 ml/min Normal 50-250 [facility] Comment on above: Performed By: #### L 501.5200, L503.6005, L501.2450, L100.0100, L500.3400, L500.2500, L501.9520 ####[facility] [address] [place], [address] GAP 14 Normal 5-15 [facility] Comment on above: Performed By: #### L 501.5200, L503.6005, L501.2450, L100.0100, L500.3400, L500.2500, L501.9520 ####[facility] [address] [place], [address] GFR/1.73 sq M.predicted among non-blacks MDRD (S/P/Bld) [Vol rate/Area] 105 mL/min/{1.73_m2} Normal >60 [facility] Comment on above: Result Comment: mL/m in/1.73m2 CKD-EPI Creatinine Equation (2020) Performed By: #### L 501.5200, L503.6005, L501.2450, L100.0100, L500.3400, L500.2500, L501.9520 ####[facility] [address] [place], [address] Glucose [Mass/Vol] 99 mg/dL Normal 70-99 [facility] Comment on above: Performed By: #### L 501.5200, L503.6005, L501.2450, L100.0100, L500.3400, L500.2500, L501.9520 ####[facility] [address] [place], [address] Potassium [Moles/Vol] 4.1 mmol/L Normal 3.3-5.1 [facility] Comment on above: Performed By: #### L 501.5200, L503.6005, L501.2450, L100.0100, L500.3400, L500.2500, L501.9520 ####[facility] [address] [place], [address] Sodium [Moles/Vol] 136 mmol/L Normal 133-145 [facility] Comment on above: Performed By: #### L 501.5200, L503.6005, L501.2450, L100.0100, L500.3400, L500.2500, L501.9520 ####[facility] [address] [place], [address] Urea nitrogen [Mass/Vol] 10 mg/dL Normal 4-19 [facility] Comment on above: Performed By: #### L 501.5200, L503.6005, L501.2450, L100.0100, L500.3400, L500.2500, L501.9520 ####[facility] [address] [place], [address] CBC W/Diff, Automatedon 02-16 Absolute Lymph 1.41 X10 3/uL Normal 0.83-4.51 [facility] Comment on above: Performed By: #### L 501.5200, L503.6005, L501.2450, L100.0100, L500.3400, L500.2500, L501.9520 ####[facility] [address] [place], [address] Absolute Neut 1.9 X10 3/uL Low 2.0-7.7 [facility] Comment on above: Performed By: #### L 501.5200, L503.6005, L501.2450, L100.0100, L500.3400, L500.2500, L501.9520 ####[facility] [address] [place], [address] Basophils/100 WBC (Bld) 1.3 % High 0-1 [facility] Comment on above: Performed By: #### L 501.5200, L503.6005, L501.2450, L100.0100, L500.3400, L500.2500, L501.9520 ####[facility] [address] [place], [address] Eosinophils/100 WBC (Bld) 0.5 % Normal 0-5 [facility] Comment on above: Performed By: #### L 501.5200, L503.6005, L501.2450, L100.0100, L500.3400, L500.2500, L501.9520 ####[facility] [address] [place], [address] Erythrocyte distribution width (RBC) [Ratio] 12.4 % Normal 11.6-14.6 [facility] Comment on above: Performed By: #### L 501.5200, L503.6005, L501.2450, L100.0100, L500.3400, L500.2500, L501.9520 ####[facility] [address] [place], [address] Hematocrit (Bld) [Volume fraction] 45.0 % Normal 37-47 [facility] Comment on above: Performed By: #### L 501.5200, L503.6005, L501.2450, L100.0100, L500.3400, L500.2500, L501.9520 ####[facility] [address] [place], [address] Hemoglobin (Bld) [Mass/Vol] 15.6 g/dL High 12.0-15.0 [facility] Comment on above: Performed By: #### L 501.5200, L503.6005, L501.2450, L100.0100, L500.3400, L500.2500, L501.9520 ####[facility] [address] [place], [address] IG% 0.300 Normal 0.0-0.9 [facility] Comment on above: Result Comment: IG% - Immature Granulocytes (promyelocytes, myelocytes and metamyelocytes) > 1% indicates that a LEFT SHIFT is Present. Performed By: #### L 501.5200, L503.6005, L501.2450, L100.0100, L500.3400, L500.2500, L501.9520 ####[facility] [address] [place], [address] Lymphocytes/100 WBC (Bld) 35.8 % Normal 19-41 [facility] Comment on above: Performed By: #### L 501.5200, L503.6005, L501.2450, L100.0100, L500.3400, L500.2500, L501.9520 ####[facility] [address] [place], [address] MCH (RBC) [Entitic mass] 28.8 pg Normal 27.0-32.0 [facility] Comment on above: Performed By: #### L 501.5200, L503.6005, L501.2450, L100.0100, L500.3400, L500.2500, L501.9520 ####[facility] [address] [place], [address] MCHC (RBC) [Mass/Vol] 34.7 g/dL Normal 32-36 [facility] Comment on above: Performed By: #### L 501.5200, L503.6005, L501.2450, L100.0100, L500.3400, L500.2500, L501.9520 ####[facility] [address] [place], [address] MCV (RBC) [Entitic vol] 83.0 fL Normal 81-99 [facility] Comment on above: Performed By: #### L 501.5200, L503.6005, L501.2450, L100.0100, L500.3400, L500.2500, L501.9520 ####[facility] [address] [place], [address] Monocytes/100 WBC (Bld) 14.0 % High 0-10 [facility] Comment on above: Performed By: #### L 501.5200, L503.6005, L501.2450, L100.0100, L500.3400, L500.2500, L501.9520 ####[facility] [address] [place], [address] Neutrophils/100 WBC (Bld) 48.1 % Normal 47-70 [facility] Comment on above: Performed By: #### L 501.5200, L503.6005, L501.2450, L100.0100, L500.3400, L500.2500, L501.9520 ####[facility] [address] [place], [address] Nucleated RBC (Bld) [#/Vol] 0 10*3/uL Normal 0-5 [facility] Comment on above: Performed By: #### L 501.5200, L503.6005, L501.2450, L100.0100, L500.3400, L500.2500, L501.9520 ####[facility] [address] [place], [address] Platelet mean volume (Bld) [Entitic vol] 9.6 fL Normal 6.2-12.0 [facility] Comment on above: Performed By: #### L 501.5200, L503.6005, L501.2450, L100.0100, L500.3400, L500.2500, L501.9520 ####[facility] [address] [place], [address] Platelets (Bld) [#/Vol] 275 10*3/uL Normal 150-450 [facility] Comment on above: Performed By: #### L 501.5200, L503.6005, L501.2450, L100.0100, L500.3400, L500.2500, L501.9520 ####[facility] [address] [place], [address] RBC (Bld) [#/Vol] 5.42 10*6/uL High 4.2-5.4 [facility] Comment on above: Performed By: #### L 501.5200, L503.6005, L501.2450, L100.0100, L500.3400, L500.2500, L501.9520 ####[facility] [address] [place], [address] RDW SD 37.3 fl Normal 35.1-43.9 [facility] Comment on above: Performed By: #### L 501.5200, L503.6005, L501.2450, L100.0100, L500.3400, L500.2500, L501.9520 ####[facility] [address] [place], [address] WBC (Bld) [#/Vol] 3.9 10*3/uL Low 4.4-11.0 [facility] Comment on above: Performed By: #### L 501.5200, L503.6005, L501.2450, L100.0100, L500.3400, L500.2500, L501.9520 ####[facility] [address] [place], [address] Emergency Department Summary on 02-27-2025 Emergency Department Summary [facility] Medical Records Department [address] [place] [address] Emergency Department Summary 02/27/25 MR#: [id number] Acct: [id number] Name: LOU MCGRAW Rep #: [id number] : 1975 49 From: Quentin Hart DO PCP: Dr. Samuel Simms MD Status:REG ER Location: ED ADDENDUM by Dr. Akbar Topete DO on 02/27/25 at 0852 Patient's case [...] worsening symptoms she returns for repeat evaluation [facility] Medical History Post-menopausal Alcohol use History of [...] Diabetes Hypertension (more content not included)... Normal [facility] Lactic Acidon 02-27-2025 Lactate [Moles/Vol] mmol/L Normal 0.0-2.0 [facility] Comment on above: Order Comment: Y Performed By: #### L 501.5200, L503.6005, L501.2450, L100.0100, L500.3400, L500.2500, L501.9520 ####[facility] [address] [place], [address] Lipaseon 02-27-2025 Lipase [Catalytic activity/Vol] 39 U/L Normal 13-75 [facility] Comment on above: Result Comment: Conor gonzalez note: LIPASE revised reference range effective 22. New Lipase methodology. Expected to produce lower values than the previous assay method. NEW Reference Range: 13 - 75 U/L Performed By: #### L 501.5200, L503.6005, L501.2450, L100.0100, L500.3400, L500.2500, L501.9520 ####[facility] [address] [place], [address] Liver Profileon 02-27-2025 Albumin [Mass/Vol] 4.6 g/dL Normal 3.5-5.0 [facility] Comment on above: Performed By: #### L 501.5200, L503.6005, L501.2450, L100.0100, L500.3400, L500.2500, L501.9520 ####[facility] [address] [place], [address] ALK PHOS 42 U/L Normal 35-104 [facility] Comment on above: Performed By: #### L 501.5200, L503.6005, L501.2450, L100.0100, L500.3400, L500.2500, L501.9520 ####[facility] [address] [place], [address] ALT [Catalytic activity/Vol] 12 U/L Normal <=34 [facility] Comment on above: Performed By: #### L 501.5200, L503.6005, L501.2450, L100.0100, L500.3400, L500.2500, L501.9520 ####[facility] [address] [place], [address] AST [Catalytic activity/Vol] 20 U/L Normal <=31 [facility] Comment on above: Performed By: #### L 501.5200, L503.6005, L501.2450, L100.0100, L500.3400, L500.2500, L501.9520 ####[facility] [address] [place], [address] Bilirubin [Mass/Vol] 0.66 mg/dL Normal 0.00-1.30 [facility] Comment on above: Performed By: #### L 501.5200, L503.6005, L501.2450, L100.0100, L500.3400, L500.2500, L501.9520 ####[facility] [address] [place], [address] Bilirubin.direct [Mass/Vol] 0.25 mg/dL Normal 0.00-0.30 [facility] Comment on above: Performed By: #### L 501.5200, L503.6005, L501.2450, L100.0100, L500.3400, L500.2500, L501.9520 ####[facility] [address] [place], [address] Globulin (S) [Mass/Vol] 2.9 g/dL Normal 2.2-4.2 [facility] Comment on above: Performed By: #### L 501.5200, L503.6005, L501.2450, L100.0100, L500.3400, L500.2500, L501.9520 ####[facility] [address] [place], [address] T PROT 7.5 g/dL Normal 5.9-8.4 [facility] Comment on above: Performed By: #### L 501.5200, L503.6005, L501.2450, L100.0100, L500.3400, L500.2500, L501.9520 ####[facility] [address] [place], [address] Magnesiumon 02-27-2025 Magnesium [Mass/Vol] 2.1 mg/dL Normal 1.5-2.2 [facility] Comment on above: Performed By: #### L 501.5200, L503.6005, L501.2450, L100.0100, L500.3400, L500.2500, L501.9520 ####[facility] [address] [place], [address] Thyroid Stim Hormone (TSH)on 02-27-2025 TSH 1.160 uIU/mL Normal 0.300-4.200 [facility] Comment on above: Performed By: #### L 501.5200, L503.6005, L501.2450, L100.0100, L500.3400, L500.2500, L501.9520 ####[facility] [address] [place], [address] Urinalysis, Completeon 02-27 BACTERIA 0 SEEN Normal None Seen [facility] Comment on above: Order Comment: COLLE CTOR TO SPECIFY Performed By: #### L 400.0001 ####[facility] [address] [place], [address] EPI,SQUAMOUS 0 SEEN Normal 5-10 [facility] Comment on above: Order Comment: COLLE CTOR TO SPECIFY Performed By: #### L 400.0001 ####[facility] [address] [place], [address] Mucus Ql (Urine sed) 0 SEEN Normal [facility] Comment on above: Order Comment: COLLE CTOR TO SPECIFY Performed By: #### L 400.0001 ####[facility] [address] [place], [address] RBC 0 SEEN Normal 0-5 [facility] Comment on above: Order Comment: COLLE CTOR TO SPECIFY Performed By: #### L 400.0001 ####[facility] [address] [place], [address] WBC 0 SEEN Normal 0-5 [facility] Comment on above: Order Comment: COLLE CTOR TO SPECIFY Performed By: #### L 400.0001 ####[facility] [address] [place], [address] CBC W/Diff, Automatedon 11-0 9-2025 Absolute Lymph 1.29 X10 3/uL Normal 0.83-4.51 [facility] Comment on above: Performed By: #### L 500.4050, L100.0100, L501.2450 ####[facility] [address] [place], [address] Absolute Neut 4.8 X10 3/uL Normal 2.0-7.7 [facility] Comment on above: Performed By: #### L 500.4050, L100.0100, L501.2450 ####[facility] [address] [place], [address] Basophils/100 WBC (Bld) 0.3 % Normal 0-1 [facility] Comment on above: Performed By: #### L 500.4050, L100.0100, L501.2450 ####[facility] [address] [place], [address] Eosinophils/100 WBC (Bld) 0.4 % Normal 0-5 [facility] Comment on above: Performed By: #### L 500.4050, L100.0100, L501.2450 ####[facility] [address] [place], [address] Erythrocyte distribution width (RBC) [Ratio] 12.5 % Normal 11.6-14.6 [facility] Comment on above: Performed By: #### L 500.4050, L100.0100, L501.2450 ####[facility] [address] [place], [address] Hematocrit (Bld) [Volume fraction] 44.8 % Normal 37-47 [facility] Comment on above: Performed By: #### L 500.4050, L100.0100, L501.2450 ####[facility] [address] [place], [address] Hemoglobin (Bld) [Mass/Vol] 15.1 g/dL High 12.0-15.0 [facility] Comment on above: Performed By: #### L 500.4050, L100.0100, L501.2450 ####[facility] [address] [place], [address] IG% 0.100 Normal 0.0-0.9 [facility] Comment on above: Result Comment: IG% - Immature Granulocytes (promyelocytes, myelocytes and metamyelocytes) > 1% indicates that a LEFT SHIFT is Present. Performed By: #### L 500.4050, L100.0100, L501.2450 ####[facility] [address] [place], [address] Lymphocytes/100 WBC (Bld) 19.1 % Normal 19-41 [facility] Comment on above: Performed By: #### L 500.4050, L100.0100, L501.2450 ####[facility] [address] [place], [address] MCH (RBC) [Entitic mass] 28.9 pg Normal 27.0-32.0 [facility] Comment on above: Performed By: #### L 500.4050, L100.0100, L501.2450 ####[facility] [address] [place], [address] MCHC (RBC) [Mass/Vol] 33.7 g/dL Normal 32-36 [facility] Comment on above: Performed By: #### L 500.4050, L100.0100, L501.2450 ####[facility] [address] [place], [address] MCV (RBC) [Entitic vol] 85.7 fL Normal 81-99 [facility] Comment on above: Performed By: #### L 500.4050, L100.0100, L501.2450 ####[facility] [address] [place], [address] Monocytes/100 WBC (Bld) 9.1 % Normal 0-10 [facility] Comment on above: Performed By: #### L 500.4050, L100.0100, L501.2450 ####[facility] [address] [place], [address] Neutrophils/100 WBC (Bld) 71.0 % High 47-70 [facility] Comment on above: Performed By: #### L 500.4050, L100.0100, L501.2450 ####[facility] [address] [place], [address] Nucleated RBC (Bld) [#/Vol] 0 10*3/uL Normal 0-5 [facility] Comment on above: Performed By: #### L 500.4050, L100.0100, L501.2450 ####[facility] [address] [place], [address] Platelet mean volume (Bld) [Entitic vol] 10.0 fL Normal 6.2-12.0 [facility] Comment on above: Performed By: #### L 500.4050, L100.0100, L501.2450 ####[facility] [address] [place], [address] Platelets (Bld) [#/Vol] 299 10*3/uL Normal 150-450 [facility] Comment on above: Performed By: #### L 500.4050, L100.0100, L501.2450 ####[facility] [address] [place], [address] RBC (Bld) [#/Vol] 5.23 10*6/uL Normal 4.2-5.4 [facility] Comment on above: Performed By: #### L 500.4050, L100.0100, L501.2450 ####[facility] [address] [place], [address] RDW SD 39.1 fl Normal 35.1-43.9 [facility] Comment on above: Performed By: #### L 500.4050, L100.0100, L501.2450 ####[facility] [address] [place], [address] WBC (Bld) [#/Vol] 6.7 10*3/uL Normal 4.4-11.0 [facility] Comment on above: Performed By: #### L 500.4050, L100.0100, L501.2450 ####[facility] [address] [place], [address] CNOVon 02-24-2025 CNOV Office Visit (ARJUN) LOU MCGRAW ([id number]) 1975 F Date Time Provider Department 02/24/25 [...] Date Reviewed: 02/24/2025 Reviewed by: Hayde Li APRN.HOSPITAL PHARMACIST - Fully Assessed Reason for Visit: Abdominal [...] Status:Closed by HAYDE LI on 02/24/25 Normal [facility] Metabolic Prof kamron 02-24-2025 Albumin [Mass/Vol] 4.9 g/dL Normal 3.5-5.0 [facility] Comment on above: Performed By: #### L 500.4050, L100.0100, L501.2450 ####[facility] [address] [place], [address] Albumin/Globulin [Mass ratio] 1.5 {ratio} Normal 0.9-2.4 [facility] Comment on above: Performed By: #### L 500.4050, L100.0100, L501.2450 ####[facility] [address] [place], [address] ALK PHOS 45 U/L Normal 35-104 [facility] Comment on above: Performed By: #### L 500.4050, L100.0100, L501.2450 ####[facility] [address] [place], [address] ALT [Catalytic activity/Vol] 13 U/L Normal <=34 [facility] Comment on above: Result Comment: Hemo lysis present, Results??could be affected. ?? Performed By: #### L 500.4050, L100.0100, L501.2450 ####[facility] [address] [place], [address] AST [Catalytic activity/Vol] 33 U/L High <=31 [facility] Comment on above: Result Comment: Hemo lysis present, Results??could be affected. ?? Performed By: #### L 500.4050, L100.0100, L501.2450 ####[facility] [address] [place], [address] Bilirubin [Mass/Vol] 0.77 mg/dL Normal 0.00-1.30 [facility] Comment on above: Performed By: #### L 500.4050, L100.0100, L501.2450 ####[facility] [address] [place], [address] BUN/CRE 11.4 RATIO Normal 10-20 [facility] Comment on above: Performed By: #### L 500.4050, L100.0100, L501.2450 ####[facility] [address] [place], [address] Calcium [Mass/Vol] 9.8 mg/dL Normal 7.6-11.0 [facility] Comment on above: Performed By: #### L 500.4050, L100.0100, L501.2450 ####[facility] [address] [place], [address] Chloride [Moles/Vol] 98 mmol/L Normal 98-108 [facility] Comment on above: Performed By: #### L 500.4050, L100.0100, L501.2450 ####[facility] [address] [place], [address] CO2 [Moles/Vol] 23.0 mmol/L Normal 21.0-32.0 [facility] Comment on above: Performed By: #### L 500.4050, L100.0100, L501.2450 ####[facility] [address] [place], [address] Creatinine [Mass/Vol] 0.78 mg/dL Normal 0.70-1.20 [facility] Comment on above: Performed By: #### L 500.4050, L100.0100, L501.2450 ####[facility] [address] [place], [address] ECRCL 82.98 ml/min Normal 50-250 [facility] Comment on above: Performed By: #### L 500.4050, L100.0100, L501.2450 ####[facility] [address] [place], [address] GAP 14 Normal 5-15 [facility] Comment on above: Performed By: #### L 500.4050, L100.0100, L501.2450 ####[facility] [address] [place], [address] GFR/1.73 sq M.predicted among non-blacks MDRD (S/P/Bld) [Vol rate/Area] 92 mL/min/{1.73_m2} Normal >60 [facility] Comment on above: Result Comment: mL/m in/1.73m2 CKD-EPI Creatinine Equation (2020) Performed By: #### L 500.4050, L100.0100, L501.2450 ####[facility] [address] [place], [address] Globulin (S) [Mass/Vol] 3.3 g/dL Normal 2.2-4.2 [facility] Comment on above: Performed By: #### L 500.4050, L100.0100, L501.2450 ####[facility] [address] [place], [address] Glucose [Mass/Vol] 100 mg/dL High 70-99 [facility] Comment on above: Performed By: #### L 500.4050, L100.0100, L501.2450 ####[facility] [address] [place], [address] Potassium [Moles/Vol] 4.5 mmol/L Normal 3.3-5.1 [facility] Comment on above: Result Comment: Hemo lysis present, Results??could be affected. ?? Performed By: #### L 500.4050, L100.0100, L501.2450 ####[facility] [address] [place], [address] Sodium [Moles/Vol] 134 mmol/L Normal 133-145 [facility] Comment on above: Performed By: #### L 500.4050, L100.0100, L501.2450 ####[facility] [address] [place], [address] T PROT 8.2 g/dL Normal 5.9-8.4 [facility] Comment on above: Performed By: #### L 500.4050, L100.0100, L501.2450 ####[facility] [address] [place], [address] Urea nitrogen [Mass/Vol] 9 mg/dL Normal 4-19 [facility] Comment on above: Performed By: #### L 500.4050, L100.0100, L501.2450 ####[facility] [address] [place], [address] Emergency Department Summary on 02-24-2025 Emergency Department Summary [facility] Medical Records Department [address] [place] [address] Emergency Department Summary 02/24/25 MR#: [id number] Acct: [id number] Name: LOU MCGRAW Rep #: [id number] : 1975 49 From: Chato Montemayor MD [...] present when not eating; reports pain as manageable currently. - Diarrhea is watery, occurring less [...] the last few days due to symptoms. 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 Normal [facility] Gallbladderon 02-24-2025 Gallbladder [facility] [address] [place] [address] Gallbladder MR#: [id number] Acct: [id number] Name: LOU MCGRAW Rep #: [id number] : 1975 F 49 From: Annabel Blanca MD PCP: Dr. Samuel Simms MD Status: REG ER Study: Gallbladder Date of Exam: 02/24/25 Exam# [id number] Ordering Dr: Chato Montemayor MD PROCEDURE: GALLBLADDER [...] right upper quadrant abdominal ultrasound. Reading Location: [facility] CC: Dr. Chato Montemayor MD; Dr. Samuel Simms MD Bone Grinder: Signed Normal [facility] Lipaseon 02-24-2025 Lipase [Catalytic activity/Vol] 24 U/L Normal 13-75 [facility] Comment on above: Result Comment: Plea se note: LIPASE revised reference range effective 22. New Lipase methodology. Expected to produce lower values than the previous assay method. NEW Reference Range: 13 - 75 U/L Performed By: #### L 500.4050, L100.0100, L501.2450 ####[facility] [address] [place], [address] Urinalysis, Completeon 02-24 BACTERIA 2+ /hpf Normal None Seen [facility] Comment on above: Order Comment: CLEAN CATCH Performed By: #### L 400.0001 #### [facility] [address] [place], [address] EPI,SQUAMOUS 0-5 SEEN Normal 5-10 [facility] Comment on above: Order Comment: CLEAN CATCH Performed By: #### L 400.0001 #### [facility] [address] [place], [address] EPI,TRANSITION 0-5 SEEN Normal 0-5 [facility] Comment on above: Order Comment: CLEAN CATCH Performed By: #### L 400.0001 #### [facility] [address] [place], [address] WBC 0-5 SEEN Normal 0-5 [facility] Comment on above: Order Comment: CLEAN CATCH Performed By: #### L 400.0001 #### [facility] [address] [place], [address] Mucus Ql (Urine sed) 0 SEEN Normal [facility] Comment on above: Order Comment: CLEAN CATCH Performed By: #### L 400.0001 #### [facility] [address] [place], [address] RBC 0 SEEN Normal 0-5 [facility] Comment on above: Order Comment: CLEAN CATCH Performed By: #### L 400.0001 #### [facility] [address] [place], [address] Absolute lymphocyte countOrd ered By: Samuel Simms on 12-31-2024 Lymphocytes Auto (Unsp spec) [#/Vol] 1.84 10*3/uL 0.83-4.51 [facility] Absolute neutrophil countOrd ered By: Samuel Simms on 12-31-2024 Neutrophils (Bld) [#/Vol] 2.3 10*3/uL 2.0-7.7 [facility] Anion gap in Serum or Plasma Ordered By: Naomidenisse Mendez on 12-31-2024 Anion gap [Moles/Vol] 11 mmol/L 08-30 [facility] Automated lymphocyte count a s percentage of total leukocytesOrdered By: Samuel Simms on 12-31-2024 Lymphocytes/100 WBC Auto (Unsp spec) 40.0 % [facility] BUN/creatinine ratioOrdered By: Roselake pleasantdenisse Simms on 12-31-2024 Urea nitrogen/Creatinine [Mass ratio] 11.5 mg/mg 02-04 [facility] Basophil percentageOrdered B y: Samuel Simms on 12-31-2024 Basophils/100 WBC (Bld) 0.4 % 0-1 [facility] Bilirubin, totalOrdered By: mirna Simms on 12-31-2024 Bilirubin [Mass/Vol] 0.29 mg/dL 0.00-1.30 [facility] CBC W/Diff, Automatedon 12-17 Absolute Lymph 1.84 X10 3/uL Normal 0.83-4.51 [facility] Comment on above: Performed By: #### L 100.0100, L500.4100, L500.4050 #### [facility] [address] [place], [address] Absolute Neut 2.3 X10 3/uL Normal 2.0-7.7 [facility] Comment on above: Performed By: #### L 100.0100, L500.4100, L500.4050 #### [facility] [address] [place], [address] Basophils/100 WBC (Bld) 0.4 % Normal 0-1 [facility] Comment on above: Performed By: #### L 100.0100, L500.4100, L500.4050 #### [facility] [address] [place], [address] Eosinophils/100 WBC (Bld) 1.3 % Normal 0-5 [facility] Comment on above: Performed By: #### L 100.0100, L500.4100, L500.4050 #### [facility] [address] [place], [address] Erythrocyte distribution width (RBC) [Ratio] 13.1 % Normal 11.6-14.6 [facility] Comment on above: Performed By: #### L 100.0100, L500.4100, L500.4050 #### [facility] [address] [place], [address] Hematocrit (Bld) [Volume fraction] 39.1 % Normal 37-47 [facility] Comment on above: Performed By: #### L 100.0100, L500.4100, L500.4050 #### [facility] [address] [place], [address] Hemoglobin (Bld) [Mass/Vol] 12.8 g/dL Normal 12.0-15.0 [facility] Comment on above: Performed By: #### L 100.0100, L500.4100, L500.4050 #### [facility] [address] [place], [address] IG% 0.200 Normal 0.0-0.9 [facility] Comment on above: Result Comment: IG% - Immature Granulocytes (promyelocytes, myelocytes and metamyelocytes) > 1% indicates that a LEFT SHIFT is Present. Performed By: #### L 100.0100, L500.4100, L500.4050 #### [facility] [address] [place], [address] Lymphocytes/100 WBC (Bld) 40.0 % Normal 19-41 [facility] Comment on above: Performed By: #### L 100.0100, L500.4100, L500.4050 #### [facility] [address] [place], [address] MCH (RBC) [Entitic mass] 28.7 pg Normal 27.0-32.0 [facility] Comment on above: Performed By: #### L 100.0100, L500.4100, L500.4050 #### [facility] [address] [place], [address] MCHC (RBC) [Mass/Vol] 32.7 g/dL Normal 32-36 [facility] Comment on above: Performed By: #### L 100.0100, L500.4100, L500.4050 #### [facility] [address] [place], [address] MCV (RBC) [Entitic vol] 87.7 fL Normal 81-99 [facility] Comment on above: Performed By: #### L 100.0100, L500.4100, L500.4050 #### [facility] [address] [place], [address] Monocytes/100 WBC (Bld) 8.9 % Normal 0-10 [facility] Comment on above: Performed By: #### L 100.0100, L500.4100, L500.4050 #### [facility] [address] [place], [address] Neutrophils/100 WBC (Bld) 49.2 % Normal 47-70 [facility] Comment on above: Performed By: #### L 100.0100, L500.4100, L500.4050 #### [facility] [address] [place], [address] Nucleated RBC (Bld) [#/Vol] 0 10*3/uL Normal 0-5 [facility] Comment on above: Performed By: #### L 100.0100, L500.4100, L500.4050 #### [facility] [address] [place], [address] Platelet mean volume (Bld) [Entitic vol] 10.3 fL Normal 6.2-12.0 [facility] Comment on above: Performed By: #### L 100.0100, L500.4100, L500.4050 #### [facility] [address] [place], [address] Platelets (Bld) [#/Vol] 281 10*3/uL Normal 150-450 [facility] Comment on above: Performed By: #### L 100.0100, L500.4100, L500.4050 #### [facility] [address] [place], [address] RBC (Bld) [#/Vol] 4.46 10*6/uL Normal 4.2-5.4 [facility] Comment on above: Performed By: #### L 100.0100, L500.4100, L500.4050 #### [facility] [address] [place], [address] RDW SD 42.1 fl Normal 35.1-43.9 [facility] Comment on above: Performed By: #### L 100.0100, L500.4100, L500.4050 #### [facility] [address] [place], [address] WBC (Bld) [#/Vol] 4.6 10*3/uL Normal 4.4-11.0 [facility] Comment on above: Performed By: #### L 100.0100, L500.4100, L500.4050 #### [facility] [address] [place], [address] Calculated very low density lipoprotein (VLDL) cholesterol measurementOrdered By: Samuel Simms on 12-31-2024 Calculated very low density lipoprotein (VLDL) cholesterol measurement 33 mg/dL 5-40 [facility] Carbon dioxide, total [Moles /volume] in Central venous bloodOrdered By: Samuel Simms on 12-31-2024 CO2 [Moles/Vol] 23.5 mmol/L 21.0-32.0 [facility] Chloride assayOrdered By: Geraldine mirna Simms on 12-31-2024 Chloride [Moles/Vol] 103 mmol/L 98-108 [facility] Comprehensive Metabolic Prof ilon 12-31-2024 Albumin [Mass/Vol] 4.6 g/dL Normal 3.5-5.0 [facility] Comment on above: Performed By: #### L 100.0100, L500.4100, L500.4050 #### [facility] [address] [place], [address] Albumin/Globulin [Mass ratio] 1.6 {ratio} Normal 0.9-2.4 [facility] Comment on above: Performed By: #### L 100.0100, L500.4100, L500.4050 #### [facility] [address] [place], [address] ALK PHOS 42 U/L Normal 35-104 [facility] Comment on above: Performed By: #### L 100.0100, L500.4100, L500.4050 #### [facility] [address] [place], [address] ALT [Catalytic activity/Vol] 11 U/L Normal <=34 [facility] Comment on above: Performed By: #### L 100.0100, L500.4100, L500.4050 #### [facility] [address] [place], [address] AST [Catalytic activity/Vol] 20 U/L Normal <=31 [facility] Comment on above: Performed By: #### L 100.0100, L500.4100, L500.4050 #### [facility] [address] [place], [address] Bilirubin [Mass/Vol] 0.29 mg/dL Normal 0.00-1.30 [facility] Comment on above: Performed By: #### L 100.0100, L500.4100, L500.4050 #### [facility] [address] [place], [address] BUN/CRE 11.5 RATIO Normal 10-20 [facility] Comment on above: Performed By: #### L 100.0100, L500.4100, L500.4050 #### [facility] [address] [place], [address] Calcium [Mass/Vol] 9.4 mg/dL Normal 7.6-11.0 [facility] Comment on above: Performed By: #### L 100.0100, L500.4100, L500.4050 #### [facility] [address] [place], [address] Chloride [Moles/Vol] 103 mmol/L Normal 98-108 [facility] Comment on above: Performed By: #### L 100.0100, L500.4100, L500.4050 #### [facility] [address] [place], [address] CO2 [Moles/Vol] 23.5 mmol/L Normal 21.0-32.0 [facility] Comment on above: Performed By: #### L 100.0100, L500.4100, L500.4050 #### [facility] [address] [place], [address] Creatinine [Mass/Vol] 0.77 mg/dL Normal 0.70-1.20 [facility] Comment on above: Performed By: #### L 100.0100, L500.4100, L500.4050 #### [facility] [address] [place], [address] GAP 11 Normal 5-15 [facility] Comment on above: Performed By: #### L 100.0100, L500.4100, L500.4050 #### [facility] [address] [place], [address] GFR/1.73 sq M.predicted among non-blacks MDRD (S/P/Bld) [Vol rate/Area] 93 mL/min/{1.73_m2} Normal >60 [facility] Comment on above: Result Comment: mL/m in/1.73m2 CKD-EPI Creatinine Equation (2020) Performed By: #### L 100.0100, L500.4100, L500.4050 #### [facility] [address] [place], [address] Globulin (S) [Mass/Vol] 2.8 g/dL Normal 2.2-4.2 [facility] Comment on above: Performed By: #### L 100.0100, L500.4100, L500.4050 #### [facility] [address] [place], [address] Glucose [Mass/Vol] 92 mg/dL Normal 70-99 [facility] Comment on above: Performed By: #### L 100.0100, L500.4100, L500.4050 #### [facility] [address] [place], [address] Potassium [Moles/Vol] 4.0 mmol/L Normal 3.3-5.1 [facility] Comment on above: Performed By: #### L 100.0100, L500.4100, L500.4050 #### [facility] [address] [place], [address] Sodium [Moles/Vol] 138 mmol/L Normal 133-145 [facility] Comment on above: Performed By: #### L 100.0100, L500.4100, L500.4050 #### [facility] [address] [place], [address] T PROT 7.4 g/dL Normal 5.9-8.4 [facility] Comment on above: Performed By: #### L 100.0100, L500.4100, L500.4050 #### [facility] [address] [place], [address] Urea nitrogen [Mass/Vol] 9 mg/dL Normal 4-19 [facility] Comment on above: Performed By: #### L 100.0100, L500.4100, L500.4050 #### [facility] [address] [place], [address] Eosinophil percentageOrdered By: Samuel Simms on 12-31-2024 Eosinophils/100 WBC (Bld) 1.3 % 0-5 [facility] Erythrocyte distribution wid th ratioOrdered By: mirna Simms on 12-31-2024 Erythrocyte distribution width (RBC) [Ratio] 13.1 % 11.6-14.6 [facility] Erythrocyte distribution wid th standard deviationOrdered By: Samuel Simms on 12-31-2024 Erythrocyte distribution width (RBC) [Ratio] 42.1 fl 35.1-43.9 [facility] Glomerular filtration rate ( GFR) estimation/1.73 sq m using serum, plasma, or whole bOrdered By: Samuel Simms on 12-31-2024 GFR/1.73 sq M.predicted among non-blacks MDRD (S/P/Bld) [Vol rate/Area] 93 mL/min/{1.73_m2} >60 [facility] Comment on above: mL/min/1.73m2 CKD-EP I Creatinine Equation (2020) Hematocrit Auto (Bld) [Volum e fraction]Ordered By: Samuel Simms on 12-31-2024 Hematocrit (Bld) [Volume fraction] 39.1 % 37-47 [facility] Hemoglobin measurementOrdere d By: Samuel Simms on 12-31-2024 Hemoglobin (Bld) [Mass/Vol] 12.8 g/dL 12.0-15.0 [facility] Immature granulocytes/100 WB C Auto (Bld)Ordered By: Samuel Simms on 12-31-2024 Immature granulocytes/100 WBC (Bld) 0.200 % 0.0-0.9 [facility] Comment on above: IG% - Immature Granu locytes (promyelocytes, myelocytes and metamyelocytes) > 1% indicates that a LEFT SHIFT is Present. Internal Medicine Office Vis freddie 12-31-2024 Internal Medicine Office Visit [facility] [address] [place] [address] [place] [address] OFFICE VISIT Date of Service: 12/31/24 MR#: [id number] Acct: [id number] Name: LOU MCGRAW Rep #: [id number] : 1975 Provider: Dr. 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 Normal [facility] LDL calc ser/plasOrdered By: Samuel Simms on 12-31-2024 Cholesterol in LDL [Mass/Vol] 159 mg/dL [facility] Comment on above: Iztcgshtxg=179-443 m g/dL & Higher Fliq=825 mg/dL or greaterFriedwald Equation for LDL-C Laboratory - Chemistry and C hemistry - challengeOrdered By: Samuel Simms on 12-31-2024 AST [Catalytic activity/Vol] 20 U/L <32 [facility] Lipid Profileon 12-31-2024 CHOL:HDL 4.66 Normal [facility] Comment on above: Performed By: #### L 100.0100, L500.4100, L500.4050 ####[facility] [address] [place], [address] Cholesterol [Mass/Vol] 245 mg/dL High <=200 [facility] Comment on above: Result Comment: Chol esterol level, Desirable <200 mg/dL Borderline high cholesterol 200-239 mg/dL High cholesterol >=240 mg/dL Recommendations of the NCEP Adult Treatment Panel for the following risk-cutoff thresholds for the [place] population. Performed By: #### L 100.0100, L500.4100, L500.4050 ####[facility] [address] [place], [address] Cholesterol in HDL [Mass/Vol] 53 mg/dL Normal [facility] Comment on above: Result Comment: Akiko onal Cholesterol Education Program (NCEP) guidelines: <40 mg/dL: Low HDL-cholesterol (major risk factor for CHD) >= 60 mg/dL: High HDL-cholesterol (negative risk factor for CHD) HDL-cholesterol is affected by a number of factors, e.g. smoking, exercise, hormones, sex and age. Performed By: #### L 100.0100, L500.4100, L500.4050 ####[facility] [address] [place], [address] Cholesterol in LDL [Mass/Vol] 159 mg/dL Normal [facility] Comment on above: Result Comment: Bord xtrdts=697-749 mg/dL Higher Umjh=567 mg/dL or greater Friedwald Equation for LDL-C Performed By: #### L 100.0100, L500.4100, L500.4050 ####[facility] [address] [place], [address] Cholesterol in VLDL [Mass/Vol] 33 mg/dL Normal 5-40 [facility] Comment on above: Performed By: #### L 100.0100, L500.4100, L500.4050 ####[facility] [address] [place], [address] Triglyceride [Mass/Vol] 167 mg/dL Normal [facility] Comment on above: Result Comment: The drugs N-Acetylcysteine and Metamizole may falsely depress this assay. Normal range: <150 mg/dL Borderline High: 150-199 mg/dL High: 200-499 mg/dL Very High: >500 mg/dL Performed By: #### L 100.0100, L500.4100, L500.4050 ####[facility] [address] [place], [address] MCV (mean corpuscular volume ) determinationOrdered By: Samuel Simms on 12-31-2024 MCV (RBC) [Entitic vol] 87.7 fL 81-99 [facility] Mean corpuscular hemoglobin (MCH) determinationOrdered By: Samuel Simms on 12-31-2024 MCH (RBC) [Entitic mass] 28.7 pg 27.0-32.0 [facility] Mean corpuscular hemoglobin concentration (MCHC) determinationOrdered By: Samuel Simms on 12-31-2024 MCHC (RBC) [Mass/Vol] 32.7 g/dL 32-36 [facility] Mean platelet volume determi nationOrdered By: Samuel Simms on 12-31-2024 Platelet mean volume (Bld) [Entitic vol] 10.3 fL 6.2-12.0 [facility] Monocyte percentageOrdered B y: Samuel Simms on 12-31-2024 Monocytes/100 WBC (Bld) 8.9 % 0-10 [facility] Neutrophil percentageOrdered By: Samuel Simms on 12-31-2024 Neutrophils/100 WBC (Bld) 49.2 % 47-70 [facility] Nucleated red blood cell per centageOrdered By: Samuel Simms on 12-31-2024 Nucleated RBC/100 WBC (Bld) [Ratio] 0 % 0-5 [facility] Platelet countOrdered By: Geraldine Simms on 12-31-2024 Platelets (Bld) [#/Vol] 281 10*3/uL 150-450 [facility] Potassium measurement (mass/ volume)Ordered By: Samuel Simms on 12-31-2024 Potassium (Unsp spec) [Mass/Vol] 4.0 mmol/L 3.3-5.1 [facility] RBC Auto (Bld) [#/Vol]Ordere d By: Samuel Simms on 12-31-2024 RBC (Bld) [#/Vol] 4.46 10*6/uL 4.2-5.4 [facility] Screening total cholesterol/ high density lipoprotein (HDL) cholesterol ratioOrdered By: Samuel Simms on 12-31-2024 Cholesterol.total/Choles terol in HDL [Mass ratio] 4.66 {ratio} [facility] Serum creatinine measurement (mass/volume)Ordered By: Samuel Simms on 12-31-2024 Creatinine [Mass/Vol] 0.77 mg/dL 0.70-1.20 [facility] Serum globulin measurementOr dered By: Samuel Simsm on 12-31-2024 Globulin (S) [Mass/Vol] 2.8 g/dL 2.2-4.2 [facility] Serum glucose measurement (m ass/volume)Ordered By: Samuel Simms on 12-31-2024 Glucose [Mass/Vol] 92 mg/dL 70-99 [facility] Serum or plasma alanine myers otransferase (ALT) measurementOrdered By: Samuel Simms on 12-31-2024 ALT [Catalytic activity/Vol] 11 U/L <35 [facility] Serum or plasma albumin jude urement (mass/volume)Ordered By: Samuel Simms on 12-31-2024 Albumin [Mass/Vol] 4.6 g/dL 3.5-5.0 [facility] Serum or plasma albumin/glob ulin mass ratioOrdered By: Samuel Simms 12-31-2024 Albumin/Globulin [Mass ratio] 1.6 {ratio} 0.9-2.4 [facility] Serum or plasma alkaline abdirizak sphatase measurementOrdered By: Samuel Simms 12-31-2024 ALP [Catalytic activity/Vol] 42 U/L 35-104 [facility] Serum or plasma calcium jude urement (mass/volume)Ordered By: Samuel Simms 12-31-2024 Calcium [Mass/Vol] 9.4 mg/dL 7.6-11.0 [facility] Serum or plasma cholesterol in HDL measurement (mass/volume)Ordered By: Samuel Simms on 12-31-2024 Cholesterol in HDL [Mass/Vol] 53 mg/dL >40 [facility] Comment on above: National Cholesterol Education Program (NCEP) guidelines:<40 mg/dL: Low HDL-cholesterol (major risk factor for CHD)>= 60 mg/dL: High HDL-cholesterol (negative risk factor for CHD)HDL-cholesterol is affected by a number of factors, e.g. smoking, exercise, hormones, sex and age. Serum or plasma cholesterol measurement (mass/volume)Ordered By: Samuel Simms on 12-31-2024 Cholesterol [Mass/Vol] 245 mg/dL High <201 [facility] Comment on above: Cholesterol level, D esirable <200 mg/dLBorderline high cholesterol 200-239 mg/dLHigh cholesterol >=240 mg/dLRecommendations of the NCEP Adult Treatment Panel for the following risk-cutoff thresholds for the [place] population. Serum or plasma urea nitroge n measurement (mass/volume)Ordered By: Samuel Simms on 12-31-2024 Urea nitrogen [Mass/Vol] 9 mg/dL 4-19 [facility] Sodium levelOrdered By: Rose portillofatou Mendez on 12-31-2024 Sodium [Moles/Vol] 138 mmol/L 133-145 [facility] Total proteinOrdered By: Brayan fuentesdenisse Raylindsayha on 12-31-2024 Protein [Mass/Vol] 7.4 g/dL 5.9-8.4 [facility] Triglycerides measurementOrd ered By: Geraldinejeraldbendenisse Raylindsayha on 12-31-2024 Triglyceride [Mass/Vol] 167 mg/dL <199 [facility] Comment on above: The drugs N-Acetylcy steine and Metamizole may falsely depress this assay. Normal range: <150 mg/dLBorderline High: 150-199 mg/dLHigh: 200-499 mg/dLVery High: >500 mg/dL White blood cell (WBC) count Ordered By: Samuel Simms on 12-31-2024 WBC (Bld) [#/Vol] 4.6 10*3/uL 4.4-11.0 [facility] CNOVon 12-24-2024 CNOV Office Visit (OBGYWM ) LOU MCGRAW ([id number]) 1975 F Date Time Provider Department 12/24/24 9:40 AM TALI SYED OBGYWM During your visit today, we recorded the following information about you: Blood pressure Weight Height 108/70 70.8 kg 1.68 m Tali Syed MD 12/24/2024 12:55 PM Signed Dowel Inspector offered: Patient declinesCastro Blake is a 49 [...] OB History No obstetric history on file. 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 As applicable, any other physician, advance practice provider, medical student, or other health professional student that will be observing or involved in the sensitive examination for educational or training purposes was discussed with the Patient or Authorized Cocoa Powder Mixer Operator. The Patient or Authorized Cocoa Powder Mixer Operator has agreed to proceed with the sensitive examination. (Sensitive examination includes inspection and/or palpation of the breasts, pelvis, prostate and anorectal regions). EXAM: BP 108/70 Ht 5' 6.142 (1.68m) Wt 156 lb (70.8kg) LMP 03/02/2010 BMI 25.07 kg/(m2). GENERAL: pleasant, female in no apparent distress HEENT: Normocephalic and atraumatic NECK: full range of motion BREAST: soft, non-tender, symmetric, no dominant mass, normal nipple-areolar complex, no lymphadenopathy, and no nipple discharge CHEST: Normal inspiratory effort ABDOMEN: soft, non-tender, and no masses PELVIC: external genitalia with atrophic changes, normal Bartholin's glands, urethra, [place]'s glands, no vulvar lesions, no cervical lesions, [...] PM Addendum Lubricants and moisturizers list The [id number] vaginal moisturizer and lubricant products can be confusing to sort through, especially since there a (more content not included)... Normal [facility] Breast imaging reportOrdered By: Jean Pierre Simmons on 12-06-2024 Study report [facility] Imaging Services [address] [place] [place] [address] DIAG MAMM W/CAD, UNILAT MR#: [id number] Acct: [id number] Name: LOU MCGRAW Rep #: [id number] : 1975 F 48 From: Sky Simmons MD PCP: Dr. Samuel Simms MD Status: R EG CLI Study:DIAG MAMM W/CAD, UNILAT Date of Exam: 12/06/24 Exam# [id number] Ordering Dr: Ha Simms MD EXAM: DIAG [...] be mailed to the patient. Reading Location: [id number] CC: Dr. Samuel Simms MD ~ Bone Grinder: Signed [facility] DIAG MAMM W/CAD, UNILATon DIAG MAMM W/CAD, UNILAT [facility] Imaging Services [address] [place] [address] DIAG MAMM W/CAD, UNILAT MR#: [id number] Acct: [id number] Name: DANIELALOU KNUTSON Rep #: [id number] : 1975 F 48 From: Jean Pierre patel MD PCP: Dr. Samuel Simms MD Status: REG CLI Study: DIAG MAMM W/CAD, UNILAT Date of Exam: 12/06/24 Exam# [id number] Ordering Dr: Samuel Simms MD EXAM: DIAG [...] be mailed to the patient. Reading Location: [facility] CC: Dr. Samuel Simms MD Bone Grinder: Signed Normal [facility] Breast imaging reportOrdered By: Sweta Fernandes on 12-03-2024 Study report [facility] Imaging Services [address] [place] [id number] SCRN MAMM (CAD)W/TAURUS BILAT MR#: [id number] Acct: [id number] Name: LOU MCGRAW Rep #: [id number] : 1975 F 48 From: Bradford Fernandes DO PCP: Dr. Samuel Simms MD Status: R EG CLI Study:SCRN MAMM (CAD)W/TAURUS BILAT Date of Exa m: 12/03/24 Exam# [id number] Ordering Dr: Ha Simms MD EXAM: SCRN [...] be mailed to the patient. Reading Location: [id number] CC: Dr. Samuel Simms MD ~ Bone Grinder: Signed [facility] SCRN MAMM (CAD)W/TAURUS BILATo n 12-03-2024 SCRN MAMM (CAD)W/TAURUS BILAT [facility] Imaging Services [address] [place] [address] SCRN MAMM (CAD)W/TAURUS BILAT MR#: [id number] Acct: [id number] Name: MARQUISELOUREYES LEWIS Rep #: [id number] : 1975 F 48 From: Sweta Bobby PCP: Dr. Samuel Simms MD Status: REG CLI Study: SCRN MAMM (CAD)W/TAURUS BILAT Date of Exam: 11/16 12/10 Exam# [id number] Ordering Dr: Samuel Simms MD EXAM: SCRN [...] be mailed to the patient. Reading Location: [id number] CC: Dr. Samuel Simms MD Bone Grinder: Signed Normal [facility] Basophil percentageOrdered B y: Samuel Simms on 02-16-2023 Cholesterol [Mass/Vol] 232 mg/dL <200 [facility] Comment on above: <200 mg/dL Desirable 200-240 mg/dL Borderline >240 mg/dL High Risk Triglyceride [Mass/Vol] 113 mg/dL <199 [facility] Comment on above: The drugs N-Acetylcy steine and Metamizole may falsely depress this assay.Serum Triglycerides Reference Interval Normal <150 mg/dL Borderline high 150 - 199 mg/dL High 200 - 499 mg/dL Very High > or = 500 mg/dL Serum or plasma cholesterol in HDL measurement (mass/volume)Ordered By: Samuel Simms on 02-16-2023 Cholesterol in HDL [Mass/Vol] 56 mg/dL >40 [facility] Comment on above: The drugs N-Acetylcy steine and Metamizole may falsely depress this assay. Reference Range HDL <40 mg/dL Low HDL Cholesterol HDL >or= 60 mg/dL High HDL Cholesterol Serum or plasma cholesterol in VLDL measurement (mass/volume)Ordered By: Samuel Simms on 02-16-2023 Cholesterol in VLDL [Mass/Vol] 23 mg/dL 5-40 [facility] Serum or plasma low density lipoprotein (LDL) cholesterol measurement (mass/volume)Ordered By: Samuel Simms on 02-16-2023 Cholesterol in LDL [Mass/Vol] 153 mg/dL 0-130 [facility] Absolute lymphocyte countOrd ered By: Dr. Simms on 10-08-2022 Lymphocytes Auto (Unsp spec) [#/Vol] 1.72 10*3/uL 0.83-4.51 [facility] Basophil percentageOrdered B y: Dr. Simms on 10-08-2022 Basophils/100 WBC (Bld) 0.6 % 0-1 [facility] Bilirubin [Mass/Vol] 0.70 mg/dL 0.20-1.00 [facility] Comment on above: For patients on eltr ombopag therapy, use of Dimension [place] TBIL is not recommended. Chloride [Moles/Vol] 105 mmol/L 98-107 [facility] Cholesterol [Mass/Vol] 251 mg/dL <200 [facility] Comment on above: <200 mg/dL Desirable 200-240 mg/dL Borderline >240 mg/dL High Risk Eosinophils/100 WBC (Bld) 1.3 % 0-5 [facility] Glucose [Mass/Vol] 90 mg/dL 74-106 [facility] Neutrophils (Bld) [#/Vol] 2.4 10*3/uL 2.0-7.7 [facility] Neutrophils/100 WBC (Bld) 52.1 % 47-70 [facility] Potassium [Moles/Vol] 3.7 mmol/L 3.5-5.1 [facility] Protein [Mass/Vol] 7.7 g/dL 6.4-8.2 [facility] Sodium [Moles/Vol] 140 mmol/L 136-145 [facility] Triglyceride [Mass/Vol] 71 mg/dL <199 [facility] Comment on above: The drugs N-Acetylcy steine and Metamizole may falsely depress this assay.Serum Triglycerides Reference Interval Normal <150 mg/dL Borderline high 150 - 199 mg/dL High 200 - 499 mg/dL Very High > or = 500 mg/dL WBC (Bld) [#/Vol] 4.6 10*3/uL 4.4-11.0 [facility] Blood erythrocytes count (nu mber/volume)Ordered By: Dr. Simms on 10-08-2022 RBC (Bld) [#/Vol] 4.84 10*6/uL 4.2-5.4 [facility] Blood hemoglobin measurement (mass/volume)Ordered By: Dr. Simms on 10-08-2022 Hemoglobin (Bld) [Mass/Vol] 13.9 g/dL 12.0-15.0 [facility] Blood lymphocytes/100 leukoc ytesOrdered By: Dr. Simms on 10-08-2022 Lymphocytes/100 WBC (Bld) 37.1 % 19-41 [facility] Blood monocytes/100 leukocyt esOrdered By: Dr. Simsm on 10-08-2022 Monocytes/100 WBC (Bld) 8.9 % 0-10 [facility] Blood platelet mean volumeOr dered By: Dr. Simms on 10-08-2022 Platelet mean volume (Bld) [Entitic vol] 11.1 fL 6.2-12.0 [facility] Determination of erythrocyte mean corpuscular volume (MCV)Ordered By: Dr. Simms on 10-08-2022 MCV (RBC) [Entitic vol] 89.5 fL 81-99 [facility] Hematocrit Auto (Bld) [Volum e fraction]Ordered By: Dr. Simms on 10-08-2022 Hematocrit (Bld) [Volume fraction] 43.3 % 37-47 [facility] Laboratory - Chemistry and C hemistry - challengeOrdered By: Dr. Simms on 10-08-2022 ALP [Catalytic activity/Vol] 48 U/L 45-117 [facility] ALT [Catalytic activity/Vol] 28 U/L 13-56 [facility] CO2 [Moles/Vol] 27.0 mmol/L 21.0-32.0 [facility] Globulin (S) [Mass/Vol] 3.4 g/dL 2.2-4.2 [facility] Urea nitrogen/Creatinine [Mass ratio] 14.4 mg/mg 10-20 [facility] Laboratory - Hematology and Cell countsOrdered By: Dr. Simms on 10-08-2022 Erythrocyte distribution width (RBC) [Entitic vol] 43.2 fL 35.1-43.9 [facility] Erythrocyte distribution width (RBC) [Ratio] 13.2 % 11.6-14.6 [facility] Immature granulocytes/100 WBC (Bld) 0.000 % 0.0-0.9 [facility] Comment on above: IG% - Immature Granu locytes (promyelocytes, myelocytes and metamyelocytes) > 1% indicates that a LEFT SHIFT is Present. MCH (RBC) [Entitic mass] 28.7 pg 27.0-32.0 [facility] Nucleated RBC/100 WBC (Bld) [Ratio] 0 % 0-5 [facility] MCHC Auto (RBC) [Mass/Vol]Or dered By: Dr. Simms on 10-08-2022 MCHC (RBC) [Mass/Vol] 32.1 g/dL 32-36 [facility] No Panel InformationOrdered By: Dr. Simms on 10-08-2022 Estimated GFR (MDRD) Amer 116 mL/min >60 [facility] Comment on above: GFR Calc Estimated GFR (MDRD) Non-Af Amer 96 mL/min >60 [facility] Comment on above: Non- GFR Calc Platelets bldOrdered By: Dr. Simms on 10-08-2022 Platelets (Bld) [#/Vol] 305 10*3/uL 150-450 [facility] Serum or plasma albumin jude urement (mass/volume)Ordered By: Dr. Simms on 10-08-2022 Albumin [Mass/Vol] 4.3 g/dL 3.2-5.0 [facility] Serum or plasma albumin/glob ulin mass ratioOrdered By: Dr. Simms on 10-08-2022 Albumin/Globulin [Mass ratio] 1.3 {ratio} 0.9-2.4 [facility] Serum or plasma calcium jude urement (mass/volume)Ordered By: Dr. Simms on 10-08-2022 Calcium [Mass/Vol] 9.5 mg/dL 8.5-10.1 [facility] Serum or plasma cholesterol in HDL measurement (mass/volume)Ordered By: Dr. Simms on 10-08-2022 Cholesterol in HDL [Mass/Vol] 60 mg/dL >40 [facility] Comment on above: The drugs N-Acetylcy steine and Metamizole may falsely depress this assay. Reference Range HDL <40 mg/dL Low HDL Cholesterol HDL >or= 60 mg/dL High HDL Cholesterol Serum or plasma cholesterol in VLDL measurement (mass/volume)Ordered By: Dr. Simms on 10-08-2022 Cholesterol in VLDL [Mass/Vol] 14 mg/dL 5-40 [facility] Serum or plasma creatinine m easurement (mass/volume)Ordered By: Dr. Simms on 10-08-2022 Creatinine [Mass/Vol] 0.69 mg/dL 0.55-1.02 [facility] Comment on above: The validity of the calculated GFR & GFRAA in patients over 70 years has not been determined. Clinical correlation is essential. Serum or plasma low density lipoprotein (LDL) cholesterol measurement (mass/volume)Ordered By: Dr. Simms on 10-08-2022 Cholesterol in LDL [Mass/Vol] 177 mg/dL 0-130 [facility] Serum or plasma urea nitroge n measurement (mass/volume)Ordered By: Dr. Simms on 10-08-2022 Urea nitrogen [Mass/Vol] 10 mg/dL 7-18 [facility] Thin prep Papanicolaou smear with manual screeningOrdered By: Dr. Simms on 10-08-2022 Thin prep Papanicolaou smear with manual screening 23 U/L 15-37 [facility] Thin prep Papanicolaou smear with manual screening 8 5-15 [facility] CORONAVIRUS PCR [CCL]on 03-18 REF LAB REPORT Positive Normal [facility] Comment on above: Performed By: #### [id number] #### [facility],[address] [place] [address] SEND TO ? YES Normal [facility] Comment on above: Performed By: #### [id number] #### [facility],[address] [place] [address] CORONAVIRUS PCR [CCL]on 03-18 COVID 19 Result DIRECTOR TOXICOLOGY Positive Abnormal [facility] Comment on above: Result Comment: Posi tive for COVID19 (SARS CoV2) by PCR.(*) This test was developed and its performance characteristics determined by [facility] [place]. This test has been authorized by FDA under an Emergency Use Authorization (EUA). This test has been validated in accordance with the FDA's Guidance Document Policy for Diagnostics Testing in Laboratories Certified to Perform High Complexity Testing under CLIA prior to Emergency use Authorization for Coronavirus Disease 2019 during the Public Health Emergency issued on June 16, 2019. [facility] [address] [place] [address] Jose Antonio Saldivar III, M.D. [id number] Performed By: #### 2 [id number] #### [place] [id number] COVID 19 Source DIRECTOR TOXICOLOGY Nasopharyngeal Swab Normal [facility] Comment on above: Result Comment: Alvaro ected on 03/30 AT 0627: Previously reported as U Performed By: #### [id number] #### [facility],[address] [place] [id number] Coronavirus 2019on 0 COVID 19 Result DIRECTOR TOXICOLOGY Abnormal Negative for COVID19 (SARS CoV2) by PCR. [facility] Comment on above: Result Comment: Posi tive for This test was developed and its performance characteristics determined by [facility]'s [facility] [place]. This test has been authorized by FDA under an Emergency Use Authorization (EUA). This test has been validated in accordance with the FDA's Guidance Document Policy for Diagnostics Testing in Laboratories Certified to Perform High Complexity Testing under CLIA prior to Emergency use Authorization for Coronavirus Disease 2019 during the Public Health Emergency issued on June 16, 2019. COVID19 (SARS This test was developed and its performance characteristics determined by [facility] [place]. This test has been authorized by FDA under an Emergency Use Authorization (EUA). This test has been validated in accordance with the FDA's Guidance Document Policy for Diagnostics Testing in Laboratories Certified to Perform High Complexity Testing under CLIA prior to Emergency use Authorization for Coronavirus Disease 2019 during the Public Health Emergency issued on June 16, 2019. CoV2) by This test was developed and its performance characteristics determined by [facility] [place]. This test has been authorized by FDA under an Emergency Use Authorization (EUA). This test has been validated in accordance with the FDA's Guidance Document Policy for Diagnostics Testing in Laboratories Certified to Perform High Complexity Testing under CLIA prior to Emergency use Authorization for Coronavirus Disease 2019 during the Public Health Emergency issued on June 16, 2019. PCR.(*) This test was developed and its performance characteristics determined by [facility] [place]. This test has been authorized by FDA under an Emergency Use Authorization (EUA). This test has been validated in accordance with the FDA's Guidance Document Policy for Diagnostics Testing in Laboratories Certified to Perform High Complexity Testing under CLIA prior to Emergency use Authorization for Coronavirus Disease 2019 during the Public Health Emergency issued on June 16, 2019. COVID 19 Source DIRECTOR TOXICOLOGY Normal [facility] Comment on above: Result Comment: Naso pharyngeal Corrected on 03/30 AT 0627: Previously reported as U Swab Corrected on 03/30 AT 0627: Previously reported as U Vital Signs Date Time Vital Sign Value Performing Clinician Nely shankar 12-31-2024 15:06-0400 Body height 170.[address] Samuel Simms MD Work Phone: [facility] 12-31-2024 15:06-0400 Body mass index (BMI) [Ratio] 24.7 kg/m2 Dr. Samuel Simms MD Work Phone: [facility] 12-31-2024 15:06-0400 Body temperature 97.2 [degF] Dr. Samuel Simms MD Work Phone: [facility] 12-31-2024 15:06-0400 Body weight 71.[address] Samuel Simms MD Work Phone: [facility] 12-31-2024 15:06-0400 Diastolic blood pressure 72 mm[Hg] Dr. Samuel Simms MD Work Phone: [facility] 12-31-2024 15:06-0400 Heart rate 67 /min Dr. Samuel Simms MD Work Phone: [facility] 12-31-2024 15:06-0400 Respiratory rate 16 /min Dr. Samuel Simms MD Work Phone: [facility] 12-31-2024 15:06-0400 SaO2% (BldA) [Mass fraction] 97 % Dr. Samuel Simms MD Work Phone: [facility] 12-31-2024 15:06-0400 Systolic blood pressure 110 mm[Hg] Dr. Samuel Simms MD Work Phone: [facility] 12-24-2024 09:42-0400 Body height 168 cm Tali Syed MD Work Phone: [facility] 12-24-2024 09:42-0400 Body mass index (BMI) [Ratio] 25.07 kg/m2 Tali Syed MD Work Phone: [facility] 12-24-2024 09:42-0400 Body weight 70.76 kg Tali Syed MD Work Phone: [facility] 12-24-2024 09:42-0400 Diastolic blood pressure 70 mm[Hg] Tali Syed MD Work Phone: [facility] 12-24-2024 09:42-0400 Systolic blood pressure 108 mm[Hg] Tali Syed MD Work Phone: [facility] 02-07-2023 10:49-0400 Body temperature 97 [degF] Dr. Samuel Simms Work Phone: [facility] 02-07-2023 10:49-0400 Diastolic blood pressure 61 mm[Hg] Dr. Samuel Simms Work Phone: [facility] 02-07-2023 10:49-0400 Heart rate 52 /min Dr. Samuel Simms Work Phone: [facility] 02-07-2023 10:49-0400 Respiratory rate 16 /min Dr. Samuel Simms Work Phone: [facility] 02-07-2023 10:49-0400 SaO2% (BldA) [Mass fraction] 97 % Dr. Samuel Simms Work Phone: [facility] 02-07-2023 10:49-0400 Systolic blood pressure 90 mm[Hg] Dr. Samuel Simms Work Phone: [facility] 02-07-2023 09:13-0400 Body height 170.[address] Samuel Simms Work Phone: [facility] 02-07-2023 09:13-0400 Body mass index (BMI) [Ratio] 24.8 kg/m2 Dr. Samuel Simms Work Phone: [facility] 02-07-2023 09:13-0400 Body weight [address] Samuel Simms Work Phone: [facility] 12-08-2022 11:38-0400 Body mass index (BMI) [Ratio] 23.5 kg/m2 Dr. Samuel Simms Work Phone: [facility] 12-08-2022 11:38-0400 Body weight 68.[address] Samuel Simms Work Phone: [facility] 10-08-2022 11:17-0400 Body height 171.[address] Drake Cruz Work Phone: [facility] 10-08-2022 11:17-0400 Body mass index (BMI) [Ratio] 23.7 kg/m2 Dr. Drake Cruz Work Phone: [facility] 10-08-2022 11:17-0400 Body temperature 97.1 [degF] Dr. Drake Cruz Work Phone: [facility] 10-08-2022 11:17-0400 Body weight 69.[address] Drake Cruz Work Phone: [facility] 10-08-2022 11:17-0400 Diastolic blood pressure 78 mm[Hg] Dr. Drake Cruz Work Phone: [facility] 10-08-2022 11:17-0400 Heart rate 73 /min Dr. Drake Cruz Work Phone: [facility] 10-08-2022 11:17-0400 Respiratory rate 16 /min Dr. Drake Cruz Work Phone: [facility] 10-08-2022 11:17-0400 SaO2% (BldA) [Mass fraction] 99 % Dr. Drake Cruz Work Phone: [facility] 10-08-2022 11:17-0400 Systolic blood pressure 114 mm[Hg] Dr. Drake Cruz Work Phone: [facility] 05-19-2022 13:05-0500 Body height 171.[address] Drake Cruz Work Phone: [facility] 05-19-2022 13:05-0500 Body mass index (BMI) [Ratio] 23.9 kg/m2 Dr. Drake Cruz Work Phone: [facility] 05-19-2022 13:05-0500 Body weight 70.[address] Drake Cruz Work Phone: [facility] Encounters Encounter Date Encounter Type Care Provider Facility Start: 02-28-2025 ambulatory Tahira Gomez Magnus ty:[facility] Start: 02-27-2025 End: 02-27-2025 Emergency department patient visit Quentin Hart Facility:[facility] Start: 02-24-2025 End: 02-24-2025 Emergency department patient visit Chato Montemayor Facility:[facility] Start: 02-24-2025 End: 02-24-2025 ambulatory HAYDE LI Facility:[facility] Start: 01-11-2025 Encounter for genera l adult medical examination [facility] Start: 12-31-2024 End: 12-31-[address] Samuel Simms MD -[facility] Work Phone: Start: 12-31-2024 End: 12-31-[address] Samuel Simms MD [facility] Start: 12-31-2024 End: 12-31-[address] Samuel Simms MD Work Phone: -[facility] Comment on above: Received Outside Med ical Records Start: 12-31-2024 End: 12-31-2024 ambulatory [facility] Facility:[facility] Start: 12-24-2024 End: 12-24-2024 Patient encounter procedure Tali Syed MD Work Phone: OB/Gynecology Comment on above: Encounter for gyneco logical examination (general) (routine) without abnormal findings (Primary Dx); Encounter for screening mammogram for breast cancer; Dyspareunia in female Start: 12-24-2024 End: 12-24-2024 Patient encounter status Tali Syed MD Work Phone: [facility] Work Phone: Start: 12-24-2024 End: 12-24-2024 ambulatory TALI SYED Facility:[facility] Start: 12-24-2024 Encounter for gynecological examination (general) (routine) without abnormal findings TALI SYED [facility] Start: 12-06-2024 End: 12-06-[address] Samuel Simms MD Work Phone: -Outpatient Breast Imaging Start: 12-06-2024 End: 12-06-[address] Samuel Simms MD -[facility] Work Phone: Start: 12-06-2024 End: 12-06-2024 ambulatory Samuel Simms Facility:[facility] Start: 12-03-2024 End: 12-03-[address] Samuel Simms MD Work Phone: -Outpatient Breast Imaging Start: 12-03-2024 End: 12-03-[address] Samuel Simms MD -[facility] Work Phone: Start: 12-03-2024 End: 12-03-2024 ambulatory Samuel Simms Facility:[facility] Start: 02-16-2023 End: 02-16-[address] Samuel Simms Work Phone: [facility] Work Phone: Start: 02-16-2023 End: 02-16-[address] Samuel Simms Work Phone: [facility]atory, [facility] Start: 02-07-2023 Non-patient / Non-visit Dr. Geraldine Simms Work Phone: [facility] Start: 02-07-2023 End: 02-07-2023 Admission to same day surgery center Dr. Samuel Simms Work Phone: [facility]End[facility] Work Phone: Start: 02-07-2023 End: 02-07-[address] Samuel Simms Work Phone: [facility] Work Phone: Start: 12-08-2022 Non-patient / Non-visit Dr. Geraldine Simms Work Phone: [facility] Work Phone: Start: 10-08-2022 End: 10-08-[address] Drake Cruz Work Phone: [facility] Work Phone: Start: 10-08-[address] Jerardo Cruz Work Phone: [facility] Start: 10-08-2022 End: 10-08-2022 Encounter for general adult medical examination without abnormal findings Dr. Drake Cruz Work Phone: [facility] Start: 10-08-2022 End: 10-08-[address] Drake Cruz Work Phone: [facility] Start: 07-22-2022 End: 07-22-[address] Drake Cruz Work Phone: [facility] Work Phone: Start: 07-22-2022 End: 07-22-[address] Drake Cruz Work Phone: [facility]-Outpatient Breast Imaging Start: 05-19-2022 End: 05-19-[address] Drake Cruz Work Phone: [facility] Start: 03-28-2020 End: 03-28-2020 Patient encounter procedure HOLA PATEL [facility] Procedures Date Procedure Procedure Detail Performing Clinician [...] Office Visit OB/Gynecology [address] [place], [place] [id number] Tali Syed MD [address] [place] [address] annual OB/Gynecology Comment on above: annual Start: 12-31-2024 CBC W Auto Different ial panel - Blood [facility] Start: 12-31-2024 Comprehensive metabo lic 2000 panel - Serum or Plasma [facility] Start: 12-31-2024 Lipid 1996 panel - S sarah or Plasma [facility] Start: 12-17-2024 Influenza vaccination Influenza Vacc ine (#1) [facility] Start: 12-21-2023 Pneumococcal Vaccine : 50+ (1 of 1 - PCV) Pneumococcal Vaccine: 50+ (1 of 1 - PCV) [facility] Start: 12-21-2023 Shingrix Vaccine (1 of 2) Sorensen grix Vaccine (1 of 2) [facility] Start: 02-07-2023 Colonoscopy flx dx w /collj spec when pfrmd DIAGNOSTIC COLONOSCOPY [facility] Start: 02-07-2023 Patient [facility] Start: 10-08-2022 Patient referral [facility] Work Phone: Start: 2018 Diabetes Screening Diabetes Screenin g [facility] Start: 2018 Lipid panel Lipid Screening [facility] Start: 2018 Screening for malign ant neoplasm of colon [facility] Start: 2013 Screening for malign ant neoplasm of breast Mammogram Screening [facility] Start: 09-30-2013 Screening for malign ant neoplasm of cervix Cervical Cancer Screening [facility] Start: 1992 Hepatitis B Vaccine (1 of 3 - 19+ 3-dose series) Hepatitis B Vaccine (1 of 3 - 19+ 3-dose series) [facility] Start: 1992 Urine microalbumin profile DTa P,Tdap,Td Vaccine (1 - Tdap) [facility] Start: 12-21-1991 Anxiety Screening Anxiety Screening [facility] Start: 12-21-1991 Depression Screening Depression Scre ening [facility] Start: 12-21-1991 Hepatitis C screening Hepatitis C Sc reening [facility] Start: 12-21-1991 HIV screening HIV Screening [facility] Alanine aminotransfe rase [Enzymatic activity/volume] in Serum or Plasma [facility] Albumin [Mass/volume ] in Serum or Plasma [facility] Alkaline phosphatase [Enzymatic activity/volume] in Serum or Plasma [facility] Anion gap in Serum o r Plasma [facility] Bilirubin, total measurement [facility] BUN/Creatinine ratio [facility] Calcium [Mass/volume ] in Serum or Plasma [facility] Carbon dioxide, tota l [Moles/volume] in Central venous blood [facility] Cholesterol [Mass/vo lume] in Serum or Plasma [facility] Cholesterol in HDL [Mass/volume] in Serum or Plasma [facility] Colonoscopy [facility] Creatinine [Mass/vol ume] in Serum or Plasma [facility] End: 01-23-2026 DBT Breast - bilateral screening ALICIA SCREENING [facility] Radiology Routine Encounter for gynecological examination (general) (routine) without abnormal findings Encounter for screening mammogram for breast cancer 1 Occurrences starting 12/24/2024 until 01/23/2026 [facility] Work Phone: Comment on above: 1 Occurrences starti ng 12/24/2024 until 01/23/2026 Erythrocyte mean corpuscular volume determination [facility] Glucose [Mass/volume ] in Serum or Plasma [facility] Hematocrit [Volume Fraction] of Blood [facility] Hemoglobin [Mass/vol ume] in Blood [facility] Leukocytes [#/volume ] in Blood [facility] Low density lipoprot ein cholesterol measurement [facility] Mean corpuscular hemoglobin concentration determination [facility] Mean corpuscular hemoglobin determination [facility] Measurement of renal function [facility] Neutrophil count [facility] Neutrophil percent differential count [facility] Patient referral [facility] Work Phone: Platelets [#/volume] in Blood [facility] Potassium measurement [facility] Red blood cell count [facility] Red cell distributio n width determination [facility] Serum chloride measurement [facility] Sodium measurement [facility] Total cholesterol:HD L ratio measurement [facility] Total protein measurement [facility] Triglycerides measurement [facility] Urea nitrogen [Mass/volume] in Serum or Plasma [facility] VLDL cholesterol measurement [facility] Payers Date Payer Category Payer Self-pay [id number] 2024 Self-pay [id number] 2018 Private Health Insurance MMO [employer] PPO [id number] 2013 Unknown [id number] 1975 Unknown [id number] Unknown [facility] PACKAGE PLAN 0 [id number] Unknown [id number] Unknown [id number] Unknown [id number] Unknown [id number] Unknown [id number] Unknown [id number] Unknown [id number] Social History Date Type Detail Facility Start: 05-19-2022 End: 02-02-2023 Tobacco smoking status HIIS Unknown if ever smoked [facility] Start: 1975 Sex Assigned At Female [facility] Start: 09-18-2024 End: 12-31-2024 Tobacco smoking status HIIS Never smoked tobacco (finding) [facility] Start: 12-24-2024 Alcoholic beverage intake Current non-drinker of alcohol (finding) [facility] Start: 12-24-2024 History of Social function [facility] Start: 12-24-2024 Tobacco use panel [facility] Start: 03-19-2012 National Score (1-10 0), lower number is lower risk 48 [facility] Start: 1975 Sex assigned at Not on file [facility] Sexual Orientation Heterosexual (finding) [facility] Goals Date Patient Goal Desired Activity /State Functional Status Date Assessment Result Facility 07-20-2014 Are you deaf, or do you have serious difficulty hearing No 07/20/2014 10:25 AM Melany Presley MA No [facility] 07-20-2014 Are you blind, or do you have serious difficulty seeing, even when wearing glasses No 07/20/2014 10:25 AM Melany Presley MA No [facility] 07-20-2014 Do you have serious difficulty walking or climbing stairs No 07/20/2014 10:25 AM EDT Melany Dennis MA No [facility] 07-20-2014 Do you have difficul ty dressing or bathing No 07/20/2014 10:25 AM EDT Melany Dennis MA No [facility] 07-20-2014 Because of a physica l, mental, or emotional condition, do you have difficulty doing errands alone such as visiting a physician's office or shopping No 07/20/2014 10:25 AM EDT Melany Dennis MA No [facility] Mental Status Date Assessment Result Facility 02-07-2023 Cognitive function Touch/Shaking [facility] Work Phone: 07-20-2014 Because of a physica l, mental, or emotional condition, do you have serious difficulty concentrating, remembering, or making decisions No 07/20/2014 10:25 AM EDT Melany Dennis MA [facility] Clinical Notes 02-07-2023 to 02-24-2025 Note Date & Type Note Facility 02-24-2025 Note HNO ID: [id number] Author: HAYDE LI APRN.HOSPITAL PHARMACIST Service: ? Author Type: Nurse Practitioner Type: Progress Notes Filed: 02/24/2025 08:51 Note Text: URGENT CARE [facility] Lou Mcgraw is a 49 year old [...] be transported by her . Hayde Li APRN.HOSPITAL PHARMACIST History and Record Review Systemic symptoms present included: Abdominal pain Differential Diagnoses - Bowel obstruction Disposition The patient was transferred to ED. Procedures [facility] 12-31-2024 Evaluation note Diagnosis Onset Date Resolution Hyperlipidemia acute December 31, 2024 2:28pm Preventative health care acute December 31, 2024 2:28pm [facility] Work Phone: 1(425) 650-250409-15-2025 NoteHNO ID: [id number] Author: LOU RODRIGUEZ RN Service: ? Author Type: Registered Nurse Type: Progress Notes Filed: 12/31/2024 08:52 Note Text: Received records from [place]. To CHANDAN to review. Lou [facility] History of Present illness Narrative* Lou Rodriguez RN - 12/31/2024 8:52 AM EDT Received records from [place]. To CHANDNA to review. Lou Rodriguez RN [facility] Instructions* Patient Instructions* Tali Syed MD - 12/24/2024 10:05 AM EDT Lubricants and moisturizers list The thft-ful-sicnggs vaginal moisturizer and lubricant products can be [...] counter. Many can be bought in any [employer] or online. Also, many [employer] stores do carry high-quality lubricant products. VAGINAL [...] lube Replens Silky Smooth Pulse Aloe-ahh Wet Waterproof RASHIDA Premium Personal Lubricant PINK Silicone Lubricant [...] vaginal moisturizer makes them feel more comfortable. Rubber Engraver beware: many lubricants arelabeled as moisturizers to [...] also be applied externally for comfort. Desert Rhame Aloe [place]: Many people are allergic to aloe, so keep this in mind with products like this that have aloe in it. Medicine Mama s V magic: Not much medical studies on this, but many patients swear by it, has oil, beeswax and honey in it- best used externally only. Non-Hormonal Ways to [place] with Hot Flashes and Menopause Hormone therapy [...] stress. Identify and avoid your hot flash triggers. Some women notice hot flashes when they [...] Tofu, silken 27.91 Tofu, yogurt 16.30 Source: [facility] Database on the Isoflavone Content [...] black cohosh and soy products) are available nxfc-jtf-rfqdzxw but are not FDA-approved.Some prescription medications are used off label to help reduce hot flashes. Using a product off label means that it is not FDA approved [...] some of the other options. Non-prescription, herbal, jhmc-nzq-vtteajt therapies: Drug Side Effects Effectiveness Evening [place] Oil Nausea, diarrhea, headache. Only one well-designed [...] per day compared to placebo. Are the jlet-loe-hilpgwd herbal products (botanicals) safe? While safe when [...] promoted. Be cautious of products promoted through: [employer] Direct mailings [employer] Ads disguised as valid news articles Ads in the back of magazines Additional red flags to look for include: Big claims: If products claim to be a cure for your condition, or gives outrageous claims, be cautious. Source: Be wary if the product is only offered through one viscosity worker or purchased only through [facility] provider s office. Ingredients: Make sure all of the active ingredients are listed, and don t trust secret formulas. Testimonials: Remember that only people who are satisfied with a product give testimonials and thatthey may be getting paid for their endorsement References: National Center for Complementary and Alternative Medicine. Vitamin E. nccam.nih.gov Assessed 2012 Ha Guzman et al. meta-analysis: High Dosage Vitamin E. Supplementation Might Increase All Cause Mortality. Annals of Internal Medicine April 21, 2004. annals.org National Center for Complementary and Alternative Medicine. Menopausal Symptoms and CAM. nccam.nih.gov Accessed July 17, 2012 [place] Men[employer], Hormone Therapy for women in 2012. www.menopause.org Assessed July 17, 2012 [place] [employer] of Obstetricians and Gynecologists. Publications. The Menopause Years. www.acog.org Accessed 06/15/2010 Centers for Disease Control and Prevention. Women s Reproductive Health: Menopause. www.cdc.gov Accessed 06/15/2010 National [place] on Aging. Age Page: Menopause. www.cuba.nih.gov Accessed 06/15/2010 documented in [facility] encounter[facility]25 NoteHNO ID: [id number] Author: TALI SYED MD Service: ? Author Type: Physician Type: Progress Notes Filed: 12/24/2024 12:55 Note Text: Dowel Inspector offered: Patient declines. Blake is a 49 [...] OB History No obstetric history on file. 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 As applicable, any other physician, advance practice provider, medical student, or other health professional student that will be observing or involved in the sensitive examination for educational or training purposes was discussed with the Patient or Authorized Cocoa Powder Mixer Operator. The Patient or Authorized Cocoa Powder Mixer Operator has agreed to proceed with the sensitive examination. (Sensitive examination includes inspection and/or palpation of the breasts, pelvis, prostate and anorectal regions). EXAM: BP 108/70 Ht 5' 6.142 (1.68m) Wt 156 lb (70.8kg) LMP 03/02/2010 BMI 25.07 kg/(m2). GENERAL: pleasant, female in no apparent distress HEENT: Normocephalic and atraumatic NECK: full range of motion BREAST: soft, non-tender, symmetric, no dominant mass, normal nipple-areolar complex, no lymphadenopathy, and no nipple discharge CHEST: Normal inspiratory effort ABDOMEN: soft, non-tender, and no masses PELVIC: external genitalia with atrophic changes, normal Bartholin's glands, urethra, [place]'s glands, no vulvar lesions, no cervical lesions, [...] one year or sooner as needed [facility] History of Present illness Narrative* Tali Syed MD - 12/24/2024 9:23 AM EDT Dowel Inspector offered: Patient declines. Lou is a 49 [...] OB History No obstetric history on file. 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 As applicable, any other physician, advance practice provider, medical student, or other health professional student that will be observing or involved in the sensitive examination for educational or training purposes was discussed with the Patient or Authorized Cocoa Powder Mixer Operator. The Patient or Authorized Cocoa Powder Mixer Operator has agreed to proceed with the sensitive examination. (Sensitive examination includes inspection and/or palpation of the breasts, pelvis, prostate and anorectal regions). EXAM: BP 108/70 Ht 5' 6.142 (1.68m) Wt 156 lb (70.8kg) LMP 03/02/2010 BMI 25.07 kg/(m^2). GENERAL: pleasant, female in no apparent distress HEENT: Normocephalic and atraumatic NECK: full range of motion BREAST: soft, non-tender, symmetric, no dominant mass, normal nipple-areolar complex, no lymphadenopathy, and no nipple discharge CHEST: Normal inspiratory effort ABDOMEN: soft, non-tender, and no masses PELVIC: external genitalia with atrophic changes, normal Bartholin's glands, urethra, [place]'s glands, no vulvar lesions, no cervical lesions, [...] needed Tali Syed DO documented in [facility]23 Procedure [facility]10[facility]Evaluation [facility]* Diagnosis Onset Date Resolution Status Right lateral epicondylitis acute [facility] Work Phone: Evaluation note* Diagnosis Onset Date Resolution Status Colon cancer screening acute [facility] health care acu te [facility] Work Phone: Evaluation note* Diagnosis Onset Date Resolution Status Colon cancer screening acute [facility] Work Phone: Evaluation noteNo assessment information available [facility] Work Phone: Evaluujsck note* Diagnosis Encounter for gynecological examination (general) (routine) without abnormal findings- Primary Encounter for screening mammogram for breast cancer Dyspareunia in female documented in this encounter [facility] Author Bruno Bass [facility] February 07, 2023 9:56am Note Date/Time February 07, 2023 9 :57am [facility] Medical Records Department [address] [place] [id number] History & Physical Exam 02/07/23 0955 MR#: [id number] Acct: [id number] Name: LOU MCGRAW Rep #:[id number] : 1975 47 From: Bruno Bass DO PCP: Dr. Samuel Simms MD Status:R [facility] Location: [place] [address] HPI - General General Date of Admission: [...] is in very good health. [facility] Medical History (Updated 02/02/23 @ 11:32 by [...] Samuel Simms MD; Bruno Friend, DO~ Signed [facility] Work Phone: Reason for referral (narrative)No reason for referral information availableWFostoria City Hospital Work Phone: Summary Purpose Family History [...] Date/ Time Name of Medical Power of Library Serials Assistant AKBAR MCGRAW February 02, 2023 11:32am Living Will Yes February 02 11:32am Power of Library Serials Assistant Yes February 02, 2023 11:32am Advance Directive Response Recorded Date/ Time Name of Medical Power of Library Serials Assistant AKBAR MCGRAW February 02, 2023 10:32am Living Will Yes February 02 10:32am Power of Library Serials Assistant Yes February 02, 2023 10:32am Chief Complaint and Reason for Visit Chief Complaint RIGHT ELBOW RM 4 XRAY MASTODYNIA Reason for Visit Right lateral epicon dylitis Chief 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 EST CARE - PPW SENT Reason for [...] section and content) DATE CREATED AUTHOR 03/31/2020 [facility] DATE CREATED AUTHOR AUTHOR'S ORGANIZ ATION 04/04/2020 [facility] DATE CREATED AUTHOR AUTHOR'S ORGANIZ ATION 02/25/2025 [facility] DATE CREATED AUTHOR AUTHOR'S ORGANIZ ATION 02/28/2025 [facility] Care Teams (unrecognized sec tion and content) [...] Care Provider, Refer ring Provider Active Dr. Bruon Bass DO Attending Provider, Other Prov ider Active Team Status: Inactive Member Role Status Dates Dr. Samuel Simms MD Primary Care Provider, Refer ring Provider Active Dr. Bruno Friend , DO Attending Provider Active Team Status: Inactive [...] December 06, 2024 End: December 06, 2024 Forensic Audit Expert Relationship Specialty Start Date End Date Drake [...] Referring Provider Active Start: December 31, 2024 Forensic Audit Expert Relationship Specialty Start Date End Date Drake [...] or prosecute any alcohol or drug abuse patient.[facility] HospitalIn the event this information is protected by the Federal Confidentiality of Alcohol and Drug Abuse Patient Records regulations: The Federal rules restrict any use of the information to criminally investigate or prosecute any alcohol or drug abuse patient.[facility] Reason for Visit (unrecogniz ed section [...] BE BASED ON THE PRIMARY CLINICAL RECORDS. [employer] [facility]. provides no warranty or guarantee of the accuracy or completeness of information in this document.
--- NOTE | 2025-03-15 06:38 | PRE.ANES_ITS ---
ASA Classification* ASA Classification ASA Classification: 2 Assessment & Plan Anesthesia* Anesthesia Assessment Anesthesia Assessment: Discussed sedation and/or anesthesia options, risks, benefits, and alternatives with patient/parents/legal guardian/POA. Questions invited. The patient/parents/legal guardian/POA seems to understand and agrees to proceed with anesthesia plan. Reviewed the physical assessment, medical history, allergy history and patient home medications list prior to surgery/procedure/anesthetic and documented any changes. Performed airway and anesthesia risk assessments. Anesthesia Type Anesthesia Type: MAC Anesthesia Focused Assessment* Temperature: 97.1 F Pulse Rate: 76 Blood Pressure: 109/77 Respiratory Rate: 16 Pulse Ox: 100 Airway Assessment Mouth opens: >3 cm Mallampati Score: II Labs Anesthesia Preop lab: CBC WBC, (4.4-11.0) 3.5 K/mm3 L 03/02/25, 03:42 RBC, (4.2-5.4) 4.82 M/mm3 03/02/25, 03:42 Hgb, (12.0-15.0) 14.0 g/dL 03/02/25, 03:42 Hct, (37-47) 39.9 % 03/02/25, 03:42 Plt Count, (150-450) 250 K/mm3 03/02/25, 03:42 CHEMISTRY Potassium, (3.3-5.1) 3.5 mmol/L 03/02/25, 03:42 Sodium, (133-145) 137 mmol/L 03/02/25, 03:42 Magnesium, (1.5-2.2) 2.1 mg/dL 02/27/25, 06:37 BUN, (4-19) 7 mg/dL 03/02/25, 03:42 Creatinine, (0.70-1.20) 0.65 mg/dL L 03/02/25, 03:42 Glucose, (70-99) 109 mg/dL H 03/02/25, 03:42 TSH, (0.300-4.200) 1.160 uIU/mL 02/27/25, 06:37 COAG Pre-Assessment Diagnosis/Proposed Procedure Planned Operative Procedure(s): EGD Anesthesia History 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 When Was Last Pacemaker Check QUESTION #4 FULL TEXT: You/Your Family Experience fever (hyperthermia) with Anesthesia Last Oral Intake Last Oral intake: Last Oral Intake NPO since 00:00 03/15/25 06:29 Meds taken in AM with sips of No 03/15/25 06:29 water? Meds patient instructed to take am of surgery PONV PONV - library acquisitions technician: PONV - library acquisitions technician Female Yes 03/12/25 13:30 HX of Motion Sickness No 03/12/25 13:30 HX of N/V After Surgery Yes 03/12/25 13:30 Non-Smoker Yes 03/12/25 13:30 Duration of Surgery greater No 03/12/25 13:30 than 60 minutes Number of Risk Factors 3 03/12/25 13:30 PONV Score Moderate Risk 03/12/25 13:30 Height & Weight Height & Weight: Anesthesia: Height & Weight Height 5 ft 7 in 03/15/25 06:29 Weight: 72 kg 03/15/25 06:29 Body Mass Index (BMI) 24.8 03/15/25 06:29 Respiratory Assessment Respiratory Assessment - library acquisitions technician: Respiratory Tract Infection Hx - library acquisitions technician Hx Respiratory Tract Infection No 03/12/25 13:30 STOP Sleep Apnea STOP Sleep Apnea - library acquisitions technician: STOP Sleep Apnea - library acquisitions technician Hx Hypertension No 03/12/25 13:30 Hx Sleep Apnea No 03/12/25 13:30 CPAP BIPAP Do you snore loudly (louder No 03/12/25 13:30 than talking or can be heard Do you often feel tired/ No 03/12/25 13:30 fatigued/ sleepy during daytime? Has anyone observed you stop No 03/12/25 13:30 breathing during sleep? STOP Results Negative 03/12/25 13:30 QUESTION #5 FULL TEXT : Do you snore loudly (louder than talking or can be heard through closed doors)? 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 Specify any problems Hx of Preganancy in last 3 No 03/12/25 13:30 Months Nurse Filling Out Transfusion VCHRISTIN 03/12/25 13:30 & Questions: Date: 03/12/25 03/12/25 13:30 Time: 13:31 03/12/25 13:30 Patient unable to answer at this time (ie. confused, unrespo /Reproduction History /Reproductive History - library acquisitions technician: /Reproductive Hx- library acquisitions technician Hx Now No 03/12/25 13:30 Gestational Age (in weeks): EDC: Hx Hx Para Hx Section SAB No 03/12/25 13:30 Does the father of the baby or his family experience fever w Father of the baby Malignant Hypertension history comment Active Medications Active Medications: Current Medications Generic Name Dose Route Start Last Admin Trade Name Freq PRN Reason Stop Dose Admin Lactated Ringer's 1,000 mls @ 15 mls/hr 03/15/25 06:15 IV .Q48H KEYUR PFSH Medical History (Updated 03/12/25 @ 13:30 by Zuleika Albert) Back pain Non-smoker High cholesterol Post-menopausal Alcohol use History of steroid therapy Blood disorder Injury of head and neck Hyperlipidemia Colon cancer screening Preventative health care Hx of Fine's palsy Right lateral epicondylitis Anemia Home Medications ?Medication ?Instructions ?Recorded ?Last Taken ?Type black cohosh 200 mg capsule 140 mg PO BID 12/31/24 Unk nown History Held on 03/12/25. Instructions: NOT TAKING SINCE SHE'S BEEN SICK [id number] 1 tab PO QDAY 12/31/24 Un known History tablet (Multivitamin 50 Plus tablet) linaclotide 72 mcg capsule 72 mcg PO QAM #30 caps 02/16 07/10 Unknown Rx (Linzess) pantoprazole 40 mg tablet,delayed 40 mg PO DAILY 03/02 Unknown History release Allergy/AdvReac Type Severity Reaction Status Date / Time tetracycline Allergy Intermediate Hives Verified 03/12/25 13:23 Family History Mother Arthritis High cholesterol Father Diabetes Hypertension Melanoma Pulmonary embolism Colon polyp Lewy body dementia Maternal Grandfather Alcoholism Arthritis Diabetes Hypertension Myocardial infarction Grandmother Arthritis History of blood transfusion Diabetes Type 1 Kidney disease Uncle Colon cancer Maternal Grandmother Ovarian cancer Surgical History S/P colonoscopy History of hysterectomy History of delivery History of lateral meniscus repair of left knee Hx of reconstruction of anterior cruciate ligament tear Hx of appendectomy Social History adopted: No household members: spouse number of children: 2 current occupational status: employed 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
[2025-03-15] MEDS: Lactated Ringers 1,000 ML 15 ML IV (07:00)
--- NOTE | 2025-03-15 07:15 | EGD_PTH ---
PATIENT: GORAN MCGRAW LOC: EN U#:[id number] AGE/SX: 49/F ROOM: RE03/15/[address]: Dr. Bruno Bass DO : 1975 BED: DIS: 03/15/2025 SPEC #: [id number] RECD: 03/15/25 09:43 STATUS: DEBBY REQ #: [id number] TALIB: 03/15/25 07:[address]: Bruno Bass DEPT: SURGICAL PATHOLOGY RECD BY: Fan Edwards ENTERED: 03/15/25 10:29 SP TYPE: EGD BIOPSY TERRANCE DR: Dr. Samuel Simms MD Tissues: A - Duodenum, NOS B - Gastric mucous membrane Procedures: Surgery Specimen Level IV HEADER OPERATION: EGD with biopsy PRE-OP DIAGNOSIS: Abdominal pain TISSUE SUBMITTED: A- Duodenum biopsy, B- Gastric body biopsy MICROSCOPIC DIAGNOSIS A. Small intestine, duodenum, biopsy: - Normal villous architecture with Remigio gland hyperplasia. - Negative for increased intraepithelial lymphocytes. B. Stomach, body, biopsy: - Oxyntic mucosa with features of reactive gastropathy. - Negative for Helicobacter-like organisms (H&E). MICROSCOPIC DESCRIPTION Slides are reviewed. GROSS DESCRIPTION A. Received in fixative is one container labeled with the patient's name and designated Duodenum biopsy. The specimen consists of three irregular fragments of patrick tissue that measure 0.3 to 0.4 cm. The specimen is totally submitted in one cassette. B. Received in fixative is one container labeled with the patient's name and designated Gastric body biopsy. The specimen consists of two irregular fragments of patrick tissue, each measuring 0.5 cm. The specimen is totally submitted in one cassette. CO 03/15/2025 CPT:63495l1
--- NOTE | 2025-03-15 07:43 | PCM.HP.STD ---
HPI - General General Date of Admission: 03/15/25 Date of Service: 03/15/25 Chief Complaint: Abdominal pain HPI Narrative LOU MCGRAW, is a 49 F who presents [Chief Complaint: Abdominal pain Colonoscopy 02/07/2023 The entire examined colon is normal. - No specimens collected. [facility] ED 02/24/2025 for abdominal pain, diarrhea and nausea x 4 days. Workup with laboratory testing and right upper quadrant ultrasound largely unremarkable given fluids Zofran and Toradol which improved her symptoms. Started on pantoprazole and Carafate for 1 week. [facility] ED 02/27/25 with back pain and abdominal pain. CT abdomen pelvis without acute abnormalities but did show constipation OV 02/28/2025 patient took 2 Dulcolax after going home from the ED and had liquid stool. Her back pain resolved. She does still have some epigastric pain. She continues with pantoprazole. Patient notes that she has chronic constipation with a bowel movement every few days. In the past she was on MiraLAX daily. She has never had an EGD before. ] [facility] Medical History Back pain Non-smoker High cholesterol Post-menopausal Alcohol use History of steroid therapy Blood disorder Injury of head and neck Hyperlipidemia Colon cancer screening Preventative health care Hx of Fine's palsy Right lateral epicondylitis Anemia Home Medications ?Medication ?Instructions ?Recorded ?Last Taken ?Type black cohosh 200 mg capsule 140 mg PO BID 12/31/24 Unknown History Held on 03/12/25. Instructions: NOT TAKING SINCE SHE'S BEEN SICK [id number] 1 tab PO QDAY 12/31/24 Unknown History tablet (Multivitamin 50 Plus tablet) linaclotide 72 mcg capsule 72 mcg PO QAM #30 caps 02/28/25 Unknown Rx (Linzess) pantoprazole 40 mg tablet,delayed 40 mg PO DAILY 03/02/25 Unknown History release Allergy/AdvReac Type Severity Reaction Status Date / Time tetracycline Allergy Intermediate Hives Verified 03/12/25 13:23 Family History Mother Arthritis High cholesterol Father Diabetes Hypertension Melanoma Pulmonary embolism Colon polyp Lewy body dementia Maternal Grandfather Alcoholism Arthritis Diabetes Hypertension Myocardial infarction Grandmother Arthritis History of blood transfusion Diabetes Type 1 Kidney disease Uncle Colon cancer Maternal Grandmother Ovarian cancer Surgical History S/P colonoscopy History of hysterectomy History of delivery History of lateral meniscus repair of left knee Hx of reconstruction of anterior cruciate ligament tear Hx of appendectomy Social History adopted: No household members: spouse number of children: 2 current occupational status: employed 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 pets and animals: No sexually active: Yes Smoking Status: Never smoker alcohol intake: current alcohol intake frequency: a few times a month Alcohol type: wine details: < 3 in 1 sitting substance use type: does not use caffeine: Yes (1-2) Type: coffee what type of physical activity do you participate in: walking and running frequency: 5-6 times per week seatbelt use: always do you feel safe at home: Yes ROS Constitutional Constitutional: Denies fatigue, fever(s), poor appetite, weight gain or weight loss Gastrointestinal Gastrointestinal: Denies belching, bloating, change in bowel habits, change in stool character, chewing difficulty, coffee ground emesis, constipation, cramping, diarrhea, dyspepsia, dysphagia, early satiety, excessive flatus, fecal incontinence, heartburn, hematemesis, hematochezia, hemorrhoids, loose stools, melena, nausea, odynophagia, rectal bleeding, tenesmus, vomiting or weight changes Vital Signs Vital Signs Vital Signs: 03/15/25 06:29 03/15/25 06:29 03/15/25 06:38 Temperature 97.1 F L 97.1 F L Temperature Source Temporal Pulse Rate 76 76 Respiratory Rate 16 16 Respiratory Pattern Normal Blood Pressure 109/77 109/77 Blood Pressure Mean 87 Blood Pressure Source Monitor Blood Pressure Position Semi-Fowlers Blood Pressure Location Right Arm Pulse Ox 100 100 Oxygen Delivery Method Room Air Weight Weight: 158 lb 11.725 oz Body Mass Index (BMI) 24.8 Physical Exam Const alert, oriented x3, no apparent distress and healthy appearing General Appearance: cooperative GI normal to inspection, nondistended, normoactive bowel sounds, soft to palpation, non-tender and non-distended Percussion: normal to percussion Rectal Exam: deferred Assessment & Plan Assessment/Plan (1) Abdominal pain: PLAN: Assessment and Plan Assessment and Plan (1) Nonspecific abdominal pain: Status: Acute Plan: Lou is a healthy 49-year-old female patient here today for follow-up after [facility] ED visit for abdominal pain. Patient presented to the emergency room due to epigastric pain and subsequently had unremarkable workup. She presented again the next day for worsening epigastric pain and back pain. CT abdomen pelvis was without acute processes but did indicate constipation. Patient has a history of constipation with a bowel movement every few days. She went home and took a laxative which improved her back pain. She continues with the pantoprazole and has some epigastric pain still. Recommended EGD for evaluation of her upper GI tract. Last colonoscopy was in 2022 without abnormalities. Recommended starting Linzess 72 mcg daily to control constipation. We may consider colonoscopy in the future. - EGD - Continue pantoprazole - Start Linzess 72 mcg daily -Consider colonoscopy - Follow-up after procedure Note: Portions of this note may have been selectively carried forward from previous documentation to ensure continuity and accuracy of the clinical record. All imported information has been reviewed and updated as necessary to reflect the current patient status, findings, and clinical decision-making for this encounter. [employer] speech recognition sales estimator software was used to create portions of this document. Sound alike and misspelled words, as well as other sales estimator errors may be contained in the documentation. (2) Acute epigastric pain: Status: Acute Medications: New linaclotide (Linzess) 72 mcg PO QAM 30 caps 3RF Refilled pantoprazole 40 mg PO DAILY 30 tabs 2RF
[2025-03-15] MEDS: Lidocaine 1% (5 ml sdv) 5 ML Vial IV (07:51)
--- NOTE | 2025-03-15 07:59 | PCM.POST.ANE ---
Anesthesia: Postop Eval I Current Vital Signs Temperature: 97 F Pulse Rate: 81 Blood Pressure: 133/95 Respiratory Rate: 16 Pulse Ox: 78 Oxygen Delivery Method: Room Air Assessment Airway patent: Yes Spontaneous unlabored respirations: Yes Mental status: Awake and Calm nausea: No Vomiting: No Anesthesia Complication: No Fluid Hydration Crystalloid volume administer (ml): 200 Total IV fluid infused: 200 Progress Note Anesthesia document: Postop Eval 1 completed: Yes
--- NOTE | 2025-03-15 08:06 | PCM.POSTANE2 ---
Anesthesia Postop Eval I Sum Postop Eval Completion status Anesthesia document: Postop Eval 1 completed: Yes Anesthesia Postop Eval I Summary Anesthesia Postop Eval I Summary: Anesthesia Postop Eval I: Assessment Summary Airway patent Yes 03/15/25 07:59 GRAINING PRESS OPERATOR.MDOT Spontaneous unlabored Yes 03/15/25 07:59 GRAINING PRESS OPERATOR.MDOT respirations Mental status Awake,Calm 03/15/25 07:59 GRAINING PRESS OPERATOR.MDOT nausea No 03/15/25 07:59 GRAINING PRESS OPERATOR.MDOT Vomiting No 03/15/25 07:59 GRAINING PRESS OPERATOR.MDOT Anesthesia Postop Eval I: Fluid Summary Crystalloid volume administer 200 03/15/25 07:59 GRAINING PRESS OPERATOR.MDOT (ml) Colloids volume administered ( ml) Blood Product volume administered (ml) Total IV fluid infused 200 03/15/25 07:59 GRAINING PRESS OPERATOR.MDOT Anesthesia Postop Eval I: Summary Notes Anesthesia Complication No 03/15/25 07:59 GRAINING PRESS OPERATOR.MDOT Anesthesia Complication Comment: Post-operative progress note Anesthesia: Postop Eval II Evaluation Mental status: Awake and Calm Pain Level: 0 nausea: No Vomiting: No Complications Anesthesia Complication: No
--- NOTE | 2025-03-15 08:06 | OP.EGD_ITS ---
Patient Name: Lou Camarillo Procedure Date: 03/15/2025 7:48 AM Date of : 1975 Age: 49 Procedure: Upper GI endoscopy Indications: Epigastric abdominal pain, Abdominal pain in the right upper quadrant, Abdominal pain in the left upper quadrant, Functional Dyspepsia Providers: Bruno Bass DO Referring MD: Samuel Simms MD Medicines: Monitored Anesthesia Care Patient Profile: This is a 49 year old female. Refer to note in patient chart for documentation of history and physical. Patient has symptoms of acute left upper quadrant abdominal pain and acute epigastric abdominal pain. Complications: No immediate complications. Procedure: Pre-Anesthesia Assessment: - Prior to the procedure, a History and Physical was performed, and patient medications and allergies were reviewed. The patient is competent. The risks and benefits of the procedure and the sedation options and risks were discussed with the patient. All questions were answered and informed consent was obtained. Patient identification and proposed procedure were verified by the physician in the pre-procedure area. Mental Status Examination: alert and oriented. Airway Examination: normal oropharyngeal airway and neck mobility. Respiratory Examination: clear to auscultation. CV Examination: normal. Prophylactic Antibiotics: The patient does not require prophylactic antibiotics. Prior Anticoagulants: The patient has taken no anticoagulant or antiplatelet agents except for NSAID medication. ASA Grade Assessment: II - A patient with mild systemic disease. After reviewing the risks and benefits, the patient was deemed in satisfactory condition to undergo the procedure. The anesthesia plan was to use monitored anesthesia care (MAC). Immediately prior to administration of medications, the patient was re-assessed for adequacy to receive sedatives. The heart rate, respiratory rate, oxygen saturations, blood pressure, adequacy of pulmonary ventilation, and response to care were monitored throughout the procedure. The physical status of the patient was re-assessed after the procedure. After obtaining informed consent, the endoscope was passed under direct vision. Throughout the procedure, the patient's blood pressure, pulse, and oxygen saturations were monitored continuously. The gastroscope was introduced through the mouth, and advanced to the third part of the duodenum. Small bowel enteroscopy was deemed necessary. The upper GI endoscopy was accomplished without difficulty. The patient tolerated the procedure well. Scope In: 7:54:54 AM Scope Out: 7:57:44 AM Total Procedure Duration Time 0 hours 2 minutes 50 seconds Findings: The examined esophagus was normal. Diffuse mildly erythematous mucosa without bleeding was found in the gastric body. Biopsies were taken with a cold forceps for histology. Biopsies were taken with a cold forceps for Helicobacter pylori testing. Verification of patient identification for the specimen was done. Estimated blood loss was minimal. Patchy mildly erythematous mucosa without active bleeding and with no stigmata of bleeding was found in the entire duodenum. Impression: - Normal esophagus. - Erythematous mucosa in the gastric body. Biopsied. - Erythematous duodenopathy. Recommendation: - Discharge patient to home. - Resume previous diet. - Continue present medications. - Await pathology results. Procedure Code(s): --- Professional --- 80686, Small intestinal endoscopy, enteroscopy beyond second portion of duodenum, not including ileum; with biopsy, single or multiple CPT copyright 2021 [employer]. All rights reserved. The codes documented in this report are preliminary and upon firefighter marine review may be revised to meet current compliance requirements. Bruno Bass DO 03/15/2025 8:05:48 AM This report has been signed electronically. Number of Addenda: 0 Note Initiated On: 03/15/2025 7:48 AM
--- NOTE | 2025-03-15 08:06 | OP.PROVAT_ITS ---
03/15/2025 Samuel Simms MD [address] [place] [address] [place] [address] Re : Upper GI endoscopy procedure for Lou Camarillo Dear Dr. Simms This procedure was performed on Saturday, March 15, 2025. My impressions and recommendations are as follows: Impressions : - Normal esophagus. - Erythematous mucosa in the gastric body. Biopsied. - Erythematous duodenopathy. Recommendations : - Discharge patient to home. - Resume previous diet. - Continue present medications. - Await pathology results. My findings are described in the full procedure note, which is enclosed. If I can be of further assistance, please feel free to contact me at . Sincerely, Bruno Bass, 03/15/2025 8:05:48 AM This report has been signed electronically.
--- NOTE | 2025-03-15 08:06 | POSTOPAN2_ITS ---
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 OFFICER.MDOT Spontaneous unlabored Yes 03/15/25 07:59 MOTOR EQUIPMENT COMMANDING OFFICER.MDOT respirations Mental status Awake,Calm 03/15/25 07:59 MOTOR EQUIPMENT COMMANDING OFFICER.MDOT nausea No 03/15/25 07:59 MOTOR EQUIPMENT COMMANDING OFFICER.MDOT Vomiting No 03/15/25 07:59 MOTOR EQUIPMENT COMMANDING OFFICER.MDOT Anesthesia Postop Eval I: Fluid Summary Crystalloid volume administer 200 03/15/25 07:59 MOTOR EQUIPMENT COMMANDING OFFICER.MDOT (ml) Colloids volume administered ( ml) Blood Product volume administered (ml) Total IV fluid infused 200 03/15/25 07:59 MOTOR EQUIPMENT COMMANDING OFFICER.MDOT Anesthesia Postop Eval I: Summary Notes Anesthesia Complication No 03/15/25 07:59 MOTOR EQUIPMENT COMMANDING OFFICER.MDOT Anesthesia Complication Comment: Post-operative progress note Anesthesia: Postop Eval II Evaluation Mental status: Awake and Calm Pain Level: 0 nausea: No Vomiting: No Complications Anesthesia Complication: No
--- NOTE | 2025-03-15 09:26 | PCM.POST.ANE ---
Anesthesia: Postop Eval I Current Vital Signs Temperature: 97.9 F Pulse Rate: 81 Blood Pressure: 114/73 Respiratory Rate: 18 Pulse Ox: 98 Assessment Airway patent: Yes Spontaneous unlabored respirations: Yes Mental status: Awake nausea: No Vomiting: No Anesthesia Complication: No Fluid Hydration Crystalloid volume administer (ml): 100 Total IV fluid infused: 100 Progress Note Anesthesia document: Postop Eval 1 completed: Yes
--- NOTE | 2025-03-15 09:28 | PCM.POSTANE2 ---
Anesthesia Postop Eval I Sum Postop Eval Completion status Anesthesia document: Postop Eval 1 completed: Yes Anesthesia Postop Eval I Summary Anesthesia Postop Eval I Summary: Anesthesia Postop Eval I: Assessment Summary Airway patent Yes 03/15/25 09:27 Spontaneous unlabored Yes 03/15/25 09:27 respirations Mental status Awake 03/15/25 09:27 nausea No 03/15/25 09:27 Vomiting No 03/15/25 09:27 Anesthesia Postop Eval I: Fluid Summary Crystalloid volume administer 100 03/15/25 09:27 (ml) Colloids volume administered ( ml) Blood Product volume administered (ml) Total IV fluid infused 100 03/15/25 09:27 Anesthesia Postop Eval I: Summary Notes Anesthesia Complication No 03/15/25 09:27 Anesthesia Complication Comment: Post-operative progress note Anesthesia: Postop Eval II Evaluation Mental status: Awake Pain Level: 0 nausea: No Vomiting: No
== END 2025-03-15 08:39 | disposition home or self-care (01) ==
LOC: EN 06:10 → AC 06:13
PROVIDERS: PCP Internal Medicine; Referring Provider Internal Medicine; Visit Provider Internal Medicine Gastroenterology
PROC: 0DJ08ZZ Inspection of Upper Intestinal Tract, Via Natural or Artificial Opening Endoscopic (ICD-10-PCS; CPT 43235; principal; 2025-03-15 07:10)
DX: K31.9 Disease of stomach and duodenum, unspecified (principal); Z79.899 Other long term (current) drug therapy; E78.00 Pure hypercholesterolemia, unspecified; K59.00 Constipation, unspecified
CPT/HCPCS: 44361; 88305